=== PATIENT | male | born 1950 | race Caucasian/White ===

== ENCOUNTER → 2017-03-11 | Outpatient (CLI) | payer OTHER | END | disposition home or self-care (01) | LOC: LABPAT 13:21 | PROVIDERS: ATTEND Urology | DX: Z01.812 Encounter for preprocedural laboratory examination (principal); C67.8 Malignant neoplasm of overlapping sites of bladder; E11.9 Type 2 diabetes mellitus without complications | CPT/HCPCS: 93005 ==

== ENCOUNTER 2017-03-16 06:32 | Day surgery (SDC) | payer OTHER ==
[2017-03-14 13:23] VITALS: BMI 42.0
[~2017-03-16 06:32] MED LIST: DEXAMETHASONE SOD PHOSPHATE 10 MG/ML 1 ML VIAL IV ONE; HYDROmorphone 1 MG/ML 1 ML SYRINGE IVP PRN; LACTATED RINGERS 1,000 ML IV SCH; LIDOCAINE 1% 20 ML VIAL (10MG/ML) FOR IV START INTRADERMA PRN; MIDAZOLAM 2 MG/2 ML VIAL IV PRN; ONDANSETRON 4 MG/2 ML VIAL IVP ONE; Pre Op ABX Message 1 EACH MISC MISCELLANE ONE; SCOPOLAMINE 1.5MG/72HR PATCH TRANSDERM ONE
[2017-03-16 07:24] LABS: Glucose,Whole Blood 241 mg/dL (75-99)
[2017-03-16] MEDS ORDERED: fentaNYL (PF) 50 MCG/ML 2 ML AMP ONE (07:31)
[2017-03-16] MEDS ORDERED: PROPOFOL 10 MG/ML 20 ML VIAL IV ONE (07:31)
[2017-03-16] MEDS ORDERED: SUCCINYLCHOLINE CHLORIDE VIAL 200 MG/10 ML VIAL IV ONE (07:31)
[2017-03-16] MEDS ORDERED: NEOSTIGMINE 1 MG/ML 10 ML VIAL ONE (07:31)
[2017-03-16] MEDS ORDERED: ROCURONIUM BROMIDE 10 MG/ML 10 ML VIAL IV ONE (07:31)
[2017-03-16] MEDS ORDERED: LIDOCAINE 1% INJ 10MG/ML (20 ML MDV) ONE (07:31)
[2017-03-16] MEDS ORDERED: MIDAZOLAM 2 MG/2 ML VIAL ONE (07:31)
[2017-03-16] MEDS ORDERED: GLYCOPYRROLATE 0.2 MG/ML 2 ML VIAL ONE (07:31)
[2017-03-16] MEDS ORDERED: INSULIN LISPRO (humaLOG) 300 UNIT/3 ML VIAL SQ ONE (07:33)
[2017-03-16 08:59] VITALS: TEMP 97.1
--- NOTE | 2017-03-16 09:04 | P.OP ---
Date of Procedure: 03/16/17 Preoperative Diagnosis: Bladder cancer Postoperative Diagnosis: Bladder cancer Procedure(s) Performed: Transurethral resection of bladder tumor Implants: Anesthesia: MEKHIA Surgeon: Lauro Johnson Pathology: other (Fragments of bladder tumor) Condition: stable Disposition: PACU Indications for Procedure: Operative Findings: Description of Procedure: The patient was taken the operating suite where adequate general anesthesia via orotracheal intubation was instituted. The patient was placed in the dorsal lithotomy position with his legs suspended from padded Alan stirrups. Pneumatic compression stockings were applied to the lower legs. The genitalia was prepped with Betadine soap, painted with Betadine solution and draped in a sterile fashion. The 25-Irish Stortz resectoscope sheath with visual obturator and 30 lens was passed through the urethra under direct vision. The anterior urethra was free of inflammatory lesion, tumor and stricture. Prostatic urethra showed evidence of moderate lateral lobe enlargement. No urothelial abnormalities were noted. Both ureteral orifices were normal location and configuration and effluxed clear urine. On the left anterolateral wall was an area of necrotic tissue measuring 3 or 4 cm in diameter. The necrotic tissue was scraped away using the resectoscope loop down to the bladder wall. Unfortunately due to the patient's moribund obesity it was extremely difficult to get the end of the resectoscope up to the bladder wall even with myself and an assistant manager airside operations pushing on in the suprapubic area. The bladder wall under the necrotic tissue appeared to have a neoplastic appearance however no large papillary growths were present. I attempted to resect as much as possible but unfortunately it was impossible to resect down to the muscle due to the limitations of the length of the resectoscope and the patient's obesity. All accessible tissue was resected. The base of the resection was cauterized and at the completion the of procedure hemostasis appeared good. The resected tissue was submitted. The resectoscope was withdrawn. An 18- Irish Hooper catheter was inserted and left to gravity drainage The patient tolerated procedure well and left the operative room awake and in satisfactory condition patient's catheter will remain in place until his urine is clear further recommendations are dependent on the results of the tissue analysis.
[2017-03-16] MEDS ORDERED: KETOROLAC 30 MG/ML 1 ML VIAL IVP ONE (09:10)
[2017-03-16] MEDS ORDERED: MORPHINE SULFATE 4 MG/ML SYRINGE IVP ONE (09:15)
[2017-03-16 10:26] VITALS: BP 165/74; PULSE 69; RESP 18
[2017-03-16] MEDS ORDERED: HYDROmorphone 1 MG/ML 1 ML SYRINGE IVP ONE (10:40)
== END 2017-03-16 11:10 | disposition home or self-care (01) ==
LOC: OR 06:32
PROVIDERS: ATTEND Urology
DX: C67.2 Malignant neoplasm of lateral wall of bladder (principal); E66.01 Morbid (severe) obesity due to excess calories; I12.9 Hypertensive chronic kidney disease with stage 1 through stage 4 chronic kidney disease, or unspecified chronic kidney disease; E11.22 Type 2 diabetes mellitus with diabetic chronic kidney disease; N18.9 Chronic kidney disease, unspecified; E11.40 Type 2 diabetes mellitus with diabetic neuropathy, unspecified; G47.30 Sleep apnea, unspecified; I25.10 Atherosclerotic heart disease of native coronary artery without angina pectoris; E78.5 Hyperlipidemia, unspecified; I73.9 Peripheral vascular disease, unspecified; E78.00 Pure hypercholesterolemia, unspecified; K21.9 Gastro-esophageal reflux disease without esophagitis; Z85.528 Personal history of other malignant neoplasm of kidney; Z79.4 Long term (current) use of insulin; Z79.51 Long term (current) use of inhaled steroids; Z79.82 Long term (current) use of aspirin; Z79.899 Other long term (current) drug therapy; Z88.8 Allergy status to other drugs, medicaments and biological substances; Z88.2 Allergy status to sulfonamides; Z91.041 Radiographic dye allergy status; Z87.891 Personal history of nicotine dependence
CPT/HCPCS: 88342; 88307; 88341; 52235; J2250; J0330; J2270; J2710; J2405; J2001; J3010; J1885; J1170; J2704

== ENCOUNTER 2017-05-13 10:58 | Emergency (ER) | payer OTHER ==
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
--- NOTE | 2017-05-13 13:13 | US ---
EXAMINATION TYPE: US venous doppler duplex UE RT DATE OF EXAM: 05/13/2017 COMPARISON: NONE CLINICAL HISTORY: Pain. Trouble using PICC line with in home nurse SIDE PERFORMED: Right Right Arm: Appears negative for DVT Evaluation of portions of the internal jugular vein, subclavian vein axillary vein, basilic vein, bra chial veins, cephalic vein show color flow and normal compressibility. The basilic vein shows PICC li ne be present extending into the axillary vein. Radial veins show color flow as do the ulnar veins, a nd are compressible. IMPRESSION: Grayscale, color doppler, spectral doppler imaging performed of the deep veins of the upper extremiti es. There is normal flow, compressibility and vascular waveforms. No evident deep venous thrombosis in the veins evaluated in the right upper extremity.
[2017-05-13 13:42] VITALS: BP 133/59; PULSE 63; RESP 18; TEMP 98.7
== END 2017-05-13 13:48 | disposition home or self-care (01) ==
LOC: EC 10:58
DX: T80.89XA Other complications following infusion, transfusion and therapeutic injection, initial encounter (principal); E11.9 Type 2 diabetes mellitus without complications; E78.5 Hyperlipidemia, unspecified; I10 Essential (primary) hypertension; Z88.2 Allergy status to sulfonamides; Z91.041 Radiographic dye allergy status; Z79.4 Long term (current) use of insulin; Z79.82 Long term (current) use of aspirin; Z79.899 Other long term (current) drug therapy; Z87.891 Personal history of nicotine dependence
CPT/HCPCS: 99283

== ENCOUNTER 2017-06-22 14:38 | Inpatient (IN) | payer MEDICARE, OTHER ==
[2017-06-22] MEDS ORDERED: KETOROLAC 60 MG/2 ML VIAL IVP STA (14:47)
[2017-06-22] MEDS ORDERED: HYDROmorphone 1 MG/ML 1 ML SYRINGE IVP STA (14:47)
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
[2017-06-22 16:49] LABS: Basophils # (A) 0.1 k/uL (0-0.2); Basophils % (A) 1 %; CHCM 29.8; Eosinophils # (A) 0.2 k/uL (0-0.7); Eosinophils % (A) 3 %; Hypochromasia Marked; Luc # (Auto) 0.16; Luc % (Auto) 2; Lymphocytes # (A) 1.5 k/uL (1.0-4.8); Lymphocytes % (A) 21 %; MCH 26.3 pg (25.0-35.0); MCHC 31.1 g/dL (31.0-37.0); MCV 84.4 fL (80.0-100.0); Mean Platelet Volume 8.4; Monocytes # (A) 0.4 k/uL (0-1.0); Monocytes % (A) 6 %; Neutrophils # (A) 4.9 k/uL (1.3-7.7); Neutrophils % (A) 68 %; Poikilocytosis Slight; RDW 15.5 % (11.5-15.5); WBC 7.2 k/uL (3.8-10.6); WBC (Perox) 7.31
[2017-06-22 16:59] LABS: Calcium 8.2 mg/dL (8.4-10.2); Magnesium 1.8 mg/dL (1.6-2.3); Potassium 4.5 mmol/L (3.5-5.1); Total Bilirubin 0.1 mg/dL (0.2-1.3); Total Protein 5.8 g/dL (6.3-8.2)
[2017-06-22 17:00] LABS: HCT 18.5 % (39.0-53.0); HGB 5.8 gm/dL (13.0-17.5)
[2017-06-22 17:04] LABS: Partial Thromboplastin Time 22.9 sec (22.0-30.0); Prothrombin Time 9.8 sec (9.0-12.0)
[2017-06-22] MEDS ORDERED: SODIUM CHLORIDE 0.9% 1,000 ML IV ONE (17:06)
[2017-06-22] MEDS ORDERED: SYMBICORT 160-4.5 MCG INHALER INHALATION PRN (18:10)
[2017-06-22] MEDS ORDERED: ALPRAZolam 0.5 MG TAB PO PRN (18:10)
[2017-06-22 18:13] LABS: Glucose,Whole Blood 232 mg/dL (75-99)
[2017-06-22] MEDS ORDERED: FUROSEMIDE 10 MG/ML 4 ML VIAL IV STA (18:27)
[2017-06-22] MEDS: INSULIN LISPRO (humaLOG) 300 UNIT/3 ML VIAL SQ SCH ×2 (18:30→20:41)
--- NOTE | 2017-06-22 19:29 | XR ---
EXAMINATION TYPE: XR chest 1V portable DATE OF EXAM: 06/22/2017 CLINICAL HISTORY: Difficulty breathing progress study. CHF. TECHNIQUE: Single AP portable upright view of the chest is obtained. COMPARISON: Chest x-ray from August 20, 2010 FINDINGS: Cardiomegaly is now identified with new central vascular congestion. No large pleural effu ryann or pneumothorax is seen bilaterally. Scattered small calcified nodules are granulomas are felt r edemonstrated. Visualized osseous structures are intact. IMPRESSION: Suspect CHF exacerbation as there is cardiomegaly with mild to moderate central vascular congestion now identified.
[2017-06-22] MEDS: PANTOPRAZOLE 40 MG/10 ML VIAL IVP SCH (19:43)
--- NOTE | 2017-06-22 20:13 | HP ---
HISTORY AND PHYSICAL CHIEF COMPLAINT: Anemia. HISTORY OF PRESENT ILLNESS: This 66-year-old gentleman with a past medical history of diabetes, hypertension, history of bladder cancer, being followed by Dr. Alberto in the outpatient setting, recently had a TURP by Urology. Subsequently the patient was stated to have radiation and chemotherapy by Radiation Oncology; however, the patient was called back because his hemoglobin was 5.8. Patient was admitted for further evaluation and treatment. The patient has lia hematuria at this time. There is no history of any fever, rigor or chills. No history of headache, loss of consciousness, seizures. PAST MEDICAL HISTORY: 1. Diabetes. 2. Hypertension. 3. Hyperlipidemia. 4. History of bladder cancer. MEDICATIONS PRIOR TO ADMISSION: Medications prior to admission include: 1. Xanax 0.5 b.i.d. 2. Norvasc 10 mg daily. 3. Symbicort 160/4.5 b.i.d. 4. Capsaicin. 5. Vitamin D3. 6. Flonase. 7. HydroDIURIL 25 mg daily. 8. Lantus 60 mg b.i.d. 9. Humalog scale. 10.Nizoral b.i.d. 11.Zestril 20 mg b.i.d. 12.Claritin 10 mg daily. 13.Omeprazole 40 mg daily. 14.Lyrica 50 mg p.o. b.i.d. ALLERGIES: 1. IODINATED CONTRAST DYE. 2. SULFA. FAMILY HISTORY: No history of heart disease or strokes in the family. SOCIAL HISTORY: Previous history of smoking. No current smoking or alcohol intake. REVIEW OF SYSTEMS: ENT: Diminished hearing. Diminished vision. CARDIOVASCULAR: No angina, palpitations. RESPIRATORY SYSTEM: As mentioned earlier. GI: As mentioned earlier. : As mentioned earlier. NERVOUS SYSTEM: No numbness, weakness. ALLERGY/IMMUNOLOGY: No asthma or hayfever. MUSCULOSKELETAL: As mentioned earlier. HEMATOLOGY/ONCOLOGY: As mentioned earlier. ENDOCRINE: As mentioned earlier. Diabetes. CONSTITUTIONAL: As mentioned earlier. DERMATOLOGY: Negative. RHEUMATOLOGY: Negative. PSYCHIATRY: As mentioned earlier. PHYSICAL EXAMINATION: Patient is alert and oriented x3. Pulse 84, blood pressure 130/49, respiration 18, temperature 98 degrees, pulse ox 100% on 2 L. HEENT: Conjunctivae pale. Oral mucosa pale. NECK: No jugular venous distention. No carotid bruit. No lymph node enlargement. CARDIOVASCULAR SYSTEM: S1, S2 muffled. No S3. No S4. RESPIRATORY SYSTEM: Breath sounds diminished at the bases. A few scattered rhonchi. No crackles. ABDOMEN: Soft, obese, nontender. No mass palpable. LEGS: Bilateral leg edema. NERVOUS SYSTEM: Higher functions as mentioned earlier. No focal motor or sensory deficits. LYMPHATICS: No lymph node palpable in neck, axillae or groin. SKIN: No ulcer, rash, bleeding. LABS: WBC 7.2, hemoglobin 5.8. Creatinine is 1.50. ASSESSMENT: 1. Anemia, acute blood loss anemia for hematuria. 2. History of bladder cancer, recently diagnosed. 3. Increased creatinine with chronic kidney disease, stage III. 4. Diabetes mellitus, type 2. 5. Hypertension. 6. Hyperlipidemia. 7. History of degenerative joint disease. 8. Remote history of nicotine dependence. 9. Obesity with body mass index of 45.9. RECOMMENDATIONS AND DISCUSSION: In this 66-year-old gentleman who presented with multiple complex medical issues, we will monitor the patient closely, continue the current medications, continue symptomatic treatment. Otherwise, at this time I recommend 2 units of transfusion and a chest x-ray; rule out the possibility of fluid overload. I would also recommend Accu- Cheks before meals and at bedtime and scale, also. Home dose of insulin may be ordered. Radiation Oncology will be consulted. Repeat labs are recommended in the morning. Prognosis guarded because of multiple complex medical issues. Further recommendations to follow. Discussed with the patient, who understands and agrees. MMODL / IJN: [id number] /
[2017-06-22 20:34] LABS: Glucose,Whole Blood 166 mg/dL (75-99)
[2017-06-22] MEDS: LISINOPRIL 20 MG TAB PO SCH (20:35)
[2017-06-22] MEDS: HYDROCORTISONE 1% CREAM 30 GM TUBE TOPICAL SCH (20:35)
[2017-06-22] MEDS: KETOCONAZOLE 2% SHAMPOO 1 APPLIC/ML TOPICAL SCH (20:35)
[2017-06-22] MEDS: PREGABALIN 50 MG CAP PO SCH (20:36)
[2017-06-22] MEDS: CAPSAICIN 0.025% CREAM 60 GM TUBE TOPICAL SCH (20:36)
[2017-06-22] MEDS ORDERED: INSULIN GLARGINE 100 UNIT/ML 10 ML VIAL SQ SCH (21:00)
[2017-06-23 02:13] LABS: Basophils # (A) 0.1 k/uL (0-0.2); Basophils % (A) 1 %; CH 27.7; CHCM 31.9; Eosinophils # (A) 0.4 k/uL (0-0.7); Eosinophils % (A) 4 %; HCT 23.3 % (39.0-53.0); HDW 3.99; HGB 7.2 gm/dL (13.0-17.5); Hypochromasia Moderate; Luc # (Auto) 0.21; Luc % (Auto) 2; Lymphocytes % (A) 21 %; MCH 26.9 pg (25.0-35.0); MCHC 30.8 g/dL (31.0-37.0); MCV 87.1 fL (80.0-100.0); Mean Platelet Volume 7.5; Monocytes # (A) 0.8 k/uL (0-1.0); Monocytes % (A) 9 %; Neutrophils % (A) 63 %; Poikilocytosis Slight; RBC 2.68 m/uL (4.30-5.90); RDW 15.2 % (11.5-15.5); WBC 9.4 k/uL (3.8-10.6); WBC (Perox) 9.39
[2017-06-23 06:08] LABS: Calcium 8.4 mg/dL (8.4-10.2); Potassium 4.1 mmol/L (3.5-5.1)
[2017-06-23 06:49] LABS: Glucose,Whole Blood 90 mg/dL (75-99)
[2017-06-23] MEDS ORDERED: INSULIN LISPRO (humaLOG) 300 UNIT/3 ML VIAL SQ SCH (07:30)
[2017-06-23] MEDS ORDERED: PANTOPRAZOLE 40 MG TABLET PO SCH (07:30)
[2017-06-23 07:53] LABS: Glucose,Whole Blood 193 mg/dL (75-99)
[2017-06-23] MEDS: INSULIN LISPRO (humaLOG) 300 UNIT/3 ML VIAL SQ SCH ×4 (07:56→20:29)
[2017-06-23] MEDS: amLODIPine 10 MG TAB PO SCH (08:35)
[2017-06-23] MEDS: INSULIN GLARGINE 100 UNIT/ML 10 ML VIAL SQ SCH ×2 (08:36→20:37)
[2017-06-23] MEDS: CAPSAICIN 0.025% CREAM 60 GM TUBE TOPICAL SCH ×3 (08:36→20:30)
[2017-06-23] MEDS: FLUTICASONE 50MCG/SPRAY NASAL 16GM EA NOSTRIL SCH (08:36)
[2017-06-23] MEDS: HYDROCORTISONE 1% CREAM 30 GM TUBE TOPICAL SCH ×2 (08:36→20:28)
[2017-06-23] MEDS: LORATADINE 10 MG TAB PO SCH (08:36)
[2017-06-23] MEDS: LISINOPRIL 20 MG TAB PO SCH ×2 (08:36→20:30)
[2017-06-23] MEDS: HYDROCHLOROTHIAZIDE 25 MG TAB PO SCH (08:36)
[2017-06-23] MEDS: PANTOPRAZOLE 40 MG/10 ML VIAL IVP SCH (08:37)
[2017-06-23] MEDS: PREGABALIN 50 MG CAP PO SCH ×2 (08:37→20:37)
[2017-06-23 08:40] LABS: Basophils # (A) 0.1 k/uL (0-0.2); Basophils % (A) 1 %; CH 27.2; CHCM 30.8; Eosinophils # (A) 0.4 k/uL (0-0.7); Eosinophils % (A) 4 %; HCT 23.1 % (39.0-53.0); Hypochromasia Marked; Luc # (Auto) 0.14; Luc % (Auto) 2; Lymphocytes % (A) 24 %; MCHC 30.4 g/dL (31.0-37.0); MCV 88.8 fL (80.0-100.0); Mean Platelet Volume 7.3; Monocytes # (A) 0.6 k/uL (0-1.0); Monocytes % (A) 7 %; Neutrophils # (A) 5.1 k/uL (1.3-7.7); Neutrophils % (A) 62 %; Poikilocytosis Slight; WBC 8.2 k/uL (3.8-10.6); WBC (Perox) 8.03
[2017-06-23] MEDS ORDERED: ACETAMINOPHEN IV (For NPO) 1,000 MG in EMPTY BAG 1 BAG IVPB PRN (11:16)
[2017-06-23] MEDS: CHOLECALCIFEROL 1,000 UNIT TAB PO SCH (12:31)
[2017-06-23 12:33] LABS: Glucose,Whole Blood 212 mg/dL (75-99)
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
[2017-06-23] MEDS ORDERED: HYDROmorphone 0.5 MG/0.5 ML SYRINGE IVP PRN (17:10)
[2017-06-23 17:15] LABS: Glucose,Whole Blood 290 mg/dL (75-99)
[2017-06-23 17:24] LABS: Anisocytosis Slight; Basophils # (A) 0.1 k/uL (0-0.2); Basophils % (A) 1 %; CH 26.3; CHCM 30.9; Eosinophils # (A) 0.4 k/uL (0-0.7); Eosinophils % (A) 4 %; HCT 21.5 % (39.0-53.0); HDW 3.79; Hypochromasia Marked; Luc # (Auto) 0.14; Luc % (Auto) 2; Lymphocytes # (A) 1.4 k/uL (1.0-4.8); Lymphocytes % (A) 16 %; MCH 26.5 pg (25.0-35.0); MCHC 31.1 g/dL (31.0-37.0); MCV 85.4 fL (80.0-100.0); Mean Platelet Volume 8.1; Monocytes # (A) 0.6 k/uL (0-1.0); Monocytes % (A) 7 %; Neutrophils # (A) 5.9 k/uL (1.3-7.7); Neutrophils % (A) 70 %; Poikilocytosis Slight; RBC 2.52 m/uL (4.30-5.90); RDW 16.4 % (11.5-15.5); WBC 8.4 k/uL (3.8-10.6)
[2017-06-23 17:28] LABS: HGB 6.7 gm/dL (13.0-17.5)
[2017-06-23] MEDS: HYDROcodone/APAP 5-325MG 1 EACH TAB PO PRN (18:24)
--- NOTE | 2017-06-23 19:14 | PN ---
PROGRESS NOTE DATE OF SERVICE: 06/23/17. INTERVAL HISTORY: This 66-year-old gentleman admitted with anemia, also had bladder cancer. The patient is doing chemotherapy. Yesterday hemoglobin is 5.8, increased to 7.2 and currently is 7. Continuous bleeding is noted. The patient is also complaining of severe abdominal pain. No chest pain. No palpitations. The patient is being closely monitored in ICU. PAST MEDICAL HISTORY: Reviewed. REVIEW OF SYSTEMS: CARDIOVASCULAR: No angina. RESPIRATORY: As mentioned earlier. GI: As mentioned earlier. : No dysuria. NERVOUS: No numbness or weakness. CURRENT MEDICATIONS: 1. Tylenol p.r.n. 2. Xanax 0.5. 3. Norvasc 10 mg daily. 4. Symbicort 160/4.5 b.i.d. 5. Vitamin D. 6. HydroDIURIL. 7. Lantus 70 units subcu b.i.d. 8. Nizoral. 9. Zestril. 10.Protonix. 11.Claritin. 12.Lyrica. PHYSICAL EXAM: Patient is alert, oriented x3. Pulse 82, blood pressure 113/50, respiration 20, temperature is normal, pulse ox 97% on room air. HEENT: Conjunctivae pale. Oral mucosa also pale. NECK: No JVD is noted. No carotid bruits. CARDIOVASCULAR: S1, S2 muffled. RESPIRATORY: Breath sounds diminished in the bases. A few scattered rhonchi. No crackles. ABDOMEN: Soft, obese, nontender. LEGS: Minimal edema. NERVOUS SYSTEM: Moves all 4 limbs. No focal deficits. LABS: Potassium 4.1. WBC 8.2, hemoglobin 7. Accu-Cheks are 193, 212. ASSESSMENT: 1. Acute anemia, acute blood loss secondary to hematuria. 2. History of bladder cancer, recently diagnosed, on radiation therapy. 3. Increased creatinine with chronic kidney disease stage 3. 4. Diabetes type 2. 5. Hypertension. 6. Hyperlipidemia. 7. Severe abdominal pain. 8. History of degenerative joint disease. 9. Remote history of nicotine dependence. 10.Obesity with body mass index of 45.9. RECOMMENDATION AND DISCUSSION: Recommend to continue current management, continue symptomatic treatment. Otherwise at this time, I would recommend repeat hemoglobin. Patient already received 1 unit transfusion. Hemoglobin is 7.2 and 7. Recommend 2 units transfusion if the hemoglobin is falling. Otherwise, closely for Dr. Cabrera and Radiation Oncology is also following the patient closely. If the abdominal pain is not subsiding, I recommend a CT scan of the abdomen. Currently I would recommend symptomatic treatment with IV Dilaudid and [place]. Also see orders. Will monitor blood sugars closely. Blood sugars are fluctuating. Prognosis guarded. Further recommendations to follow. MMODL / IJN: [id number] /
[2017-06-23 20:25] LABS: Glucose,Whole Blood 363 mg/dL (75-99)
[2017-06-23] MEDS ORDERED: FUROSEMIDE 10 MG/ML 4 ML VIAL IV ONE (21:00)
[2017-06-24] MEDS: HYDROcodone/APAP 5-325MG 1 EACH TAB PO PRN (00:53)
[2017-06-24 05:38] LABS: Anisocytosis Slight; Basophils # (A) 0.1 k/uL (0-0.2); Basophils % (A) 1 %; CH 27.3; CHCM 31.6; Eosinophils # (A) 0.4 k/uL (0-0.7); Eosinophils % (A) 5 %; HCT 24.3 % (39.0-53.0); HDW 3.86; HGB 7.6 gm/dL (13.0-17.5); Hypochromasia Moderate; Luc # (Auto) 0.14; Luc % (Auto) 2; Lymphocytes # (A) 1.7 k/uL (1.0-4.8); Lymphocytes % (A) 20 %; MCH 27.3 pg (25.0-35.0); MCHC 31.4 g/dL (31.0-37.0); MCV 86.8 fL (80.0-100.0); Mean Platelet Volume 7.8; Monocytes # (A) 0.6 k/uL (0-1.0); Monocytes % (A) 7 %; Neutrophils # (A) 5.6 k/uL (1.3-7.7); Neutrophils % (A) 66 %; Poikilocytosis Slight; RDW 16.3 % (11.5-15.5); WBC 8.4 k/uL (3.8-10.6); WBC (Perox) 8.92
[2017-06-24 05:56] LABS: Calcium 8.6 mg/dL (8.4-10.2); Magnesium 1.9 mg/dL (1.6-2.3); Potassium 4.4 mmol/L (3.5-5.1); Total Bilirubin 0.4 mg/dL (0.2-1.3); Total Protein 5.9 g/dL (6.3-8.2)
[2017-06-24 07:18] LABS: Glucose,Whole Blood 203 mg/dL (75-99)
[2017-06-24] MEDS: INSULIN LISPRO (humaLOG) 300 UNIT/3 ML VIAL SQ SCH ×7 (07:31→20:56)
[2017-06-24] MEDS: PANTOPRAZOLE 40 MG/10 ML VIAL IVP SCH (07:31)
[2017-06-24] MEDS ORDERED: ONDANSETRON 4 MG/2 ML VIAL IVP PRN (08:31)
[2017-06-24] MEDS: amLODIPine 10 MG TAB PO SCH (09:05)
[2017-06-24] MEDS: CAPSAICIN 0.025% CREAM 60 GM TUBE TOPICAL SCH ×3 (09:05→20:56)
[2017-06-24] MEDS: LISINOPRIL 20 MG TAB PO SCH ×2 (09:06→21:02)
[2017-06-24] MEDS: INSULIN GLARGINE 100 UNIT/ML 10 ML VIAL SQ SCH ×2 (09:06→20:54)
[2017-06-24] MEDS: LORATADINE 10 MG TAB PO SCH (09:06)
[2017-06-24] MEDS: HYDROCORTISONE 1% CREAM 30 GM TUBE TOPICAL SCH ×2 (09:06→20:56)
[2017-06-24] MEDS: HYDROCHLOROTHIAZIDE 25 MG TAB PO SCH (09:06)
[2017-06-24] MEDS: FLUTICASONE 50MCG/SPRAY NASAL 16GM EA NOSTRIL SCH (09:06)
[2017-06-24] MEDS: PREGABALIN 50 MG CAP PO SCH ×2 (09:07→20:55)
--- NOTE | 2017-06-24 09:23 | P.PN ---
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 Johnson and subsequently by the urologist at [facility]. The past last intervention was done approximately 6 weeks ago. The patient was subsequently referred back to [place] to be evaluated by oncology for systemic chemotherapy and localized radiation therapy. Over the past 2-3 weeks, the patient was having bloody urine with some occasional passage of small blood clots. The physicians at [facility] are aware of this ongoing problem and the patient was asked to follow with oncology thinking that the bleeding source was the tumor itself and the patient would benefit from radiation therapy. In fact the patient was simulated for radiation and he was supposed to start radiation therapy within the next few days. He presented yesterday to the emergency department as the patient was found to have a hemoglobin of 5.8. After that he was brought into the ICU. He was given a total of 2 units of packed RBC and hemoglobin responded nicely. He has a obstructive sleep apnea. No chest pain. No exertional dyspnea. No cough or sputum production. No chest pain. No nausea or vomiting. He felt a constant urge to urinate and is uncomfortable as he urinates bloody urine. No urinary retention. No distention of the bladder. No abdominal pain. No nausea or vomiting. No fever or chills. No urinary tract infection. The patient has been on oral aspirin. No other form of anticoagulants. Correlation profile has been within normal limits. On 06/24/2017 the patient is being seen in follow-up. Note that the patient needed an additional 2 units of packed RBC transfusion and the current hemoglobin level is up to 7.6. He is still having bloody urine. He was taken to radiation oncology and received the first session of radiation treatment is medically yesterday. Still awaiting oncology evaluation regarding further advice for systemic treatment. Patient is hemodynamically stable. No respiratory distress. No cough or sputum production. Renal function stable at 1.6 creatinine. He is pulse oxing 100% on room air. Objective - Vital Signs Vital signs: Vital Signs Temp 97.5 F L 06/24/17 08:00 Pulse 78 06/24/17 09:00 Resp 19 06/24/17 09:00 BP 143/56 06/24/17 09:00 Pulse Ox 100 06/24/17 09:00 Intake & Output 06/23/17 06/24/17 06/24/17 18:59 06:59 18:59 Intake Total 240 1120 600 Output Total 1954 1800 250 Balance -1715 -063 350 Weight 142.6 kg Intake: IV 240 0 Sodium Chloride 0.9% 1, 240 0 000 ml @ 20 mls/hr IV . Q24H ONE Rx#:[id number] Oral 600 Blood Product 0 1120 Rc As-1 Unit 310 [id number] Rc As-1 Unit 0 310 [id number] Output: Urine 1954 1800 250 Other: Voiding Method Urinal Urinal Urinal # Voids 1 # Bowel Movements 1 1 1 - Exam Obese, comfortable likely distress.Head exam was generally normal. There was no scleral icterus or corneal arcus. Mucous membranes were moist. Neck is short and supple and the patient has significant crowding of the posterior oropharynx. There is no goiter or neck masses.Lungs were clear to auscultation and percussion, and with normal diaphragmatic excursion. No wheezes or rales were noted. Cardiac exam revealed the PMI to be normally situated and sized. The rhythm was regular and no extrasystoles were noted during several minutes of auscultation. The first and second heart sounds were normal and physiologic splitting of the second heart sound was noted. There were no murmurs, rubs, clicks, or gallops.Abdominal exam revealed normal bowel sounds. The abdomen was soft, non-tender, and without masses, organomegaly, or appreciable enlargement of the abdominal aorta. Extremities reveal diminished pulses in lower extremities bilaterally with trace edema and the patient has a stage I wound over the lateral aspect of the left lower extremity without evidence of any ulceration or infection at this point and the wound surface is very clean and erythematous and healthy looking. Neurologically the patient is awake and alert and there is no focal neurological deficit at this point. - Labs CBC & Chem 7: 06/24/17 04:45 06/24/17 04:45 Labs: Abnormal Lab Results - Last 24 Hours (Table) 06/22/17 06/23/17 06/23/17 Range/Units 16:27 04:35 12:30 RBC (4.30-5.90) m/uL Hgb (13.0-17.5) gm/dL Hct (39.0-53.0) % RDW (11.5-15.5) % BUN (9-20) mg/dL Creatinine (0.66-1.25) mg/dL Glucose (74-99) mg/dL POC Glucose (mg/dL) 212 H (75-99) mg/dL Hemoglobin A1c 7.0 H (4.0-6.0) % AST (17-59) U/L Total Protein (6.3-8.2) g/dL Albumin (3.5-5.0) g/dL Crossmatch See Detail 06/23/17 06/23/17 06/23/17 Range/Units 17:10 17:11 20:23 RBC 2.52 L (4.30-5.90) m/uL Hgb 6.7 L* (13.0-17.5) gm/dL Hct 21.5 L (39.0-53.0) % RDW 16.4 H (11.5-15.5) % BUN (9-20) mg/dL Creatinine (0.66-1.25) mg/dL Glucose (74-99) mg/dL POC Glucose (mg/dL) 290 H 363 H (75-99) mg/dL Hemoglobin A1c (4.0-6.0) % AST (17-59) U/L Total Protein (6.3-8.2) g/dL Albumin (3.5-5.0) g/dL Crossmatch 06/24/17 06/24/17 06/24/17 Range/Units 04:45 04:45 07:17 RBC 2.80 L (4.30-5.90) m/uL Hgb 7.6 L (13.0-17.5) gm/dL Hct 24.3 L (39.0-53.0) % RDW 16.3 H (11.5-15.5) % BUN 24 H (9-20) mg/dL Creatinine 1.60 H (0.66-1.25) mg/dL Glucose 203 H (74-99) mg/dL POC Glucose (mg/dL) 203 H (75-99) mg/dL Hemoglobin A1c (4.0-6.0) % AST 14 L (17-59) U/L Total Protein 5.9 L (6.3-8.2) g/dL Albumin 3.3 L (3.5-5.0) g/dL Crossmatch Microbiology - Last 24 Hours (Table) 06/23/17 10:15 Urine Culture - Preliminary Urine,Clean Catch Assessment and Plan Plan: 1 profound anemia secondary to ongoing hematuria, source being bladder tumor/ transitional cell carcinoma of the bladder for which the patient is awaiting radiation therapy. The patient received a total of 4 units of packed RBC and the subsequent hemoglobin is up to 7.6. The patient started on radiation therapy to his bladder. 2 transitional cell carcinoma of the bladder, locally advanced, status post sinus urethral resection 3 kidney cancer status post right nephrectomy 4 chronic renal failure with a creatinine of 1.6 5 severe peripheral vascular disease with a previous rest of bypass surgery involving the left lower extremity and the patient has a healing wound in the left leg, stage I 6 obesity 7 obstructive sleep apnea maintained on CPAP therapy on outpatient basis 8 diabetes mellitus 9 hypertension 10 hyperlipidemia 11 osteoarthritis Plan Continue monitoring the hemoglobin. The patient is having still ongoing hematuria which we've monitored very closely. Hemoglobin was monitored very closely. The patient will be transfused if hemoglobin is less than 7. Proceed with radiation therapy. Awaiting an oncology evaluation regarding systemic treatment. The patient will be transferred to oncology unit today.
[2017-06-24 13:25] LABS: Glucose,Whole Blood 154 mg/dL (75-99)
[2017-06-24] MEDS: CHOLECALCIFEROL 1,000 UNIT TAB PO SCH (13:27)
[2017-06-24] MEDS: SODIUM FERRIC GLUCONAT-SUCROSE 125 MG in SODIUM CHLORIDE 0.9% 100 ML IVPB SCH (17:20)
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
[2017-06-24 18:04] LABS: Glucose,Whole Blood 167 mg/dL (75-99)
[2017-06-24 20:20] LABS: Glucose,Whole Blood 196 mg/dL (75-99)
[2017-06-25 05:01] LABS: Glucose,Whole Blood 107 mg/dL (75-99)
[2017-06-25 05:40] LABS: Anisocytosis Slight; CH 27.6; CHCM 31.4; HCT 23.7 % (39.0-53.0); HDW 3.74; HGB 7.5 gm/dL (13.0-17.5); Hypochromasia Moderate; MCH 27.8 pg (25.0-35.0); MCHC 31.4 g/dL (31.0-37.0); MCV 88.5 fL (80.0-100.0); Mean Platelet Volume 8.2; Poikilocytosis Slight; RBC 2.68 m/uL (4.30-5.90); RDW 17.4 % (11.5-15.5); WBC 8.6 k/uL (3.8-10.6)
[2017-06-25 07:09] LABS: Glucose,Whole Blood 118 mg/dL (75-99)
[2017-06-25] MEDS: INSULIN LISPRO (humaLOG) 300 UNIT/3 ML VIAL SQ SCH ×7 (07:43→20:50)
[2017-06-25] MEDS: amLODIPine 10 MG TAB PO SCH (09:21)
[2017-06-25] MEDS: LISINOPRIL 20 MG TAB PO SCH ×2 (09:21→20:52)
[2017-06-25] MEDS: HYDROCORTISONE 1% CREAM 30 GM TUBE TOPICAL SCH ×2 (09:22→20:44)
[2017-06-25] MEDS: HYDROCHLOROTHIAZIDE 25 MG TAB PO SCH (09:22)
[2017-06-25] MEDS: LORATADINE 10 MG TAB PO SCH (09:22)
[2017-06-25] MEDS: FLUTICASONE 50MCG/SPRAY NASAL 16GM EA NOSTRIL SCH ×2 (09:22→09:30)
[2017-06-25] MEDS: CAPSAICIN 0.025% CREAM 60 GM TUBE TOPICAL SCH ×3 (09:23→20:45)
[2017-06-25] MEDS: PREGABALIN 50 MG CAP PO SCH ×2 (09:42→20:52)
[2017-06-25] MEDS: PANTOPRAZOLE 40 MG/10 ML VIAL IVP SCH (09:43)
[2017-06-25] MEDS: INSULIN GLARGINE 100 UNIT/ML 10 ML VIAL SQ SCH ×2 (11:01→20:52)
[2017-06-25] MEDS: CHOLECALCIFEROL 1,000 UNIT TAB PO SCH (11:03)
[2017-06-25 12:12] LABS: Glucose,Whole Blood 134 mg/dL (75-99)
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
--- NOTE | 2017-06-25 13:57 | P.PN ---
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 Johnson and subsequently by the urologist at [facility]. The past last intervention was done approximately 6 weeks ago. The patient was subsequently referred back to [place] to be evaluated by oncology for systemic chemotherapy and localized radiation therapy. Over the past 2-3 weeks, the patient was having bloody urine with some occasional passage of small blood clots. The physicians at [facility] are aware of this ongoing problem and the patient was asked to follow with oncology thinking that the bleeding source was the tumor itself and the patient would benefit from radiation therapy. In fact the patient was simulated for radiation and he was supposed to start radiation therapy within the next few days. He presented yesterday to the emergency department as the patient was found to have a hemoglobin of 5.8. After that he was brought into the ICU. He was given a total of 2 units of packed RBC and hemoglobin responded nicely. He has a obstructive sleep apnea. No chest pain. No exertional dyspnea. No cough or sputum production. No chest pain. No nausea or vomiting. He felt a constant urge to urinate and is uncomfortable as he urinates bloody urine. No urinary retention. No distention of the bladder. No abdominal pain. No nausea or vomiting. No fever or chills. No urinary tract infection. The patient has been on oral aspirin. No other form of anticoagulants. Correlation profile has been within normal limits. On 06/24/2017 the patient is being seen in follow-up. Note that the patient needed an additional 2 units of packed RBC transfusion and the current hemoglobin level is up to 7.6. He is still having bloody urine. He was taken to radiation oncology and received the first session of radiation treatment is medically yesterday. Still awaiting oncology evaluation regarding further advice for systemic treatment. Patient is hemodynamically stable. No respiratory distress. No cough or sputum production. Renal function stable at 1.6 creatinine. He is pulse oxing 100% on room air. The patient is seen again today 06/25/2017 follow up on the oncology unit. He is awake and alert in no acute distress. He has undergone 2 radiation treatments to the bladder. He is still having continuous E urine. He was passing some clots yesterday but none yet this morning. He has been drinking increased amounts of fluid and urinating quite well. He denies any shortness of breath, cough or congestion. No chest pain. No hemoptysis. He is maintaining good O2 saturations in the high 90s to 100% on room air. He has received a total of 4 units of packed red blood cells since admission. His current hemoglobin is 7.5. Hemodynamically stable. Objective - Vital Signs Vital signs: Vital Signs Temp 97.7 F 06/25/17 08:15 Pulse 77 06/25/17 11:30 Resp 16 06/25/17 11:30 BP 141/65 06/25/17 08:15 Pulse Ox 98 06/24/17 15:00 Intake & Output 06/24/17 06/25/17 06/25/17 18:59 06:59 18:59 Intake Total 1680 Output Total 850 Balance 830 Weight 142.6 kg Intake: IV 0 Sodium Chloride 0.9% 1, 0 000 ml @ 20 mls/hr IV . Q24H [facility] Rx#:[id number] Oral 1680 Output: Urine 850 Other: Voiding Method Urinal Urinal Bedside Commode # Voids 8 3 # Bowel Movements 1 - Exam Obese, comfortable likely distress.Head exam was generally normal. There was no scleral icterus or corneal arcus. Mucous membranes were moist. Neck is short and supple and the patient has significant crowding of the posterior oropharynx. There is no goiter or neck masses.Lungs were clear to auscultation and percussion, and with normal diaphragmatic excursion. No wheezes or rales were noted. Cardiac exam revealed the PMI to be normally situated and sized. The rhythm was regular and no extrasystoles were noted during several minutes of auscultation. The first and second heart sounds were normal and physiologic splitting of the second heart sound was noted. There were no murmurs, rubs, clicks, or gallops.Abdominal exam revealed normal bowel sounds. The abdomen was soft, non-tender, and without masses, organomegaly, or appreciable enlargement of the abdominal aorta. Extremities reveal diminished pulses in lower extremities bilaterally with trace edema and the patient has a stage I wound over the lateral aspect of the left lower extremity without evidence of any ulceration or infection at this point and the wound surface is very clean and erythematous and healthy looking. Neurologically the patient is awake and alert and there is no focal neurological deficit at this point. - Labs CBC & Chem 7: 06/25/17 05:17 06/24/17 04:45 Labs: Abnormal Lab Results - Last 24 Hours (Table) 06/24/17 06/24/17 06/25/17 Range/Units 18:01 20:19 04:40 RBC (4.30-5.90) m/uL Hgb (13.0-17.5) gm/dL Hct (39.0-53.0) % RDW (11.5-15.5) % POC Glucose (mg/dL) 167 H 196 H 107 H (75-99) mg/dL 06/25/17 06/25/17 06/25/17 Range/Units 05:17 07:04 12:07 RBC 2.68 L (4.30-5.90) m/uL Hgb 7.5 L (13.0-17.5) gm/dL Hct 23.7 L (39.0-53.0) % RDW 17.4 H (11.5-15.5) % POC Glucose (mg/dL) 118 H 134 H (75-99) mg/dL Microbiology - Last 24 Hours (Table) 06/23/17 10:15 Urine Culture - Final Urine,Clean Catch Assessment and Plan Assessment: 1 profound anemia secondary to ongoing hematuria, source being bladder tumor/ transitional cell carcinoma of the bladder for which the patient is awaiting radiation therapy. The patient received a total of 4 units of packed RBC and the subsequent hemoglobin is up to 7.5. The patient started on radiation therapy to his bladder. 2 transitional cell carcinoma of the bladder, locally advanced, status post sinus urethral resection 3 kidney cancer status post right nephrectomy 4 chronic renal failure with a creatinine of 1.6 5 severe peripheral vascular disease with a previous rest of bypass surgery involving the left lower extremity and the patient has a healing wound in the left leg, stage I 6 obesity 7 obstructive sleep apnea maintained on CPAP therapy on outpatient basis 8 diabetes mellitus 9 hypertension 10 hyperlipidemia 11 osteoarthritis Plan The patient was seen and evaluated by Dr. Cabrera. The patient is stable from the pulmonary and critical care standpoint. He'll continue on his Symbicort. We'll follow the patient on as-needed basis. I, the cosigning physician, have performed a history and physical examination on the patient. Lung sounds are clear. Maintaining good O2 saturations in the 90s on room air. I have discussed the assessment and plan of care with my nurse practitioner, Jodie Camejo. I attest the above documented note as dictated by her.
[2017-06-25 17:31] LABS: Glucose,Whole Blood 114 mg/dL (75-99)
[2017-06-25 20:34] LABS: Glucose,Whole Blood 213 mg/dL (75-99)
[2017-06-25] MEDS: SODIUM FERRIC GLUCONAT-SUCROSE 125 MG in SODIUM CHLORIDE 0.9% 100 ML IVPB SCH (20:44)
--- NOTE | 2017-06-26 00:19 | P.PN ---
Subjective Progress Note Date: 06/24/17 Principal diagnosis: Hematuria Patient is a 66-year-old male with a known history of recently diagnosed urothelial cancer currently undergoing chemotherapy and is scheduled for radiation therapy admitted to hospital due to hematuria. Patient's hemoglobin was 5.8 on admission. Patient underwent 2 units of blood transfusion and hemoglobin currently at 7.6. Patient was initially in the ICU and was positive medical floor now. Patient had blood clots in the morning today otherwise patient does have clear urine. No fever no chills. No commerce of chest pain or short of breath. No nausea vomiting or abdominal pain. Patient is symptomatically improving. Oncology and pulmonary is following. Radiation oncology was consulted. All other review of systems negative except the above Current medications reviewed Objective - Vital Signs Vital signs: Vital Signs Temp 98 F 06/24/17 15:00 Pulse 83 06/24/17 16:00 Resp 17 06/24/17 16:00 BP 110/53 06/24/17 15:00 Pulse Ox 98 06/24/17 15:00 Intake & Output 06/24/17 06/24/17 06/25/17 06:59 18:59 06:59 Intake Total 1120 1680 Output Total 1800 850 Balance -680 830 Weight 142.6 kg Intake: IV 0 Sodium Chloride 0.9% 1, 0 000 ml @ 20 mls/hr IV . Q24H [facility] Rx#:[id number] Oral 1680 Blood Product 1120 Rc As-1 Unit 310 [id number] Rc As-1 Unit 310 [id number] Output: Urine 1800 850 Other: Voiding Method Urinal Urinal # Voids 1 8 # Bowel Movements 1 1 - Exam PHYSICAL EXAMINATION: Patient is lying in the bed comfortably, no acute distress, awake alert and oriented.. HEENT: Normocephalic. Neck is supple. Pupils reactive. Nostrils clear. Oral cavity is moist. Ears reveal no drainage. Neck reveals no JVD, carotid bruits, or thyromegaly. CHEST EXAMINATION: Trachea is central. Symmetrical expansion. Lung vital clear to auscultation and percussion. CARDIAC: Normal S1, S2 with no gallops. No murmurs ABDOMEN: Soft. Bowel sounds normal. No organomegaly. No abdominal bruits. Extremities: reveal no edema. No clubbing or cyanosis Neurologically awake, alert, oriented x3 with well-coordinated movements. No focal deficits noted Skin: No rash or skin lesions. Psychiatric: Operative. Nonsuicidal Musculoskeletal: No joint swelling or deformity. Normal range of motion. - Labs CBC & Chem 7: 06/25/17 05:17 06/24/17 04:45 Labs: Abnormal Lab Results - Last 24 Hours (Table) 06/22/17 06/23/17 06/24/17 Range/Units 16:27 04:35 04:45 RBC 2.80 L (4.30-5.90) m/uL Hgb 7.6 L (13.0-17.5) gm/dL Hct 24.3 L (39.0-53.0) % RDW 16.3 H (11.5-15.5) % BUN (9-20) mg/dL Creatinine (0.66-1.25) mg/dL Glucose (74-99) mg/dL POC Glucose (mg/dL) (75-99) mg/dL Hemoglobin A1c 7.0 H (4.0-6.0) % AST (17-59) U/L Total Protein (6.3-8.2) g/dL Albumin (3.5-5.0) g/dL Crossmatch See Detail 06/24/17 06/24/17 06/24/17 Range/Units 04:45 07:17 13:21 RBC (4.30-5.90) m/uL Hgb (13.0-17.5) gm/dL Hct (39.0-53.0) % RDW (11.5-15.5) % BUN 24 H (9-20) mg/dL Creatinine 1.60 H (0.66-1.25) mg/dL Glucose 203 H (74-99) mg/dL POC Glucose (mg/dL) 203 H 154 H (75-99) mg/dL Hemoglobin A1c (4.0-6.0) % AST 14 L (17-59) U/L Total Protein 5.9 L (6.3-8.2) g/dL Albumin 3.3 L (3.5-5.0) g/dL Crossmatch 06/24/17 06/24/17 Range/Units 18:01 20:19 RBC (4.30-5.90) m/uL Hgb (13.0-17.5) gm/dL Hct (39.0-53.0) % RDW (11.5-15.5) % BUN (9-20) mg/dL Creatinine (0.66-1.25) mg/dL Glucose (74-99) mg/dL POC Glucose (mg/dL) 167 H 196 H (75-99) mg/dL Hemoglobin A1c (4.0-6.0) % AST (17-59) U/L Total Protein (6.3-8.2) g/dL Albumin (3.5-5.0) g/dL Crossmatch Microbiology - Last 24 Hours (Table) 06/23/17 10:15 Urine Culture - Final Urine,Clean Catch Assessment and Plan Assessment: #1 acute blood loss anemia secondary to hematuria #2 history of bladder cancer recently diagnosed recurrent and chemotherapy and scheduled for radiation therapy. #3 acute on chronic kidney disease stage III #4 hypertension #4 hyperlipidemia #6 history of nicotine addiction #7 degenerative joint disease #8 abnormal pain improved Plan: Patient underwent 2 units of PRBC transfusion yesterday with improved hemoglobin to 7.6 now. We'll continue the current management. follow H&H. Radiation oncology has been consulted. Symptomatic management and further recommendations based on the clinical course. Prognosis is poor. Time with Patient: Greater than 30
--- NOTE | 2017-06-26 00:20 | P.PN ---
Subjective Progress Note Date: 06/25/17 Principal diagnosis: Hematuria Patient is a 66-year-old male with a known history of recently diagnosed urothelial cancer currently undergoing chemotherapy and is scheduled for radiation therapy admitted to hospital due to hematuria. Patient's hemoglobin was 5.8 on admission. Patient underwent 2 units of blood transfusion and hemoglobin currently at 7.6. Patient was initially in the ICU and was positive medical floor now. Patient had blood clots in the morning today otherwise patient does have clear urine. No fever no chills. No commerce of chest pain or short of breath. No nausea vomiting or abdominal pain. Patient is symptomatically improving. Oncology and pulmonary is following. Radiation oncology was consulted. 06/25/2017 Patient began having dark-colored urine today. Hemoglobin is 7.5. Denied any abdominal pain. No nausea vomiting. No fever no chills. No complaints of chest pain or short of breath. All other review of systems negative except the above Current medications reviewed Objective - Vital Signs Vital signs: Vital Signs Temp 98.2 F 06/25/17 20:55 Pulse 69 06/25/17 20:55 Resp 16 06/25/17 20:55 BP 146/69 06/25/17 20:55 Pulse Ox 98 06/25/17 20:55 Intake & Output 06/25/17 06/25/17 06/26/17 06:59 18:59 05:59 Intake Total 100 Output Total 125 Balance -125 100 Weight 142.6 kg Intake: Intake, IV Titration 100 Amount Sodium Ferric Gluconat- 100 Sucrose 125 mg In Sodium Chloride 0.9% 100 ml @ 100 mls/hr IVPB Q24H [facility] Rx#:[id number] Output: Urine 125 Other: Voiding Method Urinal Bedside Commode # Voids 3 - Exam PHYSICAL EXAMINATION: Patient is lying in the bed comfortably, no acute distress, awake alert and oriented.. HEENT: Normocephalic. Neck is supple. Pupils reactive. Nostrils clear. Oral cavity is moist. Ears reveal no drainage. Neck reveals no JVD, carotid bruits, or thyromegaly. CHEST EXAMINATION: Trachea is central. Symmetrical expansion. Lung vital clear to auscultation and percussion. CARDIAC: Normal S1, S2 with no gallops. No murmurs ABDOMEN: Soft. Bowel sounds normal. No organomegaly. No abdominal bruits. Extremities: reveal no edema. No clubbing or cyanosis Neurologically awake, alert, oriented x3 with well-coordinated movements. No focal deficits noted Skin: No rash or skin lesions. Psychiatric: Operative. Nonsuicidal Musculoskeletal: No joint swelling or deformity. Normal range of motion. - Labs CBC & Chem 7: 06/25/17 05:17 06/24/17 04:45 Labs: Abnormal Lab Results - Last 24 Hours (Table) 06/25/17 06/25/17 06/25/17 Range/Units 04:40 05:17 07:04 RBC 2.68 L (4.30-5.90) m/uL Hgb 7.5 L (13.0-17.5) gm/dL Hct 23.7 L (39.0-53.0) % RDW 17.4 H (11.5-15.5) % POC Glucose (mg/dL) 107 H 118 H (75-99) mg/dL 06/25/17 06/25/17 06/25/17 Range/Units 12:07 17:29 20:31 RBC (4.30-5.90) m/uL Hgb (13.0-17.5) gm/dL Hct (39.0-53.0) % RDW (11.5-15.5) % POC Glucose (mg/dL) 134 H 114 H 213 H (75-99) mg/dL Assessment and Plan Assessment: #1 acute blood loss anemia secondary to hematuria #2 history of bladder cancer recently diagnosed recurrent and chemotherapy and scheduled for radiation therapy. #3 acute on chronic kidney disease stage III #4 hypertension #4 hyperlipidemia #6 history of nicotine addiction #7 degenerative joint disease #8 abnormal pain improved #9 moderate obesity with BMI 45.1 Plan: Patient underwent 2 units of PRBC transfusion on 06/23/2017 with improved hemoglobin to 7.6 --7.5 now. We'll continue the current management. follow H& H. Radiation oncology has been consulted. Symptomatic management and further recommendations based on the clinical course. Prognosis is poor.
[2017-06-26 07:15] LABS: Glucose,Whole Blood 74 mg/dL (75-99)
[2017-06-26] MEDS: INSULIN LISPRO (humaLOG) 300 UNIT/3 ML VIAL SQ SCH ×7 (07:27→21:36)
[2017-06-26] MEDS: amLODIPine 10 MG TAB PO SCH (08:41)
[2017-06-26] MEDS: LISINOPRIL 20 MG TAB PO SCH ×2 (08:42→20:03)
[2017-06-26] MEDS: HYDROCORTISONE 1% CREAM 30 GM TUBE TOPICAL SCH ×2 (08:42→20:03)
[2017-06-26] MEDS: FLUTICASONE 50MCG/SPRAY NASAL 16GM EA NOSTRIL SCH (08:42)
[2017-06-26] MEDS: HYDROCHLOROTHIAZIDE 25 MG TAB PO SCH (08:42)
[2017-06-26] MEDS: LORATADINE 10 MG TAB PO SCH (08:42)
[2017-06-26] MEDS: PREGABALIN 50 MG CAP PO SCH ×2 (08:43→20:03)
[2017-06-26] MEDS: CAPSAICIN 0.025% CREAM 60 GM TUBE TOPICAL SCH ×3 (08:43→20:03)
[2017-06-26] MEDS: PANTOPRAZOLE 40 MG/10 ML VIAL IVP SCH ×2 (09:04→10:43)
[2017-06-26] MEDS: INSULIN GLARGINE 100 UNIT/ML 10 ML VIAL SQ SCH ×2 (10:06→21:38)
[2017-06-26 11:12] LABS: Anisocytosis Slight; Basophils # (A) 0.1 k/uL (0-0.2); Basophils % (A) 1 %; CH 28.1; Eosinophils # (A) 0.2 k/uL (0-0.7); Eosinophils % (A) 2 %; HCT 26.9 % (39.0-53.0); HDW 3.89; HGB 8.1 gm/dL (13.0-17.5); Hypochromasia Marked; Luc # (Auto) 0.12; Luc % (Auto) 1; Lymphocytes # (A) 1.2 k/uL (1.0-4.8); Lymphocytes % (A) 12 %; MCH 27.5 pg (25.0-35.0); MCHC 30.2 g/dL (31.0-37.0); MCV 91.1 fL (80.0-100.0); Monocytes # (A) 0.6 k/uL (0-1.0); Monocytes % (A) 6 %; Neutrophils # (A) 8.4 k/uL (1.3-7.7); Neutrophils % (A) 79 %; Poikilocytosis Slight; RBC 2.95 m/uL (4.30-5.90); RDW 16.6 % (11.5-15.5); WBC 10.6 k/uL (3.8-10.6); WBC (Perox) 10.61
--- NOTE | 2017-06-26 12:06 | P.PN ---
Progress Note - Text Progress Note Date: 06/26/17 Mr. Nickerson states that he is feeling better today. He feels that the hematuria is somewhat improved. He has passed no clots, and denies pain or difficulty voiding. The urine continues to be kennedy colored in appearance. The hemoglobin level today is 8.1, up from 7.5 yesterday. Radiation therapy will be resumed tomorrow, and he will soon begin chemotherapy. I am hopeful that this will result in resolution of his hematuria. In the meantime, if he develops urinary retention, a Hooper catheter will be placed and clots irrigated. If this is unsuccessful, he could require cystoscopy with evacuation of clot. However, neither of these procedures is felt to be warranted at this time.
[2017-06-26 12:14] LABS: Glucose,Whole Blood 121 mg/dL (75-99)
[2017-06-26] MEDS: CHOLECALCIFEROL 1,000 UNIT TAB PO SCH (12:25)
[2017-06-26 16:31] LABS: Glucose,Whole Blood 144 mg/dL (75-99)
[2017-06-26 21:21] LABS: Glucose,Whole Blood 183 mg/dL (75-99)
--- NOTE | 2017-06-27 00:02 | P.PN ---
Subjective Progress Note Date: 06/26/17 Principal diagnosis: Hematuria Patient is a 66-year-old male with a known history of recently diagnosed urothelial cancer currently undergoing chemotherapy and is scheduled for radiation therapy admitted to hospital due to hematuria. Patient's hemoglobin was 5.8 on admission. Patient underwent 2 units of blood transfusion and hemoglobin currently at 7.6. Patient was initially in the ICU and was positive medical floor now. Patient had blood clots in the morning today otherwise patient does have clear urine. No fever no chills. No commerce of chest pain or short of breath. No nausea vomiting or abdominal pain. Patient is symptomatically improving. Oncology and pulmonary is following. Radiation oncology was consulted and was started on radiation therapy. 06/25/2017 Patient began having dark-colored urine today. Hemoglobin is 7.5. Denied any abdominal pain. No nausea vomiting. No fever no chills. No complaints of chest pain or short of breath. 06/26/2017 Patient is still having dark-colored urine but improved. Hemoglobin Is actually improved to 8.1 today. Patient will be continued on radiation therapy tomorrow. Patient denied any further clots. No fever no chills. No complaints of chest pain or short of breath. All other review of systems negative except the above Current medications reviewed Objective - Vital Signs Vital signs: Vital Signs Temp 99.1 F 06/26/17 15:00 Pulse 82 06/26/17 15:00 Resp 16 06/26/17 15:00 BP 132/55 06/26/17 15:00 Pulse Ox 96 06/26/17 15:00 Intake & Output 06/26/17 06/26/17 06/27/17 06:59 18:59 06:59 Intake Total 240 240 Balance 240 240 Intake: Intake, IV Titration Amount Sodium Ferric Gluconat- Sucrose 125 mg In Sodium Chloride 0.9% 100 ml @ 100 mls/hr IVPB Q24H [facility] Rx#:[id number] Oral 240 240 Other: Voiding Method Bedside Commode # Voids 2 - Exam PHYSICAL EXAMINATION: Patient is lying in the bed comfortably, no acute distress, awake alert and oriented.. HEENT: Normocephalic. Neck is supple. Pupils reactive. Nostrils clear. Oral cavity is moist. Ears reveal no drainage. Neck reveals no JVD, carotid bruits, or thyromegaly. CHEST EXAMINATION: Trachea is central. Symmetrical expansion. Lung vital clear to auscultation and percussion. CARDIAC: Normal S1, S2 with no gallops. No murmurs ABDOMEN: Soft. Bowel sounds normal. No organomegaly. No abdominal bruits. Extremities: reveal no edema. No clubbing or cyanosis Neurologically awake, alert, oriented x3 with well-coordinated movements. No focal deficits noted Skin: No rash or skin lesions. Psychiatric: Operative. Nonsuicidal Musculoskeletal: No joint swelling or deformity. Normal range of motion. - Labs CBC & Chem 7: 06/26/17 10:49 06/24/17 04:45 Labs: Abnormal Lab Results - Last 24 Hours (Table) 06/26/17 06/26/17 06/26/17 Range/Units 07:13 10:49 12:11 RBC 2.95 L (4.30-5.90) m/uL Hgb 8.1 L (13.0-17.5) gm/dL Hct 26.9 L (39.0-53.0) % MCHC 30.2 L (31.0-37.0) g/dL RDW 16.6 H (11.5-15.5) % Neutrophils # 8.4 H (1.3-7.7) k/uL POC Glucose (mg/dL) 74 L 121 H (75-99) mg/dL 06/26/17 06/26/17 Range/Units 16:29 21:10 RBC (4.30-5.90) m/uL Hgb (13.0-17.5) gm/dL Hct (39.0-53.0) % MCHC (31.0-37.0) g/dL RDW (11.5-15.5) % Neutrophils # (1.3-7.7) k/uL POC Glucose (mg/dL) 144 H 183 H (75-99) mg/dL Assessment and Plan Assessment: #1 acute blood loss anemia secondary to hematuria #2 history of bladder cancer recently diagnosed currently undergoing radiation therapy. Followed by chemo #3 acute on chronic kidney disease stage III #4 hypertension #4 hyperlipidemia #6 history of nicotine addiction #7 degenerative joint disease #8 abnormal pain improved #9 moderate obesity with BMI 45.1 Plan: Patient underwent 2 units of PRBC transfusion on 06/23/2017 with improved hemoglobin to 7.6 --7.5--8.1 now. We'll continue the current management. follow H&H. Radiation oncology has been consulted and will be continued on radiation therapy. Followed by chemo. Symptomatic management and further recommendations based on the clinical course. Prognosis is poor.
[2017-06-27 07:16] LABS: Glucose,Whole Blood 250 mg/dL (75-99)
[2017-06-27] MEDS: INSULIN LISPRO (humaLOG) 300 UNIT/3 ML VIAL SQ SCH ×7 (07:55→20:29)
[2017-06-27] MEDS: INSULIN GLARGINE 100 UNIT/ML 10 ML VIAL SQ SCH ×2 (07:55→20:30)
[2017-06-27] MEDS: FLUTICASONE 50MCG/SPRAY NASAL 16GM EA NOSTRIL SCH (07:56)
[2017-06-27] MEDS: HYDROCORTISONE 1% CREAM 30 GM TUBE TOPICAL SCH ×2 (07:57→20:30)
[2017-06-27] MEDS: CAPSAICIN 0.025% CREAM 60 GM TUBE TOPICAL SCH ×3 (07:57→20:30)
[2017-06-27] MEDS: PANTOPRAZOLE 40 MG/10 ML VIAL IVP SCH (07:58)
[2017-06-27] MEDS: LISINOPRIL 20 MG TAB PO SCH ×2 (07:58→20:29)
[2017-06-27] MEDS: HYDROCHLOROTHIAZIDE 25 MG TAB PO SCH (07:58)
[2017-06-27] MEDS: LORATADINE 10 MG TAB PO SCH (07:59)
[2017-06-27] MEDS: amLODIPine 10 MG TAB PO SCH (07:59)
[2017-06-27] MEDS: PREGABALIN 50 MG CAP PO SCH ×2 (08:44→20:29)
[2017-06-27 11:42] LABS: Glucose,Whole Blood 210 mg/dL (75-99)
[2017-06-27] MEDS: HYDROcodone/APAP 5-325MG 1 EACH TAB PO PRN (11:52)
[2017-06-27] MEDS: CHOLECALCIFEROL 1,000 UNIT TAB PO SCH (11:54)
--- NOTE | 2017-06-27 15:56 | P.PN ---
Progress Note - Text Progress Note Date: 06/27/17 The patient continues to pass blood in his urine but it is now dark colored which may reflect old blood which has settled to the dependent portion of his bladder. He complains of urinary frequency but has been drinking large amounts of water. His hemoglobin has increased over the last 24 hours which would be consistent with no active bleeding. He will be continued on radiation therapy and is hopeful he will be able to begin chemotherapy soon as well. At least at this time I have no plans for repeat cystoscopy and cautery of the area of his original bladder tumor.
[2017-06-27 17:10] LABS: Glucose,Whole Blood 207 mg/dL (75-99)
[2017-06-27 20:13] LABS: Glucose,Whole Blood 189 mg/dL (75-99)
--- NOTE | 2017-06-27 23:42 | P.PN ---
Subjective Progress Note Date: 06/27/17 Principal diagnosis: Hematuria Patient is a 66-year-old male with a known history of recently diagnosed urothelial cancer currently undergoing chemotherapy and is scheduled for radiation therapy admitted to hospital due to hematuria. Patient's hemoglobin was 5.8 on admission. Patient underwent 2 units of blood transfusion and hemoglobin currently at 7.6. Patient was initially in the ICU and was positive medical floor now. Patient had blood clots in the morning today otherwise patient does have clear urine. No fever no chills. No commerce of chest pain or short of breath. No nausea vomiting or abdominal pain. Patient is symptomatically improving. Oncology and pulmonary is following. Radiation oncology was consulted and was started on radiation therapy. 06/25/2017 Patient began having dark-colored urine today. Hemoglobin is 7.5. Denied any abdominal pain. No nausea vomiting. No fever no chills. No complaints of chest pain or short of breath. 06/26/2017 Patient is still having dark-colored urine but improved. Hemoglobin Is actually improved to 8.1 today. Patient will be continued on radiation therapy tomorrow. Patient denied any further clots. No fever no chills. No complaints of chest pain or short of breath. 06/27/2017 Patient is still complaining of dark-colored urine. Patient has been urinating well. Will follow hemoglobin. Otherwise patient is scheduled for radiation therapy today he had no fever no chills. No acute overnight issues. All other review of systems negative except the above Current medications reviewed Objective - Vital Signs Vital signs: Vital Signs Temp 98.2 F 06/27/17 14:51 Pulse 74 06/27/17 14:51 Resp 16 06/27/17 14:51 BP 162/70 06/27/17 14:51 Pulse Ox 97 06/27/17 14:51 Intake & Output 06/27/17 06/27/17 06/28/17 06:59 18:59 06:59 Intake Total 1080 Balance 1080 Weight 142.6 kg Intake: Oral 1080 Other: Voiding Method Toilet Toilet Urinal Urinal # Voids 2 4 # Bowel Movements 1 - Exam PHYSICAL EXAMINATION: Patient is lying in the bed comfortably, no acute distress, awake alert and oriented.. HEENT: Normocephalic. Neck is supple. Pupils reactive. Nostrils clear. Oral cavity is moist. Ears reveal no drainage. Neck reveals no JVD, carotid bruits, or thyromegaly. CHEST EXAMINATION: Trachea is central. Symmetrical expansion. Lung vital clear to auscultation and percussion. CARDIAC: Normal S1, S2 with no gallops. No murmurs ABDOMEN: Soft. Bowel sounds normal. No organomegaly. No abdominal bruits. Extremities: reveal no edema. No clubbing or cyanosis Neurologically awake, alert, oriented x3 with well-coordinated movements. No focal deficits noted Skin: No rash or skin lesions. Psychiatric: Operative. Nonsuicidal Musculoskeletal: No joint swelling or deformity. Normal range of motion. - Labs CBC & Chem 7: 06/26/17 10:49 06/24/17 04:45 Labs: Abnormal Lab Results - Last 24 Hours (Table) 06/27/17 06/27/17 06/27/17 Range/Units 07:05 11:40 17:07 POC Glucose (mg/dL) 250 H 210 H 207 H (75-99) mg/dL 06/27/17 Range/Units 20:11 POC Glucose (mg/dL) 189 H (75-99) mg/dL Assessment and Plan Assessment: #1 acute blood loss anemia secondary to hematuria. #2 history of bladder cancer recently diagnosed currently undergoing radiation therapy. Followed by chemo #3 acute on chronic kidney disease stage III #4 hypertension #4 hyperlipidemia #6 history of nicotine addiction #7 degenerative joint disease #8 abnormal pain improved #9 moderate obesity with BMI 45.1 Plan: Patient underwent 2 units of PRBC transfusion on 06/23/2017 with improved hemoglobin to 7.6 --7.5--8.1 now. We'll continue the current management. follow H&H. Radiation oncology has been consulted and will be continued on radiation therapy. Followed by chemo. Symptomatic management and further recommendations based on the clinical course. Prognosis is poor.
[2017-06-28 07:52] LABS: Anisocytosis Slight; Basophils # (A) 0.1 k/uL (0-0.2); Basophils % (A) 1 %; CHCM 31.1; Eosinophils # (A) 0.2 k/uL (0-0.7); Eosinophils % (A) 3 %; HCT 24.8 % (39.0-53.0); HGB 7.8 gm/dL (13.0-17.5); Hypochromasia Marked; Luc # (Auto) 0.14; Luc % (Auto) 2; Lymphocytes % (A) 14 %; MCH 27.6 pg (25.0-35.0); MCHC 31.6 g/dL (31.0-37.0); MCV 87.3 fL (80.0-100.0); Mean Platelet Volume 7.6; Monocytes # (A) 0.4 k/uL (0-1.0); Monocytes % (A) 6 %; Neutrophils % (A) 74 %; Poikilocytosis Slight; RBC 2.84 m/uL (4.30-5.90); RDW 17.6 % (11.5-15.5); WBC 6.7 k/uL (3.8-10.6); WBC (Perox) 6.63
[2017-06-28 07:54] LABS: Glucose,Whole Blood 179 mg/dL (75-99)
[2017-06-28] MEDS: INSULIN GLARGINE 100 UNIT/ML 10 ML VIAL SQ SCH ×2 (08:09→20:48)
[2017-06-28] MEDS: PREGABALIN 50 MG CAP PO SCH ×2 (08:09→20:49)
[2017-06-28] MEDS: FLUTICASONE 50MCG/SPRAY NASAL 16GM EA NOSTRIL SCH (08:10)
[2017-06-28] MEDS: INSULIN LISPRO (humaLOG) 300 UNIT/3 ML VIAL SQ SCH ×7 (08:10→20:45)
[2017-06-28] MEDS: CAPSAICIN 0.025% CREAM 60 GM TUBE TOPICAL SCH ×3 (08:11→20:50)
[2017-06-28] MEDS: HYDROCORTISONE 1% CREAM 30 GM TUBE TOPICAL SCH ×2 (08:11→20:50)
[2017-06-28] MEDS: amLODIPine 10 MG TAB PO SCH (08:11)
[2017-06-28] MEDS: HYDROCHLOROTHIAZIDE 25 MG TAB PO SCH (08:11)
[2017-06-28] MEDS: LISINOPRIL 20 MG TAB PO SCH ×2 (08:11→20:49)
[2017-06-28] MEDS: LORATADINE 10 MG TAB PO SCH (08:11)
[2017-06-28] MEDS: PANTOPRAZOLE 40 MG/10 ML VIAL IVP SCH (08:12)
[2017-06-28 08:22] LABS: Calcium 9.1 mg/dL (8.4-10.2); Potassium 4.3 mmol/L (3.5-5.1)
[2017-06-28 11:12] LABS: Glucose,Whole Blood 171 mg/dL (75-99)
[2017-06-28] MEDS: CHOLECALCIFEROL 1,000 UNIT TAB PO SCH (12:53)
[2017-06-28] MEDS: HYDROcodone/APAP 5-325MG 1 EACH TAB PO PRN ×2 (12:54→18:31)
[2017-06-28 17:33] LABS: Glucose,Whole Blood 233 mg/dL (75-99)
[2017-06-28 20:16] LABS: Glucose,Whole Blood 272 mg/dL (75-99)
[2017-06-29 07:15] LABS: Glucose,Whole Blood 122 mg/dL (75-99)
[2017-06-29] MEDS: INSULIN LISPRO (humaLOG) 300 UNIT/3 ML VIAL SQ SCH ×6 (07:58→18:13)
[2017-06-29] MEDS: HYDROCORTISONE 1% CREAM 30 GM TUBE TOPICAL SCH ×2 (07:59→12:21)
[2017-06-29] MEDS: CAPSAICIN 0.025% CREAM 60 GM TUBE TOPICAL SCH ×3 (07:59→22:19)
[2017-06-29] MEDS: PREGABALIN 50 MG CAP PO SCH ×2 (08:12→20:30)
[2017-06-29] MEDS: LORATADINE 10 MG TAB PO SCH (08:12)
[2017-06-29] MEDS: LISINOPRIL 20 MG TAB PO SCH ×2 (08:12→20:30)
[2017-06-29] MEDS: HYDROCHLOROTHIAZIDE 25 MG TAB PO SCH (08:12)
[2017-06-29] MEDS: amLODIPine 10 MG TAB PO SCH (08:12)
[2017-06-29] MEDS: FLUTICASONE 50MCG/SPRAY NASAL 16GM EA NOSTRIL SCH (08:12)
[2017-06-29] MEDS: PANTOPRAZOLE 40 MG/10 ML VIAL IVP SCH (08:13)
[2017-06-29] MEDS: INSULIN GLARGINE 100 UNIT/ML 10 ML VIAL SQ SCH (08:13)
[2017-06-29 09:03] LABS: Anisocytosis Slight; CHCM 30.9; HCT 28.1 % (39.0-53.0); HDW 3.89; HGB 8.3 gm/dL (13.0-17.5); Hypochromasia Marked; MCH 26.8 pg (25.0-35.0); MCHC 29.4 g/dL (31.0-37.0); MCV 91.1 fL (80.0-100.0); Mean Platelet Volume 6.8; Poikilocytosis Slight; RBC 3.09 m/uL (4.30-5.90); RDW 16.2 % (11.5-15.5)
[2017-06-29 11:03] LABS: Glucose,Whole Blood 215 mg/dL (75-99)
[2017-06-29 11:27] VITALS: BMI 45.1
[2017-06-29] MEDS: CHOLECALCIFEROL 1,000 UNIT TAB PO SCH (12:34)
[2017-06-29 16:59] LABS: Glucose,Whole Blood 214 mg/dL (75-99)
[2017-06-29] MEDS: HYDROcodone/APAP 5-325MG 1 EACH TAB PO PRN (17:45)
[2017-06-29] MEDS: INSULIN ASPART 100 UNIT/ML 1 ML 10 ML VIAL SQ SCH ×3 (18:52→21:43)
[2017-06-29 20:03] LABS: Glucose,Whole Blood 220 mg/dL (75-99)
[2017-06-29] MEDS: KETOCONAZOLE 2% SHAMPOO 1 APPLIC/ML TOPICAL SCH (21:36)
[2017-06-29] MEDS: INSULIN DETEMIR 100 UNIT/ML 10 ML VIAL SQ SCH (21:38)
--- NOTE | 2017-06-30 00:25 | P.PN ---
Subjective Progress Note Date: 06/28/17 Principal diagnosis: Hematuria Patient is a 66-year-old male with a known history of recently diagnosed urothelial cancer currently undergoing chemotherapy and is scheduled for radiation therapy admitted to hospital due to hematuria. Patient's hemoglobin was 5.8 on admission. Patient underwent 2 units of blood transfusion and hemoglobin currently at 7.6. Patient was initially in the ICU and was positive medical floor now. Patient had blood clots in the morning today otherwise patient does have clear urine. No fever no chills. No commerce of chest pain or short of breath. No nausea vomiting or abdominal pain. Patient is symptomatically improving. Oncology and pulmonary is following. Radiation oncology was consulted and was started on radiation therapy. 06/25/2017 Patient began having dark-colored urine today. Hemoglobin is 7.5. Denied any abdominal pain. No nausea vomiting. No fever no chills. No complaints of chest pain or short of breath. 06/26/2017 Patient is still having dark-colored urine but improved. Hemoglobin Is actually improved to 8.1 today. Patient will be continued on radiation therapy tomorrow. Patient denied any further clots. No fever no chills. No complaints of chest pain or short of breath. 06/27/2017 Patient is still complaining of dark-colored urine. Patient has been urinating well. Will follow hemoglobin. Otherwise patient is scheduled for radiation therapy today he had no fever no chills. No acute overnight issues. 06/28/2017 Patient is still having dark-colored urine. Hemoglobin is fairly stable. Patient is getting radiation today. Otherwise no complaints of chest pain or short of breath. No acute overnight issues. All other review of systems negative except the above Current medications reviewed Objective - Vital Signs Vital signs: Vital Signs Temp 98.8 F 06/28/17 21:37 Pulse 74 06/28/17 21:37 Resp 16 06/28/17 21:37 BP 128/63 06/28/17 21:37 Pulse Ox 98 06/28/17 21:37 Intake & Output 06/28/17 06/28/17 06/29/17 06:59 18:59 06:59 Intake Total 1310 Balance 1310 Intake: Oral 1310 Other: Voiding Method Toilet Toilet Urinal # Voids 2 20 - Exam PHYSICAL EXAMINATION: Patient is lying in the bed comfortably, no acute distress, awake alert and oriented.. HEENT: Normocephalic. Neck is supple. Pupils reactive. Nostrils clear. Oral cavity is moist. Ears reveal no drainage. Neck reveals no JVD, carotid bruits, or thyromegaly. CHEST EXAMINATION: Trachea is central. Symmetrical expansion. Lung vital clear to auscultation and percussion. CARDIAC: Normal S1, S2 with no gallops. No murmurs ABDOMEN: Soft. Bowel sounds normal. No organomegaly. No abdominal bruits. Extremities: reveal no edema. No clubbing or cyanosis Neurologically awake, alert, oriented x3 with well-coordinated movements. No focal deficits noted Skin: No rash or skin lesions. Psychiatric: Operative. Nonsuicidal Musculoskeletal: No joint swelling or deformity. Normal range of motion. - Labs CBC & Chem 7: 06/29/17 08:22 06/28/17 07:36 Labs: Abnormal Lab Results - Last 24 Hours (Table) 06/28/17 06/28/17 06/28/17 Range/Units 07:36 07:36 07:50 RBC 2.84 L (4.30-5.90) m/uL Hgb 7.8 L (13.0-17.5) gm/dL Hct 24.8 L (39.0-53.0) % RDW 17.6 H (11.5-15.5) % BUN 28 H (9-20) mg/dL Creatinine 1.51 H (0.66-1.25) mg/dL Glucose 173 H (74-99) mg/dL POC Glucose (mg/dL) 179 H (75-99) mg/dL 06/28/17 06/28/17 06/28/17 Range/Units 11:10 17:32 20:13 RBC (4.30-5.90) m/uL Hgb (13.0-17.5) gm/dL Hct (39.0-53.0) % RDW (11.5-15.5) % BUN (9-20) mg/dL Creatinine (0.66-1.25) mg/dL Glucose (74-99) mg/dL POC Glucose (mg/dL) 171 H 233 H 272 H (75-99) mg/dL Assessment and Plan Assessment: #1 acute blood loss anemia secondary to hematuria. #2 history of bladder cancer recently diagnosed currently undergoing radiation therapy. Followed by chemo #3 acute on chronic kidney disease stage III #4 hypertension #4 hyperlipidemia #6 history of nicotine addiction #7 degenerative joint disease #8 abnormal pain improved #9 moderate obesity with BMI 45.1 Plan: Patient underwent 2 units of PRBC transfusion on 06/23/2017 with improved hemoglobin to 7.6 --7.5--8.1 now. We'll continue the current management. follow H&H. Radiation oncology has been consulted and will be continued on radiation therapy. Followed by chemo. Symptomatic management and further recommendations based on the clinical course. Prognosis is poor.
[2017-06-30 07:13] LABS: Glucose,Whole Blood 118 mg/dL (75-99)
[2017-06-30 07:26] LABS: Anisocytosis Slight; CH 26.8; CHCM 30.8; HDW 3.65; Hypochromasia Marked; MCH 28.2 pg (25.0-35.0); MCHC 32.2 g/dL (31.0-37.0); MCV 87.6 fL (80.0-100.0); Mean Platelet Volume 7.5; Poikilocytosis Slight; RBC 2.85 m/uL (4.30-5.90); WBC 6.5 k/uL (3.8-10.6)
[2017-06-30 08:05] VITALS: BP 142/71; PULSE 69; RESP 20; TEMP 98
[2017-06-30] MEDS: INSULIN ASPART 100 UNIT/ML 1 ML 10 ML VIAL SQ SCH ×4 (08:10→13:45)
[2017-06-30] MEDS: FLUTICASONE 50MCG/SPRAY NASAL 16GM EA NOSTRIL SCH (08:16)
[2017-06-30] MEDS: HYDROCORTISONE 1% CREAM 30 GM TUBE TOPICAL SCH (08:17)
[2017-06-30] MEDS: CAPSAICIN 0.025% CREAM 60 GM TUBE TOPICAL SCH (08:17)
[2017-06-30] MEDS: PANTOPRAZOLE 40 MG/10 ML VIAL IVP SCH ×2 (08:18→08:26)
[2017-06-30] MEDS: HYDROCHLOROTHIAZIDE 25 MG TAB PO SCH (08:18)
[2017-06-30] MEDS: amLODIPine 10 MG TAB PO SCH (08:18)
[2017-06-30] MEDS: LISINOPRIL 20 MG TAB PO SCH (08:18)
[2017-06-30] MEDS: LORATADINE 10 MG TAB PO SCH (08:18)
[2017-06-30] MEDS: PREGABALIN 50 MG CAP PO SCH (08:22)
[2017-06-30] MEDS: INSULIN DETEMIR 100 UNIT/ML 10 ML VIAL SQ SCH (09:18)
[2017-06-30] MEDS ORDERED: PANTOPRAZOLE 40 MG TABLET PO SCH (09:30)
[2017-06-30 11:28] LABS: Glucose,Whole Blood 267 mg/dL (75-99)
[2017-06-30] MEDS: CHOLECALCIFEROL 1,000 UNIT TAB PO SCH (13:44)
--- NOTE | 2017-06-30 14:18 | P.PN ---
Subjective Progress Note Date: 06/29/17 Progress note being dictated for Dr. Santoyo Interval:Patient is a 66-year-old male with a known history of recently diagnosed urothelial cancer currently undergoing chemotherapy and is scheduled for radiation therapy admitted to hospital due to hematuria. Patient's hemoglobin was 5.8 on admission. Patient underwent 2 units of blood transfusion and hemoglobin currently at 7.6. Patient was initially in the ICU and was positive medical floor now. Patient had blood clots in the morning today otherwise patient does have clear urine. No fever no chills. No commerce of chest pain or short of breath. No nausea vomiting or abdominal pain. Patient is symptomatically improving. Oncology and pulmonary is following. Radiation oncology was consulted and was started on radiation therapy. 06/25/2017 Patient began having dark-colored urine today. Hemoglobin is 7.5. Denied any abdominal pain. No nausea vomiting. No fever no chills. No complaints of chest pain or short of breath. 06/26/2017 Patient is still having dark-colored urine but improved. Hemoglobin Is actually improved to 8.1 today. Patient will be continued on radiation therapy tomorrow. Patient denied any further clots. No fever no chills. No complaints of chest pain or short of breath. 06/27/2017 Patient is still complaining of dark-colored urine. Patient has been urinating well. Will follow hemoglobin. Otherwise patient is scheduled for radiation therapy today he had no fever no chills. No acute overnight issues. 06/28/2017 Patient is still having dark-colored urine. Hemoglobin is fairly stable. Patient is getting radiation today. Otherwise no complaints of chest pain or short of breath. No acute overnight issues. All other review of systems negative except the above 06/29/2017 continues to have hematuria, dark colored urine without clots. Hemoglobin and platelets improving; hemoglobin 8.3, plts 451. Complaining of burning with urination, UA repeated. Afebrile, normal WBC. Denies chest pain, palpitations or increasing shortness of breath. Scheduled for radiation treatment today. Objective - Vital Signs Vital signs: Vital Signs Temp 98.8 F 06/29/17 15:00 Pulse 76 06/29/17 15:00 Resp 16 06/29/17 15:00 BP 134/56 06/29/17 15:00 Pulse Ox 97 06/29/17 15:00 Intake & Output 06/28/17 06/29/17 06/29/17 18:59 06:59 18:59 Intake Total 120 Output Total 425 Balance 120 -425 Weight 142.6 kg Intake: Oral 120 Output: Urine 425 Other: Voiding Method Toilet Toilet Toilet # Voids 20 2 10 - Exam Patient is lying in the bed comfortably, no acute distress, awake alert and oriented.. HEENT: Normocephalic. Neck is supple. Pupils reactive. Nostrils clear. Oral cavity is moist. Ears reveal no drainage. Neck reveals no JVD, carotid bruits, or thyromegaly. CHEST EXAMINATION: Trachea is central. Symmetrical expansion. Lung vital clear to auscultation and percussion. CARDIAC: Normal S1, S2 with no gallops. No murmurs ABDOMEN: Soft. Bowel sounds normal. No organomegaly. No abdominal bruits. Extremities: reveal no edema. No clubbing or cyanosis Neurologically awake, alert, oriented x3 with well-coordinated movements. No focal deficits noted Skin: No rash or skin lesions. Psychiatric: Operative. Nonsuicidal Musculoskeletal: No joint swelling or deformity. Normal range of motion. - Labs CBC & Chem 7: 06/30/17 06:50 06/28/17 07:36 Labs: Abnormal Lab Results - Last 24 Hours (Table) 06/28/17 06/29/17 06/29/17 Range/Units 20:13 07:11 08:22 RBC 3.09 L (4.30-5.90) m/uL Hgb 8.3 L (13.0-17.5) gm/dL Hct 28.1 L (39.0-53.0) % MCHC 29.4 L (31.0-37.0) g/dL RDW 16.2 H (11.5-15.5) % Plt Count 451 H (150-450) k/uL POC Glucose (mg/dL) 272 H 122 H (75-99) mg/dL 06/29/17 06/29/17 Range/Units 10:57 16:57 RBC (4.30-5.90) m/uL Hgb (13.0-17.5) gm/dL Hct (39.0-53.0) % MCHC (31.0-37.0) g/dL RDW (11.5-15.5) % Plt Count (150-450) k/uL POC Glucose (mg/dL) 215 H 214 H (75-99) mg/dL Assessment and Plan Assessment: #1 acute blood loss anemia secondary to hematuria. #2 history of bladder cancer recently diagnosed currently undergoing radiation therapy. Followed by chemo #3 acute on chronic kidney disease stage III #4 hypertension #4 hyperlipidemia #6 history of nicotine addiction #7 degenerative joint disease #8 abnormal pain improved #9 moderate obesity with BMI 45.1 Plan: Continue on current medication regime ,monitoring and symptomatic treatment. No plans for repeat cystoscopy or cautery per urology. Discharge planning in progress for tomorrow pending oncology's clearance. Close monitoring of coags with repeat labs ordered for a.m. Planning care discussed with patient including discharge planning for tomorrow. Patient verbalized understanding of and agreement with plan. The impression and plan of care has been dictated as directed. : I performed a history and examination of this patient, discussed the same with the dictator. I agree with the dictator's note ,documented as a scribe. Any additional findings or plans will be noted.
--- NOTE | 2017-06-30 14:33 | P.DS ---
Providers Date of admission: 06/22/17 17:06 Expected date of discharge: 06/30/17 Attending physician: Kylei Santoyo Consults: 06/22/17 17:06 Consult Physician Urgent Consulting Provider: Bradford Cabrera Consult Reason/Comments: Critical care management Do you want consulting provider notified?: Yes 06/23/17 10:28 Consult Physician Urgent Consulting Provider: Ambrosio Martines Consult Reason/Comments: Bladder Cancer Do you want consulting provider notified?: Yes 06/24/17 14:28 Consult Physician Urgent Consulting Provider: Lauro Johnson Consult Reason/Comments: Hematuria, clots, bladder ca - just started RT. Do you want consulting provider notified?: Yes Primary care physician: Merlin Alberto Hospital Course: Final Diagnoses: #1 acute blood loss anemia secondary to hematuria. #2 history of bladder cancer recently diagnosed currently undergoing radiation therapy. Followed by chemo. #3 acute on chronic kidney disease stage III #4 hypertension #4 hyperlipidemia #6 history of nicotine addiction #7 degenerative joint disease #8 abnormal pain improved #9 moderate obesity with BMI 45.1 Hospital course:Patient is a 66-year-old male with a known history of recently diagnosed urothelial cancer currently undergoing chemotherapy admitted to hospital due to hematuria. Patient's hemoglobin was 5.8 on admission. Received transfusions of packed RBCs. Patient was initially in the ICU, transferred to regular MedSurg unit. Evaluated by oncology, radiation oncology , urology and coke drawer. Receiving radiation treatments daily. Hematuria, dark colored without clots. Hemoglobin and platelets improving. No cancer repeat cystoscopy or cautery per urology at this time. Significant clinical improvement. Patient has been cleared by all consults for discharge. Patient is being discharged home in a stable condition with guarded prognosis. The impression and plan of care has been dictated as directed. : I performed a history and examination of this patient, discussed the same with the dictator. I agree with the dictator's note ,documented as a scribe. Any additional findings or plans will be noted. Patient Condition at Discharge: Stable Plan - Discharge Summary Discharge Rx Participant: Yes New Discharge Prescriptions: Continue Loratadine [Claritin] 10 mg PO DAILY Ketoconazole 2% Shampoo [Nizoral] 1 applic TOPICAL Q7D Fluticasone Nasal Lamar [Flonase Nasal Lamar] 2 spr EA NOSTRIL DAILY Benazepril HCl 20 mg PO BID ALPRAZolam [Xanax] 0.5 mg PO BID PRN PRN Reason: Anxiety Pregabalin [Lyrica] 50 mg PO BID Omeprazole [PriLOSEC] 40 mg PO DAILY Capsaicin Cream [Trixaicin Cream] 1 applic TOPICAL TID Hydrocortisone 1% Lotion 1 cream TOPICAL BID Hydrochlorothiazide 25 mg PO DAILY Budesonide-Formot 160-4.5 Mcg [Symbicort 160-4.5 Mcg Inhaler] 2 puff INHALATION RT-BID PRN PRN Reason: Shortness Of Breath amLODIPine BESYLATE [Norvasc] 10 mg PO DAILY Cholecalciferol (Vitamin D3) [Children's Vitamin D3] 2,000 unit PO DAILY Changed Insulin Aspart [NovoLOG Flexpen] 10 unit SQ AC-TID #0 Insulin Glargine [Lantus] 70 unit SQ BID #0 Discontinued Aspirin 325 mg PO DAILY Discharge Medication List ALPRAZolam [Xanax] 0.5 mg PO BID PRN 03/14/17 [History] Benazepril HCl 20 mg PO BID 03/14/17 [History] Budesonide-Formot 160-4.5 Mcg [Symbicort 160-4.5 Mcg Inhaler] 2 puff INHALATION RT-BID PRN 03/14/17 [History] Capsaicin Cream [Trixaicin Cream] 1 applic TOPICAL TID 03/14/17 [History] Cholecalciferol (Vitamin D3) [Children's Vitamin D3] 2,000 unit PO DAILY [History] Fluticasone Nasal Lamar [Flonase Nasal Lamar] 2 spr EA NOSTRIL DAILY 03/14/17 [ History] Hydrochlorothiazide 25 mg PO DAILY 03/14/17 [History] Hydrocortisone 1% Lotion 1 cream TOPICAL BID 03/14/17 [History] Ketoconazole 2% Shampoo [Nizoral] 1 applic TOPICAL Q7D 03/14/17 [History] Loratadine [Claritin] 10 mg PO DAILY 03/14/17 [History] Omeprazole [PriLOSEC] 40 mg PO DAILY 03/14/17 [History] Pregabalin [Lyrica] 50 mg PO BID 03/14/17 [History] amLODIPine BESYLATE [Norvasc] 10 mg PO DAILY 03/14/17 [History] Insulin Aspart [NovoLOG Flexpen] 10 unit SQ AC-TID #0 06/30/17 [Rx] Insulin Glargine [Lantus] 70 unit SQ BID #0 06/30/17 [Rx] Follow up Appointment(s)/Referral(s): Ambrosio Martines MD [STAFF PHYSICIAN] - 07/05/17 3:30 pm Vikas Lau MD [STAFF PHYSICIAN] - As Needed Merlin Alberto DO [Primary Care Provider] - 07/12/17 9:00 am Ambulatory/Diagnostic Orders: Complete Blood Count w/diff [LAB.AMB] Time Frame: 3 Days, Location: Determined By Patient Patient Instructions/Handouts: Hematuria (GEN), Anemia (DC) Activity/Diet/Wound Care/Special Instructions: Set up op Radiation as prev. ordered. Final urine culture results to PCP .[facility] [place] will be mailing the patient some briefs - i spoke with denis the pt case preparer and liner at the [facility].
== END 2017-06-30 15:53 | disposition home or self-care (01) | DRG 687 ==
LOC: EC 14:38 → 6ICU 17:06 → 5ONC 06-24 11:10
PROVIDERS: ADMIT Hospitalist; ATTEND Hospitalist
PROC: 30233N1 Transfusion of Nonautologous Red Blood Cells into Peripheral Vein, Percutaneous Approach (ICD-10-PCS; principal; 2017-06-22)
PROC: DTY27ZZ Contact Radiation of Bladder (ICD-10-PCS; 2017-06-23)
DX: C67.9 Malignant neoplasm of bladder, unspecified (principal); I13.0 Hypertensive heart and chronic kidney disease with heart failure and stage 1 through stage 4 chronic kidney disease, or unspecified chronic kidney disease; E11.22 Type 2 diabetes mellitus with diabetic chronic kidney disease; E11.51 Type 2 diabetes mellitus with diabetic peripheral angiopathy without gangrene; N18.3 Chronic kidney disease, stage 3 (moderate); E78.5 Hyperlipidemia, unspecified; R31.0 Gross hematuria; M19.90 Unspecified osteoarthritis, unspecified site; E66.9 Obesity, unspecified; R10.9 Unspecified abdominal pain; D63.0 Anemia in neoplastic disease; K21.9 Gastro-esophageal reflux disease without esophagitis; G47.33 Obstructive sleep apnea (adult) (pediatric); Z79.51 Long term (current) use of inhaled steroids; Z79.82 Long term (current) use of aspirin; Z87.891 Personal history of nicotine dependence; Z88.2 Allergy status to sulfonamides; Z91.048 Other nonmedicinal substance allergy status; Z79.899 Other long term (current) drug therapy; Z79.4 Long term (current) use of insulin; Z90.5 Acquired absence of kidney; Z85.528 Personal history of other malignant neoplasm of kidney
CPT/HCPCS: 36415; 71010; 80048; 80053; 83036; 83735; 85025; 85027; 85610; 85730; 86850; 86900; 86901; 86920; 87086; 93005; 94760; 99285

== ENCOUNTER → 2017-06-22 | Outpatient (CLI) | payer OTHER ==
[2017-06-22 13:24] LABS: Basophils # (A) 0.1 k/uL (0-0.2); Basophils % (A) 1 %; CH 24.9; CHCM 29.9; Eosinophils # (A) 0.2 k/uL (0-0.7); Eosinophils % (A) 3 %; HDW 3.54; Hypochromasia Marked; Luc # (Auto) 0.14; Luc % (Auto) 2; Lymphocytes # (A) 1.4 k/uL (1.0-4.8); Lymphocytes % (A) 19 %; MCH 26.2 pg (25.0-35.0); MCHC 31.3 g/dL (31.0-37.0); Mean Platelet Volume 7.8; Monocytes # (A) 0.4 k/uL (0-1.0); Monocytes % (A) 6 %; Neutrophils # (A) 5.2 k/uL (1.3-7.7); Neutrophils % (A) 70 %; Poikilocytosis Slight; RBC 2.31 m/uL (4.30-5.90); RDW 15.4 % (11.5-15.5); WBC 7.4 k/uL (3.8-10.6); WBC (Perox) 7.46
[2017-06-22 13:47] LABS: HCT 19.4 % (39.0-53.0)
[2017-06-22 13:48] LABS: MCV 83.7 fL (80.0-100.0)
[2017-06-22 13:56] LABS: HGB 6.1 gm/dL (13.0-17.5)
== END ==
LOC: LABWHC1 12:02
PROVIDERS: ATTEND Radiology Radiation Oncology
DX: C67.2 Malignant neoplasm of lateral wall of bladder (principal); R31.0 Gross hematuria
CPT/HCPCS: 36415; 85025; 85027

== ENCOUNTER 2017-07-03 23:42 | Inpatient (IN) | payer MEDICARE, OTHER ==
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
[2017-07-04 00:25] LABS: Anisocytosis Slight; Basophils % (A) 0 %; CH 26.3; CHCM 30.8; Eosinophils # (A) 0.2 k/uL (0-0.7); Eosinophils % (A) 3 %; HCT 23.3 % (39.0-53.0); HDW 3.55; HGB 7.3 gm/dL (13.0-17.5); Hypochromasia Marked; Luc % (Auto) 2; Lymphocytes # (A) 0.7 k/uL (1.0-4.8); Lymphocytes % (A) 11 %; MCH 26.6 pg (25.0-35.0); MCHC 31.1 g/dL (31.0-37.0); MCV 85.6 fL (80.0-100.0); Mean Platelet Volume 8.6; Monocytes # (A) 0.5 k/uL (0-1.0); Monocytes % (A) 7 %; Neutrophils # (A) 5.1 k/uL (1.3-7.7); Neutrophils % (A) 77 %; Poikilocytosis Slight; RBC 2.73 m/uL (4.30-5.90); RDW 16.8 % (11.5-15.5); WBC 6.6 k/uL (3.8-10.6); WBC (Perox) 6.73
[2017-07-04 00:33] LABS: Calcium 8.2 mg/dL (8.4-10.2); Potassium 4.5 mmol/L (3.5-5.1); Total Bilirubin 0.1 mg/dL (0.2-1.3); Total Protein 6.1 g/dL (6.3-8.2)
[2017-07-04 00:38] LABS: Partial Thromboplastin Time 23.8 sec (22.0-30.0); Prothrombin Time 9.9 sec (9.0-12.0)
[2017-07-04 00:49] LABS: Amorphous Sediment,Urine Moderate /hpf; Bacteria,Urine Moderate /hpf; Particle Count 65016; RBC,Urine >182 /hpf (0-5); WBC,Urine 49 /hpf (0-5)
[2017-07-04 00:57] LABS: Creatine Kinase MB 1.6 ng/mL (0.0-2.4); Troponin I 0.014 ng/mL (0.000-0.034)
[2017-07-04 00:58] LABS: Appearance,Urine Bloody (Clear)
[2017-07-04 00:59] LABS: UA Billing (MACRO vs. MICRO) MICRO
[2017-07-04] MEDS ORDERED: SODIUM CHLORIDE 0.9% 500 ML IV ONE (01:04)
[2017-07-04] MEDS ORDERED: SODIUM CHLORIDE 0.9% 1,000 ML IV SCH (01:15)
[2017-07-04] MEDS ORDERED: NALOXONE 0.4 MG/ML 1 ML VIAL IV PRN (02:49)
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
[2017-07-04 03:58] LABS: Glucose,Whole Blood 85 mg/dL (75-99)
[2017-07-04 05:32] VITALS: BMI 43.0
[2017-07-04] MEDS ORDERED: LIDOCAINE 1% INJ 10MG/ML (20 ML MDV) ONE (05:58)
[2017-07-04] MEDS ORDERED: SUCCINYLCHOLINE CHLORIDE VIAL 200 MG/10 ML VIAL IV ONE (05:58)
[2017-07-04] MEDS ORDERED: LACTATED RINGERS 1,000 ML IV ONE (05:58)
[2017-07-04] MEDS ORDERED: PROPOFOL 10 MG/ML 20 ML VIAL IV ONE (05:58)
[2017-07-04] MEDS ORDERED: fentaNYL (PF) 50 MCG/ML 2 ML AMP ONE (05:58)
[2017-07-04] MEDS ORDERED: SODIUM CHLORIDE 0.9% 50 ML with ceFAZolin 2,000 MG IV ONE ×2 (06:14)
[2017-07-04] MEDS ORDERED: ALPRAZolam 0.5 MG TAB PO PRN (07:05)
[2017-07-04] MEDS ORDERED: MAG HYDROX/AL HYDROX/SIMETH 30 ML CUP PO PRN (07:06)
[2017-07-04] MEDS ORDERED: ACETAMINOPHEN TAB 325 MG TAB PO PRN (07:06)
[2017-07-04] MEDS ORDERED: BELLADONNA-OPIUM 16.2-60 MG 1 EACH SUPP RECTAL PRN (07:06)
--- NOTE | 2017-07-04 07:17 | P.OP ---
Date of Procedure: 07/04/17 Preoperative Diagnosis: Bladder cancer, clot urinary retention Postoperative Diagnosis: Same Anesthesia: MEKHIA Surgeon: Myles Dugan Estimated Blood Loss (ml): 50 Pathology: none sent Condition: stable Disposition: PACU Indications for Procedure: The patient is a 66-year-old gentleman with a muscle invasive bladder cancer being treated with radiation therapy. He has had resection by and the [facility]. He has been bleeding intermittently ever since his last resection. He was in the hospital last week with this problem. He is in clot retention that I'm unable to resolve in the emergency room. He comes for cystoscopy evacuation of clot and control bleeding. Hemoglobin was 7.8 which is apparently where he was recently in the hospital. Operative Findings: Large volume of old clot. Diffuse bleeding on the floor the bladder consistent with radiation therapy,bleeding at the edges of the bladder tumor resection Description of Procedure: Patient is brought to the operating suite. He is given a successful general endotracheal anesthesia. He's placed lithotomy position with a sterile prep and drape. Under direct vision the 25-[place]izen [place] sheath Foroblique lens and direct vision obturator was introduced into the urethra is normal. The prostatic urethra is not obstructing significantly. There is some bleeding at the bladder neck. Upon entering the bladder there is a large volume of clot. With the CircuLite evacuator I evacuate out probably 2 units of clot. There is old blood attached to the previous tumor resection site. This is removed. There is diffuse bleeding across the bladder neck and trigone consistent with radiation. There is bleeding at the edges of the previous tumor resection and remaining tumor that was cauterized. Then of the procedure there is no significant remaining clot. He still is diffusely bleeding but to a minimal degree. A 20-[place]izen [place]. Catheter to introduced the bladder with irrigation with clear to very minimally pink urine. The patient is awake and returned recovery room good condition. Acute blood loss is 50 mL. There was however about 2 units of old blood in his bladder. We will check a hemoglobin postoperatively.
[2017-07-04] MEDS ORDERED: SODIUM CHLORIDE 0.9% IRRIG 3,000 ML BAG IRRIGATION PRN (07:31)
[2017-07-04 07:38] LABS: Glucose,Whole Blood 78 mg/dL (75-99)
[2017-07-04 07:45] LABS: Anisocytosis Slight; CH 26.6; CHCM 30.3; HDW 3.38; HGB 7.1 gm/dL (13.0-17.5); Hypochromasia Marked; MCHC 30.8 g/dL (31.0-37.0); MCV 87.8 fL (80.0-100.0); Mean Platelet Volume 7.7; RBC 2.61 m/uL (4.30-5.90); WBC 7.6 k/uL (3.8-10.6)
[2017-07-04] MEDS: INSULIN ASPART 100 UNIT/ML 1 ML 10 ML VIAL SQ SCH ×4 (08:50→22:48)
[2017-07-04] MEDS: HYDROCHLOROTHIAZIDE 25 MG TAB PO SCH (10:03)
[2017-07-04] MEDS: CIPROFLOXACIN HCL 500 MG TAB PO SCH ×2 (10:03→22:44)
[2017-07-04] MEDS: LORATADINE 10 MG TAB PO SCH (10:03)
[2017-07-04] MEDS: amLODIPine 10 MG TAB PO SCH (10:03)
[2017-07-04] MEDS: LISINOPRIL 20 MG TAB PO SCH (10:03)
[2017-07-04] MEDS: DOCUSATE 100 MG CAP PO SCH ×2 (10:03→22:44)
[2017-07-04] MEDS: PANTOPRAZOLE 40 MG TABLET PO SCH (10:04)
[2017-07-04] MEDS: FLUTICASONE 50MCG/SPRAY NASAL 16GM EA NOSTRIL SCH (10:07)
[2017-07-04] MEDS: PREGABALIN 50 MG CAP PO SCH ×2 (10:07→22:47)
[2017-07-04] MEDS: SODIUM CHLORIDE 0.45% 1,000 ML IV SCH ×2 (10:15→22:43)
[2017-07-04] MEDS: SYMBICORT 160-4.5 MCG INHALER INHALATION SCH ×2 (11:30→19:57)
[2017-07-04 12:42] LABS: Glucose,Whole Blood 190 mg/dL (75-99)
[2017-07-04] MEDS: INSULIN DETEMIR 100 UNIT/ML 10 ML VIAL SQ SCH ×2 (12:42→22:47)
--- NOTE | 2017-07-04 13:41 | P.PN ---
Progress Note - Text Progress Note Date: 07/04/17 The patient seems to be doing well following cystoscopy with evacuation of blood clots earlier today. His urine is almost clear with minimal bladder irrigation. The bladder irrigation will be discontinued. He will continue with his radiation therapy. If his urine remains clear he may be discharged tomorrow.
[2017-07-04 18:05] LABS: Glucose,Whole Blood 373 mg/dL (75-99)
[2017-07-04 21:22] LABS: Glucose,Whole Blood 402 mg/dL (75-99)
[2017-07-05 03:47] LABS: Glucose,Whole Blood 398 mg/dL (75-99)
[2017-07-05 06:41] LABS: Glucose,Whole Blood 358 mg/dL (75-99)
[2017-07-05 06:41] LABS: Glucose,Whole Blood 349 mg/dL (75-99)
[2017-07-05 06:47] LABS: Anisocytosis Slight; Basophils % (A) 0 %; CH 25.8; CHCM 29.3; Eosinophils % (A) 0 %; HCT 23.5 % (39.0-53.0); HDW 3.46; HGB 7.1 gm/dL (13.0-17.5); Hypochromasia Marked; Luc % (Auto) 2; Lymphocytes # (A) 0.4 k/uL (1.0-4.8); Lymphocytes % (A) 6 %; MCH 26.8 pg (25.0-35.0); MCHC 30.4 g/dL (31.0-37.0); MCV 88.2 fL (80.0-100.0); Mean Platelet Volume 7.9; Monocytes # (A) 0.4 k/uL (0-1.0); Monocytes % (A) 7 %; Neutrophils # (A) 5.5 k/uL (1.3-7.7); Neutrophils % (A) 85 %; Poikilocytosis Slight; RBC 2.67 m/uL (4.30-5.90); RDW 16.5 % (11.5-15.5); WBC 6.5 k/uL (3.8-10.6); WBC (Perox) 7.26
[2017-07-05] MEDS: INSULIN ASPART 100 UNIT/ML 1 ML 10 ML VIAL SQ SCH ×7 (07:06→21:56)
[2017-07-05] MEDS: HYDROCHLOROTHIAZIDE 25 MG TAB PO SCH (08:30)
[2017-07-05] MEDS: amLODIPine 10 MG TAB PO SCH (08:30)
[2017-07-05] MEDS: LISINOPRIL 20 MG TAB PO SCH (08:30)
[2017-07-05] MEDS: DOCUSATE 100 MG CAP PO SCH ×2 (08:30→21:55)
[2017-07-05] MEDS: PANTOPRAZOLE 40 MG TABLET PO SCH (08:30)
[2017-07-05] MEDS: FLUTICASONE 50MCG/SPRAY NASAL 16GM EA NOSTRIL SCH (08:30)
[2017-07-05] MEDS: LORATADINE 10 MG TAB PO SCH (08:30)
[2017-07-05] MEDS: CIPROFLOXACIN HCL 500 MG TAB PO SCH ×2 (08:30→21:55)
[2017-07-05] MEDS: SYMBICORT 160-4.5 MCG INHALER INHALATION SCH ×2 (08:31→20:20)
[2017-07-05] MEDS: PREGABALIN 50 MG CAP PO SCH ×2 (08:33→21:55)
[2017-07-05] MEDS: INSULIN DETEMIR 100 UNIT/ML 10 ML VIAL SQ SCH ×2 (08:33→21:56)
[2017-07-05] MEDS: SODIUM CHLORIDE 0.45% 1,000 ML IV SCH (09:31)
[2017-07-05 11:58] LABS: Glucose,Whole Blood 371 mg/dL (75-99)
--- NOTE | 2017-07-05 12:11 | P.PN ---
Subjective Progress Note Date: 07/05/17 Principal diagnosis: Bladder cancer This past weekend, the patient became confused and was unable pass urine. He was admitted on July 03, and the morning of July 04 he underwent cystoscopy with evacuation of 2 units of old clots. The patient has since had a catheter with irrigation, and urine is been without clots. The patient has been much more comfortable, and this morning he is no longer confused. The patient's hemoglobin has been stable at 7.1-7.3, his creatinine was found to be markedly elevated on admission and 3.4 and I ordered a repeat testing of this. There is some concern the patient had a bladder infection as well, for which culture is pending. The patient was planning on seeing medical oncology as an outpatient today, and I therefore notified their office of his present admission. The patient is currently getting transfused, is hoping to resume radiotherapy after his break yesterday. Objective - Vital Signs Vital signs: Vital Signs Temp 97.9 F 07/05/17 11:04 Pulse 73 07/05/17 11:04 Resp 16 07/05/17 11:04 BP 133/52 07/05/17 11:04 Pulse Ox 95 07/05/17 11:04 Intake & Output 07/04/17 07/05/17 07/05/17 18:59 06:59 18:59 Intake Total 286 0 Output Total 3425 3650 Balance -3139 -3650 0 Weight 136 kg Intake: IV 50 Oral 236 Blood Product 0 Rc As-1 Unit 0 [id number] Output: Urine 3400 3650 3-way Urethral 2150 Estimated Blood Loss 25 Other: Voiding Method Indwelling Catheter Indwelling Catheter Indwelling Catheter # Bowel Movements 1 - Constitutional General appearance: Present: morbidly obese - EENT Eyes: Present: EOMI, PERRLA ENT: Present: hearing grossly normal - Neck Neck: Absent: lymphadenopathy - Respiratory Respiratory: bilateral: CTA - Cardiovascular Rhythm: regular - Gastrointestinal General gastrointestinal: Absent: tenderness - Integumentary Integumentary: Present: normal - Neurologic Neurologic: Present: CNII-XII intact. Absent: focal deficits - Psychiatric Psychiatric: Present: A&O x's 3, appropriate affect - Labs CBC & Chem 7: 07/05/17 06:30 07/04/17 00:15 Labs: Abnormal Lab Results - Last 24 Hours (Table) 07/04/17 07/04/17 07/04/17 Range/Units 00:15 12:41 18:03 RBC (4.30-5.90) m/uL Hgb (13.0-17.5) gm/dL Hct (39.0-53.0) % MCHC (31.0-37.0) g/dL RDW (11.5-15.5) % Lymphocytes # (1.0-4.8) k/uL POC Glucose (mg/dL) 190 H 373 H (75-99) mg/dL Crossmatch See Detail 07/04/17 07/05/17 07/05/17 Range/Units 21:06 03:44 06:27 RBC (4.30-5.90) m/uL Hgb (13.0-17.5) gm/dL Hct (39.0-53.0) % MCHC (31.0-37.0) g/dL RDW (11.5-15.5) % Lymphocytes # (1.0-4.8) k/uL POC Glucose (mg/dL) 402 H 398 H 358 H (75-99) mg/dL Crossmatch 07/05/17 07/05/17 07/05/17 Range/Units 06:30 06:39 11:55 RBC 2.67 L (4.30-5.90) m/uL Hgb 7.1 L (13.0-17.5) gm/dL Hct 23.5 L (39.0-53.0) % MCHC 30.4 L (31.0-37.0) g/dL RDW 16.5 H (11.5-15.5) % Lymphocytes # 0.4 L (1.0-4.8) k/uL POC Glucose (mg/dL) 349 H 371 H (75-99) mg/dL Crossmatch Microbiology - Last 24 Hours (Table) 07/04/17 00:34 Urine Culture - Preliminary Urine,Voided Assessment and Plan Plan: 1. Patient with a clinical stage II bladder cancer admitted for urinary obstruction. Patient is feeling better following removal of old clots. Hgb has been largely stable during this admission, and the patient is getting transfusion this afternoon. We will resume radiotherapy, the patient will likely need some replanning secondary to what is a likely large decrease in bladder size. We are hopeful the patient can initiate systemic therapy in the near future as future, which improves response rate and decreases risk of local failure. I did order repeat BMP to ensure kidney function is returning to normal. Time with Patient: Less than 30
[2017-07-05 12:25] LABS: Calcium 8.8 mg/dL (8.4-10.2); Potassium 5.5 mmol/L (3.5-5.1)
[2017-07-05 17:38] LABS: Glucose,Whole Blood 342 mg/dL (75-99)
--- NOTE | 2017-07-05 19:15 | P.PN ---
Progress Note - Text Progress Note Date: 07/05/17 The patient is afebrile and normotensive. He was confused yesterday but seems alert and oriented today. This may have been related to the use of [place] for control of pain from his distended bladder. He is much more comfortable since the clots were irrigated from his bladder. His urine was clear without bladder irrigation this morning and his catheter was removed. He has been voiding and a postvoid residual be checked. He is continuing radiation therapy as planned. White blood count was 6500. Hemoglobin was 7.1 and because of this and the fact that the patient had some episodes of dizziness when standing yesterday I have elected to give him 2 units of packed red blood cells. BUN/creatinine are improved at 54/2.1. Urine culture from yesterday appears to have been contaminated. The patient's diabetes is not under good control as his random glucose is appear to be over 300. Impression: 1. Gross hematuria secondary to bladder cancer-improved following evacuation of blood clots and cautery. 2. Anemia secondary to gross hematuria 3. Acute on chronic renal failure-secondary to urinary retention over the weekend-improved with evacuation of blood clots and bladder drainage 4. Diabetes under poor control Plan: The patient's catheter has been removed and he will be observed to ensure that he is voiding adequately. He will continue radiation therapy and hopefully may be able to start chemotherapy soon for treatment of his bladder cancer. BMP will be rechecked in the morning but I expect that it will improve further. Medical consultation will be obtained due to the patient's poorly controlled diabetes
[2017-07-05 20:24] LABS: Glucose,Whole Blood 334 mg/dL (75-99)
[2017-07-06] MEDS: SODIUM CHLORIDE 0.45% 1,000 ML IV SCH ×2 (03:37→12:49)
[2017-07-06 07:23] LABS: Calcium 9.5 mg/dL (8.4-10.2)
[2017-07-06 07:43] LABS: Glucose,Whole Blood 188 mg/dL (75-99)
[2017-07-06] MEDS: SYMBICORT 160-4.5 MCG INHALER INHALATION SCH (07:51)
[2017-07-06 08:23] LABS: Basophils # (A) 0.1 k/uL (0-0.2); Basophils % (A) 1 %; CH 27.2; CHCM 30.2; Eosinophils # (A) 0.3 k/uL (0-0.7); Eosinophils % (A) 5 %; HCT 30.4 % (39.0-53.0); HDW 3.93; Hypochromasia Marked; Luc # (Auto) 0.11; Luc % (Auto) 2; Lymphocytes # (A) 0.6 k/uL (1.0-4.8); Lymphocytes % (A) 10 %; MCH 27.3 pg (25.0-35.0); MCHC 30.2 g/dL (31.0-37.0); MCV 90.3 fL (80.0-100.0); Mean Platelet Volume 7.3; Monocytes # (A) 0.5 k/uL (0-1.0); Monocytes % (A) 8 %; Neutrophils # (A) 4.3 k/uL (1.3-7.7); Neutrophils % (A) 74 %; Poikilocytosis Slight; RBC 3.37 m/uL (4.30-5.90); RDW 15.4 % (11.5-15.5); WBC 5.8 k/uL (3.8-10.6); WBC (Perox) 6.01
[2017-07-06 08:26] LABS: HGB 9.2 gm/dL (13.0-17.5)
[2017-07-06] MEDS: PANTOPRAZOLE 40 MG TABLET PO SCH (08:34)
[2017-07-06] MEDS: LISINOPRIL 20 MG TAB PO SCH (08:34)
[2017-07-06] MEDS: amLODIPine 10 MG TAB PO SCH (08:34)
[2017-07-06] MEDS: CIPROFLOXACIN HCL 500 MG TAB PO SCH (08:34)
[2017-07-06] MEDS: LORATADINE 10 MG TAB PO SCH (08:34)
[2017-07-06] MEDS: PREGABALIN 50 MG CAP PO SCH (08:34)
[2017-07-06] MEDS: DOCUSATE 100 MG CAP PO SCH (08:35)
[2017-07-06] MEDS: HYDROCHLOROTHIAZIDE 25 MG TAB PO SCH (08:35)
[2017-07-06] MEDS: INSULIN ASPART 100 UNIT/ML 1 ML 10 ML VIAL SQ SCH ×4 (08:35→12:59)
[2017-07-06] MEDS: FLUTICASONE 50MCG/SPRAY NASAL 16GM EA NOSTRIL SCH (08:36)
[2017-07-06] MEDS: INSULIN DETEMIR 100 UNIT/ML 10 ML VIAL SQ SCH (08:37)
[2017-07-06 09:12] VITALS: RESP 18
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
[2017-07-06 11:27] LABS: Glucose,Whole Blood 285 mg/dL (75-99)
--- NOTE | 2017-07-06 12:33 | P.DS ---
Providers Date of admission: 07/04/17 02:49 Expected date of discharge: 07/06/17 Attending physician: Myles Dugan Consults: 07/05/17 19:37 Consult Physician Routine Consulting Provider: Williams Santoyo Consult Reason/Comments: Diabetes management Do you want consulting provider notified?: Yes, Notify in am Primary care physician: [facility] Course: The patient is a 66-year-old male who was diagnosed with high-grade muscle invasive bladder cancer earlier this fall. He was seen at the [facility] for second opinion and was not felt to be a candidate for radical cystectomy due to multiple comorbidities. Reresection of the tumor base at the [facility] was technically difficult due to the location of the tumor and the patient's moribund obesity. It has been elected to treat with the patient with a combination of chemotherapy and radiation therapy. The patient began radiation therapy earlier this month and was admitted approximately on 06/22/2017 due to gross hematuria. Hematuria improved with catheter drainage and the patient was discharged last week. Unfortunately he began passing clots and developed the inability to empty his bladder. He came to the emergency room early in the morning on 07/04. He was admitted by Dr. Dugan who performed cystoscopy under anesthesia early in the morning to evacuate a large amount of blood clots and to cauterize the area of bleeding. A catheter was inserted following the surgery and the catheter was removed on , as the urine was clear. The patient has been able to void with postvoid residuals measuring between 120 and 125 mL. He was noted to have anemia with a hemoglobin of 7.1 following the surgery. He had intermittent dizziness when standing and for that reason was given 2 units of packed red cells. His hemoglobin improved to 9.2 on 07/06. He was also noted to have acute on chronic renal failure with a creatinine over 3 noted on admission. Creatinine fell to 1.7 at the time of discharge following bladder drainage. It was felt that the majority of the acute renal failure was on the basis of obstructive uropathy due to urinary retention. While hospitalized the patient's diabetes was not under optimum control and medical consultation was obtained to help in management of this condition. The patient was continued on radiation therapy on 07/05 and it is anticipated that he will continue this as an outpatient. He has not yet seen Dr. Martines to discuss chemotherapy. It is anticipated that an appointment will be made for him within the next week as an outpatient. He will be seen by Dr. Johnson in approximately 2 weeks. Procedures: Cystoscopy with evacuation of blood clots and cautery of bleeding vessels 2016 Plan - Discharge Summary Discharge Rx Participant: No New Discharge Prescriptions: No Action Loratadine [Claritin] 10 mg PO DAILY Ketoconazole 2% Shampoo [Nizoral] 1 applic TOPICAL Q7D Fluticasone Nasal [place] [Flonase Nasal [place]] 2 spr EA NOSTRIL DAILY Benazepril HCl 20 mg PO BID ALPRAZolam [Xanax] 0.5 mg PO BID PRN PRN Reason: Anxiety Pregabalin [Lyrica] 50 mg PO BID Omeprazole [PriLOSEC] 40 mg PO DAILY Capsaicin Cream [Trixaicin Cream] 1 applic TOPICAL TID Hydrocortisone 1% Lotion 1 cream TOPICAL BID Hydrochlorothiazide 25 mg PO DAILY Budesonide-Formot 160-4.5 Mcg [Symbicort 160-4.5 Mcg Inhaler] 2 puff INHALATION RT-BID PRN PRN Reason: Shortness Of Breath amLODIPine BESYLATE [Norvasc] 10 mg PO DAILY Cholecalciferol (Vitamin D3) [Children's Vitamin D3] 2,000 unit PO DAILY Insulin Aspart [NovoLOG Flexpen] 10 unit SQ AC-TID #0 Insulin Glargine [Lantus] 70 unit SQ BID #0 Discharge Medication List ALPRAZolam [Xanax] 0.5 mg PO BID PRN 03/14/17 [History] Benazepril HCl 20 mg PO BID 03/14/17 [History] Budesonide-Formot 160-4.5 Mcg [Symbicort 160-4.5 Mcg Inhaler] 2 puff INHALATION RT-BID PRN 03/14/17 [History] Capsaicin Cream [Trixaicin Cream] 1 applic TOPICAL TID 03/14/17 [History] Cholecalciferol (Vitamin D3) [Children's Vitamin D3] 2,000 unit PO DAILY [History] Fluticasone Nasal [place] [Flonase Nasal [place]] 2 spr EA NOSTRIL DAILY 03/14/17 [ History] Hydrochlorothiazide 25 mg PO DAILY 03/14/17 [History] Hydrocortisone 1% Lotion 1 cream TOPICAL BID 03/14/17 [History] Ketoconazole 2% Shampoo [Nizoral] 1 applic TOPICAL Q7D 03/14/17 [History] Loratadine [Claritin] 10 mg PO DAILY 03/14/17 [History] Omeprazole [PriLOSEC] 40 mg PO DAILY 03/14/17 [History] Pregabalin [Lyrica] 50 mg PO BID 03/14/17 [History] amLODIPine BESYLATE [Norvasc] 10 mg PO DAILY 03/14/17 [History] Insulin Aspart [NovoLOG Flexpen] 10 unit SQ AC-TID #0 06/30/17 [Rx] Insulin Glargine [Lantus] 70 unit SQ BID #0 06/30/17 [Rx] Follow up Appointment(s)/Referral(s): Merlin Alberto DO [Primary Care Provider] - 1-2 days Lauro Johnson MD [STAFF PHYSICIAN] - 2 Weeks Activity/Diet/Wound Care/Special Instructions: [facility] - [phone]
[2017-07-06 14:09] VITALS: BP 160/74; PULSE 94; TEMP 98.6
== END 2017-07-06 15:05 | disposition home or self-care (01) | DRG 663 ==
LOC: EC 23:42 → 6SEL 07-04 02:49 → 5ONC 07-05 16:12
PROVIDERS: ADMIT Urology; ATTEND Urology
PROC: 0TCB8ZZ Extirpation of Matter from Bladder, Via Natural or Artificial Opening Endoscopic (ICD-10-PCS; 2017-07-04)
PROC: 0W3R8ZZ Control Bleeding in Genitourinary Tract, Via Natural or Artificial Opening Endoscopic (ICD-10-PCS; principal; 2017-07-04 06:00)
PROC: 30253N1 (ICD-10-PCS; 2017-07-05)
DX: N13.8 Other obstructive and reflux uropathy (principal); N17.9 Acute kidney failure, unspecified; D62 Acute posthemorrhagic anemia; E11.22 Type 2 diabetes mellitus with diabetic chronic kidney disease; E11.51 Type 2 diabetes mellitus with diabetic peripheral angiopathy without gangrene; E87.5 Hyperkalemia; C67.9 Malignant neoplasm of bladder, unspecified; E66.01 Morbid (severe) obesity due to excess calories; N18.2 Chronic kidney disease, stage 2 (mild); E78.5 Hyperlipidemia, unspecified; I12.9 Hypertensive chronic kidney disease with stage 1 through stage 4 chronic kidney disease, or unspecified chronic kidney disease; K21.9 Gastro-esophageal reflux disease without esophagitis; M19.90 Unspecified osteoarthritis, unspecified site; R31.0 Gross hematuria; Z79.4 Long term (current) use of insulin; Z79.51 Long term (current) use of inhaled steroids; Z79.899 Other long term (current) drug therapy; Z87.891 Personal history of nicotine dependence; Z90.5 Acquired absence of kidney; Z85.528 Personal history of other malignant neoplasm of kidney
CPT/HCPCS: 36415; 51702; 51798; 80048; 80053; 81001; 82550; 82553; 83735; 84484; 85025; 85027; 85610; 85730; 86850; 86900; 86901; 86920; 87086; 94640; 96360; 96361; 99285

== ENCOUNTER → 2017-07-18 | Day surgery (SDC) | payer OTHER, MEDICARE ==
[2017-07-18 09:48] VITALS: RESP 18
[2017-07-18 10:41] LABS: Glucose,Whole Blood 337 mg/dL (75-99)
[2017-07-18 11:15] VITALS: BP 160/71; PULSE 70; TEMP 98
--- NOTE | 2017-07-18 13:56 | IR ---
PICC LINE PLACEMENT: HISTORY: Infection requiring long-term antibiotic therapy PROCEDURE: Ultrasound and fluoroscopic guidance of PICC line placement. COMPLICATIONS: None ANESTHESIA: 1. 1% Lidocaine locally. FINDINGS/TECHNIQUE: The procedure was explained to the patient. The risks, complications, benefits and alternatives were discussed and any questions were answered. Informed consent was obtained. The patient was placed supine on the fluoroscopic table and prepped and draped in the usual sterile fas ion. Utilizing a 21 gauge needle and sonographic and fluoroscopic guidance, access in the vein was achieved and there is placement of a 0.018 guidewire. The vein is patent. A 4-F sheath was placed o jose the guidewire. The guidewire and dilator were removed and a 4-F. PICC line was placed through th e sheath with the tip at the level of the SVC. The sheath was removed, the catheter was flushed and sutured into position. The patient was stable throughout the procedure and remained stable upon disc harge from the Department of Radiology. The vein puncture was patent under ultrasound. A huggins scale image was obtained to document patency of the vein punctured. All elements of the maximal barrier technique were utilized. FLUOROSCOPY TIME: 0.2 minutes, one image submitted. IMPRESSION: Successful PICC line placement under ultrasound and fluoroscopic guidance.
== END ==
LOC: CATHCVL 09:30
PROVIDERS: ATTEND Radiology Diagnostic Radiology
DX: Z45.2 Encounter for adjustment and management of vascular access device (principal); C67.8 Malignant neoplasm of overlapping sites of bladder; I12.9 Hypertensive chronic kidney disease with stage 1 through stage 4 chronic kidney disease, or unspecified chronic kidney disease; E11.40 Type 2 diabetes mellitus with diabetic neuropathy, unspecified; N18.9 Chronic kidney disease, unspecified; Z90.5 Acquired absence of kidney; Z87.891 Personal history of nicotine dependence; E66.01 Morbid (severe) obesity due to excess calories; Z68.41 Body mass index [BMI] 40.0-44.9, adult; Z88.2 Allergy status to sulfonamides; Z79.4 Long term (current) use of insulin; Z79.51 Long term (current) use of inhaled steroids; Z79.899 Other long term (current) drug therapy; Z92.3 Personal history of irradiation; Z80.3 Family history of malignant neoplasm of breast; Z80.41 Family history of malignant neoplasm of ovary
CPT/HCPCS: 36569; 76937; 77001; C1751; C1769

== ENCOUNTER 2017-11-24 16:29 | Emergency (ER) | payer OTHER ==
[2017-11-24 16:38] VITALS: RESP 18
[2017-11-24] MEDS ORDERED: methylPREDNISolone SOD SUCCI 125 MG/2 ML VIAL IM ONE (16:59)
[2017-11-24] MEDS ORDERED: FAMOTIDINE 20 MG TAB PO STA (16:59)
[2017-11-24] MEDS ORDERED: diphenhydrAMINE 50 MG CAP PO STA (17:00)
[2017-11-24] MEDS ORDERED: AMOXIC-POT CLAV 875-125MG 1 EACH TAB PO STA (17:00)
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
[2017-11-24 18:06] VITALS: BP 161/83; PULSE 65; TEMP 98.3
== END 2017-11-24 18:00 | disposition home or self-care (01) ==
LOC: EC 16:29
DX: R22.0 Localized swelling, mass and lump, head (principal); R21 Rash and other nonspecific skin eruption; E11.9 Type 2 diabetes mellitus without complications; K21.9 Gastro-esophageal reflux disease without esophagitis; E78.5 Hyperlipidemia, unspecified; I10 Essential (primary) hypertension; G47.33 Obstructive sleep apnea (adult) (pediatric); Z99.89 Dependence on other enabling machines and devices; E66.9 Obesity, unspecified; Z68.41 Body mass index [BMI] 40.0-44.9, adult; Z85.528 Personal history of other malignant neoplasm of kidney; Z85.51 Personal history of malignant neoplasm of bladder; Z79.51 Long term (current) use of inhaled steroids; Z79.4 Long term (current) use of insulin; Z79.899 Other long term (current) drug therapy; Z88.2 Allergy status to sulfonamides; Z91.041 Radiographic dye allergy status
CPT/HCPCS: 99283; 96372; J2930

== ENCOUNTER → 2018-02-10 | Outpatient (CLI) | payer OTHER ==
--- NOTE | 2018-02-10 15:21 | CT ---
EXAMINATION TYPE: CT ChestAbdPelvis wo con DATE OF EXAM: 02/10/2018 COMPARISON: CT abdomen August 20, 2010 HISTORY: Bladder cancer. Completed radiation treatment in November. Completed chemotherapy in December. CT DLP: 1661 mGycm. Automated Exposure Control for Dose Reduction was Utilized. TECHNIQUE: CT scan of the thorax, abdomen and pelvis is performed with oral but without IV contrast. FINDINGS: Within the limitations of a noncontrast study, following observations are made LUNGS: There is calcified 8mm nodule or granuloma lateral right lower lobe axial image 40. There is s mall nodularity superior aspect left lower lobe along the medial border centered near axial image 39. Superior medial to this there are slightly more prominent nodular opacities, for reference largest m easures 9 x 5 mm axial image 31. Remainder of left lung is clear. No pleural effusion or pneumothorax is seen bilaterally. MEDIASTINUM: There are no greater than 1 cm noncalcified hilar or mediastinal lymph nodes. There are prominent but calcified subcarinal and right hilar lymph nodes. No cardiomegaly or pericardial effus ion is seen. Fairly moderate coronary artery calcification is seen which is noted marker for coronar y artery disease. OTHER: Right greater than left bilateral gynecomastia is present. LIVER/GB: Liver is diffusely low dense consistent with fatty infiltration. PANCREAS: No significant abnormality is seen. SPLEEN: No significant abnormality is seen. ADRENALS: Slight low dense thickening to left adrenal gland is stable favoring benign hyperplasia. KIDNEYS: Surgical clips from right-sided nephrectomy are redemonstrated. There is persistent 3.5 cm s imple appearing cyst left left kidney mid pole level axial image 83. Linear density along inferior le ft lateral bladder likely reflects surgical sutures are postsurgical change seen best coronal image 7 8. Bladder is poorly distended and thus suboptimally evaluated. Bladder wall is mildly thickened up t o 10 mm without suspicious focal thickening present. BOWEL: No significant abnormality is seen. GENITAL ORGANS: No gross abnormality seen. LYMPH NODES: No greater than 1cm abdominal or pelvic lymph nodes are appreciated. OSSEOUS STRUCTURES: There is moderate multilevel spurring in the mid to lower thoracic spine mild to moderate axial joint space loss in both hips is present. OTHER: There is moderate to severe calcified plaque of the abdominal aorta extending into pelvic bran ch vessels. IMPRESSION: Postsurgical changes to bladder suspected. Nonspecific nodularity superior aspect left lo wer lobe favors postinflammatory, neoplastic etiology unlikely but not excluded. Otherwise no suspici ous mass or adenopathy is seen to suggest malignant recurrence. Correlation with outside CT or PET/CT is advised.
== END | disposition home or self-care (01) ==
LOC: RADCTMAIN 10:40
PROVIDERS: ATTEND Internal Medicine Hematology & Oncology
DX: C67.9 Malignant neoplasm of bladder, unspecified (principal)
CPT/HCPCS: 71250; 74176

== ENCOUNTER → 2018-05-12 | Outpatient (CLI) | payer OTHER ==
--- NOTE | 2018-05-12 12:55 | CT ---
EXAMINATION TYPE: CT ChestAbdPelvis wo con DATE OF EXAM: 05/12/2018 COMPARISON: CT chest abdomen and pelvis February 10, 2018 HISTORY: Bladder CA, observe for Mets. Last chemotherapy December 2017. History of bladder cancer removal surgery. CT DLP: 2941.6 mGycm. Automated Exposure Control for Dose Reduction was Utilized. TECHNIQUE: CT scan of the thorax, abdomen and pelvis is performed with oral but without IV contrast. FINDINGS: LUNGS: The lungs are grossly clear, there is no concerning new noncalcified parenchymal mass or nodul e identified. There is stable calcified 10 mm nodule or granuloma right lower lobe axial image 39. T here is interval resolution of nodular opacity medial and superior aspect left lower lobe. There is n o pleural effusion or pneumothorax seen. The tracheobronchial tree is patent. MEDIASTINUM: There are no greater than 1 cm noncalcified hilar or mediastinal lymph nodes. There is redemonstration of prominent but calcified right hilar and subcarinal lymph nodes. No cardiomegaly or pericardial effusion is seen. There is moderate to severe three-vessel coronary artery calcificatio n which is noted marker for coronary artery disease. Calcification at level of mitral annulus is rede monstrated. OTHER: There is persistent right slightly greater than left mild bilateral gynecomastia. LIVER/GB: Liver is diffusely low dense consistent with fatty infiltration. Dependent calcified gallst ones and gallbladder are redemonstrated. PANCREAS: No significant abnormality is seen. SPLEEN: No significant abnormality is seen. ADRENALS: Slight low dense thickening to left adrenal gland favors benign hyperplasia is redemonstrat ed. KIDNEYS: Right kidney is surgically absent with numerous surgical clips. There is redemonstration of simple appearing 4.0 x 2.5 cm cyst laterally mid pole level left kidney axial image 80. Bladder is sa tisfactorily distended with perhaps mild concentric wall thickening redemonstrated. Curvilinear densi ty or calcification along the left inferior margin is stable. No new intraluminal mass clearly seen. BOWEL: The oral contrast reaches level of proximal transverse colon. There is no suspicious small or large bowel dilatation. GENITAL ORGANS: No gross abnormality seen. LYMPH NODES: No greater than 1cm abdominal or pelvic lymph nodes are appreciated. OSSEOUS STRUCTURES: Mild to moderate multilevel spurring in thoracic spine remains present. There is facet arthropathy lower lumbar levels seen. OTHER: There is moderate to severe calcified plaque of the abdominal aorta extending into pelvic bran ch vessels redemonstrated. There is mild haziness or fat stranding just inferior to aortic bifurcation near axial image 61 just superior to the sigmoid colon. There is additional mild haziness in the presacral fat. Both findings not significantly changed from prior study and are suspected product of prior treatment. IMPRESSION: Interval resolution of nodular infiltrate left lower lobe. No new masses or adenopathy i dentified to suggest neoplastic recurrence.
== END | disposition home or self-care (01) ==
LOC: RADCTMAIN 07:21
PROVIDERS: ATTEND Internal Medicine Hematology & Oncology
DX: C67.9 Malignant neoplasm of bladder, unspecified (principal); R91.8 Other nonspecific abnormal finding of lung field
CPT/HCPCS: 71250; 74176

== ENCOUNTER → 2018-08-04 | Outpatient (CLI) | payer OTHER ==
--- NOTE | 2018-08-04 10:32 | CT ---
EXAMINATION TYPE: CT ChestAbdPelvis wo con DATE OF EXAM: 08/04/2018 COMPARISON: Prior CT chest abdomen pelvis 05/12/2018 HISTORY: Bladder cancer, followup CT DLP: 2875.0 mGycm. Automated Exposure Control for Dose Reduction was Utilized. TECHNIQUE: CT scan of the thorax, abdomen and pelvis is performed without IV contrast. FINDINGS: Lack of contrast could compromise sensitivity. LUNGS: The lungs are remarkable for calcified nodule in the right lower lobe. Nodule stable. There is no pleural effusion or pneumothorax seen. The tracheobronchial tree is patent. MEDIASTINUM: There are no greater than 1 cm hilar or mediastinal lymph nodes. Calcified mediastinal a nd right hilar nodes are present. Coronary artery calcifications are dense. No pericardial effusion i s seen. OTHER: No additional significant abnormality is seen. LIVER/GB: Dependent high density within the gallbladder compatible with stones. No evident liver mass . The liver is enlarged. Liver shows low attenuation likely due to hepatic steatosis. PANCREAS: No significant abnormality is seen. SPLEEN: No significant abnormality is seen. ADRENALS: No significant abnormality is seen. KIDNEYS: Right kidney has been removed, surgical clips are present. Cortical cyst present in the midp ole the left kidney measures 4.3 cm. BOWEL: Colonic wall thickening within the pelvis may be due to post radiation therapy, correlate, dif ficult to exclude colitis. GENITAL ORGANS: No gross abnormality seen. LYMPH NODES: No greater than 1cm abdominal or pelvic lymph nodes are appreciated. OSSEOUS STRUCTURES: No significant abnormality is seen. Urinary bladder shows a thickened wall. There is calcification in the left sidewall which is linear a nd measures approximately 16 mm x 1 mm. Surgical clips present in the left groin status post node dis section. Increased attenuation in the pelvic fat may be due to post radiation change. IMPRESSION: Noncontrast exam. No evident abnormality to suggest metastatic disease. Similar findings to prior exam.
== END | disposition home or self-care (01) ==
LOC: RADCTMAIN 08:00
PROVIDERS: ATTEND Internal Medicine Hematology & Oncology
DX: C67.9 Malignant neoplasm of bladder, unspecified (principal); Z88.2 Allergy status to sulfonamides; Z88.1 Allergy status to other antibiotic agents
CPT/HCPCS: 71250; 74176

== ENCOUNTER → 2018-11-03 | Outpatient (CLI) | payer OTHER ==
--- NOTE | 2018-11-03 11:05 | CT ---
EXAMINATION TYPE: CT ChestAbdPelvis wo con DATE OF EXAM: 11/03/2018 COMPARISON: 08/04/2018, 05/12/2018 and 02/10/2018 reports. Images were not available for comparison as they would not load. HISTORY: Bladder CA CT DLP: 2348.4 mGycm. Automated Exposure Control for Dose Reduction was Utilized. TECHNIQUE: CT scan of the thorax, abdomen and pelvis is performed without IV contrast. FINDINGS: LUNGS: There is a benign granuloma in the right lower lobe. The lungs are grossly clear, there is no concerning parenchymal mass or nodule identified. There is no pleural effusion or pneumothorax seen . The tracheobronchial tree is patent. MEDIASTINUM: Moderate coronary calcifications are seen present. Benign calcified mediastinal granulom as are noted There are no greater than 1 cm hilar or mediastinal lymph nodes. No pericardial effusi on is seen. OTHER: There is slightly asymmetric retroareolar probable gynecomastia, right greater than left. LIVER/GB: Cholelithiasis is present. Unremarkable unenhanced morphology of the liver. PANCREAS: No significant abnormality is seen. SPLEEN: No significant abnormality is seen. ADRENALS: The left adrenal gland is again thickened, suggesting adrenal gland hyperplasia. Right adre nal gland is unremarkable. KIDNEYS: Right kidney is surgically absent. There is an approximately 3.7 cm left renal cyst. BOWEL: Mild thickening of the rectum is seen with surrounding inflammatory fat stranding as discussed on the prior CT of a 08/04/2018. This may relate to posttreatment change. No dilated large or small bowel. GENITAL ORGANS: No gross abnormality seen. LYMPH NODES: No greater than 1cm abdominal or pelvic lymph nodes are appreciated. OSSEOUS STRUCTURES: There is a nonspecific sclerotic lesion within the left iliac bone measuring 8 mm . This may represent a benign bone island. Mild multilevel degenerative change of the spine is noted. OTHER: Urinary bladder displays circumferential wall thickening and calcification along the bladder w all. There is surrounding mild fat stranding and fat stranding surrounding the rectum, possibly post radiation/post therapy change.. IMPRESSION: 1. Redemonstration of circumferential urinary bladder wall thickening and left lateral calcification as well as mild surrounding 5 stranding of the urinary bladder and rectum that may relate to posttrea tment change. 2. No new evidence of visceral metastasis within the chest, abdomen, or pelvis.
== END | disposition home or self-care (01) ==
LOC: RADCTMAIN 08:52
PROVIDERS: ATTEND Internal Medicine Hematology & Oncology
DX: N32.89 Other specified disorders of bladder (principal); C67.9 Malignant neoplasm of bladder, unspecified; Z88.2 Allergy status to sulfonamides; Z88.3 Allergy status to other anti-infective agents
CPT/HCPCS: 71250; 74176

== ENCOUNTER 2018-11-23 22:09 | Inpatient (IN) | payer OTHER, MEDICARE ==
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
[2018-11-23] MEDS ORDERED: NALOXONE 0.4 MG/ML 1 ML VIAL IV PRN (23:11)
[2018-11-24] MEDS ORDERED: ACETAMINOPHEN TAB 325 MG TAB PO STA (00:03)
[2018-11-24] MEDS: SODIUM CHLORIDE 0.9% 500 ML 500 ML IV SCH ×2 (00:34→01:15)
[2018-11-24] MEDS: ACETAMINOPHEN TAB 325 MG TAB PO PRN (00:41)
[2018-11-24 00:42] LABS: Anisocytosis Slight; HCT 28.2 % (39.0-53.0); HGB 9.7 gm/dL (13.0-17.5); MCH 27.6 pg (25.0-35.0); MCHC 34.3 g/dL (31.0-37.0); MCV 80.5 fL (80.0-100.0); Mean Platelet Volume 8.3; Platelet Count 285 k/uL (150-450); Poikilocytosis Slight; RDW 16.6 % (11.5-15.5)
[2018-11-24 00:46] LABS: Partial Thromboplastin Time 22.3 sec (22.0-30.0); Prothrombin Time 10.4 sec (9.0-12.0)
[2018-11-24 00:51] LABS: Albumin 3.5 g/dL (3.5-5.0); Calcium 8.8 mg/dL (8.4-10.2); Potassium 4.6 mmol/L (3.5-5.1); Total Protein 6.4 g/dL (6.3-8.2)
[2018-11-24 01:28] LABS: Bacteria,Urine Many /hpf; Mucus,Urine Rare /hpf
[2018-11-24 01:41] LABS: Glucose,Whole Blood 51 mg/dL (75-99)
[2018-11-24 01:46] LABS: Color,Urine Red
[2018-11-24 01:47] LABS: Appearance,Urine Cloudy (Clear); WBC,Urine >182 /hpf (0-5)
[2018-11-24 01:48] LABS: RBC,Urine >182 /hpf (0-5)
[2018-11-24 02:18] LABS: Glucose,Whole Blood 76 mg/dL (75-99)
[2018-11-24] MEDS: IBUPROFEN 400 MG TAB PO PRN ×3 (02:33→15:10)
[2018-11-24 02:37] LABS: Band Neutrophils % 24 %; Lymphocytes # (M) 0.48 k/uL (1.0-4.8); Metamyelocytes # (M) 0.12 k/uL (0); Metamyelocytes % 1 %; Myelocytes # (M) 0.24 k/uL (0); Myelocytes % 2 %; Neutrophils % (M) 71 %; Nucleated Red Blood Cells 0 /100 WBC (0-0); Total Cells Counted 200
[2018-11-24 02:38] LABS: Polychromasia Present
[2018-11-24 03:35] LABS: Glucose,Whole Blood 54 mg/dL (75-99)
[2018-11-24 03:54] LABS: Glucose,Whole Blood 62 mg/dL (75-99)
[2018-11-24 04:14] LABS: Glucose,Whole Blood 101 mg/dL (75-99)
[2018-11-24 05:56] LABS: Glucose,Whole Blood 167 mg/dL (75-99)
[2018-11-24] MEDS ORDERED: ALPRAZolam 0.5 MG TAB PO PRN (06:09)
[2018-11-24 07:37] LABS: Glucose,Whole Blood 202 mg/dL (75-99)
[2018-11-24] MEDS ORDERED: PANTOPRAZOLE 40 MG TABLET PO SCH (09:00)
[2018-11-24] MEDS: FENOFIBRATE 160 MG TAB PO SCH (09:11)
[2018-11-24] MEDS: hydrALAZINE HCL 50 MG TAB PO SCH ×2 (09:11→21:43)
[2018-11-24] MEDS: PREGABALIN 50 MG CAP PO SCH ×2 (09:11→16:22)
[2018-11-24] MEDS: amLODIPine 10 MG TAB PO SCH (09:11)
[2018-11-24] MEDS: LORATADINE 10 MG TAB PO SCH (09:12)
[2018-11-24] MEDS: INSULIN DETEMIR (LEVEMIR) 100 UNIT/ML SYR SQ SCH ×2 (09:28→21:42)
[2018-11-24] MEDS: INSULIN ASPART (NovoLOG) 100 UNIT/ML VIAL SQ SCH ×6 (09:28→21:46)
[2018-11-24 12:05] LABS: Glucose,Whole Blood 351 mg/dL (75-99)
[2018-11-24] MEDS: BARIUM SULFATE 450 ML ORAL.SUSP BOTTLE PO PRN ×2 (12:21→15:21)
[2018-11-24] MEDS: TAMSULOSIN 0.4 MG CAP.ER.24H PO SCH (12:23)
--- NOTE | 2018-11-24 14:24 | XR ---
EXAMINATION TYPE: XR chest 1V portable DATE OF EXAM: 11/24/2018 COMPARISON: 11/24/2018 HISTORY: Shortness of breath TECHNIQUE: Single frontal view of the chest is obtained. FINDINGS: Cardiomegaly is now identified with new central vascular congestion. No large pleural effu ryann or pneumothorax is seen bilaterally. Scattered small calcified nodules are granulomas are felt r edemonstrated. Visualized osseous structures are intact. IMPRESSION: 1. Persistent interstitial pattern suggestive of interstitial congestion or pneumonitis. No sizable p leural effusion. 2. There is a pulmonary nodule at the right lung base compatible with a granuloma.
[2018-11-24 15:29] LABS: Anisocytosis Slight; Basophils % (A) 0 %; Eosinophils % (A) 0 %; HCT 27.5 % (39.0-53.0); Hypochromasia Slight; Lymphocytes # (A) 0.4 k/uL (1.0-4.8); Lymphocytes % (A) 3 %; MCH 26.6 pg (25.0-35.0); MCHC 32.9 g/dL (31.0-37.0); Mean Platelet Volume 9.8; Monocytes # (A) 0.7 k/uL (0-1.0); Monocytes % (A) 5 %; Neutrophils # (A) 12.9 k/uL (1.3-7.7); Neutrophils % (A) 90 %; Platelet Count 282 k/uL (150-450); RBC 3.39 m/uL (4.30-5.90); RDW 17.4 % (11.5-15.5); WBC 14.3 k/uL (3.8-10.6)
[2018-11-24] MEDS ORDERED: FUROSEMIDE 10 MG/ML 4 ML VIAL IV STA (15:30)
[2018-11-24 15:36] LABS: ABG PCO2 37 mmHg (35-45); ABG PH 7.38 (7.35-7.45); ABG PO2 55 mmHg (83-108)
[2018-11-24 15:37] LABS: ABG HCO3 22 mmol/L (21-25)
[2018-11-24 15:40] LABS: Calcium 8.3 mg/dL (8.4-10.2); Potassium 5.2 mmol/L (3.5-5.1)
[2018-11-24] MEDS: HYDROcodone/APAP 5-325MG 1 EACH TAB PO PRN (15:59)
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
--- NOTE | 2018-11-24 17:05 | XR ---
EXAMINATION: XR chest 2V DATE AND TIME: 11/24/2018 4:43 PM CLINICAL INDICATION: PHH; SOB TECHNIQUE: AP and lateral. COMPARISON: 11/24/2018 2:08 PM FINDINGS: The radiographic technique is more penetrated on the current exam. The overall lung inflation pattern has a similar abnormality seen on the prior study. No new lung parenchymal process. Pleural spaces are negative. Cardiac silhouette is mildly enlarged, stable. IMPRESSION: Similar lung inflation pattern when compared with the radiograph today, at 2:08 PM
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
[2018-11-24 18:00] LABS: Glucose,Whole Blood 268 mg/dL (75-99)
[2018-11-24 19:03] LABS: Glucose,Whole Blood 264 mg/dL (75-99)
--- NOTE | 2018-11-24 19:07 | HP ---
HISTORY AND PHYSICAL CHIEF COMPLAINTS: Hematuria, diminished urine output and dysuria. HISTORY OF PRESENT ILLNESS: This 67-year-old gentleman with a past medical history of multiple medical problems, including diabetes mellitus, GERD, hypertension, hyperlipidemia, history of DJD, history of vascular disorder, had bladder cancer. The patient is followed by Dr. Alberto in [facility] as well as Urology. The patient had transitional cell carcinoma. The patient was apparently having difficulty with urination for the last several days. Patient had UA with micro done in Dr. Martines's office. Because of increasing difficulties and hematuria, the patient came to [facility] and was admitted for further evaluation and treatment. The patient was found to have hematuria. The patient also had a fever up to 102.9. UTI with sepsis was considered. White count was elevated at 14.3. After admission patient also had some shortness of breath. The patient also was found to have CHF. The patient also had acute respiratory failure with ABG showing pH of 7.38 and a PO2 of 55. Dr. Anand was consulted. The patient was transferred to ICU at this time. There is no history of any fever, rigor or chills. No history of headache, loss of consciousness, seizures. PAST MEDICAL HISTORY: 1. History of diabetes mellitus. 2. History of GERD. 3. Hypertension. 4. Hyperlipidemia. 5. History of DJD. 6. History of sleep apnea. 7. History of bladder cancer. HOME MEDICATIONS: 1. Lopressor 50 mg p.o. at bedtime. 2. Nizoral 1 application q.7 days. 3. Xanax 0.5 b.i.d. p.r.n. 4. Triamcinolone 1 application daily. 5. K-Dur 10 mEq p.o. daily. 6. Kerodex 1 application b.i.d. 7. Lyrica 150 mg p.o. t.i.d. 8. Prilosec 40 mg p.o. daily. 9. Hydrocortisone lotion 1% b.i.d. 10.Lantus 60 units subcutaneously b.i.d. 11.NovoLog 50 units subcutaneously t.i.d. 12.Lopid 600 mg p.o. b.i.d. 13.Xeloda 2.5 mg p.o. b.i.d. 14.Symbicort 160/4.5 two puffs b.i.d. 15.Lopressor 25 mg p.o. each morning. 16.HydroDIURIL 50 mg p.o. daily. 17.Apresoline 50 mg p.o. b.i.d. 18.Norvasc 10 mg p.o. daily. 19.Claritin 10 mg p.o. daily. 20.Benazepril 20 mg p.o. b.i.d. ALLERGIES: 1. IODINATED CONTRAST DYE. 2. SULFA. FAMILY HISTORY: No history of heart disease or strokes in the family. SOCIAL HISTORY: Previous history of smoking. No current smoking or alcohol intake. REVIEW OF SYSTEMS: ENT: No diminished hearing. No diminished vision. CARDIOVASCULAR SYSTEM: As mentioned earlier. RESPIRATORY SYSTEM: As mentioned earlier. The patient has some difficulty in breathing. GI: As mentioned earlier. : As mentioned earlier. NERVOUS SYSTEM: No numbness, weakness. ALLERGY/IMMUNOLOGY: No asthma, hayfever. MUSCULOSKELETAL: As mentioned earlier. HEMATOLOGY/ONCOLOGY: No history of anemia. ENDOCRINE: History of diabetes, hypothyroidism. CONSTITUTIONAL: As mentioned earlier. DERMATOLOGY: Negative. RHEUMATOLOGY: Negative. PSYCHIATRY: As mentioned earlier. PHYSICAL EXAMINATION: Patient is alert and oriented x3. Pulse 87, blood pressure 118/60, respiration 20, temperature 101.9, pulse ox 90% on 5 L and 15 L high-flow. HEENT: Conjunctivae normal. Oral mucosa moist. NECK: No jugular venous distention. No carotid bruit. No lymph node enlargement. CARDIOVASCULAR SYSTEM: S1, S2 muffled. No S3. No S4. RESPIRATORY SYSTEM: Breath sounds diminished at the bases. A few scattered rhonchi and crackles. ABDOMEN: Soft, obese, non-tender. No mass palpable. LEGS: No edema. No swelling. EXAMINATION OF EXTERNAL GENITALIA: Hooper catheter present with hematuria. NERVOUS SYSTEM: Higher functions as mentioned earlier. Moves all 4 limbs. No focal motor or sensory deficit. LYMPHATICS: No lymph node palpable in neck, axillae or groin. SKIN: No ulcer, rash, bleeding. JOINTS: No active deforming arthropathy. LABS AT THIS TIME: WBC 14.3, hemoglobin 9. ABGs noted. Sodium 137, potassium 5.2. Creatinine is 3.10. Glucose 264. Calcium is 8.3. ASSESSMENT: 1. Acute urinary tract infection with sepsis, present on admission. 2. Congestive heart failure, acute exacerbation, with acute hypoxic respiratory failure. 3. Possible sleep apnea. 4. Obesity with body mass index of 42.2. 5. Increased white count secondary to sepsis. 6. Normocytic anemia of chronic disease. 7. Hyperkalemia. 8. Renal failure, possibly acute renal failure with acute tubular necrosis. 9. History of bladder cancer with hematuria with urinary obstruction. 10.Diabetes mellitus, type 2. 11.Gastroesophageal reflux disease. 12.Hypertension. 13.Hyperlipidemia. 14.Degenerative joint disease. 15.History of sleep apnea. 16.History of transitional cancer of the bladder. 17.History of sleep apnea, on CPAP. 18.Severe peripheral vascular disease with femoral-popliteal bypass surgery with wound complications and wound V.A.C. 19.FULL CODE. RECOMMENDATIONS AND DISCUSSION: In this 67-year-old gentleman who presented with multiple complex medical issues, we will monitor the patient closely, continue the current management, continue symptomatic treatment. Will initiate broad-spectrum antibiotics. I would also recommend cautious Lasix. I would also recommend pulmonary and nephrology consultations. The patient will be transferred to ICU. Infectious Disease is also being consulted for possible sepsis. Urology also being consulted for hematuria. Resume the home medications. DVT prophylaxis. Otherwise, I will stop the Motrin and nephrotoxic medications as well. Overall prognosis extremely guarded because of multiple complex medical conditions. Further recommendations to follow. A copy of this dictation is being forwarded to Dr. Alberto at [facility]. JOSE / ARI: [id number] /
--- NOTE | 2018-11-24 19:38 | CT ---
EXAMINATION TYPE: CT abdomen pelvis wo IV con, but w Oral con. DATE OF EXAM: 11/24/2018 COMPARISON: 11/03/2018 HISTORY: hematuria CT DLP: 2467.1 mGycm Automated exposure control for dose reduction was used. TECHNIQUE: Helical acquisition of images was performed from the lung bases through the pelvis. FINDINGS: Within the limitations of noncontrast CT the following observations are made: LUNG BASES: No acute findings. LIVER/GB: No significant abnormality is appreciated. Cholelithiasis is noted. PANCREAS: No significant abnormality is seen. SPLEEN: Mild splenomegaly redemonstrated. ADRENALS: No significant abnormality is seen. KIDNEYS: The perirenal space shows new mild/moderate edematous reticulation diffusely around the kidn ey and this is associated with indistinctness of the left renal parenchyma, mild left hydronephrosis and moderate left hydroureter down to the urinary bladder wall thickening described on the prior CT. Throughout the extent of the left hydroureter there is mild ureterectasis and moderate edematous reti culation throughout the periureteral adipose planes. Surgical absence of the right kidney noted; the right renal bed is unremarkable. FREE AIR: No free air is visualized RETROPERITONEAL ADENOPATHY: None visualized REPRODUCTIVE ORGANS: No significant abnormality is seen URINARY BLADDER: Posteriorly within the urinary bladder is high attenuation material cannot be delin eated from the dural thickening previously described; this may represent intravesical dependent hemor rhage within which is a Hooper catheter balloon. PELVIC ADENOPATHY: None visualized. OSSEOUS STRUCTURES: No acute findings. BOWEL: No significant abnormality is seen. IMPRESSION: NO OBSTRUCTIVE UROPATHY, MILD/MODERATE DEGREE.
[2018-11-24 20:14] LABS: Glucose,Whole Blood 251 mg/dL (75-99)
[2018-11-24] MEDS: SYMBICORT 160-4.5 MCG INHALER INHALATION SCH ×2 (20:46→22:04)
[2018-11-24] MEDS: IPRATROPIUM-ALBUTEROL 3 ML NEB INHALATION PRN (20:50)
[2018-11-24] MEDS ORDERED: CEFEPIME 2 GM in SODIUM CHLORIDE 0.9% 100 ML IVPB ONE (21:00)
[2018-11-24] MEDS ORDERED: FAMOTIDINE 20 MG/2 ML VIAL IV SCH (21:00)
[2018-11-24] MEDS: PREGABALIN 75 MG CAP PO SCH (21:42)
[2018-11-24] MEDS: METOPROLOL TARTRATE 50 MG TAB PO SCH (21:43)
[2018-11-24] MEDS: HYDROCORTISONE 1% CREAM 30 GM TUBE TOPICAL SCH (21:44)
[2018-11-24] MEDS: HYDROPHILIC CREAM 120 GM JAR TOPICAL SCH (21:46)
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
[2018-11-24 23:51] LABS: Iron Saturation 1.41 (15.00-50.00)
[2018-11-25] MEDS: ACETAMINOPHEN TAB 325 MG TAB PO PRN ×3 (01:21→14:51)
[2018-11-25 06:28] LABS: Anisocytosis Slight; Basophils % (A) 0 %; Eosinophils % (A) 0 %; HCT 24.8 % (39.0-53.0); HGB 7.9 gm/dL (13.0-17.5); Hypochromasia Slight; Lymphocytes # (A) 0.5 k/uL (1.0-4.8); Lymphocytes % (A) 3 %; MCH 25.7 pg (25.0-35.0); MCHC 31.7 g/dL (31.0-37.0); MCV 80.9 fL (80.0-100.0); Mean Platelet Volume 9.9; Microcytosis Slight; Monocytes # (A) 0.8 k/uL (0-1.0); Monocytes % (A) 6 %; Neutrophils # (A) 12.2 k/uL (1.3-7.7); Neutrophils % (A) 88 %; Platelet Count 260 k/uL (150-450); RBC 3.06 m/uL (4.30-5.90); RDW 17.7 % (11.5-15.5); WBC 13.8 k/uL (3.8-10.6)
--- NOTE | 2018-11-25 06:44 | XR ---
EXAMINATION TYPE: XR chest 1V DATE OF EXAM: 11/25/2018 HISTORY: CHF. REFERENCE: Previous study dated 11/24/2018. FINDINGS: The heart remains enlarged. There is vascular congestion and mild interstitial change. The overall appearance is similar to previous. There is a questionable pulmonary nodule at the right lung base. There are small, bilateral effusions. IMPRESSION: 1. FINDINGS SUGGESTIVE OF MILD HEART FAILURE. 2. RIGHT-SIDED PULMONARY NODULE.
[2018-11-25] MEDS: INSULIN ASPART (NovoLOG) 100 UNIT/ML VIAL SQ SCH ×7 (06:56→22:11)
[2018-11-25 07:07] LABS: Glucose,Whole Blood 100 mg/dL (75-99)
[2018-11-25 07:15] LABS: Calcium 8.2 mg/dL (8.4-10.2)
[2018-11-25] MEDS ORDERED: SODIUM CHLORIDE 0.9% IRRIGATIO 3,000 ML IRRIGATION ONE ×3 (07:45→22:52)
[2018-11-25] MEDS: IPRATROPIUM-ALBUTEROL 3 ML NEB INHALATION PRN (08:03)
[2018-11-25] MEDS: SYMBICORT 160-4.5 MCG INHALER INHALATION SCH ×2 (08:03→19:46)
[2018-11-25] MEDS: TRIAMCINOLONE 0.1% CREAM 80 GM TUBE TOPICAL SCH (09:17)
[2018-11-25] MEDS: HYDROCORTISONE 1% CREAM 30 GM TUBE TOPICAL SCH ×2 (09:17→22:39)
[2018-11-25] MEDS: PANTOPRAZOLE 40 MG/10 ML VIAL IVP SCH (09:18)
[2018-11-25] MEDS: amLODIPine 10 MG TAB PO SCH (09:18)
[2018-11-25] MEDS: FENOFIBRATE 160 MG TAB PO SCH (09:18)
[2018-11-25] MEDS: TAMSULOSIN 0.4 MG CAP.ER.24H PO SCH (09:18)
[2018-11-25] MEDS: LORATADINE 10 MG TAB PO SCH (09:18)
[2018-11-25] MEDS: PREGABALIN 75 MG CAP PO SCH ×3 (09:18→22:35)
[2018-11-25] MEDS: hydrALAZINE HCL 50 MG TAB PO SCH ×2 (09:18→22:34)
[2018-11-25] MEDS: HYDROPHILIC CREAM 120 GM JAR TOPICAL SCH ×2 (09:19→21:54)
--- NOTE | 2018-11-25 09:51 | P.PN ---
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 Johnson and a urologist from the [facility]. Patient did receive systemic chemotherapy and localized radiation therapy after surgical resection. Other medical history includes diabetes mellitus, GERD/reflux, hypertension, hyperlipidemia, osteoarthritis, sleep apnea on CPAP therapy, morbid obesity, severe peripheral vascular disease with a complicated fem-pop bypass surgery with history of wound dehiscence and subsequent infection of the lower extremity wound site, previous history of nicotine dependence, currently in remission. On 11/23/2018 patient presented to the emergency department with complaints of inability to void, hematuria, fever of 102.9F, rigors. Ultrasound of the [facility] er revealed a distended bladder, Hooper catheter was placed, with return of dark colored hematuria. Urine culture from 11/10/2018 reveals E. coli in the urine culture, with herrera susceptibility. Rocephin was started for antibiotic coverage, [place] workup was started, initial blood work showed white blood cell count of 12.0, hemoglobin of 9.7, sodium of 140, potassium is 4.6, chloride is 111, CO2 is 18, BUN is 42, creatinine is 2.64, asthma lactic acid was within normal limits at 1.8 LFTs were normal. Urinalysis showed red blood cells greater than 182, white blood cells greater than 182, moderate white blood cells in clumps, and many bacteria. Patient has been afebrile with a T-max of 102.9F. Hemodynamically patient has been stable, no tachycardia. Was initially admitted to the medical surgical floor, however through the day patient became increasingly more short of breath and hypoxemia, initially was just on room air, afternoon patient started desaturating, and had to be placed on supplemental oxygen at 4 L per nasal cannula and O2 sats were at 89%, lung sounds were quite congested, patient was given IV Lasix 1 per attending physician. The blood gas was obtained, and showed pO2 of 55, pCO2 of 37, pH of 7.38 this was done on FiO2 of 36%. The chest x-ray was obtained and showed interstitial edema and new central vascular congestion. There was a pulmonary nodule at the right lung base compatible with a granuloma. The patient is seen today 11/25/2018 in follow-up in the intensive care unit. He is currently awake and alert in no acute distress. Resting comfortably in bed. He is currently on 8 L high flow nasal cannula and maintaining good O2 saturations in the 90s on room air. Still with fever 100.6 axillary. He did utilize the CPAP last night. Cultures positive for gram-negative bacilli. Urine culture pending. White count 13.8. Hemoglobin 7.9. Creatinine 4.12. Bicarb 19. He is currently in a negative balance. The plan is for continuous bladder irrigation. Triple-lumen catheter has been placed. He is currently on cefepime and he also remains on bronchodilators and Symbicort. Chest x-ray reveals evidence of mild congestive heart failure. There is a right-sided pulmonary nodule. This is a benign granuloma seen on previous computed tomography scan of the chest. Objective - Vital Signs Vital signs: Vital Signs Temp 100.6 F H 11/25/18 04:00 Pulse 75 11/25/18 08:21 Resp 26 H 11/25/18 06:00 BP 101/51 11/25/18 06:00 Pulse Ox 96 11/25/18 06:00 Intake & Output 11/24/18 11/25/18 11/25/18 18:59 06:59 18:59 Intake Total 350 Output Total 1100 470 20 Balance -1100 -120 -20 Weight 149.5 kg Intake: IV 100 Cefepime 2 gm In Sodium 100 Chloride 0.9% 100 ml @ 200 mls/hr IVPB ONCE ONE Rx#:[id number] Oral 250 Output: Urine 1100 470 20 Other: Voiding Method Indwelling Catheter Indwelling Catheter - Exam GENERAL EXAM: Alert, pleasant, 67-year-old white male currently on 8 L per high flow nasal cannula mildly short of breath, but no acute distress HEAD: Normocephalic/atraumatic. EYES: Normal reaction of pupils, equal size. Conjunctiva pink, sclera white. NOSE: Clear with pink turbinates. THROAT: No erythema or exudates. NECK: No masses, no JVD, no thyroid enlargement, no adenopathy. CHEST: No chest wall deformity. Symmetrical expansion. LUNGS: Equal air entry rhonchi, wheeze or crackles. CVS: Regular rate and rhythm, normal S1 and S2, no gallops, no murmurs, no rubs ABDOMEN: Soft, nontender. No hepatosplenomegaly, normal bowel sounds, no guarding or rigidity. : Hooper catheter is in place, draining dark-colored urine, tea-colored hematuria EXTREMITIES: No clubbing, 1+ edema in lower extremities pretibial and pedal no cyanosis, 2+ pulses and upper and lower extremities. MUSCULOSKELETAL: Muscle strength and tone normal. SPINE: No scoliosis or deformity SKIN: No rashes CENTRAL NERVOUS SYSTEM: Alert and oriented -3. No focal deficits, tone is normal in all 4 extremities. PSYCHIATRIC: Alert and oriented -3. Appropriate affect. Intact judgment and insight. - Labs CBC & Chem 7: 11/25/18 05:51 11/25/18 05:51 Labs: Abnormal Lab Results - Last 24 Hours (Table) 11/24/18 11/24/18 11/24/18 Range/Units 11:52 12:13 14:38 WBC 14.3 H (3.8-10.6) k/uL RBC 3.39 L (4.30-5.90) m/uL Hgb 9.0 L (13.0-17.5) gm/dL Hct 27.5 L (39.0-53.0) % RDW 17.4 H (11.5-15.5) % Neutrophils # 12.9 H (1.3-7.7) k/uL Lymphocytes # 0.4 L (1.0-4.8) k/uL ABG pO2 (83-108) mmHg Potassium (3.5-5.1) mmol/L Chloride (98-107) mmol/L Carbon Dioxide (22-30) mmol/L BUN (9-20) mg/dL Creatinine (0.66-1.25) mg/dL Glucose (74-99) mg/dL POC Glucose (mg/dL) 351 H (75-99) mg/dL Calcium (8.4-10.2) mg/dL Iron 4 L (65-175) ug/dL Iron Saturation 1.41 L (15.00-50.00) 11/24/18 11/24/18 11/24/18 Range/Units 14:56 15:13 17:49 WBC (3.8-10.6) k/uL RBC (4.30-5.90) m/uL Hgb (13.0-17.5) gm/dL Hct (39.0-53.0) % RDW (11.5-15.5) % Neutrophils # (1.3-7.7) k/uL Lymphocytes # (1.0-4.8) k/uL ABG pO2 55 L* (83-108) mmHg Potassium 5.2 H (3.5-5.1) mmol/L Chloride (98-107) mmol/L Carbon Dioxide 21 L (22-30) mmol/L BUN 47 H (9-20) mg/dL Creatinine 3.10 H (0.66-1.25) mg/dL Glucose 264 H (74-99) mg/dL POC Glucose (mg/dL) 268 H (75-99) mg/dL Calcium 8.3 L (8.4-10.2) mg/dL Iron (65-175) ug/dL Iron Saturation (15.00-50.00) 11/24/18 11/24/18 11/25/18 Range/Units 18:52 20:03 05:51 WBC (3.8-10.6) k/uL RBC (4.30-5.90) m/uL Hgb (13.0-17.5) gm/dL Hct (39.0-53.0) % RDW (11.5-15.5) % Neutrophils # (1.3-7.7) k/uL Lymphocytes # (1.0-4.8) k/uL ABG pO2 (83-108) mmHg Potassium (3.5-5.1) mmol/L Chloride 109 H (98-107) mmol/L Carbon Dioxide 19 L (22-30) mmol/L BUN 57 H (9-20) mg/dL Creatinine 4.12 H (0.66-1.25) mg/dL Glucose (74-99) mg/dL POC Glucose (mg/dL) 264 H 251 H (75-99) mg/dL Calcium 8.2 L (8.4-10.2) mg/dL Iron (65-175) ug/dL Iron Saturation (15.00-50.00) 11/25/18 11/25/18 Range/Units 05:51 06:55 WBC 13.8 H (3.8-10.6) k/uL RBC 3.06 L (4.30-5.90) m/uL Hgb 7.9 L (13.0-17.5) gm/dL Hct 24.8 L (39.0-53.0) % RDW 17.7 H (11.5-15.5) % Neutrophils # 12.2 H (1.3-7.7) k/uL Lymphocytes # 0.5 L (1.0-4.8) k/uL ABG pO2 (83-108) mmHg Potassium (3.5-5.1) mmol/L Chloride (98-107) mmol/L Carbon Dioxide (22-30) mmol/L BUN (9-20) mg/dL Creatinine (0.66-1.25) mg/dL Glucose (74-99) mg/dL POC Glucose (mg/dL) 100 H (75-99) mg/dL Calcium (8.4-10.2) mg/dL Iron (65-175) ug/dL Iron Saturation (15.00-50.00) Microbiology - Last 24 Hours (Table) 11/23/18 00:00 Blood Culture Gram Stain - Preliminary Blood Blood Culture - Preliminary Gram Neg Bacilli 11/23/18 00:00 Blood Culture - Final Blood 11/24/18 00:20 Urine Culture - Preliminary Urine,Catheterized Assessment and Plan Assessment: Assessment: #1. Acute hypoxemic respiratory failure related to sepsis and fluid overload currently on 8 L high flow. #2. Acute urinary tract infection with sepsis and bacteremia, blood culture showed gram-negative bacilli final cultures pending currently on cefepime. #3. Urinary retention, hematuria related to acute UTI #4. Acute kidney injury due to ATN #5. Non-anion gap metabolic acidosis related to acute kidney injury #6. History of nephrectomy for renal cell carcinoma #7. History of high-grade muscle invasive bladder cancer, with surgical resection and systemic chemotherapy and local radiation #8. Diabetes mellitus type 2 #9. Hypertension, hyperlipidemia #10. Morbid obesity #11. Obstructive sleep apnea on CPAP therapy #12. History of fem-pop bypass complicated by wound dehiscence and subsequent infection requiring wound VAC treatment #13. Chronic back pain #14. Former smoker Plan: The patient was seen and evaluated by Dr. Anand. Chest x-ray and labs were rev iewed. There is a right lower lobe pulmonary nodule that was deemed to be a benign granuloma on previous computed tomography scan of the chest. He is currently on cefepime per ID recommendations. He is now getting continuous bladder irrigations. No acute respiratory distress. On 8 L high flow now. CPAP at night. We'll continue to monitor him here closely in the intensive care unit another 24 hours. We'll increase his activity as tolerated. Continue Symbicort and bronchodilators. We'll continue to follow. I, the cosigning physician, performed a history & physical examination of the patient. Lungs sounds are clear. Maintaining good O2 saturations in the 90s on 8 L high flow nasal cannula. I discussed the assessment and plan of care with my nurse practitioner, Jodie Camejo. I attest to the above note as dictated by her.
--- NOTE | 2018-11-25 10:13 | P.PN ---
Progress Note - Text Progress Note Date: 11/25/18 Mr. Nickerson's Hooper catheter plugged this morning. Therefore, the catheter was removed and noted to have a clot at the tip. Ultimately, a 20-[place] three- way Hooper catheter was placed, and the clot was manually irrigated to remove multiple clots. He currently has continuous bladder irrigation running, and the outflow is pink tinged. His hemoglobin level this morning has dropped to 7.9. Continuous bladder irrigation will be continued, and the catheter will continue to be manually irrigated as needed. If the hematuria persists, he may require cystoscopy under anesthesia with fulguration of bleeders.
[2018-11-25] MEDS: INSULIN DETEMIR (LEVEMIR) 100 UNIT/ML SYR SQ SCH ×2 (12:11→22:11)
[2018-11-25 12:20] LABS: Glucose,Whole Blood 124 mg/dL (75-99)
[2018-11-25 13:17] LABS: ABG Base Excess -3.4 mmol/L; ABG Oxygen Saturation 88.5 % (94-97); ABG TCO2 23 mmol/L (19-24)
[2018-11-25 17:11] LABS: Glucose,Whole Blood 184 mg/dL (75-99)
[2018-11-25 20:52] LABS: Glucose,Whole Blood 148 mg/dL (75-99)
[2018-11-25 22:11] LABS: Glucose,Whole Blood 165 mg/dL (75-99)
--- NOTE | 2018-11-25 22:14 | PN ---
PROGRESS NOTE DATE OF SERVICE: 11/25/2018 This 67-year-old gentleman who was admitted with acute urinary tract infection with sepsis also had CHF also. The patient had multiple hypoxia last night. The patient transferred to ICU. Monitored closely. The patient started on broad- spectrum IV antibiotics. Patient is feeling slightly better. Chest x-ray still shows some CHF. Urine culture and blood culture showed gram-negative bacilli and the creatinine also elevated up to 4.12 indicating acute on chronic renal failure. Multiple consultants including urology. Patient also had hematuria which has been evaluated by Urology also. The fluid and electrolytes balance is also being closely monitored. PAST MEDICAL HISTORY: Reviewed. REVIEW OF SYSTEMS: CARDIOVASCULAR: No angina or palpitations. Respiration as mentioned earlier. GASTROINTESTINAL: As mentioned earlier. as mentioned earlier. CENTRAL NERVOUS SYSTEM: No numbness or weakness. CURRENT MEDICATIONS: Reviewed and include: 1. Tylenol p.r.n. 2. [place] 5 mg daily. 3. DuoNeb q.i.d. 4. Xanax. 5. Norvasc. 6. Symbicort. 7. Cefepime. 8. Lofibra. 10.Hydrocortisone. 11.NovoLog. 12.Levemir. 13.Lopressor. 14.Narcan. 15.Protonix. 16.Lyrica. 17.Flomax. PHYSICAL EXAM: Patient is alert, oriented x3. Pulse is 80. Blood pressure 115/56, respiration 22, temperature 100 degrees, pulse ox 94 percent on 8 L. HEENT: Conjunctivae normal. NECK: Neck is obese. Cardiovascular systems: S1, S2. Respiration: Breath sounds diminished in the bases. Bilateral scattered rhonchi and expiratory wheezing. ABDOMEN: Soft, obese, nontender. LEGS: Bilateral leg edema. Nervous system: Diffusely weak. LABS: WBC 13, hemoglobin 7.9, sodium 120, potassium 5, CO2 is 19, creatinine is 4.12. Accu- Cheks noted. UA noted. ASSESSMENT: 1. Acute urinary tract infection with sepsis with gram-negative bacilli present on admission. 2. Congestive heart failure acute exacerbation acute hypoxic respiratory failure. 3. Possible sleep apnea. 4. Obesity with body mass index of 42.2. 5. Acute on chronic renal failure with possibly prerenal and acute tubular necrosis. 6. Increased WBC secondary to sepsis. 7. Normocytic anemia of chronic disease. 8. Hyperkalemia. 9. History of bladder cancer with hematuria with urinary obstruction. 10.Diabetes mellitus type 2. 11.Gastroesophageal reflux disease. 12.Hypertension. 13.Hyperlipidemia. 14.History of degenerative joint disease. 15.History of sleep apnea. 16.History of transitional cell cancer of the bladder. 17.Sleep apnea. CPAP. 18.Severe peripheral vascular disease with femoral-popliteal bypass surgery and wound complication wound VAC previously. 19.FULL CODE. RECOMMENDATIONS AND DISCUSSION: Recommend to continue current medications, continue symptomatic treatment, patient closely monitored in ICU at this time. The patient is on broad-spectrum IV antibiotics including cefepime. I will recommend to monitor the fluid and electrolytes balance closely. The patient received 1 dose of Lasix yesterday. We will continue to monitor. The creatinine is worsening. I would recommend to avoid nephrotoxic medications and obtain nephrology consultations. I will closely follow with multiple consultants and guarded prognosis. Further recommendations to follow. JOSE / ARI: [id number] / MTDD
[2018-11-25] MEDS: CEFEPIME 1 GM in SODIUM CHLORIDE 0.9% 50 ML IVPB SCH (22:32)
[2018-11-25] MEDS: METOPROLOL TARTRATE 50 MG TAB PO SCH (22:35)
[2018-11-26] MEDS: ACETAMINOPHEN TAB 325 MG TAB PO PRN (00:12)
[2018-11-26] MEDS: KETOCONAZOLE 2% SHAMPOO 1 APPLIC/ML TOPICAL SCH (01:26)
[2018-11-26] MEDS: SODIUM CHLORIDE 0.9% IRRIGATIO 3,000 ML IRRIGATION NR (04:51)
[2018-11-26 05:57] LABS: Anisocytosis Slight; Basophils # (A) 0.1 k/uL (0-0.2); Basophils % (A) 0 %; Eosinophils # (A) 0.2 k/uL (0-0.7); Eosinophils % (A) 2 %; HCT 24.7 % (39.0-53.0); HGB 8.2 gm/dL (13.0-17.5); Hypochromasia Slight; Lymphocytes # (A) 0.6 k/uL (1.0-4.8); Lymphocytes % (A) 5 %; MCH 27.4 pg (25.0-35.0); MCV 83.1 fL (80.0-100.0); Mean Platelet Volume 8.4; Monocytes # (A) 0.6 k/uL (0-1.0); Monocytes % (A) 5 %; Neutrophils # (A) 10.1 k/uL (1.3-7.7); Neutrophils % (A) 86 %; Platelet Count 266 k/uL (150-450); RBC 2.97 m/uL (4.30-5.90); RDW 16.6 % (11.5-15.5); WBC 11.7 k/uL (3.8-10.6)
[2018-11-26 06:13] LABS: Calcium 7.8 mg/dL (8.4-10.2); Potassium 5.1 mmol/L (3.5-5.1)
--- NOTE | 2018-11-26 06:13 | XR ---
EXAMINATION TYPE: XR chest 1V DATE OF EXAM: 11/26/2018 HISTORY: CHF. REFERENCE: Previous study dated 11/25/2018. FINDINGS: The heart remains enlarged. There is vascular congestion and mild pulmonary edema. There is a right-sided pulmonary nodule. The overall appearance may have improved slightly. IMPRESSION: MILD IMPROVEMENT IN THE PATIENT'S CONGESTIVE HEART FAILURE.
[2018-11-26 07:17] LABS: Glucose,Whole Blood 157 mg/dL (75-99)
[2018-11-26] MEDS: SYMBICORT 160-4.5 MCG INHALER INHALATION SCH ×2 (07:21→20:44)
[2018-11-26] MEDS: IPRATROPIUM-ALBUTEROL 3 ML NEB INHALATION PRN (07:21)
[2018-11-26] MEDS: INSULIN ASPART (NovoLOG) 100 UNIT/ML VIAL SQ SCH ×6 (07:28→21:15)
[2018-11-26] MEDS: PANTOPRAZOLE 40 MG/10 ML VIAL IVP SCH (08:43)
[2018-11-26] MEDS: LORATADINE 10 MG TAB PO SCH (08:45)
[2018-11-26] MEDS: hydrALAZINE HCL 50 MG TAB PO SCH ×2 (08:45→21:16)
[2018-11-26] MEDS: TAMSULOSIN 0.4 MG CAP.ER.24H PO SCH (08:45)
[2018-11-26] MEDS: amLODIPine 10 MG TAB PO SCH (08:45)
[2018-11-26] MEDS: FENOFIBRATE 160 MG TAB PO SCH (08:45)
[2018-11-26] MEDS: PREGABALIN 75 MG CAP PO SCH (08:46)
[2018-11-26] MEDS: TRIAMCINOLONE 0.1% CREAM 80 GM TUBE TOPICAL SCH (08:58)
[2018-11-26] MEDS: HYDROCORTISONE 1% CREAM 30 GM TUBE TOPICAL SCH ×2 (08:59→21:16)
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
--- NOTE | 2018-11-26 09:43 | P.PN ---
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 Johnson and a urologist from the [facility]. Patient did receive systemic chemotherapy and localized radiation therapy after surgical resection. Other medical history includes diabetes mellitus, GERD/reflux, hypertension, hyperlipidemia, osteoarthritis, sleep apnea on CPAP therapy, morbid obesity, severe peripheral vascular disease with a complicated fem-pop bypass surgery with history of wound dehiscence and subsequent infection of the lower extremity wound site, previous history of nicotine dependence, currently in remission. On 11/23/2018 patient presented to the emergency department with complaints of inability to void, hematuria, fever of 102.9F, rigors. Ultrasound of the bladder revealed a distended bladder, Hooper catheter was placed, with return of dark colored hematuria. Urine culture from 11/10/2018 reveals E. coli in the urine culture, with herrera susceptibility. Rocephin was started for antibiotic coverage, [place] workup was started, initial blood work showed white blood cell count of 12.0, hemoglobin of 9.7, sodium of 140, potassium is 4.6, chloride is 111, CO2 is 18, BUN is 42, creatinine is 2.64, asthma lactic acid was within normal limits at 1.8 LFTs were normal. Urinalysis showed red blood cells greater than 182, white blood cells greater than 182, moderate white blood cells in clumps, and many bacteria. Patient has been afebrile with a T-max of 102.9F. Hemodynamically patient has been stable, no tachycardia. Was initially admitted to the medical surgical floor, however through the day patient became increasingly more short of breath and hypoxemia, initially was just on room air, afternoon patient started desaturating, and had to be placed on supplemental oxygen at 4 L per nasal cannula and O2 sats were at 89%, lung sounds were quite congested, patient was given IV Lasix 1 per attending physician. The blood gas was obtained, and showed pO2 of 55, pCO2 of 37, pH of 7.38 this was done on FiO2 of 36%. The chest x-ray was obtained and showed interstitial edema and new central vascular congestion. There was a pulmonary nodule at the right lung base compatible with a granuloma. The patient is seen today 11/25/2018 in follow-up in the intensive care unit. He is currently awake and alert in no acute distress. Resting comfortably in be d. He is currently on 8 L high flow nasal cannula and maintaining good O2 saturations in the 90s on room air. Still with fever 100.6 axillary. He did utilize the CPAP last night. Cultures positive for gram-negative bacilli. Urine culture pending. White count 13.8. Hemoglobin 7.9. Creatinine 4.12. Bicarb 19. He is currently in a negative balance. The plan is for continuous bladder irrigation. Triple-lumen catheter has been placed. He is currently on cefepime and he also remains on bronchodilators and Symbicort. Chest x-ray reveals evidence of mild congestive heart failure. There is a right-sided pulmonary nodule. This is a benign granuloma seen on previous computed tomography scan of the chest. On 11/26/2017 patient seen in follow-up in the intensive care unit, he is awake and alert, he is oriented to person, the year, but not the month, he is having intermittent confusion. Denies any shortness of breath, denies any chest pain, denies any abdominal pain, white blood cell count today is 11.7, immobile globin is 8.2, sodium is 139, potassium is 5.1, chloride is 102, CO2 is 19, BUN is 72 and creatinine is 5.0. Blood and urine cultures were positive for E. coli with herrera susceptibility, follow-up blood cultures are negative thus far. Antibiotic coverage in the form of cefepime. Chronic oncology and urology are following. Patient's having a bladder irrigations. Nonoliguric. Patient is currently at 8 L per high flow nasal cannula, pulse ox of 94%, he does wear CPAP at 8 cm of water at bedtime. No IV fluids right now, no fever or chills. Today's chest x-ray showed mild improvement in the patient's congestive heart failure. Objective - Vital Signs Vital signs: Vital Signs Temp 98.8 F 11/26/18 08:00 Pulse 80 11/26/18 08:00 Resp 27 H 11/26/18 08:00 BP 129/51 11/26/18 08:00 Pulse Ox 94 L 11/26/18 08:00 Intake & Output 11/25/18 11/26/18 11/26/18 18:59 06:59 18:59 Intake Total 720 9100 0 Output Total 2770 70512 350 Balance -2049 -1799350 Weight 149.1 kg Intake: IV 9100 0 Bladder Irrigation 9000 0 Cefepime 2 gm In Sodium 100 Chloride 0.9% 100 ml @ 200 mls/hr IVPB ONCE ONE Rx#:[id number] Oral 720 Output: Urine 2770 71645 350 Other: Voiding Method Indwelling Catheter Indwelling Catheter # Voids 1 - Exam GENERAL EXAM: Alert, pleasant, 67-year-old white male currently on 8 L per high flow nasal cannula mildly short of breath, but no acute distress HEAD: Normocephalic/atraumatic. EYES: Normal reaction of pupils, equal size. Conjunctiva pink, sclera white. NOSE: Clear with pink turbinates. THROAT: No erythema or exudates. NECK: No masses, no JVD, no thyroid enlargement, no adenopathy. CHEST: No chest wall deformity. Symmetrical expansion. LUNGS: Equal air entry with diffuse rhonchi CVS: Regular rate and rhythm, normal S1 and S2, no gallops, no murmurs, no rubs ABDOMEN: Soft, nontender. No hepatosplenomegaly, normal bowel sounds, no guarding or rigidity. : Hooper catheter is in place, draining dark-colored urine, tea-colored hematuria EXTREMITIES: No clubbing, 1+ edema in lower extremities pretibial and pedal no c yanosis, 2+ pulses and upper and lower extremities. MUSCULOSKELETAL: Muscle strength and tone normal. SPINE: No scoliosis or deformity SKIN: No rashes CENTRAL NERVOUS SYSTEM: Alert and oriented -3. No focal deficits, tone is normal in all 4 extremities. PSYCHIATRIC: Alert and oriented -3. Appropriate affect. Intact judgment and insight. - Labs CBC & Chem 7: 11/26/18 04:46 11/26/18 04:46 Labs: Abnormal Lab Results - Last 24 Hours (Table) 11/24/18 11/25/18 11/25/18 Range/Units 14:56 11:53 17:02 WBC (3.8-10.6) k/uL RBC (4.30-5.90) m/uL Hgb (13.0-17.5) gm/dL Hct (39.0-53.0) % RDW (11.5-15.5) % Neutrophils # (1.3-7.7) k/uL Lymphocytes # (1.0-4.8) k/uL ABG O2 Saturation 88.5 L (94-97) % Chloride (98-107) mmol/L Carbon Dioxide (22-30) mmol/L BUN (9-20) mg/dL Creatinine (0.66-1.25) mg/dL Glucose (74-99) mg/dL POC Glucose (mg/dL) 124 H 184 H (75-99) mg/dL Calcium (8.4-10.2) mg/dL 11/25/18 11/25/18 11/26/18 Range/Units 20:41 21:59 04:46 WBC (3.8-10.6) k/uL RBC (4.30-5.90) m/uL Hgb (13.0-17.5) gm/dL Hct (39.0-53.0) % RDW (11.5-15.5) % Neutrophils # (1.3-7.7) k/uL Lymphocytes # (1.0-4.8) k/uL ABG O2 Saturation (94-97) % Chloride 109 H (98-107) mmol/L Carbon Dioxide 19 L (22-30) mmol/L BUN 72 H (9-20) mg/dL Creatinine 5.00 H (0.66-1.25) mg/dL Glucose 130 H (74-99) mg/dL POC Glucose (mg/dL) 148 H 165 H (75-99) mg/dL Calcium 7.8 L (8.4-10.2) mg/dL 11/26/18 11/26/18 Range/Units 04:46 07:06 WBC 11.7 H (3.8-10.6) k/uL RBC 2.97 L (4.30-5.90) m/uL Hgb 8.2 L (13.0-17.5) gm/dL Hct 24.7 L (39.0-53.0) % RDW 16.6 H (11.5-15.5) % Neutrophils # 10.1 H (1.3-7.7) k/uL Lymphocytes # 0.6 L (1.0-4.8) k/uL ABG O2 Saturation (94-97) % Chloride (98-107) mmol/L Carbon Dioxide (22-30) mmol/L BUN (9-20) mg/dL Creatinine (0.66-1.25) mg/dL Glucose (74-99) mg/dL POC Glucose (mg/dL) 157 H (75-99) mg/dL Calcium (8.4-10.2) mg/dL Microbiology - Last 24 Hours (Table) 11/24/18 00:20 Urine Culture - Final Urine,Catheterized Escherichia coli 11/23/18 00:00 Blood Culture Gram Stain - Final Blood Blood Culture - Final Escherichia coli 11/24/18 15:03 Blood Culture - Preliminary Blood No Growth after 24 hours 11/24/18 14:38 Blood Culture - Preliminary Blood No Growth after 24 hours Assessment and Plan Plan: Assessment: #1. Acute hypoxemic respiratory failure related to sepsis and fluid overload #2. Acute urinary tract infection with sepsis and bacteremia, blood culture showed E. coli herrera susceptibility, currently on cefepime #3. Urinary retention, hematuria related to acute UTI #4. Acute kidney injury due to ATN #5. Non-anion gap metabolic acidosis related to acute kidney injury #6. History of nephrectomy for renal cell carcinoma #7. History of high-grade muscle invasive bladder cancer, with surgical resection and systemic chemotherapy and local radiation #8. Diabetes mellitus type 2 #9. Hypertension, hyperlipidemia #10. Morbid obesity #11. Obstructive sleep apnea on CPAP therapy #12. History of fem-pop bypass complicated by wound dehiscence and subsequent infection requiring wound VAC treatment #13. Chronic back pain #14. Former smoker Plan: We'll continue current supportive medical treatment, continue cefepime, he weaning FiO2, patient's having intermittent episodes of confusion, likely related to septic encephalopathy. Hemodynamically stable, no fever or chills, ID service, oncology service, and urology are following. Continue GI and DVT prophylaxis. Chest x-ray today was reviewed with Dr. Gomez, shows improvement in the appearance of interstitial edema. He will remain in the intensive care unit today. I performed a history & physical examination of the patient and discussed their management with my nurse practitioner, Isa Piña. I reviewed the nurse practitioner's note and agree with the documented findings and plan of care. Lung sounds are positive for diffuse rhonchi. The findings and the impression was discussed with the patient. I attest to the documentation by the nurse practitioner. Time with Patient: Less than 30
[2018-11-26] MEDS: SODIUM CHLORIDE 0.9% 1,000 ML IV SCH (10:15)
[2018-11-26] MEDS: HYDROPHILIC CREAM 120 GM JAR TOPICAL SCH ×2 (10:58→21:20)
--- NOTE | 2018-11-26 11:18 | P.PN ---
Progress Note - Text Progress Note Date: 11/26/18 Mr. Nickerson is comfortable. He is afebrile. The Hooper catheter is draining clear yellow urine, with continuous bladder irrigation running slowly. The hemoglobin level is stable. Urine and blood cultures have shown pansensitive E. coli. He continues to receive cefepime. His serum creatinine level today was 5.0, up from 2.64 at the time of admission. The computed tomography scan did show evidence of left hydronephrosis, and he may require stent placement if the creatinine level continues to rise.
[2018-11-26 12:29] LABS: Glucose,Whole Blood 133 mg/dL (75-99)
[2018-11-26] MEDS: SODIUM BICARBONATE TAB 650 MG TAB PO SCH ×2 (12:56→21:16)
[2018-11-26] MEDS: INSULIN DETEMIR (LEVEMIR) 100 UNIT/ML SYR SQ SCH ×2 (12:56→21:14)
[2018-11-26] MEDS ORDERED: ALPRAZolam 0.25 MG TAB PO PRN (15:38)
--- NOTE | 2018-11-26 17:14 | US ---
EXAMINATION TYPE: US kidneys/renal and bladder DATE OF EXAM: 11/26/2018 COMPARISON: CT dated 11/24/2018 CLINICAL HISTORY: renal failure; ICU patient with sepsis and UTI; right kidney removed/ agent orange exposure per patient EXAM MEASUREMENTS: Right Kidney: surgically removed Left Kidney: 14.8 x 9.1 x 8.1 cm, enlarged Post Void Residual Volume: not assessed as indwelling urinary bladder catheter is present Left Kidney: mild hydronephrosis is noted, cystic focus seen in the upper pole on the CT scan is note d but not measured, not well delineated Bladder: hyperechoic oval mass centrally within bladder may be indwelling bladder catheter IMPRESSION: Status post right nephrectomy. Mild left-sided hydronephrosis as previously noted. Cystic focus as de scribed
[2018-11-26 17:29] LABS: Glucose,Whole Blood 157 mg/dL (75-99)
--- NOTE | 2018-11-26 17:32 | PN ---
PROGRESS NOTE . DATE OF SERVICE: 11/26/2018 This 67-year-old gentleman admitted with acute urinary tract infection with sepsis also had CHF acute exacerbation. Patient also having worsening renal failure. The culture showed E coli which were polysensitive at this time. Urine and blood culture and lab showed creatinine was up to 5. Multiple consultants including nephrology and urology is following the patient closely. The patient is on continuous bladder irrigation for hematuria and other associated surgical issues. PAST MEDICAL HISTORY: Reviewed. REVIEW OF SYSTEMS: Cardiovascular: No angina, or palpitations. Respirations: No cough. GI as mentioned earlier. no dysuria. Central nervous system: Patient is mildly confused. CURRENT MEDICATIONS: Reviewed and include: 1. Tylenol 650 q.6h p.r.n. 2. [place] 5 mg q.4 p.r.n. 3. DuoNeb q.i.d. 4. Xanax 0.5 b.i.d. 5. Norvasc 10 mg p.o. daily. 6. Symbicort 2 puffs b.i.d. 7. Cefepime 1 g IV daily. 8. Lofibra 160 mg daily. 9. Alprazolam 50 mg b.i.d. 10.NovoLog scale. 11.Levemir _units subcu b.i.d. 13.Claritin. 14.Lopressor. 15.Narcan. 16.Protonix. 17.Lyrica. 18.Sodium bicarb. 19.Flomax. 20.Kenalog. PHYSICAL EXAM: Patient is alert, oriented x3. Mildly confused. Pulse 67, blood pressure 109/47, respiration 23, temperature 98 degrees, pulse ox 98 percent on 8 L high-flow nasal cannula. HEENT: Conjunctivae normal. Oral mucosa moist. Neck is no jugular venous distention. No carotid bruit. No lymph node enlargement. Cardiovascular systems: S1, S2 muffled. Respirations: Breath sounds diminished in the bases. A few scattered rhonchi and crackles. ABDOMEN: Soft, obese, nontender. Legs: Minimal edema. Nervous system: Diffusely weak. LABS: WBC 11.7, hemoglobin is 8.8, creatinine is 5. Otherwise, chest x-ray which was done this morning which was reviewed personally by me showed evidence of some fluid overload. ASSESSMENT: 1. Acute urinary tract infection with sepsis with E coli present on admission. 2. Congestive heart failure acute exacerbation with acute hypoxic respiratory failure ejection fraction unknown. 3. Possible sleep apnea. 4. Change in mental status, metabolic encephalopathy, multifactorial. 5. Obesity with body mass index of 42.2. 6. Acute on chronic renal failure with possibly prerenal acute tubular necrosis. 7. Increased WBC secondary to sepsis. 8. Normocytic anemia of chronic disease. 9. Hyperkalemia. 10.History of bladder cancer with hematuria with urinary obstruction on Hooper catheter as well as continuous bladder irrigation. 11.Diabetes mellitus type 2. 12.Gastroesophageal reflux disease. 13.Hypertension. 14.Hyperlipidemia. 15.History of degenerative joint disease. 16.History of sleep apnea. 17.History of transitional cancer of the bladder. 18.Sleep apnea on CPAP. 19.Severe peripheral vascular disease with femoral-popliteal bypass surgery and wound complications with wound VAC previously. 20.FULL CODE. RECOMMENDATIONS AND DISCUSSION: Recommend to continue current medications, management, monitoring and symptomatic treatment. Continue with antibiotics. I would recommend to follow the patient closely and cautious IV fluids. Will monitor fluid and electrolytes balance closely. Creatinine has worsened definitely. I would recommend to continue to follow with Nephrology and Urology as well. Prognosis guarded. See orders for details. Further recommendations to follow. MMODL / IJN: [id number] / JANEL
[2018-11-26 21:08] LABS: Glucose,Whole Blood 160 mg/dL (75-99)
[2018-11-26] MEDS: CEFEPIME 1 GM in SODIUM CHLORIDE 0.9% 50 ML IVPB SCH (21:15)
[2018-11-26] MEDS: METOPROLOL TARTRATE 50 MG TAB PO SCH (21:16)
--- NOTE | 2018-11-26 22:34 | P.PN ---
Subjective Progress Note Date: 11/26/18 67-year-old male who has a very complex past medical history including his history of right renal cell carcinoma and was treated with a nephrectomy. Patient subsequently has had difficulties with peripheral vascular disease requiring surgical intervention. 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 His undergone surgical resection as well as radiation therapy. The patient now presents to Hospital with discomfort, inability to void urine high-grade fever or 102 with chills. Because of the sedation was admitted and has been placed in the intensive care unit due to hypoxia and some difficulties with his respiration. He has not required intubation. The patient has been seen by urology and Hooper catheterization and placed in bladder irrigation as occurred with some ongoing hematuria but without evidence of blockage via clot at this time. Infectious disease consultation requested regarding the fever, sepsis and gram-negative bacteremia. Since transfer to the intensive care unit the patient is bit more comfortable Less short of breath. 11/26/2018 patient has three-way Hooper in and with the irrigation has improvement of the hematuria. Urology is following with no plans for current surgical intervention. The patient is medically stable and he is eating lunch without difficulties. As noted there is evidence of urinary tract infection and bacteremia. He is not on vasopressor therapy. Objective - Vital Signs Vital signs: Vital Signs Temp 98.0 F 11/26/18 12:00 Pulse 80 11/26/18 20:00 Resp 13 11/26/18 20:00 BP 130/57 11/26/18 20:00 Pulse Ox 95 11/26/18 20:00 Intake & Output 11/26/18 11/26/18 11/27/18 06:59 18:59 06:59 Intake Total 9100 9000 Output Total 07857 6850 Balance -1800 2150 Weight 149.1 kg Intake: IV 9100 9000 Bladder Irrigation 9000 9000 Cefepime 2 gm In Sodium 100 Chloride 0.9% 100 ml @ 200 mls/hr IVPB ONCE ONE Rx#:[id number] Output: Urine [id number] Other: Voiding Method Indwelling Catheter Indwelling Catheter # Voids 1 - Exam 67-year-old male with obesity, improved shortness of breath HEENT: Anicteric conjunctiva are pink and moist nasal mucosa grossly intact without significant lesions, there is no thrush. Neck: The neck is supple without significant lymphadenopathy or thyromegaly. Lungs: Symmetrical air entry is noted, coarse crackles and wheezes in all lung vital without lia bronchial sounds Heart: Regular rate and rhythm with an audible S1-S2, no S3 no S4. There is no significant murmur click or rub, PMI was nondisplaced. Abdomen: Obese Positive bowel sounds soft and nontender without palpable masses or organomegaly. There was no guarding or rebound. Extremities: The upper extremities have excellent pulses they are symmetric, no significant petechiae or telangiectasia. No splinter hemorrhages were noted. Lower extremities have some chronic edema no open ulcerations are seen here well perfused Neuro: Awake alert oriented to person and place a bit slower today patient's relates he has not been sleeping very well. - Labs CBC & Chem 7: 11/26/18 04:46 11/26/18 04:46 Labs: Abnormal Lab Results - Last 24 Hours (Table) 11/26/18 11/26/18 11/26/18 Range/Units 04:46 04:46 07:06 WBC 11.7 H (3.8-10.6) k/uL RBC 2.97 L (4.30-5.90) m/uL Hgb 8.2 L (13.0-17.5) gm/dL Hct 24.7 L (39.0-53.0) % RDW 16.6 H (11.5-15.5) % Neutrophils # 10.1 H (1.3-7.7) k/uL Lymphocytes # 0.6 L (1.0-4.8) k/uL Chloride 109 H (98-107) mmol/L Carbon Dioxide 19 L (22-30) mmol/L BUN 72 H (9-20) mg/dL Creatinine 5.00 H (0.66-1.25) mg/dL Glucose 130 H (74-99) mg/dL POC Glucose (mg/dL) 157 H (75-99) mg/dL Calcium 7.8 L (8.4-10.2) mg/dL 11/26/18 11/26/18 11/26/18 Range/Units 12:26 17:18 20:57 WBC (3.8-10.6) k/uL RBC (4.30-5.90) m/uL Hgb (13.0-17.5) gm/dL Hct (39.0-53.0) % RDW (11.5-15.5) % Neutrophils # (1.3-7.7) k/uL Lymphocytes # (1.0-4.8) k/uL Chloride (98-107) mmol/L Carbon Dioxide (22-30) mmol/L BUN (9-20) mg/dL Creatinine (0.66-1.25) mg/dL Glucose (74-99) mg/dL POC Glucose (mg/dL) 133 H 157 H 160 H (75-99) mg/dL Calcium (8.4-10.2) mg/dL Microbiology - Last 24 Hours (Table) 11/24/18 15:03 Blood Culture - Preliminary Blood No Growth after 48 hours 11/24/18 14:38 Blood Culture - Preliminary Blood No Growth after 48 hours 11/24/18 00:20 Urine Culture - Final Urine,Catheterized Escherichia coli 11/23/18 00:00 Blood Culture Gram Stain - Final Blood Blood Culture - Final Escherichia coli Laboratory Results WBC 11.7 k/uL (3.8-10.6) H 11/26/18 04:46 RBC 2.97 m/uL (4.30-5.90) L 11/26/18 04:46 Hgb 8.2 gm/dL (13.0-17.5) L 11/26/18 04:46 Hct 24.7 % (39.0-53.0) L 11/26/18 04:46 MCV 83.1 fL (80.0-100.0) 11/26/18 04:46 MCH 27.4 pg (25.0-35.0) 11/26/18 04:46 MCHC 33.0 g/dL (31.0-37.0) 11/26/18 04:46 RDW 16.6 % (11.5-15.5) H 11/26/18 04:46 Plt Count 266 k/uL (150-450) 11/26/18 04:46 Neutrophils % 86 % 11/26/18 04:46 Neutrophils % (Manual) 71 % 11/23/18 00:00 Band Neutrophils % 24 % 11/23/18 00:00 Lymphocytes % 5 % 11/26/18 04:46 Lymphocytes % (Manual) 4 % 11/23/18 00:00 Monocytes % 5 % 11/26/18 04:46 Eosinophils % 2 % 11/26/18 04:46 Basophils % 0 % 11/26/18 04:46 Metamyelocytes % 1 % 11/23/18 00:00 Myelocytes % 2 % 11/23/18 00:00 Neutrophils # 10.1 k/uL (1.3-7.7) H 11/26/18 04:46 Neutrophils # (Manual) 11.40 k/uL (1.3-7.7) H 11/23/18 00:00 Lymphocytes # 0.6 k/uL (1.0-4.8) L 11/26/18 04:46 Lymphocytes # (Manual) 0.48 k/uL (1.0-4.8) L 11/23/18 00:00 Monocytes # 0.6 k/uL (0-1.0) 11/26/18 04:46 Eosinophils # 0.2 k/uL (0-0.7) 11/26/18 04:46 Basophils # 0.1 k/uL (0-0.2) 11/26/18 04:46 Metamyelocytes # (Man) 0.12 k/uL (0) H 11/23/18 00:00 Myelocytes # (Manual) 0.24 k/uL (0) H 11/23/18 00:00 Nucleated RBCs 0 /100 WBC (0-0) 11/23/18 00:00 Manual Slide Review Performed 11/23/18 00:00 Polychromasia Present 11/23/18 00:00 Hypochromasia Slight 11/26/18 04:46 Poikilocytosis Slight 11/23/18 00:00 Anisocytosis Slight 11/26/18 04:46 Microcytosis Slight 11/25/18 05:51 PT 10.4 sec (9.0-12.0) 11/23/18 00:00 INR 1.0 (<1.2) 11/23/18 00:00 APTT 22.3 sec (22.0-30.0) 11/23/18 00:00 Sample Site R RAD 11/24/18 14:56 ABG pH 7.38 (7.35-7.45) 11/24/18 14:56 ABG pCO2 37 mmHg (35-45) 11/24/18 14:56 ABG pO2 55 mmHg (83-108) L* 11/24/18 14:56 ABG HCO3 22 mmol/L (21-25) 11/24/18 14:56 ABG Total CO2 23 mmol/L (19-24) 11/24/18 14:56 ABG O2 Saturation 88.5 % (94-97) L 11/24/18 14:56 ABG Base Excess -3.4 mmol/L 11/24/18 14:56 Alan Test Yes 11/24/18 14:56 FiO2 36 % 11/24/18 14:56 Sodium 139 mmol/L (137-145) 11/26/18 04:46 Potassium 5.1 mmol/L (3.5-5.1) 11/26/18 04:46 Chloride 109 mmol/L (98-107) H 11/26/18 04:46 Carbon Dioxide 19 mmol/L (22-30) L 11/26/18 04:46 Anion Gap 11 mmol/L 11/26/18 04:46 BUN 72 mg/dL (9-20) H 11/26/18 04:46 Creatinine 5.00 mg/dL (0.66-1.25) H 11/26/18 04:46 Est GFR (CKD-EPI)AfAm 13 (>60 ml/min/1.73 sqM) 11/26/18 04:46 Est GFR (CKD-EPI)NonAf 11 (>60 ml/min/1.73 sqM) 11/26/18 04:46 Glucose 130 mg/dL (74-99) H 11/26/18 04:46 POC Glucose (mg/dL) 160 mg/dL (75-99) H 11/26/18 20:57 POC Glu Director Of Programming ID Deborah Valentino 11/26/18 20:57 Plasma Lactic Acid Noah 0.9 mmol/L (0.7-2.0) 11/25/18 05:51 Calcium 7.8 mg/dL (8.4-10.2) L 11/26/18 04:46 Iron 4 ug/dL (65-175) L 11/24/18 12:13 TIBC 284 ug/dL (228-460) 11/24/18 12:13 Iron Saturation 1.41 (15.00-50.00) L 11/24/18 12:13 Ferritin 144.0 ng/mL (22.0-322.0) 11/24/18 12:13 Total Bilirubin 1.0 mg/dL (0.2-1.3) 11/23/18 00:00 AST 25 U/L (17-59) 11/23/18 00:00 ALT 25 U/L (21-72) 11/23/18 00:00 Alkaline Phosphatase 80 U/L (38-126) 11/23/18 00:00 NT-Pro-B Natriuret Pep 4830 pg/mL 11/24/18 14:38 Total Protein 6.4 g/dL (6.3-8.2) 11/23/18 00:00 Albumin 3.5 g/dL (3.5-5.0) 11/23/18 00:00 Urine Color Red 11/24/18 00:20 Urine Appearance Cloudy (Clear) 11/24/18 00:20 Urine RBC >182 /hpf (0-5) H 11/24/18 00:20 Urine WBC >182 /hpf (0-5) H 11/24/18 00:20 Urine WBC Clumps Moderate /hpf (None) H 11/24/18 00:20 Urine Bacteria Many /hpf (None) H 11/24/18 00:20 Urine Mucus Rare /hpf (None) H 11/24/18 00:20 Microbiology 11/24/18 15:03 Blood Blood Culture - Preliminary No Growth after 48 hours 11/24/18 14:38 Blood Blood Culture - Preliminary No Growth after 48 hours 11/24/18 00:20 Urine,Catheterized Urine Culture - Final Escherichia coli 11/23/18 00:00 Blood Blood Culture Gram Stain - Final 11/23/18 00:00 Blood Blood Culture - Final Escherichia coli 11/23/18 00:00 Blood Blood Culture - Final Assessment and Plan (1) Gross hematuria Current Visit: Yes Status: Acute Code(s): R31.0 - GROSS HEMATURIA SNOMED Code(s): 475958656 (2) UTI (urinary tract infection) Current Visit: Yes Status: Acute Code(s): N39.0 - URINARY TRACT INFECTION, SITE NOT SPECIFIED SNOMED Code(s): 38253071 (3) Gram-negative bacteremia Narrative/Plan: 67-year-old male who has a history of obesity and his complex history of right renal carcinoma and then more recently the transitional cell cancer of the bladder. He's had some recent interventions and now presents with evidence of urinary obstruction. Hooper catheter is placed in the bladder irrigated and is now having ongoing hematuria but active urinary output with resolution of his significant discomfort. The patient appears to have gram-negative sepsis from urinary system and cefepime has been added and his dose adjusted for his acute renal failure. He's been seen by urology with no plans for surgical intervention at this point in time unless bleeding continues and he obstructs The plan of care will evolve as the patient improves and there is evidence of what best options of treatment for the sepsis will be as he leaves hospital. Smoking cessation is advised. Leukocytosis is due to the gram-negative sepsis and urinary tract infection. The creatinine markedly increased due to the obstructive event and hopefully as this is resolved and there is improvement the sepsis that this will improve. 11/26/2018 patient has had some improvement in his status in that he does not have further gross hematuria with [address] Renal failure has worsened related to his current sepsis and obstructive uropathy. He is being followed by urology however with a 3-way catheter in place seems to have some improvement. However if the hydronephrosis does not improve a ureteral stent will be placed. For antibiotic therapy given the highly susceptible pathogen we will use Rocephin for now and transition likely to oral antimicrobial therapy at discharge. Current Visit: Yes Status: Acute Code(s): R78.81 - BACTEREMIA SNOMED Code(s): 705728155514
--- NOTE | 2018-11-27 00:01 | P.PN ---
Progress Note - Text Progress Note Date: 11/26/18 I was called this evening by the ICU nursing staff. The Hooper catheter was occluded with clots, and they manually irrigated the catheter, removing multiple clots. The catheter was exchanged for a 22-Yakut Hooper catheter to allow better irrigation, and I came in to assist the nursing staff. I was unable to remove all clots from the bladder, and irrigation drained around the catheter, consistent with bladder overdistention. In view of this, Mr. Nickerson will be taken to the operating room for cystoscopy, evacuation of clot, and fulguration of bleeder. Given the worsening renal failure and the presence of hydronephrosis within his solitary kidney, consideration will be given to pl acement of a left ureteral stent. The rationale for this was discussed with the patient, as were the potential risks. These include anesthesia, persistent bleeding, infection, and bladder perforation.
[2018-11-27] MEDS ORDERED: SODIUM CHLORIDE 0.9% 1,000 ML IV ONE (00:42)
--- NOTE | 2018-11-27 01:58 | P.OP ---
Date of Procedure: 11/27/18 Preoperative Diagnosis: Gross hematuria, urinary retention, left hydronephrosis Postoperative Diagnosis: Same Procedure(s) Performed: Cystoscopy, evacuation of clot, fulguration of bleeders, left ureteral stent insertion Anesthesia: spinal Surgeon: Vikas Lau Estimated Blood Loss (ml): 20 IV fluids (ml): 100 Pathology: none sent Condition: stable Disposition: ICU Indications for Procedure: The patient is a 67-year-old white male with a history of bladder cancer, treated with chemoradiation. He was recently treated for an E. coli UTI. He is now admitted with dysuria, hematuria, and difficulty voiding. Urine and blood cultures have both shown E. coli. He has had an indwelling Hooper catheter in place, which has required periodic manual irrigation. However, this evening the catheter became plugged and could not be irrigated to the point of patency. The patient has a solitary left kidney, and imaging studies show evidence of mild left hydronephrosis. The serum creatinine level has been increasing during this hospitalization. Operative Findings: Several hundred mL of clot removed from the bladder. Patchy areas of oozing are noted. No definite tumor seen. Description of Procedure: The patient was taken to the operating room and given a spinal anesthetic. He was then placed in the dorsolithotomy position, with his legs supported in Alan stirrups. The external genitalia was prepped and draped sterilely. The 30 lens was used to introduce the 25-[place]yr[place]z Stortz cystoscopic sheath through the urethra and into the bladder under direct vision. The anterior urethra appeared normal. The prostatic urethra was unremarkable. A high median bar was noted. No tumor was seen within the prostatic urethra, and there was no prostatic bleeding. Upon entering the bladder, multiple clots were seen. The [employer] evacuator was used to remove several hundred mL of clot from the bladder. The bladder was then inspected. Patchy areas of oozing were noted, predominantly on the posterior and posterolateral bladder wright, as well as the left lateral bladder wall. These were fulgurated using the [employer] electrode. No definite tumor was seen, though there was significant inflammation particularly on the left posterolateral bladder wall. The ureteral orifices appeared normal, though the left ureteral orifice was somewhat difficult to identify due to surrounding edema. An angle-tip 0.035 inch Glidewire was passed through the cystoscope. The left ureteral orifice was cannulated, and the Glidewire was advanced up to the left renal pelvis. The Glidewire passed easily, without meeting any resistance. A 28 cm, 6-Kyrgyz double-J ureteral stent was placed over the wire. Proper stent positioning was verified fluoroscopically and endoscopically. The cystoscope was removed, and a 22-Kyrgyz, three-way Hooper catheter was placed. Continuous bladder irrigation was started using 0.9 normal saline. The return was clear with the irrigant hardly running. The abdomen was noted to be non- distended upon completion of the procedure. The patient was transferred back to the ICU.
[2018-11-27] MEDS: SODIUM CHLORIDE 0.9% IRRIGATIO 3,000 ML IRRIGATION NR ×4 (03:08→11:35)
[2018-11-27 06:13] LABS: Anisocytosis Slight; Basophils % (A) 0 %; Eosinophils # (A) 0.2 k/uL (0-0.7); Eosinophils % (A) 2 %; HCT 23.1 % (39.0-53.0); HGB 7.2 gm/dL (13.0-17.5); Hypochromasia Slight; Lymphocytes # (A) 0.5 k/uL (1.0-4.8); Lymphocytes % (A) 6 %; MCH 25.5 pg (25.0-35.0); MCV 82.2 fL (80.0-100.0); Mean Platelet Volume 7.9; Monocytes # (A) 0.5 k/uL (0-1.0); Monocytes % (A) 6 %; Neutrophils # (A) 6.8 k/uL (1.3-7.7); Neutrophils % (A) 83 %; Platelet Count 278 k/uL (150-450); RBC 2.82 m/uL (4.30-5.90); RDW 16.9 % (11.5-15.5); WBC 8.2 k/uL (3.8-10.6)
[2018-11-27] MEDS ORDERED: INSULIN DETEMIR (LEVEMIR) 100 UNIT/ML SYR SQ SCH (06:13)
[2018-11-27 06:28] LABS: Calcium 7.7 mg/dL (8.4-10.2); Potassium 4.7 mmol/L (3.5-5.1)
[2018-11-27] MEDS: SODIUM CHLORIDE 0.9% 1,000 ML IV SCH ×2 (06:40→10:23)
[2018-11-27] MEDS: SYMBICORT 160-4.5 MCG INHALER INHALATION SCH ×2 (07:53→20:19)
[2018-11-27 08:11] LABS: Glucose,Whole Blood 61 mg/dL (75-99)
[2018-11-27 08:11] LABS: Glucose,Whole Blood 76 mg/dL (75-99)
--- NOTE | 2018-11-27 08:42 | FL ---
Fluoroscopy History: left stent placement left stent placement Dr. Lau 54 secs fl time 1 image
[2018-11-27] MEDS: INSULIN ASPART (NovoLOG) 100 UNIT/ML VIAL SQ SCH ×6 (08:47→20:34)
[2018-11-27] MEDS: amLODIPine 10 MG TAB PO SCH (10:22)
[2018-11-27] MEDS: SODIUM BICARBONATE TAB 650 MG TAB PO SCH ×2 (10:22→20:19)
[2018-11-27] MEDS: hydrALAZINE HCL 50 MG TAB PO SCH ×2 (10:22→20:18)
[2018-11-27] MEDS: FENOFIBRATE 160 MG TAB PO SCH (10:22)
[2018-11-27] MEDS: TAMSULOSIN 0.4 MG CAP.ER.24H PO SCH (10:22)
[2018-11-27] MEDS: TRIAMCINOLONE 0.1% CREAM 80 GM TUBE TOPICAL SCH (10:24)
[2018-11-27] MEDS: PANTOPRAZOLE 40 MG/10 ML VIAL IVP SCH (10:24)
[2018-11-27] MEDS: HYDROCORTISONE 1% CREAM 30 GM TUBE TOPICAL SCH ×2 (10:25→20:40)
[2018-11-27] MEDS: HYDROPHILIC CREAM 120 GM JAR TOPICAL SCH ×2 (10:33→20:40)
--- NOTE | 2018-11-27 10:52 | P.PN ---
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 Johnson and a urologist from the [facility]. Patient did receive systemic chemotherapy and localized radiation therapy after surgical resection. Other medical history includes diabetes mellitus, GERD/reflux, hypertension, hyperlipidemia, osteoarthritis, sleep apnea on CPAP therapy, morbid obesity, severe peripheral vascular disease with a complicated fem-pop bypass surgery with history of wound dehiscence and subsequent infection of the lower extremity wound site, previous history of nicotine dependence, currently in remission. On 11/23/2018 patient presented to the emergency department with complaints of inability to void, hematuria, fever of 102.9F, rigors. Ultrasound of the bladder revealed a distended bladder, Hooper catheter was placed, with return of dark colored hematuria. Urine culture from 11/10/2018 reveals E. coli in the urine culture, with herrera susceptibility. Rocephin was started for antibiotic coverage, [place] workup was started, initial blood work showed white blood cell count of 12.0, hemoglobin of 9.7, sodium of 140, potassium is 4.6, chloride is 111, CO2 is 18, BUN is 42, creatinine is 2.64, asthma lactic acid was within normal limits at 1.8 LFTs were normal. Urinalysis showed red blood cells greater than 182, white blood cells greater than 182, moderate white blood cells in clumps, and many bacteria. Patient has been afebrile with a T-max of 102.9F. Hemodynamically patient has been stable, no tachycardia. Was initially admitted to the medical surgical floor, however through the day patient became increasingly more short of breath and hypoxemia, initially was just on room air, afternoon patient started desaturating, and had to be placed on supplemental oxygen at 4 L per nasal cannula and O2 sats were at 89%, lung sounds were quite congested, patient was given IV Lasix 1 per attending physician. The blood gas was obtained, and showed pO2 of 55, pCO2 of 37, pH of 7.38 this was done on FiO2 of 36%. The chest x-ray was obtained and showed interstitial edema and new central vascular congestion. There was a pulmonary nodule at the right lung base compatible with a granuloma. The patient is seen today 11/25/2018 in follow-up in the intensive care unit. He is currently awake and alert in no acute distress. Resting comfortably in be d. He is currently on 8 L high flow nasal cannula and maintaining good O2 saturations in the 90s on room air. Still with fever 100.6 axillary. He did utilize the CPAP last night. Cultures positive for gram-negative bacilli. Urine culture pending. White count 13.8. Hemoglobin 7.9. Creatinine 4.12. Bicarb 19. He is currently in a negative balance. The plan is for continuous bladder irrigation. Triple-lumen catheter has been placed. He is currently on cefepime and he also remains on bronchodilators and Symbicort. Chest x-ray reveals evidence of mild congestive heart failure. There is a right-sided pulmonary nodule. This is a benign granuloma seen on previous computed tomography scan of the chest. On 11/26/2017 patient seen in follow-up in the intensive care unit, he is awake and alert, he is oriented to person, the year, but not the month, he is having intermittent confusion. Denies any shortness of breath, denies any chest pain, denies any abdominal pain, white blood cell count today is 11.7, immobile globin is 8.2, sodium is 139, potassium is 5.1, chloride is 102, CO2 is 19, BUN is 72 and creatinine is 5.0. Blood and urine cultures were positive for E. coli with herrera susceptibility, follow-up blood cultures are negative thus far. Antibiotic coverage in the form of cefepime. Chronic oncology and urology are following. Patient's having a bladder irrigations. Nonoliguric. Patient is currently at 8 L per high flow nasal cannula, pulse ox of 94%, he does wear CPAP at 8 cm of water at bedtime. No IV fluids right now, no fever or chills. Today's chest x-ray showed mild improvement in the patient's congestive heart failure. On 11/27/2018 patient seen in follow-up in the intensive care unit, patient was taken to the OR by urology service yesterday for a hematuria, patient was getting continuous bladder irrigations, however last night the catheter became plugged it could not be irrigated to the point of patency. Patient underwent cystoscopy or spinal anesthesia, no tumor was seen within the prostatic urethra, multiple clots were seen in the bladder, they were evacuated from the bladder, patchy areas of oozing were noted, and these were fulgurated. Double-J ureteral stent was placed related to significant inflammation in the left ureteral or ifice. He is seen in the intensive care this morning, he is awake and alert, remains somewhat confused, but, cooperative, no agitation. Hemodynamically patient has remained stable, has not required any vasopressor support since admission, he is on 6 L of oxygen his pulse ox is 96%, he is afebrile this morning, did have a fever of 102.1F last night. He has a 3-way Hooper catheter which is being continuously irrigated, today's blood work has been reviewed, showed white blood cell count of 8.2, hemoglobin of 7.2, sodium is 142, potassium is 4.7, chloride is 114, CO2 is 20, BUN is 80 creatinine is 3.98. Lung sounds are clear, diminished at the bases, no difficulty breathing. 0.9 normal saline at a rate of 70 ML per hour, patient has been wearing the CPAP at 8 cm of water at bedtime. Antibiotic coverage in the form of cefepime. Microbiology results have been reviewed, patient did have E. coli in the blood cultures and urine, with herrera susceptibility, follow up blood cultures have been negative. Objective - Vital Signs Vital signs: Vital Signs Temp 99.5 F 11/27/18 08:00 Pulse 75 11/27/18 10:00 Resp 25 H 11/27/18 10:00 BP 132/77 11/27/18 10:00 Pulse Ox 96 11/27/18 10:00 Intake & Output 11/26/18 11/27/18 11/27/18 18:59 06:59 18:59 Intake Total 9000 9100 3000 Output Total 6850 9245 2200 Balance 2150 -145 800 Weight 148.8 kg Intake: IV 9000 9100 3000 Bladder Irrigation 9000 9000 3000 Output: Urine 6850 9225 2200 Estimated Blood Loss 20 Other: Voiding Method Indwelling Catheter Indwelling Catheter Indwelling Catheter # Voids 1 - Exam GENERAL EXAM: Alert, pleasant, 67-year-old white male currently on 6 L per high flow nasal cannula mildly short of breath, but no acute distress HEAD: Normocephalic/atraumatic. EYES: Normal reaction of pupils, equal size. Conjunctiva pink, sclera white. NOSE: Clear with pink turbinates. THROAT: No erythema or exudates. NECK: No masses, no JVD, no thyroid enlargement, no adenopathy. CHEST: No chest wall deformity. Symmetrical expansion. LUNGS: Equal air entry with diffuse rhonchi CVS: Regular rate and rhythm, normal S1 and S2, no gallops, no murmurs, no rubs ABDOMEN: Soft, nontender. No hepatosplenomegaly, normal bowel sounds, no guarding or rigidity. : Hooper catheter is in place with continuous irrigation, draining tinged colored urine EXTREMITIES: No clubbing, 1+ edema in lower extremities pretibial and pedal no cyanosis, 2+ pulses and upper and lower extremities. MUSCULOSKELETAL: Muscle strength and tone normal. SPINE: No scoliosis or deformity SKIN: No rashes CENTRAL NERVOUS SYSTEM: Alert and oriented -3. No focal deficits, tone is n ormal in all 4 extremities. PSYCHIATRIC: Alert and oriented -3. Appropriate affect. Intact judgment and insight. - Labs CBC & Chem 7: 11/27/18 05:19 11/27/18 05:19 Labs: Abnormal Lab Results - Last 24 Hours (Table) 11/26/18 11/26/18 11/26/18 Range/Units 12:26 17:18 20:57 RBC (4.30-5.90) m/uL Hgb (13.0-17.5) gm/dL Hct (39.0-53.0) % RDW (11.5-15.5) % Lymphocytes # (1.0-4.8) k/uL Chloride (98-107) mmol/L Carbon Dioxide (22-30) mmol/L BUN (9-20) mg/dL Creatinine (0.66-1.25) mg/dL Glucose (74-99) mg/dL POC Glucose (mg/dL) 133 H 157 H 160 H (75-99) mg/dL Calcium (8.4-10.2) mg/dL 11/27/18 11/27/18 11/27/18 Range/Units 05: 05:19 07:42 RBC 2.82 L (4.30-5.90) m/uL Hgb 7.2 L (13.0-17.5) gm/dL Hct 23.1 L (39.0-53.0) % RDW 16.9 H (11.5-15.5) % Lymphocytes # 0.5 L (1.0-4.8) k/uL Chloride 114 H (98-107) mmol/L Carbon Dioxide 20 L (22-30) mmol/L BUN 80 H (9-20) mg/dL Creatinine 3.98 H (0.66-1.25) mg/dL Glucose 58 L (74-99) mg/dL POC Glucose (mg/dL) 61 L (75-99) mg/dL Calcium 7.7 L (8.4-10.2) mg/dL Microbiology - Last 24 Hours (Table) 11/24/18 15:03 Blood Culture - Preliminary Blood No Growth after 48 hours 11/24/18 14:38 Blood Culture - Preliminary Blood No Growth after 48 hours 11/24/18 00:20 Urine Culture - Final Urine,Catheterized Escherichia coli Assessment and Plan Plan: Assessment: #1. Acute hypoxemic respiratory failure related to sepsis and fluid overload #2. Acute urinary tract infection with sepsis and bacteremia, blood culture showed E. coli herrera susceptibility, currently on cefepime #3. Urinary retention, hematuria related to acute UTI, and diffuse bleeding in the bladder. She is status post cystoscopy, with evacuation of blood clots, fulguration of the diffuse bleeding in the bladder, and placement of a double-J left ureteral stent for left ureteral edema #4. Acute kidney injury due to ATN #5. Non-anion gap metabolic acidosis related to acute kidney injury #6. History of nephrectomy for renal cell carcinoma #7. History of high-grade muscle invasive bladder cancer, with surgical resection and systemic chemotherapy and local radiation #8. Diabetes mellitus type 2 #9. Hypertension, hyperlipidemia #10. Morbid obesity #11. Obstructive sleep apnea on CPAP therapy #12. History of fem-pop bypass complicated by wound dehiscence and subsequent infection requiring wound VAC treatment #13. Chronic back pain #14. Former smoker Plan: Continue current medical treatment, continue current antibiotics, monitor fever pattern, hemodynamically patient remains stable, wean FiO2, encourage deep breathing and coughing, CPAP support at night, patient is receiving continuous bladder irrigation, urology service is following, patient underwent cystoscopy with evacuation of blood clots, fulguration of diffuse bleeding and placement of left ureteral stent for left ureteral edema. No specific complaints, no acute events overnight. Today's labs have been reviewed. We'll continue to follow. Patient will remain in the intensive care unit today. I performed a history & physical examination of the patient and discussed their management with my nurse practitioner, Isa Piña. I reviewed the nurse practitioner's note and agree with the documented findings and plan of care. Lung sounds are positive for diminished breath sounds to bases. The findings and the impression was discussed with the patient. I attest to the documentation by the nurse practitioner. Time with Patient: Greater than 30
[2018-11-27 11:44] LABS: Glucose,Whole Blood 125 mg/dL (75-99)
--- NOTE | 2018-11-27 12:49 | PN ---
PROGRESS NOTE Patient is seen for followup for acute kidney injury and obstructive uropathy. Patient was taken to the OR and had a left ureteral stent with fulguration of bleeders with cystoscopy and irrigation of the bladder. He has had good urine output. Patient's creatinine is also decreased to 3.98 today from 5.0. Patient is comfortable, awake. He is not in any acute distress. Blood pressure this morning was 116/54, heart rate 76 per minute. He is afebrile. Examination of the heart S1, S2. Examination of lungs bilateral breath sounds are heard. Abdomen is soft, nontender. Examination of lower extremities shows no significant edema. LABS: Show sodium 142, potassium 4.7, chloride 114, BUN 80, serum creatinine 3.98, hemoglobin was 7.2 g/dL. ASSESSMENT: 1. Acute kidney injury secondary to obstructive uropathy and urinary tract infection, status post left ureteral stent placement with improvement in renal function. 2. History of right nephrectomy. 3. History of invasive bladder cancer. 4. Metabolic acidosis secondary to renal failure, maintained on oral sodium bicarb. 5. Hematuria secondary to invasive bladder cancer, status post evaporation of clot, cystoscopy and fulguration of bleeders, maintained on bladder irrigation, being followed by Urology. 6. Escherichia coli urinary tract infection maintained on antibiotics. PLAN: Continue with IV fluids. Continue antibiotics. Repeat labs in a.m. MMODL / IJN: [id number] /
--- NOTE | 2018-11-27 16:06 | P.PN ---
Progress Note - Text Progress Note Date: 11/27/18 The patient is afebrile and normotensive. He underwent cystoscopy with evacuation of blood clots with fulguration of several areas of bleeding and placement of a left JJ catheter erly this morning. His urine is pink with continuous bladder irrigation but no large clots have been irrigated during the day. Hemoglobin is 7.2. BUN/creatinine have improved and are 80/3.98. Bicarbonate is improved at 20. Impression: Gross hematuria secondary to a combination of acute urinary tract infection and irradiation cystitis. Acute on chronic renal failure probably in part related to urinary retention from blood clots. The patient did not have left hydronephrosis on a CT scan last month and the double-J catheter was placed with the intent that it would only need to stay for a short period of time to insure no residual component of obstruction. Will continue current management
[2018-11-27] MEDS: HYDROcodone/APAP 5-325MG 1 EACH TAB PO PRN ×2 (16:53→20:19)
[2018-11-27 17:14] LABS: Glucose,Whole Blood 170 mg/dL (75-99)
--- NOTE | 2018-11-27 18:04 | PN ---
PROGRESS NOTE DATE OF SERVICE: 11/27/2018 This 67-year-old gentleman who was admitted with acute urinary tract infection with sepsis with E coli also had CHF. The patient also had significant hematuria. The patient underwent cystoscopy and evacuation of clot and fulguration of the bleeders. Left ureteral was stented by Dr. Lau yesterday. The patient being closely monitored. Cultures are growing E coli from the blood and urine. The abdominal bladder ultrasound revealed right nephrectomy and mild left-sided hydronephrosis. PAST MEDICAL HISTORY: Reviewed. REVIEW OF SYSTEMS: CARDIOVASCULAR: No angina or palpitations. Respiration: As mentioned earlier. GI mentioned earlier. : As mentioned earlier. CENTRAL NERVOUS SYSTEM: No numbness, weakness. CURRENT MEDICATIONS: Reviewed and include: 1. Tylenol 650 q.6h p.r.n. 2. [place] 5 mg q.4. 3. Xanax. 4. Norvasc 10 mg daily. 5. Symbicort b.i.d. 6. Lofibra. 7. Alprazolam. 8. NovoLog. 9. Levemir. 11.Narcan. 12.Protonix. 13.Flomax. PHYSICAL EXAM: Patient is alert, oriented x3. Pulse is 73, blood pressure 124/52, respiration 24, temperature normal, pulse ox 98% on 4 L. HEENT is conjunctivae normal. Oral mucosa moist. Neck is no jugular venous distention. No carotid bruit. No lymph node enlargement. RESPIRATORY: Breath sounds diminished in the bases. A few scattered rhonchi and crackles. ABDOMEN: Soft, obese, nontender. Legs are no edema. No swelling. Nervous system: Diffusely weak. LAB STUDIES: WBC 8.8, hemoglobin 7.7, sodium 140, potassium 4.7, creatinine 3.98. The previous creatinine was 5, which is improved. ASSESSMENT: 1. Acute urinary tract infection with sepsis with E coli present on admission. 2. Congestive heart failure acute exacerbation with acute hypoxic respiratory failure. Ejection fraction unknown. 3. Hematuria status post cystoscopy, evacuation of clot, fulguration of the bleeders and left ureteral stent insertion. 4. Acute on chronic renal failure multifactorial possibly acute tubular necrosis as well as postobstructive stricture with left hydronephrosis status post left ureteral stent insertion. 5. Anemia, normocytic anemia of chronic disease. 6. Possible sleep apnea. 7. Change in mental status, metabolic encephalopathy, multifactorial acute. 8. Obesity, body mass of 42.2. 9. Increased WBC secondary to sepsis. 10.Normocytic anemia of chronic disease. 11.Hyperkalemia present on admission. 12.History of bladder cancer, hematuria, ureteral obstruction. Hooper catheter, was on continuous bladder irrigation. 13.Diabetes mellitus type 2. 14.History of gastroesophageal reflux disease. 15.Hypertension. 16.Hyperlipidemia. 17.History of degenerative joint disease. 18.History of sleep apnea. 19.History of transitional cancer of the bladder. 20.Sleep apnea on CPAP. 21.Severe peripheral vascular disease and popliteal bypass surgery and wound complications from wound VAC previously. 22.FULL CODE. RECOMMENDATIONS AND DISCUSSION: In this 67-year-old gentleman who presented with multiple complex medical issues, we will monitor the patient closely, continue the current medications, management and symptomatic treatment. Otherwise, at this time, I would recommend continue the Hooper catheter. The creatinine is slightly improving. Continue with cautious IV fluids. Otherwise, I would also recommend repeat labs. Continue with bronchodilators and diuresis. Diuretics are on hold at this time. I would recommend a chest x-ray in the morning. The chest x-ray and assess fluid and electrolytes balance closely. Otherwise continue rest of medications. Guarded prognosis. Further recommendations to follow. See orders for further details. MMODL / IJN: [id number] / MTDD
--- NOTE | 2018-11-27 18:09 | XR ---
EXAMINATION TYPE: XR chest 1V portable DATE OF EXAM: 11/27/2018 COMPARISON: Yesterday HISTORY: Heart failure. Short of breath TECHNIQUE: Single frontal view of the chest is obtained. FINDINGS: There is pulmonary edema. There is blunting of costophrenic angles. There are chest leads. Heart appears enlarged. IMPRESSION: Congestive heart failure with pleural effusions that appears worse than yesterday.
[2018-11-27] MEDS: CEFEPIME 1 GM in SODIUM CHLORIDE 0.9% 50 ML IVPB SCH (20:18)
[2018-11-27] MEDS: METOPROLOL TARTRATE 50 MG TAB PO SCH (20:18)
[2018-11-27] MEDS: INSULIN DETEMIR (LEVEMIR) 100 UNIT/ML SYR SQ SCH (20:34)
[2018-11-27 20:40] LABS: Glucose,Whole Blood 251 mg/dL (75-99)
[2018-11-27] MEDS ORDERED: HALOPERIDOL LACTATE 5 MG/ML 1 ML VIAL IVP PRN (23:09)
[2018-11-28] MEDS: HALOPERIDOL LACTATE 5 MG/ML 1 ML VIAL IVP PRN ×3 (00:24→21:23)
[2018-11-28] MEDS ORDERED: SODIUM CHLORIDE 0.9% IRRIGATIO 3,000 ML IRRIGATION ONE (04:18)
[2018-11-28 06:29] LABS: Anisocytosis Slight; Basophils % (A) 1 %; Eosinophils # (A) 0.2 k/uL (0-0.7); Eosinophils % (A) 4 %; HCT 22.3 % (39.0-53.0); Lymphocytes # (A) 0.5 k/uL (1.0-4.8); Lymphocytes % (A) 7 %; MCH 25.6 pg (25.0-35.0); MCHC 31.3 g/dL (31.0-37.0); MCV 81.6 fL (80.0-100.0); Mean Platelet Volume 7.9; Monocytes # (A) 0.5 k/uL (0-1.0); Monocytes % (A) 8 %; Neutrophils # (A) 4.9 k/uL (1.3-7.7); Neutrophils % (A) 78 %; Platelet Count 281 k/uL (150-450); RBC 2.73 m/uL (4.30-5.90); RDW 16.7 % (11.5-15.5); WBC 6.3 k/uL (3.8-10.6)
[2018-11-28 06:36] LABS: Calcium 7.8 mg/dL (8.4-10.2); Magnesium 1.9 mg/dL (1.6-2.3); Phosphorus 4.1 mg/dL (2.5-4.5); Potassium 5.2 mmol/L (3.5-5.1)
[2018-11-28] MEDS: SYMBICORT 160-4.5 MCG INHALER INHALATION SCH ×2 (07:46→20:37)
[2018-11-28 07:48] LABS: Glucose,Whole Blood 118 mg/dL (75-99)
--- NOTE | 2018-11-28 09:04 | XR ---
EXAMINATION TYPE: XR chest 1V portable DATE OF EXAM: 11/28/2018 COMPARISON: 11/27/2018 HISTORY: Shortness of breath TECHNIQUE: Single frontal view of the chest is obtained. FINDINGS: A diffuse interstitial pattern persists with tiny bilateral effusions and basilar consolid ation. Heart is enlarged. Due to positioning lung apices are limited in assessment. Calcified granulo ma right lower lobe. IMPRESSION: Stable x-ray demonstrating mixed interstitial and alveolar process correlate for CHF jose luis alberto pneumonia.
[2018-11-28] MEDS: INSULIN ASPART (NovoLOG) 100 UNIT/ML VIAL SQ SCH ×4 (09:14→21:00)
[2018-11-28] MEDS: TAMSULOSIN 0.4 MG CAP.ER.24H PO SCH (09:15)
[2018-11-28] MEDS: hydrALAZINE HCL 50 MG TAB PO SCH ×2 (09:16→20:03)
[2018-11-28] MEDS: SODIUM BICARBONATE TAB 650 MG TAB PO SCH ×2 (09:16→20:03)
[2018-11-28] MEDS: HYDROcodone/APAP 5-325MG 1 EACH TAB PO PRN ×4 (09:16→20:57)
[2018-11-28] MEDS: PANTOPRAZOLE 40 MG/10 ML VIAL IVP SCH (09:16)
[2018-11-28] MEDS: amLODIPine 10 MG TAB PO SCH (09:16)
[2018-11-28] MEDS: FENOFIBRATE 160 MG TAB PO SCH (09:16)
[2018-11-28] MEDS: INSULIN DETEMIR (LEVEMIR) 100 UNIT/ML SYR SQ SCH ×2 (09:38→21:00)
[2018-11-28 12:06] LABS: Glucose,Whole Blood 171 mg/dL (75-99)
[2018-11-28] MEDS: SODIUM CHLORIDE 0.9% 1,000 ML IV SCH ×2 (12:18→20:03)
--- NOTE | 2018-11-28 12:59 | P.PN ---
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 Johnson and a urologist from the [facility] [place]. Patient did receive systemic chemotherapy and localized radiation therapy after surgical resection. Other medical history includes diabetes mellitus, GERD/reflux, hypertension, hyperlipidemia, osteoarthritis, sleep apnea on CPAP therapy, morbid obesity, severe peripheral vascular disease with a complicated fem-pop bypass surgery with history of wound dehiscence and subsequent infection of the lower extremity wound site, previous history of nicotine dependence, currently in remission. On 11/23/2018 patient presented to the emergency department with complaints of inability to void, hematuria, fever of 102.9F, rigors. Ultrasound of the bladder revealed a distended bladder, Hooper catheter was placed, with return of dark colored hematuria. Urine culture from 11/10/2018 reveals E. coli in the urine culture, with herrera susceptibility. Rocephin was started for antibiotic coverage, [place] workup was started, initial blood work showed white blood cell count of 12.0, hemoglobin of 9.7, sodium of 140, potassium is 4.6, chloride is 111, CO2 is 18, BUN is 42, creatinine is 2.64, asthma lactic acid was within normal limits at 1.8 LFTs were normal. Urinalysis showed red blood cells greater than 182, white blood cells greater than 182, moderate white blood cells in clumps, and many bacteria. Patient has been afebrile with a T-max of 102.9F. Hemodynamically patient has been stable, no tachycardia. Was initially admitted to the medical surgical floor, however through the day patient became increasingly more short of breath and hypoxemia, initially was just on room air, afternoon patient started desaturating, and had to be placed on supplemental oxygen at 4 L per nasal cannula and O2 sats were at 89%, lung sounds were quite congested, patient was given IV Lasix 1 per attending physician. The blood gas was obtained, and showed pO2 of 55, pCO2 of 37, pH of 7.38 this was done on FiO2 of 36%. The chest x-ray was obtained and showed interstitial edema and new central vascular congestion. There was a pulmonary nodule at the right lung base compatible with a granuloma. The patient is seen today 11/25/2018 in follow-up in the intensive care unit. He is currently awake and alert in no acute distress. Resting comfortably in be d. He is currently on 8 L high flow nasal cannula and maintaining good O2 saturations in the 90s on room air. Still with fever 100.6 axillary. He did utilize the CPAP last night. Cultures positive for gram-negative bacilli. Urine culture pending. White count 13.8. Hemoglobin 7.9. Creatinine 4.12. Bicarb 19. He is currently in a negative balance. The plan is for continuous bladder irrigation. Triple-lumen catheter has been placed. He is currently on cefepime and he also remains on bronchodilators and Symbicort. Chest x-ray reveals evidence of mild congestive heart failure. There is a right-sided pulmonary nodule. This is a benign granuloma seen on previous computed tomography scan of the chest. On 11/26/2017 patient seen in follow-up in the intensive care unit, he is awake and alert, he is oriented to person, the year, but not the month, he is having intermittent confusion. Denies any shortness of breath, denies any chest pain, denies any abdominal pain, white blood cell count today is 11.7, immobile globin is 8.2, sodium is 139, potassium is 5.1, chloride is 102, CO2 is 19, BUN is 72 and creatinine is 5.0. Blood and urine cultures were positive for E. coli with herrera susceptibility, follow-up blood cultures are negative thus far. Antibiotic coverage in the form of cefepime. Chronic oncology and urology are following. Patient's having a bladder irrigations. Nonoliguric. Patient is currently at 8 L per high flow nasal cannula, pulse ox of 94%, he does wear CPAP at 8 cm of water at bedtime. No IV fluids right now, no fever or chills. Today's chest x-ray showed mild improvement in the patient's congestive heart failure. On 11/27/2018 patient seen in follow-up in the intensive care unit, patient was taken to the OR by urology service yesterday for a hematuria, patient was getting continuous bladder irrigations, however last night the catheter became plugged it could not be irrigated to the point of patency. Patient underwent cystoscopy or spinal anesthesia, no tumor was seen within the prostatic urethra, multiple clots were seen in the bladder, they were evacuated from the bladder, patchy areas of oozing were noted, and these were fulgurated. Double-J ureteral stent was placed related to significant inflammation in the left ureteral or ifice. He is seen in the intensive care this morning, he is awake and alert, remains somewhat confused, but, cooperative, no agitation. Hemodynamically patient has remained stable, has not required any vasopressor support since admission, he is on 6 L of oxygen his pulse ox is 96%, he is afebrile this morning, did have a fever of 102.1F last night. He has a 3-way Hooper catheter which is being continuously irrigated, today's blood work has been reviewed, showed white blood cell count of 8.2, hemoglobin of 7.2, sodium is 142, potassium is 4.7, chloride is 114, CO2 is 20, BUN is 80 creatinine is 3.98. Lung sounds are clear, diminished at the bases, no difficulty breathing. 0.9 normal saline at a rate of 70 ML per hour, patient has been wearing the CPAP at 8 cm of water at bedtime. Antibiotic coverage in the form of cefepime. Microbiology results have been reviewed, patient did have E. coli in the blood cultures and urine, with herrera susceptibility, follow up blood cultures have been negative. On 11/28/2018 patient seen in follow-up. Patient is sitting up in the recliner, no acute distress, remains pleasantly confused, apparently last night she was also aggressive, did receive a couple doses of Haldol, with improvement in his agitation. He is on supplemental oxygen 4 L per nasal cannula his pulse ox is 92%, afebrile, patient is postop day 2 status post cystoscopy with evacuation of multiple clots from his bladder, and placement of the double-J catheter on the left for ureteral edema and hydronephrosis. Hemodynamically patient is stable, he is not required any vasopressor support. Urine and blood cultures were positive for E. coli with herrera susceptibility. Objective - Vital Signs Vital signs: Vital Signs Temp 98.1 F 11/28/18 12:00 Pulse 72 11/28/18 12:00 Resp 27 H 11/28/18 12:00 BP 119/65 11/28/18 12:00 Pulse Ox 100 11/28/18 12:00 Intake & Output 11/27/18 11/28/18 11/28/18 18:59 06:59 18:59 Intake Total 14690 5100 600 Output Total 82903 2600 5035 Balance -4450 2500 -4432 Weight 150.5 [place]: [place] [address] 5100 600 Bladder Irrigation 9000 4000 Sodium Chloride 0.9% 1, 1100 1100 600 000 ml @ 100 mls/hr IV . [facility] Rx#:[id number] Output: Urine 49307 2600 5035 Other: Voiding Method Indwelling Catheter Indwelling Catheter Indwelling Catheter # Voids 1 - Exam GENERAL EXAM: Alert, pleasant, 67-year-old white male currently on 4 L per high flow nasal cannula mildly short of breath, but no acute distress HEAD: Normocephalic/atraumatic. EYES: Normal reaction of pupils, equal size. Conjunctiva pink, sclera white. NOSE: Clear with pink turbinates. THROAT: No erythema or exudates. NECK: No masses, no JVD, no thyroid enlargement, no adenopathy. CHEST: No chest wall deformity. Symmetrical expansion. LUNGS: Equal air entry with a few rhonchi and crackles CVS: Regular rate and rhythm, normal S1 and S2, no gallops, no murmurs, no rubs ABDOMEN: Soft, nontender. No hepatosplenomegaly, normal bowel sounds, no guarding or rigidity. : Hooper catheter is in place with continuous irrigation, draining tinged colored urine EXTREMITIES: No clubbing, 1+ edema in lower extremities pretibial and pedal no cyanosis, 2+ pulses and upper and lower extremities. MUSCULOSKELETAL: Muscle strength and tone normal. SPINE: No scoliosis or deformity SKIN: No rashes CENTRAL NERVOUS SYSTEM: Alert and oriented -3. No focal deficits, tone is normal in all 4 extremities. PSYCHIATRIC: Alert and oriented -3. Appropriate affect. Intact judgment and insight. - Labs CBC & Chem 7: 11/28/18 05:37 11/28/18 05:37 Labs: Abnormal Lab Results - Last 24 Hours (Table) 11/27/18 11/27/18 11/28/18 Range/Units 17:03 20:29 05:37 RBC (4.30-5.90) m/uL Hgb (13.0-17.5) gm/dL Hct (39.0-53.0) % RDW (11.5-15.5) % Lymphocytes # (1.0-4.8) k/uL Potassium 5.2 H (3.5-5.1) mmol/L Chloride 116 H (98-107) mmol/L Carbon Dioxide 21 L (22-30) mmol/L BUN 71 H (9-20) mg/dL Creatinine 3.01 H (0.66-1.25) mg/dL Glucose 126 H (74-99) mg/dL POC Glucose (mg/dL) 170 H 251 H (75-99) mg/dL Calcium 7.8 L (8.4-10.2) mg/dL 11/28/18 11/28/18 11/28/18 Range/Units 05:37 07:37 11:54 RBC 2.73 L (4.30-5.90) m/uL Hgb 7.0 L (13.0-17.5) gm/dL Hct 22.3 L (39.0-53.0) % RDW 16.7 H (11.5-15.5) % Lymphocytes # 0.5 L (1.0-4.8) k/uL Potassium (3.5-5.1) mmol/L Chloride (98-107) mmol/L Carbon Dioxide (22-30) mmol/L BUN (9-20) mg/dL Creatinine (0.66-1.25) mg/dL Glucose (74-99) mg/dL POC Glucose (mg/dL) 118 H 171 H (75-99) mg/dL Calcium (8.4-10.2) mg/dL Microbiology - Last 24 Hours (Table) 11/24/18 15:03 Blood Culture - Preliminary Blood No Growth after 72 hours 11/24/18 14:38 Blood Culture - Preliminary Blood No Growth after 72 hours 11/23/18 00:00 Blood Culture Gram Stain - Final Blood Blood Culture - Final Escherichia coli Assessment and Plan Plan: Assessment: #1. Acute hypoxemic respiratory failure related to sepsis and fluid overload #2. Acute urinary tract infection with sepsis and bacteremia, blood culture showed E. coli herrera susceptibility, currently on cefepime #3. Urinary retention, hematuria related to acute UTI, and diffuse bleeding in the bladder. She is status post cystoscopy, with evacuation of blood clots, fulguration of the diffuse bleeding in the bladder, and placement of a double-J left ureteral stent for left ureteral edema #4. Acute kidney injury due to ATN #5. Non-anion gap metabolic acidosis related to acute kidney injury #6. History of nephrectomy for renal cell carcinoma #7. History of high-grade muscle invasive bladder cancer, with surgical resection and systemic chemotherapy and local radiation #8. Diabetes mellitus type 2 #9. Hypertension, hyperlipidemia #10. Morbid obesity #11. Obstructive sleep apnea on CPAP therapy #12. History of fem-pop bypass complicated by wound dehiscence and subsequent infection requiring wound VAC treatment #13. Chronic back pain #14. Former smoker Plan: Continue current medical treatment, patient will remain in the ICU, he experienced agitation last night, received a couple doses of hold all, improved, remains confused, but hemodynamically stable, no worsening shortness of breath. Today's chest x-ray has been reviewed by Dr. Cabrera, and shows stable x-ray with interstitial and alveolar process. Hematuria is improving, no fever or chills. I performed a history & physical examination of the patient and discussed their management with my nurse practitioner, Isa Piña. I reviewed the nurse practitioner's note and agree with the documented findings and plan of care. Lung sounds are positive for diminished breath sounds to bases. The findings and the impression was discussed with the patient. I attest to the do cumentation by the nurse practitioner. Time with Patient: Less than 30
--- NOTE | 2018-11-28 17:10 | PN ---
PROGRESS NOTE DATE OF SERVICE: 11/28/2018 This 67-year-old gentleman who was admitted with UTI with sepsis also had CHF. The patient also had hematuria. Urology has performed evacuation of the clot, cystoscopy as well as left ureteral stent insertion. The creatinine is improving significantly; however, the patient is confused. Creatinine is 3.01 today. Creatinine was up to 5 two days ago. Past medical history reviewed. REVIEW OF SYSTEMS: CARDIOVASCULAR SYSTEM: No angina, palpitations. RESPIRATORY SYSTEM: As mentioned earlier. GI: As mentioned earlier. : No dysuria or retention. NERVOUS SYSTEM: No numbness, weakness. CURRENT MEDICATIONS: Reviewed. They include: 1. Tylenol p.r.n. 2. [place] 5 mg q.6 p.r.n. 3. Xanax 0.25 b.i.d. p.r.n. 4. Norvasc. 5. Symbicort. 6. Lofibra. 7. Haldol p.r.n. for agitation. 8. NovoLog. 9. Nizoral. 10.Narcan. 11.Protonix. 12.Flomax. PHYSICAL EXAMINATION: Patient is alert, oriented x2. Pulse 72, blood pressure 107/53, respiration 9, temperature 98.1, pulse ox 94% on 40% FiO2. HEENT: Conjunctivae normal. NECK: No jugular venous distention. CARDIOVASCULAR SYSTEM: S1, S2 muffled. RESPIRATORY SYSTEM: Breath sounds diminished at the bases. A few scattered rhonchi and crackles. ABDOMEN: Soft, obese, non-tender. LEGS: Bilateral leg edema. NERVOUS SYSTEM: No focal deficit. LABS: WBC 6.3, hemoglobin 7, platelets 281. Sodium 144, potassium 5.2, creatinine 3.01. Chest x-ray is stable with CHF. ASSESSMENT: 1. Acute urinary tract infection with sepsis with Escherichia coli, present on admission. 2. Congestive heart failure, acute exacerbation, with acute hypoxic respiratory failure with ejection fraction unknown. 3. Hematuria, status post cystoscopy, evacuation of clot, fulguration of the bleeders and left ureteral stent insertion. 4. Acute on chronic renal failure, multifactorial, with possible acute tubular necrosis as well as postobstructive renal failure with left hydronephrosis, status post left ureteral stent insertion. 5. Anemia; normocytic anemia of chronic disease. 6. Change in mental status, acute delirium. 7. Possible sleep apnea. 8. Change in mental status, metabolic encephalopathy, multifactorial, acute. 9. Obesity with body mass index of 42.2. 10.Increased white count secondary to sepsis. 11.Normocytic anemia; anemia of chronic disease. 12.Hyperkalemia, present on admission. 13.History of bladder cancer, hematuria, ureteral obstruction, on Hooper catheter; was on continuous bladder irrigation. 14.Diabetes mellitus, type 2. 15.History of gastroesophageal reflux disease. 16.Hypertension. 17.Hyperlipidemia. 18.History of degenerative joint disease. 19.History of sleep apnea. 20.History of transitional cancer of the bladder. 21.Sleep apnea. On CPAP. 22.Severe peripheral vascular disease and popliteal bypass surgery and wound complications from wound V.A.C. previously. 23.FULL CODE. RECOMMENDATIONS AND DISCUSSION: I recommend to continue current medications, continue with the monitoring, symptomatic treatment. Otherwise, at this time I would recommend continuing with the fluid/electrolyte balance. I would also recommend a 2D echo with Doppler to evaluate the LV function. Otherwise, continue follow with multiple consultants. The cultures are showing E coli from the blood and urine. Currently the patient is on cefepime. Continue to monitor. Further recommendations to follow. See orders for further details. MMODL / IJN: [id number] /
[2018-11-28 17:24] LABS: Glucose,Whole Blood 224 mg/dL (75-99)
[2018-11-28] MEDS: CEFEPIME 1 GM in SODIUM CHLORIDE 0.9% 50 ML IVPB SCH (20:01)
[2018-11-28] MEDS: METOPROLOL TARTRATE 50 MG TAB PO SCH (20:03)
--- NOTE | 2018-11-28 20:38 | P.PN ---
Progress Note - Text Progress Note Date: 11/28/18 The patient is afebrile and normotensive. He was confused this morning, apparently related to receiving Haldol for sedation during the night. His urine this morning is pink with minimal continuous bladder irrigation. No clots have been present with periodic bladder irrigation. Hemoglobin is stable at 7.0. BUN/Creatinine are improved at 71/3.01. The bladder irrigation will be discontinued later today as long as the urine remains clear. It may be possible to remove the Hooper catheter either tomorrow or the next day, provided the urine remains clear.
[2018-11-28 20:48] LABS: Glucose,Whole Blood 234 mg/dL (75-99)
--- NOTE | 2018-11-28 21:40 | PN ---
PROGRESS NOTE Patient is seen for followup for acute kidney injury which was mainly obstructive uropathy. Renal function has improved. Patient had cystoscopy and left ureteral stent placement. This morning he was confused. PHYSICAL EXAMINATION: This morning, blood pressure was 106/51, heart rate of 70 per minute. He is afebrile. Examination of the heart S1, S2. Examination of the lungs bilateral breath sounds are heard. Abdomen is soft, nontender, obese. Examination of lower extremities shows trace edema bilaterally. RANCH MANAGER exam is grossly intact. LAB: Show sodium 144, potassium 5.2, BUN 71, serum creatinine 3.01. ASSESSMENT: 1. Acute kidney injury, obstructive uropathy, status post left ureteral stent placement. The patient has a solitary kidney. 2. Mild hyperkalemia. Continue to monitor for now. Patient is not on any ANGEL inhibitors and has not received any NSAIDs. He has an indwelling Hooper catheter with good urine output. 3. E coli urinary tract infection, maintained on antibiotics. 4. History of invasive bladder cancers, status post cystoscopy, fulguration of bleeders. 5. Anemia, rule out iron deficiency. PLAN: Continue IV fluids. Repeat labs in a.m. Avoid nephrotoxic agents. Check iron studies for workup for anemia. MMODL / IJN: [id number] /
[2018-11-28 23:17] LABS: Glucose,Whole Blood 222 mg/dL (75-99)
[2018-11-29] MEDS: HYDROcodone/APAP 5-325MG 1 EACH TAB PO PRN ×4 (00:38→14:44)
[2018-11-29 06:24] LABS: Anisocytosis Slight; HCT 23.9 % (39.0-53.0); HGB 7.8 gm/dL (13.0-17.5); Hypochromasia Moderate; MCH 27.5 pg (25.0-35.0); MCHC 32.7 g/dL (31.0-37.0); Mean Platelet Volume 7.9; Platelet Count 308 k/uL (150-450); RBC 2.85 m/uL (4.30-5.90); RDW 16.3 % (11.5-15.5)
[2018-11-29 06:38] LABS: Albumin 2.8 g/dL (3.5-5.0); Calcium 8.2 mg/dL (8.4-10.2); Magnesium 1.9 mg/dL (1.6-2.3); Phosphorus 3.9 mg/dL (2.5-4.5); Potassium 5.3 mmol/L (3.5-5.1); Total Bilirubin 0.5 mg/dL (0.2-1.3); Total Protein 5.6 g/dL (6.3-8.2)
[2018-11-29 06:47] LABS: Band Neutrophils % 2 %; Eosinophils # (M) 0.08 k/uL (0-0.7); Metamyelocytes # (M) 0.16 k/uL (0); Metamyelocytes % 2 %; Monocytes # (M) 0.32 k/uL (0-1.0); Myelocytes # (M) 0.32 k/uL (0); Myelocytes % 4 %; Neutrophils % (M) 83 %; Nucleated Red Blood Cells 0 /100 WBC (0-0); Total Cells Counted 200
[2018-11-29 06:48] LABS: Polychromasia Present
[2018-11-29 07:21] LABS: Glucose,Whole Blood 190 mg/dL (75-99)
[2018-11-29] MEDS: TAMSULOSIN 0.4 MG CAP.ER.24H PO SCH (07:59)
[2018-11-29] MEDS: INSULIN ASPART (NovoLOG) 100 UNIT/ML VIAL SQ SCH ×4 (07:59→20:49)
[2018-11-29] MEDS: amLODIPine 10 MG TAB PO SCH (07:59)
[2018-11-29] MEDS: SODIUM BICARBONATE TAB 650 MG TAB PO SCH ×2 (07:59→19:22)
[2018-11-29] MEDS: hydrALAZINE HCL 50 MG TAB PO SCH ×2 (07:59→19:21)
[2018-11-29] MEDS: INSULIN DETEMIR (LEVEMIR) 100 UNIT/ML SYR SQ SCH ×2 (07:59→20:49)
[2018-11-29] MEDS: PANTOPRAZOLE 40 MG/10 ML VIAL IVP SCH (07:59)
[2018-11-29] MEDS: SODIUM FERRIC GLUCONAT-SUCROSE 125 MG in SODIUM CHLORIDE 0.9% 100 ML IVPB SCH (08:00)
[2018-11-29] MEDS: SODIUM CHLORIDE 0.9% 1,000 ML IV SCH (08:02)
[2018-11-29] MEDS: FENOFIBRATE 160 MG TAB PO SCH (08:14)
[2018-11-29] MEDS: SYMBICORT 160-4.5 MCG INHALER INHALATION SCH ×2 (08:23→19:46)
--- NOTE | 2018-11-29 09:36 | ECHOF ---
Referral Reason:chf MEASUREMENTS -------- HEIGHT: 182.9 cm WEIGHT: 149.7 kg BP: 149/68 RVIDd: 3.2 cm (< 3.3) IVSd: 1.4 cm (0.6 - 1.1) LVIDd: 6.0 cm (3.9 - 5.3) LVPWd: 1.7 cm (0.6 - 1.1) IVSs: 1.9 cm LVIDs: 4.0 cm LVPWs: 2.6 cm LA Diam: 4.6 cm (2.7 - 3.8) Ao Diam: 3.3 cm (2.0 - 3.7) AV Cusp: 1.9 cm (1.5 - 2.6) LA Diam: 4.0 cm (2.7 - 3.8) MV EXCURSION: 19.371 mm (> 18.000) MV EF SLOPE: 129 mm/s (70 - 150) EPSS: 1.4 cm MV E Chris: 0.70 m/s MV DecT: 298 ms MV A Chris: 0.95 m/s MV E/A Ratio: 0.74 FINDINGS -------- Sinus rhythm. Morbid Obesity This was a techncally difficult study with suboptimal views, , Definity utilized for enhancement of images. The left ventricular size is normal. There is mild concentric left ventricular hypertrophy. Overa ll left ventricular systolic function is normal with, an EF between 55 - 60 %. The right ventricle is normal in size. The left atrium is moderately dilated. The right atrial size is normal. 1.5MG OF DEFINITY UTLIZED: 2 OR MORE WALL SEGMENTS NOT VISUALIZED. The aortic valve was not well visualized. Mild mitral regurgitation is present. Unable to estimate RVSP due to inadequate TR jet spectral doppler profile. The pulmonic valve was not well visualized. There is no pericardial effusion. CONCLUSIONS -------- 1. Morbid Obesity 2. This was a techncally difficult study with suboptimal views, , Definity utilized for enhancement o f images. 3. The left ventricular size is normal. 4. There is mild concentric left ventricular hypertrophy. 5. Overall left ventricular systolic function is normal with, an EF between 55 - 60 %. 6. The right ventricle is normal in size. 7. The left atrium is moderately dilated. 8. The right atrial size is normal. 9. 1.5MG OF DEFINITY UTLIZED: 2 OR MORE WALL SEGMENTS NOT VISUALIZED. 10. The aortic valve was not well visualized. 11. Mild mitral regurgitation is present. 12. Unable to estimate RVSP due to inadequate TR jet spectral doppler profile. 13. The pulmonic valve was not well visualized. 14. There is no pericardial effusion. EM PHYSICIAN: Sally Soto RDCS
[2018-11-29 10:34] LABS: ABG Base Excess -1.2 mmol/L; ABG HCO3 23 mmol/L (21-25); ABG Oxygen Saturation 90.6 % (94-97); ABG PCO2 37 mmHg (35-45); ABG PH 7.41 (7.35-7.45); ABG PO2 60 mmHg (83-108); ABG TCO2 25 mmol/L (19-24)
[2018-11-29 11:58] LABS: Glucose,Whole Blood 189 mg/dL (75-99)
[2018-11-29] MEDS: SODIUM CHLORIDE 0.45% 1,000 ML IV SCH ×2 (12:45→20:49)
--- NOTE | 2018-11-29 13:48 | P.PN ---
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 Johnson and a urologist from the [facility]. Patient did receive systemic chemotherapy and localized radiation therapy after surgical resection. Other medical history includes diabetes mellitus, GERD/reflux, hypertension, hyperlipidemia, osteoarthritis, sleep apnea on CPAP therapy, morbid obesity, severe peripheral vascular disease with a complicated fem-pop bypass surgery with history of wound dehiscence and subsequent infection of the lower extremity wound site, previous history of nicotine dependence, currently in remission. On 11/23/2018 patient presented to the emergency department with complaints of inability to void, hematuria, fever of 102.9F, rigors. Ultrasound of the bladder revealed a distended bladder, Hooper catheter was placed, with return of dark colored hematuria. Urine culture from 11/10/2018 reveals E. coli in the urine culture, with herrera susceptibility. Rocephin was started for antibiotic coverage, [place] workup was started, initial blood work showed white blood cell count of 12.0, hemoglobin of 9.7, sodium of 140, potassium is 4.6, chloride is 111, CO2 is 18, BUN is 42, creatinine is 2.64, asthma lactic acid was within normal limits at 1.8 LFTs were normal. Urinalysis showed red blood cells greater than 182, white blood cells greater than 182, moderate white blood cells in clumps, and many bacteria. Patient has been afebrile with a T-max of 102.9F. Hemodynamically patient has been stable, no tachycardia. Was initially admitted to the medical surgical floor, however through the day patient became increasingly more short of breath and hypoxemia, initially was just on room air, afternoon patient started desaturating, and had to be placed on supplemental oxygen at 4 L per nasal cannula and O2 sats were at 89%, lung sounds were quite congested, patient was given IV Lasix 1 per attending physician. The blood gas was obtained, and showed pO2 of 55, pCO2 of 37, pH of 7.38 this was done on FiO2 of 36%. The chest x-ray was obtained and showed interstitial edema and new central vascular congestion. There was a pulmonary nodule at the right lung base compatible with a granuloma. The patient is seen today 11/25/2018 in follow-up in the intensive care unit. He is currently awake and alert in no acute distress. Resting comfortably in be d. He is currently on 8 L high flow nasal cannula and maintaining good O2 saturations in the 90s on room air. Still with fever 100.6 axillary. He did utilize the CPAP last night. Cultures positive for gram-negative bacilli. Urine culture pending. White count 13.8. Hemoglobin 7.9. Creatinine 4.12. Bicarb 19. He is currently in a negative balance. The plan is for continuous bladder irrigation. Triple-lumen catheter has been placed. He is currently on cefepime and he also remains on bronchodilators and Symbicort. Chest x-ray reveals evidence of mild congestive heart failure. There is a right-sided pulmonary nodule. This is a benign granuloma seen on previous computed tomography scan of the chest. On 11/26/2017 patient seen in follow-up in the intensive care unit, he is awake and alert, he is oriented to person, the year, but not the month, he is having intermittent confusion. Denies any shortness of breath, denies any chest pain, denies any abdominal pain, white blood cell count today is 11.7, immobile globin is 8.2, sodium is 139, potassium is 5.1, chloride is 102, CO2 is 19, BUN is 72 and creatinine is 5.0. Blood and urine cultures were positive for E. coli with herrera susceptibility, follow-up blood cultures are negative thus far. Antibiotic coverage in the form of cefepime. Chronic oncology and urology are following. Patient's having a bladder irrigations. Nonoliguric. Patient is currently at 8 L per high flow nasal cannula, pulse ox of 94%, he does wear CPAP at 8 cm of water at bedtime. No IV fluids right now, no fever or chills. Today's chest x-ray showed mild improvement in the patient's congestive heart failure. On 11/27/2018 patient seen in follow-up in the intensive care unit, patient was taken to the OR by urology service yesterday for a hematuria, patient was getting continuous bladder irrigations, however last night the catheter became plugged it could not be irrigated to the point of patency. Patient underwent cystoscopy or spinal anesthesia, no tumor was seen within the prostatic urethra, multiple clots were seen in the bladder, they were evacuated from the bladder, patchy areas of oozing were noted, and these were fulgurated. Double-J ureteral stent was placed related to significant inflammation in the left ureteral or ifice. He is seen in the intensive care this morning, he is awake and alert, remains somewhat confused, but, cooperative, no agitation. Hemodynamically patient has remained stable, has not required any vasopressor support since admission, he is on 6 L of oxygen his pulse ox is 96%, he is afebrile this morning, did have a fever of 102.1F last night. He has a 3-way Hooper catheter which is being continuously irrigated, today's blood work has been reviewed, showed white blood cell count of 8.2, hemoglobin of 7.2, sodium is 142, potassium is 4.7, chloride is 114, CO2 is 20, BUN is 80 creatinine is 3.98. Lung sounds are clear, diminished at the bases, no difficulty breathing. 0.9 normal saline at a rate of 70 ML per hour, patient has been wearing the CPAP at 8 cm of water at bedtime. Antibiotic coverage in the form of cefepime. Microbiology results have been reviewed, patient did have E. coli in the blood cultures and urine, with herrera susceptibility, follow up blood cultures have been negative. On 11/28/2018 patient seen in follow-up. Patient is sitting up in the recliner, no acute distress, remains pleasantly confused, apparently last night she was also aggressive, did receive a couple doses of Haldol, with improvement in his agitation. He is on supplemental oxygen 4 L per nasal cannula his pulse ox is 92%, afebrile, patient is postop day 2 status post cystoscopy with evacuation of multiple clots from his bladder, and placement of the double-J catheter on the left for ureteral edema and hydronephrosis. Hemodynamically patient is stable, he is not required any vasopressor support. Urine and blood cultures were positive for E. coli with herrera susceptibility. On all 11/29/2016 patient seen in follow-up in the intensive care unit, he is resting in bed, slightly dyspneic after being moved over to larger bed. But no acute distress, he remains quite confused, delirious, he is picking at invisible things, he is only oriented to person. he did recognize his , did not know his daughter. No agitation currently, apparently patient is not sleeping well at night, and tends to be more agitated at night, PRN Haldol has been prescribed. His hematuria has resolved, there is a only betancourt-colored urine output in the Hooper catheter, his continuous irrigation of the bladder has been stopped. Today's labs have been reviewed, his hemoglobin is relatively stable, hemoglobin is 7.8, the WBCs is 7.0, serum sodium is up to 149, potassium is 5.3, chloride is 121, CO2 is 22, BUN is 58, creatinine is 2.22. There has been improvement in the patient's renal profile. Patient's weight is up by 5 kg since admission although the intake and output net does not reflect that, r elated to recording of the irrigant amount from the continuous bladder infusions in the urine output. Today's blood gas was done, and showed a pO2 of 60, pCO2 of 37, and pH of 7.41. This was done and FiO2 of 36%. Lung sounds are diminished, with some bibasilar crackles. She did have E. coli in his blood and urine, and both were susceptible to all of antibiotics. Echocardiogram has been reviewed and showed EF 55-60%, mild mitral regurgitation. Patient's family is at the bedside, and they were updated on patient's condition. Objective - Vital Signs Vital signs: Vital Signs Temp 98.7 F 11/29/18 12:00 Pulse 80 11/29/18 12:00 Resp 20 11/29/18 12:00 BP 147/58 11/29/18 12:00 Pulse Ox 93 L 11/29/18 12:00 Intake & Output 11/28/18 11/29/18 11/29/18 18:59 06:59 18:59 Intake Total 1200 1300 600 Output Total 1287 9165 850 Balance -5003 -775 -250 Weight 149.7 kg Intake: IV 1200 1300 600 Cefepime 1 gm In Sodium 300 Chloride 0.9% 50 ml @ 100 mls/hr IVPB Q24H [facility] Rx# :[id number] Sodium Chloride 0.45% 1, 200 000 ml @ 100 mls/hr IV . Q10H [facility] Rx#:[id number] Sodium Chloride 0.9% 1, 1200 1000 400 000 ml @ 100 mls/hr IV . Q10H [facility] Rx#:[id number] Output: Urine 2581 3387 224 Other: Voiding Method Indwelling Catheter Indwelling Catheter Indwelling Catheter - Exam GENERAL EXAM: Alert, confused, and delirious 67-year-old white male currently on 4 L per high flow nasal cannula mildly short of breath, but no acute distress HEAD: Normocephalic/atraumatic. EYES: Normal reaction of pupils, equal size. Conjunctiva pink, sclera white. NOSE: Clear with pink turbinates. THROAT: No erythema or exudates. NECK: No masses, no JVD, no thyroid enlargement, no adenopathy. CHEST: No chest wall deformity. Symmetrical expansion. LUNGS: Equal air entry with a few rhonchi and crackles CVS: Regular rate and rhythm, normal S1 and S2, no gallops, no murmurs, no rubs ABDOMEN: Soft, nontender. No hepatosplenomegaly, normal bowel sounds, no guarding or rigidity. : Hooper catheter is in place with continuous irrigation, draining tinged colored urine EXTREMITIES: No clubbing, 1+ edema in lower extremities pretibial and pedal no cyanosis, 2+ pulses and upper and lower extremities. MUSCULOSKELETAL: Muscle strength and tone normal. SPINE: No scoliosis or deformity SKIN: No rashes CENTRAL NERVOUS SYSTEM: Alert and oriented -1. No focal deficits, tone is normal in all 4 extremities. PSYCHIATRIC: Alert and oriented -3. he is confused, with occasional hallucina tions - Labs CBC & Chem 7: 11/29/18 05:44 11/29/18 05:44 Labs: Abnormal Lab Results - Last 24 Hours (Table) 11/28/18 11/28/18 11/28/18 Range/Units 17:12 20:37 23:05 RBC (4.30-5.90) m/uL Hgb (13.0-17.5) gm/dL Hct (39.0-53.0) % RDW (11.5-15.5) % Lymphocytes # (Manual) (1.0-4.8) k/uL Metamyelocytes # (Man) (0) k/uL Myelocytes # (Manual) (0) k/uL ABG pO2 (83-108) mmHg ABG Total CO2 (19-24) mmol/L ABG O2 Saturation (94-97) % Sodium (137-145) mmol/L Potassium (3.5-5.1) mmol/L Chloride (98-107) mmol/L BUN (9-20) mg/dL Creatinine (0.66-1.25) mg/dL Glucose (74-99) mg/dL POC Glucose (mg/dL) 224 H 234 H 222 H (75-99) mg/dL Calcium (8.4-10.2) mg/dL Total Protein (6.3-8.2) g/dL Albumin (3.5-5.0) g/dL 11/29/18 11/29/18 11/29/18 Range/Units 05:44 05:44 07:09 RBC 2.85 L (4.30-5.90) m/uL Hgb 7.8 L (13.0-17.5) gm/dL Hct 23.9 L (39.0-53.0) % RDW 16.3 H (11.5-15.5) % Lymphocytes # (Manual) 0.40 L (1.0-4.8) k/uL Metamyelocytes # (Man) 0.16 H (0) k/uL Myelocytes # (Manual) 0.32 H (0) k/uL ABG pO2 (83-108) mmHg ABG Total CO2 (19-24) mmol/L ABG O2 Saturation (94-97) % Sodium 149 H (137-145) mmol/L Potassium 5.3 H (3.5-5.1) mmol/L Chloride 121 H (98-107) mmol/L BUN 58 H (9-20) mg/dL Creatinine 2.22 H (0.66-1.25) mg/dL Glucose 174 H (74-99) mg/dL POC Glucose (mg/dL) 190 H (75-99) mg/dL Calcium 8.2 L (8.4-10.2) mg/dL Total Protein 5.6 L (6.3-8.2) g/dL Albumin 2.8 L (3.5-5.0) g/dL 11/29/18 11/29/18 Range/Units 10:32 11:46 RBC (4.30-5.90) m/uL Hgb (13.0-17.5) gm/dL Hct (39.0-53.0) % RDW (11.5-15.5) % Lymphocytes # (Manual) (1.0-4.8) k/uL Metamyelocytes # (Man) (0) k/uL Myelocytes # (Manual) (0) k/uL ABG pO2 60 L (83-108) mmHg ABG Total CO2 25 H (19-24) mmol/L ABG O2 Saturation 90.6 L (94-97) % Sodium (137-145) mmol/L Potassium (3.5-5.1) mmol/L Chloride (98-107) mmol/L BUN (9-20) mg/dL Creatinine (0.66-1.25) mg/dL Glucose (74-99) mg/dL POC Glucose (mg/dL) 189 H (75-99) mg/dL Calcium (8.4-10.2) mg/dL Total Protein (6.3-8.2) g/dL Albumin (3.5-5.0) g/dL Microbiology - Last 24 Hours (Table) 11/24/18 15:03 Blood Culture - Preliminary Blood No Growth after 96 hours 11/24/18 14:38 Blood Culture - Preliminary Blood No Growth after 96 hours Assessment and Plan Plan: Assessment: #1. Acute delirium related to sepsis, acute renal failure, and electrolyte abnormality #2. Acute hypoxemic respiratory failure related to sepsis and fluid overload #3. Acute urinary tract infection with sepsis and bacteremia, blood culture showed E. coli herrera susceptibility, currently on cefepime #4. Urinary retention, hematuria related to acute UTI, and diffuse bleeding in the bladder. She is status post cystoscopy, with evacuation of blood clots, fulguration of the diffuse bleeding in the bladder, and placement of a double-J left ureteral stent for left ureteral edema #5. Acute kidney injury due to ATN, improving #6. Hypernatremia, related to normal saline administration, and decreased oral intake #7. Non-anion gap metabolic acidosis related to acute kidney injury, improving #8. History of nephrectomy for renal cell carcinoma #9. History of high-grade muscle invasive bladder cancer, with surgical r esection and systemic chemotherapy and local radiation #10. Diabetes mellitus type 2 #11. Hypertension, hyperlipidemia #12. Morbid obesity #13. Obstructive sleep apnea on CPAP therapy #14. History of fem-pop bypass complicated by wound dehiscence and subsequent infection requiring wound VAC treatment #15. Chronic back pain #16. Former smoker Plan: Continue current antibiotics, vital signs are stable, blood gas was obtained and reviewed with Dr. Cabrera, patient may wear his CPAP at bedtime and as needed, no evidence of hypercapnic respiratory failure, is currently on 6 L of oxygen, IV short of breath, but no acute distress, hemodynamically remained stable, his hematuria has resolved, hemoglobin is stable. He remains quite delirious, PRN Haldol continues. Safety precautions, fall precautions in place, family is at the bedside, encouraged to reorient the patient. Labs have been reviewed, renal profile is improving, he fluids has been switched to half-normal saline for hyponatremia. Patient precautions, optimize nutrition and hydration. He will remain the intensive care unit. We'll continue to follow. I performed a history & physical examination of the patient and discussed their management with my nurse practitioner, Isa Piña. I reviewed the nurse pr actitioner's note and agree with the documented findings and plan of care. Lung sounds are positive for diminished breath sounds to bases. The findings and the impression was discussed with the patient. I attest to the documentation by the nurse practitioner. Time with Patient: Less than 30
--- NOTE | 2018-11-29 15:34 | P.PN ---
Progress Note - Text Progress Note Date: 11/29/18 The patient is afebrile and normotensive. He seems slightly lesser disoriented than he was yesterday but still does not appear to be back to his normal state. Hemoglobin is 7.8. BUN/creatinine continue to improve and are 58/2.22. The patient continues to have some difficulty breathing related to his underlying COPD. Urine draining from his catheter is rust colored but no clots have been present. Impression: History of gross hematuria secondary to combination of urinary tract infection and irradiation cystitis. The patient's catheter will remain in place at least until tomorrow morning. If the patient is more oriented I will probably remove the catheter in the morning if the urine remain is clear.
[2018-11-29] MEDS: HALOPERIDOL LACTATE 5 MG/ML 1 ML VIAL IVP PRN ×2 (15:46→23:50)
[2018-11-29 16:59] LABS: Glucose,Whole Blood 147 mg/dL (75-99)
--- NOTE | 2018-11-29 17:44 | PN ---
PROGRESS NOTE DATE OF SERVICE: 11/29/2018 This 67-year-old gentleman who was admitted with UTI with sepsis also had E coli grown from the culture. The patient also has CHF, acute exacerbation. Patient also had confusion, possibly indicating some delirium. The patient had a 2D echo with Doppler done today which showed his ejection fraction about 55% to 60% and mild mitral regurgitation. Past medical history reviewed. Past negative. Review of systems could not be taken; the patient is confused. CURRENT MEDICATIONS: Reviewed. They include: 1. Tylenol 650 q.6 p.r.n. 2. [place] 5 mg q.4 p.r.n. 3. DuoNeb q.i.d. and p.r.n. 4. Xanax 0.25 b.i.d. 5. Norvasc 10 mg p.o. daily. 6. Symbicort 160/4.5 two puffs b.i.d. 7. Cefepime 1 gram daily. 8. Haldol 1 mg q.1 p.r.n. 9. Apresoline 50 mg p.o. b.i.d. 10.NovoLog. 11.Levemir 30 units subcutaneously b.i.d. 12.Nizoral 1 application daily. 13.Lopressor 50 mg at bedtime. 14.Narcan 0.2 q.2 p.r.n. 15.Protonix 40 mg IV daily. 16.Seroquel 50 mg at bedtime. 17.Sodium bicarb 650 mg p.o. b.i.d. 18.Flomax 0.4 daily. PHYSICAL EXAMINATION: Patient is conscious but confused. Pulse 80, blood pressure 147/58, respiration 20, temperature 98.7, pulse ox 93% on 8 L. HEENT: Conjunctivae normal. NECK: No jugular venous distention. No carotid bruit. No lymph node enlargement. CARDIOVASCULAR SYSTEM: S1, S2 muffled. RESPIRATORY SYSTEM: Breath sounds diminished at the bases. Bilateral scattered rhonchi and crackles. Expiratory wheezing. ABDOMEN: Soft, obese, non-tender. LEGS: No edema. No swelling. NERVOUS SYSTEM: No focal deficit. LABS: WBC 8, hemoglobin 7.8. ABG, pH of 7.4. Sodium 139, potassium 5.3. Creatinine is 2.22. Baseline creatinine was 4.12. ASSESSMENT: 1. Acute urinary tract infection with sepsis, Escherichia coli, present on admission. 2. Congestive heart failure, acute exacerbation, with acute on chronic diastolic dysfunction, ejection fraction 50% to 60%. 3. Acute hypoxic respiratory failure, on oxygen. 4. Change in mental status; possible acute delirium. 5. Hematuria, status post cystoscopy and evacuation of clot, fulguration of the bleeders as well as ureteral stent placement. 6. Acute on chronic renal failure, multifactorial; possible acute tubular necrosis as well as postobstructive renal failure with left hydronephrosis, status post left ureteral stent insertion. 7. Anemia, normocytic; anemia of chronic disease. 8. Possible sleep apnea. 9. Change in mental status with metabolic encephalopathy, multifactorial, acute. 10.Obesity with body mass index of 42.2. 11.Increased white count secondary to sepsis. 12.Normocytic anemia; anemia of chronic disease. 13.Hyperkalemia, present on admission. 14.History of bladder cancer, hematuria, ureteral obstruction, Hooper catheter. Was on continuous bladder irrigation. 15.Diabetes mellitus, type 2. 16.History of gastroesophageal reflux disease. 17.Hypertension. 18.Hyperlipidemia. 19.History of degenerative joint disease. 20.History of sleep apnea. 21.History of transitional cancer of the bladder. 22.Sleep apnea; on CPAP. 23.Severe peripheral vascular disease as well as popliteal bypass surgery and wound V.A.C. and complications previously. 24.FULL CODE. RECOMMENDATIONS AND DISCUSSION: I recommend to continue current medications, continue with the symptomatic treatment. Supplement vitamins as well as . Otherwise, continue to monitor. Prognosis guarded because of multiple complex medical issues. Monitor creatinine closely. Avoid nephrotoxic medications. Continue with antibiotics. Guarded prognosis because of multiple complex medical issues. Further recommendations to follow. MMODL / IJN: [id number] / MTDD
[2018-11-29] MEDS: CEFEPIME 1 GM in SODIUM CHLORIDE 0.9% 50 ML IVPB SCH (19:17)
[2018-11-29] MEDS: THIAMINE 100 MG TAB PO SCH (19:17)
[2018-11-29] MEDS: MULTIVITAMINS, THERA 1 EACH TAB PO SCH (19:17)
[2018-11-29] MEDS: FOLIC ACID 1 MG TAB PO SCH (19:17)
[2018-11-29] MEDS: METOPROLOL TARTRATE 50 MG TAB PO SCH (19:36)
[2018-11-29 20:36] LABS: Glucose,Whole Blood 155 mg/dL (75-99)
[2018-11-29] MEDS ORDERED: QUEtiapine 50 MG TAB PO SCH (21:00)
--- NOTE | 2018-11-29 22:00 | PN ---
PROGRESS NOTE Patient is seen for followup for acute kidney injury on top of chronic kidney disease. He remains confused. The patient has not been recognizing his family. He was more hypernatremic this morning and his renal function has improved. Serum creatinine is down to 2.2 from 3.0. Yesterday it had peaked at about 5.0 mg/dL. The patient has had good urine output. He is undergoing bladder irrigation. PHYSICAL EXAMINATION: Blood pressure this morning was 139/56, heart rate 79 per minute. Patient is afebrile. Examination of the heart S1, S2. Examination of the lungs, decreased breath sounds at bases. Abdomen is soft, nontender. Examination lower extremities shows no significant edema. LABS: Show hemoglobin 7.8, sodium of 149, potassium 5.3, chloride 121, BUN 58, serum creatinine 2.2, albumin 2.8. ASSESSMENT: 1. Acute kidney injury, obstructive uropathy, status post cystoscopy, bladder irrigation, currently with improving urine output. The patient has also had a left ureteral stent placed. 2. E coli urinary tract infection maintained on antibiotics. 3. History of invasive bladder cancer, status post cystoscopy, fulguration of bleeders. 4. Anemia with severe iron deficiency, maintained on IV iron. 5. Hypertension, currently stable. 6. Mental status changes, metabolic encephalopathy. 7. Hypernatremia associated with free water deficit. IV fluids have been changed to hypotonic fluid. 8. History of right nephrectomy for cancer. 9. Metabolic acidosis. Maintained on sodium bicarb, currently improved. PLAN: Change IV fluids to half-normal saline. Consider CT of the head as mentation seems to be worse today. The patient is maintained on Haldol. He is also on Seroquel. MMODL / IJN: [id number] /
[2018-11-30] MEDS: SODIUM CHLORIDE 0.45% 1,000 ML IV SCH (05:00)
[2018-11-30] MEDS: amLODIPine 10 MG TAB PO SCH (05:54)
[2018-11-30 06:18] LABS: Calcium 8.8 mg/dL (8.4-10.2); Potassium 5.4 mmol/L (3.5-5.1)
[2018-11-30 06:25] LABS: Anisocytosis Slight; HCT 25.3 % (39.0-53.0); HGB 7.9 gm/dL (13.0-17.5); Hypochromasia Moderate; MCH 26.4 pg (25.0-35.0); MCV 85.2 fL (80.0-100.0); Mean Platelet Volume 8.6; Platelet Count 376 k/uL (150-450); RBC 2.97 m/uL (4.30-5.90); RDW 16.2 % (11.5-15.5); WBC 9.5 k/uL (3.8-10.6)
[2018-11-30 06:45] LABS: Band Neutrophils % 5 %; Lymphocytes # (M) 0.57 k/uL (1.0-4.8); Metamyelocytes # (M) 0.19 k/uL (0); Metamyelocytes % 2 %; Monocytes # (M) 0.19 k/uL (0-1.0); Neutrophils % (M) 83 %; Nucleated Red Blood Cells 0 /100 WBC (0-0); Polychromasia Present; Total Cells Counted 100
[2018-11-30 07:17] LABS: Glucose,Whole Blood 136 mg/dL (75-99)
[2018-11-30] MEDS: FENOFIBRATE 160 MG TAB PO SCH (08:09)
[2018-11-30] MEDS: HYDROcodone/APAP 5-325MG 1 EACH TAB PO PRN (08:09)
[2018-11-30] MEDS: TAMSULOSIN 0.4 MG CAP.ER.24H PO SCH (08:09)
[2018-11-30] MEDS: SODIUM BICARBONATE TAB 650 MG TAB PO SCH ×2 (08:09→20:27)
[2018-11-30] MEDS: hydrALAZINE HCL 50 MG TAB PO SCH ×2 (08:10→20:27)
[2018-11-30] MEDS: INSULIN DETEMIR (LEVEMIR) 100 UNIT/ML SYR SQ SCH ×2 (08:10→21:00)
[2018-11-30] MEDS: PANTOPRAZOLE 40 MG/10 ML VIAL IVP SCH (08:10)
[2018-11-30] MEDS: INSULIN ASPART (NovoLOG) 100 UNIT/ML VIAL SQ SCH ×4 (08:17→21:00)
[2018-11-30] MEDS ORDERED: DEXTROSE 5% IN WATER 1,000 ML IV ONE (09:00)
[2018-11-30] MEDS: SYMBICORT 160-4.5 MCG INHALER INHALATION SCH ×2 (09:26→20:00)
--- NOTE | 2018-11-30 09:52 | P.PN ---
Subjective Progress Note Date: 11/30/18 On 11/30/2018 mild I'm seeing this patient for a follow-up along with my nurse practitioner. The patient is arousable and awake. He was having issues with delirium. Therapy was added last night and he slept very well and his morning he seems to be more with the program is able to answer questions more appropriately although his mental status change is not completely recovered. His neurologic exam is nonfocal. He is moving all 4 extremities. No headaches. No neck stiffness. No agitation and is resting comfortably in bed. He has been afebrile. He remains on broad-spectrum antibiotics regarding his underlying urine checked infection with E. coli and the patient is currently on IV cefepime. His renal function continues to slowly improve. He is sodium level was noted to be elevated and he needs to be switched to D5 water. No fever. No chills. No signs of any significant fluid overload. He is tolerating his diet. No nausea. No vomiting. No abdominal pain. Echocardiogram showed an ejection fraction of 55-60% with mild mitral regurgitation. Noted the patient's urine output seems to be slightly more bloody compared to yesterday. No clots were visualized and the bladder irrig ation has been discontinued. He is known to have renal cell carcinoma with a previous nephrectomy that was done more than 10 years ago. 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 tabares and another urologist at [facility]. He is known to have diabetes mellitus, hypertension, hyperlipidemia, osteoarthritis and obstructive sleep apnea and he is limited on CPAP therapy. The patient is also known to have peripheral vascular disease with previous fem-pop bypass surgery. The patient is a previous cigarette smoker. Objective - Vital Signs Vital signs: Vital Signs Temp 98.7 F 11/30/18 08:00 Pulse 70 11/30/18 09:00 Resp 26 H 11/30/18 09:00 BP 171/82 11/30/18 09:00 Pulse Ox 97 11/30/18 09:00 Intake & Output 11/29/18 11/30/18 11/30/18 18:59 06:59 18:59 Intake Total 1300 1200 100 Output Total 1950 5914 240 Balance -650 -655 -140 Weight 147 kg Intake: IV 1300 1200 100 Sodium Chloride 0.45% 1, 900 1200 100 000 ml @ 100 mls/hr IV . Q10H SHIELA Rx#:[id number] Sodium Chloride 0.9% 1, 400 000 ml @ 100 mls/hr IV . Q10H SHIELA Rx#:[id number] Output: Urine 1950 1855 240 Other: Voiding Method Indwelling Catheter Indwelling Catheter Indwelling Catheter - Exam GENERAL EXAM: Alert, confused, and delirious 67-year-old white male currently on 4 L per high flow nasal cannula mildly short of breath, but no acute distress HEAD: Normocephalic/atraumatic. EYES: Normal reaction of pupils, equal size. Conjunctiva pink, sclera white. NOSE: Clear with pink turbinates. THROAT: No erythema or exudates. NECK: No masses, no JVD, no thyroid enlargement, no adenopathy. CHEST: No chest wall deformity. Symmetrical expansion. LUNGS: Equal air entry with a few rhonchi and crackles CVS: Regular rate and rhythm, normal S1 and S2, no gallops, no murmurs, no rubs ABDOMEN: Soft, nontender. No hepatosplenomegaly, normal bowel sounds, no guarding or rigidity. : Hooper catheter is in place with continuous irrigation, draining tinged colored urine EXTREMITIES: No clubbing, 1+ edema in lower extremities pretibial and pedal no cyanosis, 2+ pulses and upper and lower extremities. MUSCULOSKELETAL: Muscle strength and tone normal. SPINE: No scoliosis or deformity SKIN: No rashes CENTRAL NERVOUS SYSTEM: Alert and oriented -1. No focal deficits, tone is normal in all 4 extremities. PSYCHIATRIC: Alert and oriented -3. he is confused, with occasional hallucinat ions - Labs CBC & Chem 7: 11/30/18 05:21 11/30/18 05:21 Labs: Abnormal Lab Results - Last 24 Hours (Table) 11/29/18 11/29/18 11/29/18 Range/Units 10:32 11:46 16:47 RBC (4.30-5.90) m/uL Hgb (13.0-17.5) gm/dL Hct (39.0-53.0) % RDW (11.5-15.5) % Neutrophils # (Manual) (1.3-7.7) k/uL Lymphocytes # (Manual) (1.0-4.8) k/uL Metamyelocytes # (Man) (0) k/uL ABG pO2 60 L (83-108) mmHg ABG Total CO2 25 H (19-24) mmol/L ABG O2 Saturation 90.6 L (94-97) % Sodium (137-145) mmol/L Potassium (3.5-5.1) mmol/L Chloride (98-107) mmol/L BUN (9-20) mg/dL Creatinine (0.66-1.25) mg/dL Glucose (74-99) mg/dL POC Glucose (mg/dL) 189 H 147 H (75-99) mg/dL 11/29/18 11/30/18 11/30/18 Range/Units 20:25 05:21 05:21 RBC 2.97 L (4.30-5.90) m/uL Hgb 7.9 L (13.0-17.5) gm/dL Hct 25.3 L (39.0-53.0) % RDW 16.2 H (11.5-15.5) % Neutrophils # (Manual) 8.30 H (1.3-7.7) k/uL Lymphocytes # (Manual) 0.57 L (1.0-4.8) k/uL Metamyelocytes # (Man) 0.19 H (0) k/uL ABG pO2 (83-108) mmHg ABG Total CO2 (19-24) mmol/L ABG O2 Saturation (94-97) % Sodium 153 H (137-145) mmol/L Potassium 5.4 H (3.5-5.1) mmol/L Chloride 124 H (98-107) mmol/L BUN 49 H (9-20) mg/dL Creatinine 1.93 H (0.66-1.25) mg/dL Glucose 114 H (74-99) mg/dL POC Glucose (mg/dL) 155 H (75-99) mg/dL 11/30/18 Range/Units 06:47 RBC (4.30-5.90) m/uL Hgb (13.0-17.5) gm/dL Hct (39.0-53.0) % RDW (11.5-15.5) % Neutrophils # (Manual) (1.3-7.7) k/uL Lymphocytes # (Manual) (1.0-4.8) k/uL Metamyelocytes # (Man) (0) k/uL ABG pO2 (83-108) mmHg ABG Total CO2 (19-24) mmol/L ABG O2 Saturation (94-97) % Sodium (137-145) mmol/L Potassium (3.5-5.1) mmol/L Chloride (98-107) mmol/L BUN (9-20) mg/dL Creatinine (0.66-1.25) mg/dL Glucose (74-99) mg/dL POC Glucose (mg/dL) 136 H (75-99) mg/dL Microbiology - Last 24 Hours (Table) 11/24/18 15:03 Blood Culture - Preliminary Blood No Growth after 120 hours 11/24/18 14:38 Blood Culture - Preliminary Blood No Growth after 120 hours Assessment and Plan Plan: #1. Acute delirium related to sepsis, acute renal failure, and electrolyte abnormality, currently on Seroquel with some improvement in her mentation compared to yesterday. Neurologic exam remains nonfocal and the patient is moving all 4 extremities. He is on Seroquel 50 mg and he was able to have a good night sleep overnight. #2. Acute hypoxemic respiratory failure related to sepsis and fluid overload, currently on oxygen at high flow at 10 L and this will be gradually weaned off. #3. Acute urinary tract infection with sepsis and bacteremia, blood culture showed E. coli hererra susceptibility, currently on cefepime #4. Urinary retention, hematuria related to acute UTI, and diffuse bleeding in the bladder. She is status post cystoscopy, with evacuation of blood clots, fulguration of the diffuse bleeding in the bladder, and placement of a double-J left ureteral stent for left ureteral edema #5. Acute kidney injury due to ATN, improving #6. Hypernatremia, related to normal saline administration, and decreased oral intake, hyperchloremic hypernatremia #7. Non-anion gap metabolic acidosis related to acute kidney injury, improving #8. History of nephrectomy for renal cell carcinoma #9. History of high-grade muscle invasive bladder cancer, with surgical resection and systemic chemotherapy and local radiation #10. Diabetes mellitus type 2 #11. Hypertension, hyperlipidemia #12. Morbid obesity #13. Obstructive sleep apnea on CPAP therapy #14. History of fem-pop bypass complicated by wound dehiscence and subsequent infection requiring wound VAC treatment #15. Chronic back pain #16. Former smoker #17 anemia with a stable hemoglobin of 7.9. This is a blood loss anemia related to blood loss through the urinary system. Current hemoglobin is at 7.9. No active bleeding for now. Plan Switch this patient to D5 water at the rate of 100 mL an hour. Monitor sodium level. Monitor renal function. Continued IV cefepime. Wean down the FiO2 as tolerated to maintain a saturation above 90%. Use CPAP overnight. The cardiogram was noted and the patient is a preserved LV function.
[2018-11-30] MEDS: SODIUM FERRIC GLUCONAT-SUCROSE 125 MG in SODIUM CHLORIDE 0.9% 100 ML IVPB SCH (12:52)
[2018-11-30] MEDS: FOLIC ACID 1 MG TAB PO SCH (12:59)
[2018-11-30] MEDS: THIAMINE 100 MG TAB PO SCH (12:59)
[2018-11-30] MEDS: MULTIVITAMINS, THERA 1 EACH TAB PO SCH (12:59)
[2018-11-30 13:06] LABS: Glucose,Whole Blood 198 mg/dL (75-99)
[2018-11-30] MEDS: HALOPERIDOL LACTATE 5 MG/ML 1 ML VIAL IVP PRN ×3 (13:20→20:50)
--- NOTE | 2018-11-30 13:25 | PN ---
PROGRESS NOTE The patient is seen for followup for acute kidney injury. Patient's renal function has been improving. Serum creatinine is down from about 5.0 to 1.93 now. Patient is maintained on IV fluids. He did have obstructive uropathy as well and has had cystoscopy with irrigation of the bladder and fulguration of bleeders. He also has left ureteral stent placement. His urine remains bloody on and off. He has an indwelling Hooper catheter. The patient has been confused over the last few days. He was hypernatremic. Fluids were changed to half-normal saline yesterday. This morning, sodium is up to 153, and the fluid has been appropriately switched to D5W. PHYSICAL EXAMINATION: On examination this morning, blood pressure was 171/82, heart rate 70 per minute. Patient is afebrile. EXAMINATION OF THE HEART: S1 and S2. EXAMINATION OF THE LUNGS: Bilateral breath sounds are heard. Decreased breath sounds at bases. Abdomen is soft, nontender. Examination of the lower extremities shows no significant edema. SPICE MIXER exam shows patient is confused. LABS: Labs show sodium 153, potassium 5.4, chloride 124, BUN 49, serum creatinine 1.93. Calcium 8.8. Hemoglobin 7.9 g/dL. ASSESSMENT: 1. Acute kidney injury, multifactorial, associated with sepsis, urinary tract infection and hypovolemia. Maintained on IV fluids. Renal function continues to improve. The patient also had obstructive uropathy. He has had a left ureteral stent placed and cystoscopy with evacuation of clots and fulguration of bleeders. The patient has a solitary kidney. 2. Urinary tract infection with Escherichia coli, maintained on antibiotics. 3. Encephalopathy, possibly related to underlying electrolyte imbalance. IV fluids have been changed to D5W. 4. Hypernatremia, expect improvement with change in the fluids again. I agree with changing to D5W. 5. History of bladder cancer, status post radiation therapy and surgical dissection to some degree. He also had chemotherapy. 6. History of renal cell cancer, status post right nephrectomy. PLAN: Continue D5W. Repeat labs in a.m. Avoid nephrotoxic agents. MMODL / IJN: [id number] /
[2018-11-30] MEDS ORDERED: cloNIDine HCL 0.2 MG TAB PO STA (14:27)
[2018-11-30 17:13] LABS: Glucose,Whole Blood 212 mg/dL (75-99)
--- NOTE | 2018-11-30 18:34 | PN ---
PROGRESS NOTE DATE OF SERVICE: 11/30/2018 This 67-year-old gentleman, admitted with UTI and sepsis, also had multiple medical issues. The patient is confused. E coli was grown from the culture. The patient also had acute hypoxic respiratory failure. The patient is slightly more alert. The patient also had hematuria and multiple medical problems associated with bladder cancer as well. The most recent cultures are negative at this time. Past medical history reviewed. Review of systems could not be taken; the patient continues to be confused. CURRENT MEDICATIONS: 1. Tylenol 650 q.6 p.r.n. 2. [place] 5 mg q.4 p.r.n. 3. DuoNeb q.i.d. and p.r.n. 4. Xanax 0.25 b.i.d. 5. Norvasc 10 mg daily. 6. Symbicort 160/4.5 two puffs b.i.d. 7. Rocephin 1 gram daily. 8. Lofibra. 9. Folic acid. 10.Haldol. 11.Apresoline. 12.NovoLog. 13.Levemir 30 units subcutaneously b.i.d. 14.Nizoral 1 application q.7 days. 15.Lopressor 50 mg p.o. at bedtime. 16.Multivitamins. 17.Narcan. 18.Protonix. 19.Seroquel 50 mg at bedtime. 20.Sodium bicarb 650 p.o. b.i.d. 21.Flomax 0.4 daily. 22.Vitamin B1 100 mg daily. PHYSICAL EXAMINATION: Patient is alert, oriented x1. Pulse 70, blood pressure 142/67, respiration 26, temperature 99.2, pulse ox 100% on 8 L high-flow nasal cannula. HEENT: Conjunctivae normal. Oral mucosa moist. NECK: Obese. No jugular venous distention. No carotid bruit. No lymph node enlargement. CARDIOVASCULAR SYSTEM: S1, S2 muffled. No S3. No S4. RESPIRATORY SYSTEM: Breath sounds diminished at the bases. A few scattered rhonchi and crackles. ABDOMEN: Soft, obese, non-tender. LEGS: Bilateral leg edema. NERVOUS SYSTEM: Diffusely weak. LABS: WBC 9.5, hemoglobin 7.9, sodium 153, potassium 5.4, creatinine 1.93. The chest x-ray is not available today. ASSESSMENT: 1. Acute urinary tract infection with sepsis, Escherichia coli, present on admission. 2. Congestive heart failure, acute exacerbation, with acute on chronic diastolic dysfunction, ejection fraction 50% to 60%, with acute hypoxic respiratory failure, on oxygen. 3. Change in mental status; possible acute delirium. 4. Hypernatremia. 5. Hematuria, status post cystoscopy, evacuation of clot and fulguration of the bleeders as well as ureteral stent placement. 6. Acute on chronic renal failure, multifactorial; possibly acute tubular necrosis as well as post-obstructive renal failure with left hydronephrosis, status post left ureteral stent insertion. 7. Anemia, normocytic; anemia of chronic disease. 8. Possible sleep apnea. 9. Change in mental status with metabolic encephalopathy, multifactorial, acute. 10.Obesity with body mass index of 42.2. 11.Increased white count, possibly secondary to sepsis. 12.Normocytic anemia; anemia of chronic disease. 13.Hyperkalemia, present on admission. 14.History of bladder cancer, hematuria, ureteral obstruction, on Hooper catheter. Was on continuous bladder irrigation. 15.Diabetes mellitus, type 2. 16.History of gastroesophageal reflux disease. 17.Hypertension. 18.Hyperlipidemia. 19.History of degenerative joint disease. 20.History of sleep apnea. 21.History of transitional cancer of the bladder. 22.Sleep apnea. On CPAP. 23.Severe peripheral vascular disease, status post popliteal bypass surgery with wound V.A.C. and complications previously. 24.FULL CODE. RECOMMENDATIONS AND DISCUSSION: I recommend to continue current medications, continue with the monitoring, symptomatic treatment, continue the broad-spectrum IV antibiotics. Cultures negative, as mentioned earlier. The patient's confusion is persisting, possibly indicating acute delirium which is multifactorial otherwise. Will closely monitor. Patient still has Hooper catheter. Continue the rest of the medications. IV fluids for the hypernatremia. Will continue to monitor. Guarded prognosis. Further recommendations to follow. MMODL / IJN: [id number] /
[2018-11-30] MEDS: QUEtiapine 100 MG TAB PO SCH (20:27)
[2018-11-30] MEDS: METOPROLOL TARTRATE 50 MG TAB PO SCH (20:28)
[2018-11-30 20:41] LABS: Glucose,Whole Blood 237 mg/dL (75-99)
--- NOTE | 2018-11-30 22:48 | P.PN ---
Subjective Progress Note Date: 11/30/18 67-year-old male who has a very complex past medical history including his history of right renal cell carcinoma and was treated with a nephrectomy. Patient subsequently has had difficulties with peripheral vascular disease requiring surgical intervention. 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 His undergone surgical resection as well as radiation therapy. The patient now presents to Hospital with discomfort, inability to void urine high-grade fever or 102 with chills. Because of the sedation was admitted and has been placed in the intensive care unit due to hypoxia and some difficulties with his respiration. He has not required intubation. The patient has been seen by urology and Hooper catheterization and placed in bladder irrigation as occurred with some ongoing hematuria but without evidence of blockage via clot at this time. Infectious disease consultation requested regarding the fever, sepsis and gram-negative bacteremia. Since transfer to the intensive care unit the patient is bit more comfortable Less short of breath. 11/26/2018 patient has three-way Hooper in and with the irrigation has improvement of the hematuria. Urology is following with no plans for current surgical intervention. The patient is medically stable and he is eating lunch without difficulties. As noted there is evidence of urinary tract infection and bacteremia. He is not on vasopressor therapy. 11/29/2018 patient has had further improvement. The irrigation has been effective in urine is a bit domo in color but not frankly bloody and without cl ots. Overall is improved. No fevers are noted. Eating well. Objective - Vital Signs Vital signs: Vital Signs Temp 99.2 F 11/30/18 20:00 Pulse 62 11/30/18 22:00 Resp 21 11/30/18 22:00 BP 145/58 11/30/18 22:00 Pulse Ox 94 L 11/30/18 22:00 Intake & Output 11/30/18 11/30/18 12/01/18 06:59 18:59 06:59 Intake Total 1200 1200 500 Output Total 2820 1692 924 Balance -655 -425 -425 Weight 147 kg 147 kg Intake: IV 1200 1100 500 Dextrose 5% in Water 1, 1000 500 000 ml @ 100 mls/hr IV . Q10H ONE Rx#:[id number] Sodium Chloride 0.45% 1, 1200 100 000 ml @ 100 mls/hr IV . Q10H [facility] Rx#:[id number] Oral 100 Output: Urine 9277 0728 925 Other: Voiding Method Indwelling Catheter Indwelling Catheter Indwelling Catheter - Exam 67-year-old male with obesity, improved shortness of breath HEENT: Anicteric conjunctiva are pink and moist nasal mucosa grossly intact without significant lesions, there is no thrush. Neck: The neck is supple without significant lymphadenopathy or thyromegaly. Lungs: Symmetrical air entry is noted, coarse crackles and wheezes in all lung vital without lia bronchial sounds Heart: Regular rate and rhythm with an audible S1-S2, no S3 no S4. There is no significant murmur click or rub, PMI was nondisplaced. Abdomen: Obese Positive bowel sounds soft and nontender without palpable masses or organomegaly. There was no guarding or rebound. Extremities: The upper extremities have excellent pulses they are symmetric, no significant petechiae or telangiectasia. No splinter hemorrhages were noted. Lower extremities have some chronic edema no open ulcerations are seen here well perfused Neuro: Awake alert oriented to person and place remains tired - Labs CBC & Chem 7: 11/30/18 05:21 11/30/18 05:21 Labs: Abnormal Lab Results - Last 24 Hours (Table) 11/30/18 11/30/18 11/30/18 Range/Units 05:21 05:21 06:47 RBC 2.97 L (4.30-5.90) m/uL Hgb 7.9 L (13.0-17.5) gm/dL Hct 25.3 L (39.0-53.0) % RDW 16.2 H (11.5-15.5) % Neutrophils # (Manual) 8.30 H (1.3-7.7) k/uL Lymphocytes # (Manual) 0.57 L (1.0-4.8) k/uL Metamyelocytes # (Man) 0.19 H (0) k/uL Sodium 153 H (137-145) mmol/L Potassium 5.4 H (3.5-5.1) mmol/L Chloride 124 H (98-107) mmol/L BUN 49 H (9-20) mg/dL Creatinine 1.93 H (0.66-1.25) mg/dL Glucose 114 H (74-99) mg/dL POC Glucose (mg/dL) 136 H (75-99) mg/dL 04/11/19 04/11/19 04/11/19 Range/Units 12:54 17:01 20:30 RBC (4.30-5.90) m/uL Hgb (13.0-17.5) gm/dL Hct (39.0-53.0) % RDW (11.5-15.5) % Neutrophils # (Manual) (1.3-7.7) k/uL Lymphocytes # (Manual) (1.0-4.8) k/uL Metamyelocytes # (Man) (0) k/uL Sodium (137-145) mmol/L Potassium (3.5-5.1) mmol/L Chloride (98-107) mmol/L BUN (9-20) mg/dL Creatinine (0.66-1.25) mg/dL Glucose (74-99) mg/dL POC Glucose (mg/dL) 198 H 212 H 237 H (75-99) mg/dL Microbiology - Last 24 Hours (Table) 11/24/18 15:03 Blood Culture - Final Blood No Growth after 144 hours 11/24/18 14:38 Blood Culture - Final Blood No Growth after 144 hours Laboratory Results WBC 9.5 k/uL (3.8-10.6) 11/30/18 05:21 RBC 2.97 m/uL (4.30-5.90) L 11/30/18 05:21 Hgb 7.9 gm/dL (13.0-17.5) L 11/30/18 05:21 Hct 25.3 % (39.0-53.0) L 11/30/18 05:21 MCV 85.2 fL (80.0-100.0) 11/30/18 05:21 MCH 26.4 pg (25.0-35.0) 11/30/18 05:21 MCHC 31.0 g/dL (31.0-37.0) 11/30/18 05:21 RDW 16.2 % (11.5-15.5) H 11/30/18 05:21 Plt Count 376 k/uL (150-450) 11/30/18 05:21 Neutrophils % 78 % 11/28/18 05:37 Neutrophils % (Manual) 83 % 11/30/18 05:21 Band Neutrophils % 5 % 11/30/18 05:21 Lymphocytes % 7 % 11/28/18 05:37 Lymphocytes % (Manual) 6 % 11/30/18 05:21 Monocytes % 8 % 11/28/18 05:37 Monocytes % (Manual) 2 % 11/30/18 05:21 Eosinophils % 4 % 11/28/18 05:37 Eosinophils % (Manual) 1 % 11/30/18 05:21 Basophils % 1 % 11/28/18 05:37 Basophils % (Manual) 1 % 11/30/18 05:21 Metamyelocytes % 2 % 11/30/18 05:21 Myelocytes % 4 % 11/29/18 05:44 Neutrophils # 4.9 k/uL (1.3-7.7) 11/28/18 05:37 Neutrophils # (Manual) 8.30 k/uL (1.3-7.7) H 11/30/18 05:21 Lymphocytes # 0.5 k/uL (1.0-4.8) L 11/28/18 05:37 Lymphocytes # (Manual) 0.57 k/uL (1.0-4.8) L 11/30/18 05:21 Monocytes # 0.5 k/uL (0-1.0) 11/28/18 05:37 Monocytes # (Manual) 0.19 k/uL (0-1.0) 11/30/18 05:21 Eosinophils # 0.2 k/uL (0-0.7) 11/28/18 05:37 Eosinophils # (Manual) 0.10 k/uL (0-0.7) 11/30/18 05:21 Basophils # 0.0 k/uL (0-0.2) 11/28/18 05:37 Basophils # (Manual) 0.10 k/uL (0-0.2) 11/30/18 05:21 Metamyelocytes # (Man) 0.19 k/uL (0) H 11/30/18 05:21 Myelocytes # (Manual) 0.32 k/uL (0) H 11/29/18 05:44 Nucleated RBCs 0 /100 WBC (0-0) 11/30/18 05:21 Manual Slide Review Performed 11/30/18 05:21 Polychromasia Present 11/30/18 05:21 Hypochromasia Moderate 11/30/18 05:21 Poikilocytosis Slight 11/23/18 00:00 Anisocytosis Slight 11/30/18 05:21 Microcytosis Slight 11/25/18 05:51 PT 10.4 sec (9.0-12.0) 11/23/18 00:00 INR 1.0 (<1.2) 11/23/18 00:00 APTT 22.3 sec (22.0-30.0) 11/23/18 00:00 Sample Site RRAD 11/29/18 10:32 ABG pH 7.41 (7.35-7.45) 11/29/18 10:32 ABG pCO2 37 mmHg (35-45) 11/29/18 10:32 ABG pO2 60 mmHg (83-108) L 11/29/18 10:32 ABG HCO3 23 mmol/L (21-25) 11/29/18 10:32 ABG Total CO2 25 mmol/L (19-24) H 11/29/18 10:32 ABG O2 Saturation 90.6 % (94-97) L 11/29/18 10:32 ABG Base Excess -1.2 mmol/L 11/29/18 10:32 Alan Test Yes 11/29/18 10:32 FiO2 36 % 11/29/18 10:32 Sodium 153 mmol/L (137-145) H 11/30/18 05:21 Potassium 5.4 mmol/L (3.5-5.1) H 11/30/18 05:21 Chloride 124 mmol/L (98-107) H 11/30/18 05:21 Carbon Dioxide 22 mmol/L (22-30) 11/30/18 05:21 Anion Gap 7 mmol/L 11/30/18 05:21 BUN 49 mg/dL (9-20) H 11/30/18 05:21 Creatinine 1.93 mg/dL (0.66-1.25) H 11/30/18 05:21 Est GFR (CKD-EPI)AfAm 40 (>60 ml/min/1.73 sqM) 11/30/18 05:21 Est GFR (CKD-EPI)NonAf 35 (>60 ml/min/1.73 sqM) 11/30/18 05:21 Glucose 114 mg/dL (74-99) H 11/30/18 05:21 POC Glucose (mg/dL) 237 mg/dL (75-99) H 11/30/18 20:30 POC Glu Occupational Health Physiotherapist Beverley Glaser 11/30/18 20:30 Plasma Lactic Acid Noah 0.9 mmol/L (0.7-2.0) 11/25/18 05:51 Calcium 8.8 mg/dL (8.4-10.2) 11/30/18 05:21 Phosphorus 3.9 mg/dL (2.5-4.5) 11/29/18 05:44 Magnesium 1.9 mg/dL (1.6-2.3) 11/29/18 05:44 Iron 4 ug/dL (65-175) L 11/24/18 12:13 TIBC 284 ug/dL (228-460) 11/24/18 12:13 Iron Saturation 1.41 (15.00-50.00) L 11/24/18 12:13 Ferritin 144.0 ng/mL (22.0-322.0) 11/24/18 12:13 Total Bilirubin 0.5 mg/dL (0.2-1.3) 11/29/18 05:44 AST 35 U/L (17-59) 11/29/18 05:44 ALT 48 U/L (21-72) 11/29/18 05:44 Alkaline Phosphatase 70 U/L (38-126) 11/29/18 05:44 NT-Pro-B Natriuret Pep 4830 pg/mL 11/24/18 14:38 Total Protein 5.6 g/dL (6.3-8.2) L 11/29/18 05:44 Albumin 2.8 g/dL (3.5-5.0) L 11/29/18 05:44 Urine Color Red 11/24/18 00:20 Urine Appearance Cloudy (Clear) 11/24/18 00:20 Urine RBC >182 /hpf (0-5) H 11/24/18 00:20 Urine WBC >182 /hpf (0-5) H 11/24/18 00:20 Urine WBC Clumps Moderate /hpf (None) H 11/24/18 00:20 Urine Bacteria Many /hpf (None) H 11/24/18 00:20 Urine Mucus Rare /hpf (None) H 04/05/19 00:20 Microbiology 11/24/18 15:03 Blood Blood Culture - Final No Growth after 144 hours 11/24/18 14:38 Blood Blood Culture - Final No Growth after 144 hours 11/23/18 00:00 Blood Blood Culture Gram Stain - Final 11/23/18 00:00 Blood Blood Culture - Final Escherichia coli 11/24/18 00:20 Urine,Catheterized Urine Culture - Final Escherichia coli 11/23/18 00:00 Blood Blood Culture - Final Assessment and Plan (1) Gross hematuria Current Visit: Yes Status: Acute Code(s): R31.0 - GROSS HEMATURIA SNOMED Code(s): 572868342 (2) UTI (urinary tract infection) Current Visit: Yes Status: Acute Code(s): N39.0 - URINARY TRACT INFECTION, SITE NOT SPECIFIED SNOMED Code(s): 32471303 (3) Gram-negative bacteremia Narrative/Plan: 67-year-old male who has a history of obesity and his complex history of right renal carcinoma and then more recently the transitional cell cancer of the bladder. He's had some recent interventions and now presents with evidence of urinary obstruction. Hooper catheter is placed in the bladder irrigated and is now having ongoing hematuria but active urinary output with resolution of his significant discomfort. The patient appears to have gram-negative sepsis from urinary system and cefepime has been added and his dose adjusted for his acute renal failure. He's been seen by urology with no plans for surgical intervention at this point in time unless bleeding continues and he obstructs The plan of care will evolve as the patient improves and there is evidence of what best options of treatment for the sepsis will be as he leaves hospital. Smoking cessation is advised. Leukocytosis is due to the gram-negative sepsis and urinary tract infection. The creatinine markedly increased due to the obstructive event and hopefully as this is resolved and there is improvement the sepsis that this will improve. 11/26/2018 patient has had some improvement in his status in that he does not have further gross hematuria with [address]. Renal failure has worsened related to his current sepsis and obstructive uropathy. He is being followed by urology however with a 3-way catheter in place seems to have some improvement. However if the hydronephrosis does not improve a ureteral stent will be placed. For antibiotic therapy given the highly susceptible pathogen we will use Rocephin for now and transition likely to oral antimicrobial therapy at discharge. 11/29/2018 there is been some further improvement. He is now had urological intervention with fulguration of bleeders and placement of the ureteral stent into the left ureter. Creatinine has now decreased from 5.0-1.93. As noted there is an E. coli that is isolated from the urine and the blood and antibiotic therapy was transitioned to Rocephin. As he improves we'll likely transition to oral antibiotic with Levaquin at 500 mg once a day to complete 14 total days of therapy for the E. coli sepsis. Current Visit: Yes Status: Acute Code(s): R78.81 - BACTEREMIA SNOMED Code(s): 057018563514
[2018-12-01] MEDS: HYDROcodone/APAP 5-325MG 1 EACH TAB PO PRN ×3 (00:37→22:11)
[2018-12-01 05:55] LABS: Calcium 8.8 mg/dL (8.4-10.2); Potassium 4.9 mmol/L (3.5-5.1)
[2018-12-01 05:59] LABS: Anisocytosis Slight; Basophils # (A) 0.1 k/uL (0-0.2); Basophils % (A) 1 %; Eosinophils # (A) 0.2 k/uL (0-0.7); Eosinophils % (A) 3 %; HCT 24.7 % (39.0-53.0); HGB 7.8 gm/dL (13.0-17.5); Hypochromasia Marked; Lymphocytes # (A) 0.5 k/uL (1.0-4.8); Lymphocytes % (A) 7 %; MCH 27.2 pg (25.0-35.0); MCHC 31.4 g/dL (31.0-37.0); MCV 86.6 fL (80.0-100.0); Mean Platelet Volume 8.5; Monocytes # (A) 0.5 k/uL (0-1.0); Monocytes % (A) 6 %; Neutrophils # (A) 6.6 k/uL (1.3-7.7); Neutrophils % (A) 82 %; Platelet Count 378 k/uL (150-450); RBC 2.85 m/uL (4.30-5.90); RDW 16.2 % (11.5-15.5)
[2018-12-01] MEDS: PANTOPRAZOLE 40 MG TABLET PO SCH (06:56)
[2018-12-01] MEDS: INSULIN ASPART (NovoLOG) 100 UNIT/ML VIAL SQ SCH ×4 (06:56→20:39)
[2018-12-01 07:02] LABS: Glucose,Whole Blood 176 mg/dL (75-99)
[2018-12-01] MEDS: TAMSULOSIN 0.4 MG CAP.ER.24H PO SCH (08:10)
[2018-12-01] MEDS: hydrALAZINE HCL 50 MG TAB PO SCH ×2 (08:11→20:34)
[2018-12-01] MEDS: INSULIN DETEMIR (LEVEMIR) 100 UNIT/ML SYR SQ SCH ×2 (08:12→20:34)
[2018-12-01] MEDS: amLODIPine 10 MG TAB PO SCH (08:12)
[2018-12-01] MEDS: FENOFIBRATE 160 MG TAB PO SCH (08:17)
[2018-12-01] MEDS: QUEtiapine 100 MG TAB PO SCH ×2 (08:18→20:35)
[2018-12-01] MEDS: SODIUM BICARBONATE TAB 650 MG TAB PO SCH (08:18)
[2018-12-01] MEDS: SODIUM FERRIC GLUCONAT-SUCROSE 125 MG in SODIUM CHLORIDE 0.9% 100 ML IVPB SCH (08:37)
[2018-12-01] MEDS: SYMBICORT 160-4.5 MCG INHALER INHALATION SCH ×2 (09:14→20:00)
[2018-12-01 12:17] LABS: Glucose,Whole Blood 168 mg/dL (75-99)
[2018-12-01] MEDS: THIAMINE 100 MG TAB PO SCH (14:11)
[2018-12-01] MEDS: FOLIC ACID 1 MG TAB PO SCH (14:11)
[2018-12-01] MEDS: MULTIVITAMINS, THERA 1 EACH TAB PO SCH (14:11)
--- NOTE | 2018-12-01 14:49 | P.PN ---
Subjective Progress Note Date: 12/01/18 On 12/01/2018 and seeing this patient for a follow-up. The patient continues to have some delirium. He was placed on Seroquel 100 mg by mouth twice a day. No focal neurological deficit. He would answer questions at times appropriately, yet other times he gets a bit more agitated and restless and confused. No headache. No neck stiffness. Sodium level is improving is down 251. White cell count is not elevated. Renal function continues to improve in the creatinine is down to 1.76. The patient remains on appropriate antibiotic coverage regarding E. coli urine urine infection and the patient is receiving Rocephin 1 g every 24 hours. Noted the patient was also septic from the UTI and the patient had positive E. coli blood culture. No respiratory distress. He has obstructive sleep apnea clinically grounds and the patient is not utilizing BiPAP it's offered to him. Hooper catheter has been removed. Urology is on the case. Nephrology is on the case. He is afebrile. He remains hemodynamically stable for now. Objective - Vital Signs Vital signs: Vital Signs Temp 98.6 F 12/01/18 12:00 Pulse 71 12/01/18 14:00 Resp 13 12/01/18 14:00 BP 172/68 12/01/18 14:00 Pulse Ox 96 12/01/18 14:00 Intake & Output 11/30/18 12/01/18 12/01/18 18:59 06:59 18:59 Intake Total 1200 1300 700 Output Total 1625 2030 300 Balance -425 -730 400 Weight 147 kg Intake: IV 1100 1300 700 Dextrose 5% in Water 1, 1000 1300 700 000 ml @ 100 mls/hr IV . Q10H [facility] Rx#:[id number] Sodium Chloride 0.45% 1, 100 000 ml @ 100 mls/hr IV . Q10H [facility] Rx#:[id number] Oral 100 Output: Urine 1625 2030 300 Other: Voiding Method Indwelling Catheter Indwelling Catheter Urinal # Voids 1 - Exam GENERAL EXAM: Alert, confused, and delirious 67-year-old white male currently on 4 L per high flow nasal cannula mildly short of breath, but no acute distress HEAD: Normocephalic/atraumatic. EYES: Normal reaction of pupils, equal size. Conjunctiva pink, sclera white. NOSE: Clear with pink turbinates. THROAT: No erythema or exudates. NECK: No masses, no JVD, no thyroid enlargement, no adenopathy. CHEST: No chest wall deformity. Symmetrical expansion. LUNGS: Equal air entry with a few rhonchi and crackles CVS: Regular rate and rhythm, normal S1 and S2, no gallops, no murmurs, no rubs ABDOMEN: Soft, nontender. No hepatosplenomegaly, normal bowel sounds, no guarding or rigidity. : Hooper catheter is in place with continuous irrigation, draining tinged colored urine EXTREMITIES: No clubbing, 1+ edema in lower extremities pretibial and pedal no cyanosis, 2+ pulses and upper and lower extremities. MUSCULOSKELETAL: Muscle strength and tone normal. SPINE: No scoliosis or deformity SKIN: No rashes CENTRAL NERVOUS SYSTEM: Alert and oriented -1. No focal deficits, tone is normal in all 4 extremities. PSYCHIATRIC: Alert and oriented -3. he is confused, with occasional hallucinations - Labs CBC & Chem 7: 12/01/18 04:40 12/01/18 04:40 Labs: Abnormal Lab Results - Last 24 Hours (Table) 11/30/18 11/30/18 12/01/18 Range/Units 17:01 20:30 04:40 RBC 2.85 L (4.30-5.90) m/uL Hgb 7.8 L (13.0-17.5) gm/dL Hct 24.7 L (39.0-53.0) % RDW 16.2 H (11.5-15.5) % Lymphocytes # 0.5 L (1.0-4.8) k/uL Sodium (137-145) mmol/L Chloride (98-107) mmol/L BUN (9-20) mg/dL Creatinine (0.66-1.25) mg/dL Glucose (74-99) mg/dL POC Glucose (mg/dL) 212 H 237 H (75-99) mg/dL 12/01/18 12/01/18 12/01/18 Range/Units 04:40 06:51 12:05 RBC (4.30-5.90) m/uL Hgb (13.0-17.5) gm/dL Hct (39.0-53.0) % RDW (11.5-15.5) % Lymphocytes # (1.0-4.8) k/uL Sodium 151 H (137-145) mmol/L Chloride 120 H (98-107) mmol/L BUN 45 H (9-20) mg/dL Creatinine 1.76 H (0.66-1.25) mg/dL Glucose 151 H (74-99) mg/dL POC Glucose (mg/dL) 176 H 168 H (75-99) mg/dL Microbiology - Last 24 Hours (Table) 11/24/18 15:03 Blood Culture - Final Blood No Growth after 144 hours 11/24/18 14:38 Blood Culture - Final Blood No Growth after 144 hours Assessment and Plan Plan: #1. Acute delirium related to sepsis, acute renal failure, and electrolyte abnormality, currently on Seroquel with some improvement in her mentation compared to yesterday. Neurologic exam remains nonfocal and the patient is moving all 4 extremities. He is on Seroquel and the dose has been adjusted 100 mg by mouth twice a day. I would say is gradually improving as the patient's sepsis and electrodes imbalance is improving. #2. Acute hypoxemic respiratory failure related to sepsis and fluid overload, currently on oxygen at 4 L of oxygen nasal cannula #3. Acute urinary tract infection with sepsis and bacteremia, blood culture showed E. coli herrera susceptibility, currently on cefepime #4. Urinary retention, hematuria related to acute UTI, and diffuse bleeding in the bladder. She is status post cystoscopy, with evacuation of blood clots, fulguration of the diffuse bleeding in the bladder, and placement of a double-J left ureteral stent for left ureteral edema. The Hooper cath has been removed and the patient is producing adequate amount of urine output #5. Acute kidney injury due to ATN, improving #6. Hypernatremia, related to normal saline administration, and decreased oral intake, hyperchloremic hypernatremia, improving #7. Non-anion gap metabolic acidosis related to acute kidney injury, improving #8. History of nephrectomy for renal cell carcinoma #9. History of high-grade muscle invasive bladder cancer, with surgical resection and systemic chemotherapy and local radiation #10. Diabetes mellitus type 2 #11. Hypertension, hyperlipidemia #12. Morbid obesity #13. Obstructive sleep apnea on CPAP therapy #14. History of fem-pop bypass complicated by wound dehiscence and subsequent infection requiring wound VAC treatment #15. Chronic back pain #16. Former smoker #17 anemia with a stable hemoglobin of 7.8. This is a blood loss anemia related to blood loss through the urinary system. Plan Monitor mentation. Continue Seroquel. Hooper catheter has been removed. Continue IV Rocephin. Renal function continues to improve. Physical therapy. We'll ask him to sit up on a chair. Advance diet. We'll continue to follow. Hemoglobin is stable. Kidney function is improving. Non-anion gap metabolic acidosis has resolved.
--- NOTE | 2018-12-01 16:14 | PN ---
PROGRESS NOTE DATE OF SERVICE: 12/01/2018 This 67-year-old gentleman who was admitted with multiple medical problems had UTI and sepsis and also CHF. Patient remains confused. Patient apparently tried to drink his own urine today. Patient also has significant hematuria. Urology has performed cystoscopy. Patient is being closely monitored at this time. The urine and blood cultures showed E coli, indicating sepsis. Past medical history reviewed. REVIEW OF SYSTEMS: CARDIOVASCULAR SYSTEM: No angina, palpitations. RESPIRATORY SYSTEM: As mentioned earlier. GI: As mentioned earlier. : As mentioned earlier. NERVOUS SYSTEM: No numbness, weakness. CURRENT MEDICATIONS: Reviewed. They include: 1. Tylenol 650 q.4 p.r.n. 2. [place] 5 mg q.4 p.r.n. 3. DuoNeb q.i.d. and p.r.n. 4. Norvasc 10 mg daily. 5. Symbicort 160/4.5 two puffs b.i.d. 6. Rocephin 1 gram daily. 7. Lofibra 160 mg daily. 8. Iron sulfate. 9. Folic acid. 10.Haldol. 11.Apresoline. 12.NovoLog. 13.Levemir. 14.Nizoral. 15.Lopressor. 16.Multivitamins. 17.Narcan. 18.Protonix. 19.Seroquel. 20.Flomax. 21.Vitamin B1. PHYSICAL EXAMINATION: Patient is alert and oriented x3. Pulse is 71, blood pressure 172/68, respiration 13, temperature 98.6, pulse ox 96% on 4 L. HEENT: Conjunctivae normal. NECK: No jugular venous distention. CARDIOVASCULAR SYSTEM: S1, S2 muffled. RESPIRATORY SYSTEM: Breath sounds diminished at the bases. A few scattered rhonchi and crackles. ABDOMEN: Soft, non-tender. No mass palpable. LEGS: No edema. No swelling. NERVOUS SYSTEM: No focal deficit. LABS: WBC 8, hemoglobin 7.8, sodium 151, potassium 4.9, creatinine 1.76. ASSESSMENT: 1. Acute urinary tract infection with sepsis, Escherichia coli, present on admission. 2. Congestive heart failure, acute exacerbation, with acute on chronic diastolic dysfunction, ejection fraction 50% to 60%, with acute hypoxic respiratory failure, on oxygen. 3. Change in mental status; possible acute delirium. 4. Hypernatremia. 5. Hematuria, status post cystoscopy, evacuation of clot and fulguration of the bleeders as well as ureteral stent placement. 6. Acute on chronic renal failure, multifactorial, possibly acute tubular necrosis as well as postobstructive renal failure with left hydronephrosis, status post left ureteral stent insertion. 7. Anemia, normocytic; anemia of chronic disease. 8. Possible sleep apnea. 9. Change in mental status with metabolic encephalopathy, multifactorial, acute. 10.Obesity with body mass index of 42.2. 11.Increased white count, possibly secondary to sepsis. 12.Normocytic anemia; anemia of chronic disease. 13.Hyperkalemia, present on admission. 14.History of bladder cancer, hematuria, ureteral obstruction, on Hooper catheter. Was on continuous bladder irrigation. 15.Diabetes mellitus, type 2. 16.History of gastroesophageal reflux disease. 17.Hypertension. 18.Hyperlipidemia. 19.History of degenerative joint disease. 20.History of sleep apnea. 21.History of transitional cell cancer of the bladder. 22.Sleep apnea. On CPAP. 23.Severe peripheral vascular disease, status post popliteal bypass surgery and wound V.A.C. and complications previously. 24.FULL CODE. RECOMMENDATIONS AND DISCUSSION: I recommend to continue current medications, continue with the monitoring, symptomatic treatment. Continue with the bronchodilators. Continue with antibiotics. Continue with symptomatic treatment. Creatinine is 1.76 at this time, which is much improved from the creatinine on presentation of 3.98. Will continue to monitor. Cultures as mentioned earlier. Repeat cultures are negative. Further recommendations to follow. See orders for further details. Continue with Seroquel for the confusion and the rest of the medications. Closely follow with multiple consultants. Discussed at length with the patient and his at the bedside. Further recommendations to follow. MMODL / IJN: [id number] / MTDD
[2018-12-01 17:53] LABS: Glucose,Whole Blood 175 mg/dL (75-99)
--- NOTE | 2018-12-01 19:05 | PN ---
PROGRESS NOTE Patient is seen for followup for acute kidney injury and hypernatremia. Patient has been confused. He has been hypernatremic, for which IV fluids have been changed and the patient is maintained on D5W. Serum sodium is improved today. However, he remains confused. He has had good urine output. Hooper catheter was discontinued. Patient has been voiding. On examination this morning, blood pressure was 122/85, heart rate 76 per minute. Patient is afebrile. EXAMINATION OF THE HEART: S1 and S2. EXAMINATION OF LUNGS: Bilateral breath sounds are heard. ABDOMEN: Soft, non-tender. Examination of lower extremities shows no evidence of edema. RISK MANAGEMENT DIRECTOR exam shows patient is confused. He is moving all 4 extremities. Mentation may be slightly better today. Labs show sodium 151, potassium 4.9, BUN 45, serum creatinine 1.76, hemoglobin 7.8 g/dL. ASSESSMENT: 1. Acute kidney injury, obstructive uropathy, status post left ureteral stent in a solitary kidney and cystoscopy with fulguration of bleeders and bladder irrigation, currently improving. 2. Urinary tract infection with Escherichia coli, maintained on antibiotics. 3. Hematuria with a history of underlying invasive bladder cancer, status post bladder irrigation, currently status post discontinuation of Hooper catheter. 4. Non-gap metabolic acidosis, status post IV sodium bicarb, currently maintained on oral sodium bicarb. 5. Confusion, mostly metabolic encephalopathy, multifactorial, including electrolyte imbalance with hypernatremia. 6. Hypernatremia associated with free water deficit, maintained on D5W and improving. PLAN: Continue D5W. Avoid nephrotoxic agents. Discontinue the IV iron tomorrow. Continue antibiotics. Increase hydralazine if blood pressure remains elevated. I will also decrease the sodium bicarb to help with the hypernatremia. MMODL / IJN: [id number] /
[2018-12-01] MEDS: METOPROLOL TARTRATE 50 MG TAB PO SCH (20:35)
[2018-12-01 20:48] LABS: Glucose,Whole Blood 198 mg/dL (75-99)
[2018-12-01] MEDS: HALOPERIDOL LACTATE 5 MG/ML 1 ML VIAL IVP PRN (22:08)
[2018-12-02] MEDS: DEXTROSE 5% IN WATER 1,000 ML IV SCH ×2 (04:38→19:00)
[2018-12-02 05:05] LABS: Calcium 8.8 mg/dL (8.4-10.2)
[2018-12-02 05:16] LABS: Anisocytosis Slight; Basophils # (A) 0.1 k/uL (0-0.2); Basophils % (A) 1 %; Eosinophils # (A) 0.3 k/uL (0-0.7); Eosinophils % (A) 4 %; HCT 26.1 % (39.0-53.0); Hypochromasia Marked; Lymphocytes # (A) 0.6 k/uL (1.0-4.8); Lymphocytes % (A) 8 %; MCH 27.4 pg (25.0-35.0); MCHC 30.6 g/dL (31.0-37.0); MCV 89.7 fL (80.0-100.0); Mean Platelet Volume 7.8; Monocytes # (A) 0.3 k/uL (0-1.0); Monocytes % (A) 4 %; Neutrophils % (A) 81 %; Platelet Count 359 k/uL (150-450); RBC 2.91 m/uL (4.30-5.90); RDW 16.4 % (11.5-15.5); WBC 7.4 k/uL (3.8-10.6)
[2018-12-02] MEDS: INSULIN ASPART (NovoLOG) 100 UNIT/ML VIAL SQ SCH ×4 (06:56→20:32)
[2018-12-02] MEDS: PANTOPRAZOLE 40 MG TABLET PO SCH (06:58)
[2018-12-02 07:07] LABS: Glucose,Whole Blood 128 mg/dL (75-99)
[2018-12-02] MEDS: amLODIPine 10 MG TAB PO SCH (08:32)
[2018-12-02] MEDS: TAMSULOSIN 0.4 MG CAP.ER.24H PO SCH (08:32)
[2018-12-02] MEDS: SODIUM BICARBONATE TAB 650 MG TAB PO SCH (08:33)
[2018-12-02] MEDS: FENOFIBRATE 160 MG TAB PO SCH (08:33)
[2018-12-02] MEDS: QUEtiapine 100 MG TAB PO SCH ×2 (08:33→20:31)
[2018-12-02] MEDS: hydrALAZINE HCL 50 MG TAB PO SCH ×2 (08:33→20:31)
[2018-12-02] MEDS: INSULIN DETEMIR (LEVEMIR) 100 UNIT/ML SYR SQ SCH ×2 (08:50→20:32)
[2018-12-02] MEDS: SODIUM FERRIC GLUCONAT-SUCROSE 125 MG in SODIUM CHLORIDE 0.9% 100 ML IVPB SCH (08:50)
[2018-12-02] MEDS: SYMBICORT 160-4.5 MCG INHALER INHALATION SCH ×2 (09:22→20:07)
--- NOTE | 2018-12-02 10:52 | P.PN ---
Progress Note - Text Progress Note Date: 12/02/18 The patient's Hooper catheter was removed yesterday. Postvoid residual has been checked with the bladder scan unit and was less than 1 ounce. He is voiding rust colored urine but no clots are present. BUN/creatinine continued to improve and were 37/1.64 this morning. As long as the patient is voiding without difficulty I plan no further evaluation during this hospitalization. I would like to see the patient back in follow-up in 2 or 3 weeks and at that time I will probably remove the left double-J catheter.
[2018-12-02] MEDS: MULTIVITAMINS, THERA 1 EACH TAB PO SCH (11:39)
[2018-12-02] MEDS: FOLIC ACID 1 MG TAB PO SCH (11:39)
[2018-12-02] MEDS: THIAMINE 100 MG TAB PO SCH (11:39)
[2018-12-02 11:47] LABS: Glucose,Whole Blood 188 mg/dL (75-99)
--- NOTE | 2018-12-02 15:29 | P.PN ---
Subjective Progress Note Date: 12/02/18 On 12/02/2018 the patient is much more awake. His delirium is gradually recovering. He is following commands and answering questions. No agitation. No fever. No chills. He is currently on room air oxygen. Creatinine is down to 1.6. He still having some bloody urine output with some tiny fragments of clots. No evidence of any urinary obstruction. Sodium level is down to 147. Hooper catheter has been removed. The patient remains on broad-spectrum antibiotics. He is utilizing on and off BiPAP overnight. I asked the to bring in his own CPAP unit from home. Hemoglobin stable at 8.0. White cell count is not elevated. Blood sugars at 188. No focal neurological deficits. Speech is within normal limits. Objective - Vital Signs Vital signs: Vital Signs Temp 98.5 F 12/02/18 12:00 Pulse 65 12/02/18 15:00 Resp 18 12/02/18 15:00 BP 152/64 12/02/18 15:00 Pulse Ox 93 L 12/02/18 15:00 Intake & Output 12/01/18 12/02/18 12/02/18 18:59 06:59 18:59 Intake Total 1100 1300 1450 Output Total 778 150 500 Balance 322 1150 950 Weight 142.5 kg Intake: IV 1100 1200 100 Dextrose 5% in Water 1, 1000 000 ml @ 100 mls/hr IV . Q10H [facility] Rx#:[id number] dextrose 100 1200 100 Intake, IV Titration 650 Amount Dextrose 5% in Water 1, 500 000 ml @ 100 mls/hr IV . Q10H [facility] Rx#:[id number] Sodium Ferric Gluconat- 100 Sucrose 125 mg In Sodium Chloride 0.9% 100 ml @ 100 mls/hr IVPB DAILY [facility] Rx#:[id number] cefTRIAXone 1 gm In 50 Sodium Chloride 0.9% 50 ml @ 100 mls/hr IVPB Q24HR [facility] Rx#:[id number] Oral 100 700 Output: Urine 500 150 500 Post Void Residual 278 Other: Voiding Method Urinal Incontinent Incontinent # Voids 1 1 1 # Bowel Movements 1 - Exam GENERAL EXAM: Alert, and the patient's confusion is improving and the patient is currently on room air. HEAD: Normocephalic/atraumatic. EYES: Normal reaction of pupils, equal size. Conjunctiva pink, sclera white. NOSE: Clear with pink turbinates. THROAT: No erythema or exudates. NECK: No masses, no JVD, no thyroid enlargement, no adenopathy. CHEST: No chest wall deformity. Symmetrical expansion. LUNGS: Equal air entry with a few rhonchi and crackles CVS: Regular rate and rhythm, normal S1 and S2, no gallops, no murmurs, no rubs ABDOMEN: Soft, nontender. No hepatosplenomegaly, normal bowel sounds, no guarding or rigidity. : Hooper catheter is in place with continuous irrigation, draining tinged colored urine EXTREMITIES: No clubbing, 1+ edema in lower extremities pretibial and pedal no cyanosis, 2+ pulses and upper and lower extremities. MUSCULOSKELETAL: Muscle strength and tone normal. SPINE: No scoliosis or deformity SKIN: No rashes CENTRAL NERVOUS SYSTEM: exam is nonfocal. Delirium is improving. - Labs CBC & Chem 7: 12/02/18 04:39 12/02/18 04:39 Labs: Abnormal Lab Results - Last 24 Hours (Table) 12/01/18 12/01/18 12/02/18 Range/Units 17:42 20:37 04:39 RBC 2.91 L (4.30-5.90) m/uL Hgb 8.0 L (13.0-17.5) gm/dL Hct 26.1 L (39.0-53.0) % MCHC 30.6 L (31.0-37.0) g/dL RDW 16.4 H (11.5-15.5) % Lymphocytes # 0.6 L (1.0-4.8) k/uL Sodium (137-145) mmol/L Chloride (98-107) mmol/L BUN (9-20) mg/dL Creatinine (0.66-1.25) mg/dL POC Glucose (mg/dL) 175 H 198 H (75-99) mg/dL 12/02/18 12/02/18 12/02/18 Range/Units 04:39 06:55 11:35 RBC (4.30-5.90) m/uL Hgb (13.0-17.5) gm/dL Hct (39.0-53.0) % MCHC (31.0-37.0) g/dL RDW (11.5-15.5) % Lymphocytes # (1.0-4.8) k/uL Sodium 147 H (137-145) mmol/L Chloride 118 H (98-107) mmol/L BUN 37 H (9-20) mg/dL Creatinine 1.64 H (0.66-1.25) mg/dL POC Glucose (mg/dL) 128 H 188 H (75-99) mg/dL Assessment and Plan Plan: #1. Acute delirium related to sepsis, acute renal failure, and electrolyte abnormality, currently on Seroquel with some improvement in her mentation compared to yesterday. Neurologic exam remains nonfocal and the patient is moving all 4 extremities. The delirium is improving and the patient is more appropriate compared to yesterday. #2. Acute hypoxemic respiratory failure related to sepsis and fluid overload, improved and currently the patient is on room air. #3. Acute urinary tract infection with sepsis and bacteremia, blood culture showed E. coli herrera susceptibility, currently on cefepime #4. Urinary retention, hematuria related to acute UTI, and diffuse bleeding in the bladder. She is status post cystoscopy, with evacuation of blood clots, fulguration of the diffuse bleeding in the bladder, and placement of a double-J left ureteral stent for left ureteral edema. The Hooper cath has been removed and the patient is producing adequate amount of urine output #5. Acute kidney injury due to ATN, improving and creatinine is down to 1.6 #6. Hypernatremia, related to normal saline administration, and decreased oral intake, hyperchloremic hypernatremia, improving #7. Non-anion gap metabolic acidosis related to acute kidney injury, recovered #8. History of nephrectomy for renal cell carcinoma #9. History of high-grade muscle invasive bladder cancer, with surgical resection and systemic chemotherapy and local radiation #10. Diabetes mellitus type 2 #11. Hypertension, hyperlipidemia #12. Morbid obesity #13. Obstructive sleep apnea on CPAP therapy #14. History of fem-pop bypass complicated by wound dehiscence and subsequent infection requiring wound VAC treatment #15. Chronic back pain #16. Former smoker #17 anemia with a stable hemoglobin of 8.0. This is a blood loss anemia related to blood loss through the urinary system. Plan Advance diet. Ambulate. Physical therapy. IV antibiotics. Monitor renal function. Monitor sodium level. CPAP overnight. Continue Seroquel. We'll continue to follow.
--- NOTE | 2018-12-02 16:02 | PN ---
PROGRESS NOTE DATE OF SERVICE: 12/02/2018 This 67-year-old gentleman who was admitted with multiple medical problems had a UTI and sepsis. The patient also has CHF. The patient also had hematuria with clots and the patient had cystoscopy and ureteral stent also. Overall patient has made significant improvement. The patient also has some confusion, indicative of delirium. Past medical history reviewed. REVIEW OF SYSTEMS: CARDIOVASCULAR SYSTEM: No angina, palpitations. RESPIRATORY SYSTEM: As mentioned earlier. GI: As mentioned earlier. : As mentioned earlier. NERVOUS SYSTEM: Diffusely weak. CURRENT MEDICATIONS: Reviewed. They include: 1. Tylenol 650 q.6 p.r.n. 2. DuoNeb q.i.d. and p.r.n. 3. Norvasc. 4. Symbicort. 5. Rocephin. 6. Lofibra. 7. Iron sulfate. 8. Folic acid. 9. Haldol p.r.n. 10.Levemir 30 units subcutaneously b.i.d. 11.Nizoral. 12.Multivitamins. 13.Narcan. 14.Protonix. 15.Seroquel. 16.Flomax. 17.Vitamin B1. Doses are reviewed. PHYSICAL EXAMINATION: Patient is alert, oriented x2. Pulse 69, blood pressure 160/64, respirations 16, temperature 98.2, pulse ox 92% on room air. HEENT: Conjunctivae normal. NECK: No jugular venous distention. CARDIOVASCULAR SYSTEM: S1, S2 muffled. RESPIRATORY SYSTEM: Breath sounds diminished at the bases. Bilateral scattered rhonchi and crackles. ABDOMEN: Soft, obese, non-tender. LEGS: No edema. No swelling. NERVOUS SYSTEM: Diffusely weak. LABS: WBC 7.4, hemoglobin 8. Sodium 147, potassium 4. Glucose noted. ASSESSMENT: 1. Acute urinary tract infection with sepsis, Escherichia coli, present on admission. 2. Congestive heart failure, acute exacerbation, with acute on chronic diastolic dysfunction, ejection fraction 50% to 60%, with acute hypoxic respiratory failure, on oxygen. 3. Change in mental status, possible acute delirium. 4. Hypernatremia. 5. Hematuria, status post cystoscopy, evacuation of clot and fulguration of the bleeders as well as ureteral stent placement. 6. Acute on chronic renal failure, multifactorial; possible acute tubular necrosis as well as postobstructive renal failure with left hydronephrosis, status post left ureteral stent insertion. 7. Anemia, normocytic; anemia of chronic disease. 8. Possible sleep apnea. 9. Change in mental status with metabolic encephalopathy, multifactorial, acute. 10.Obesity with body mass index of 42.2. 11.Increased white count, possibly secondary to sepsis. 12.Normocytic anemia; anemia of chronic disease. 13.Hyperkalemia, present on admission. 14.History of bladder cancer, hematuria, ureteral obstruction, Hooper catheter. Was on continuous bladder irrigation. 15.Diabetes mellitus, type 2. 16.History of gastroesophageal reflux disease. 17.Hypertension. 18.Hyperlipidemia. 19.History of degenerative joint disease. 20.History of sleep apnea. 21.History of transitional cell cancer of the bladder. 22.Sleep apnea. On CPAP. 23.History of peripheral vascular disease, status post focal bypass surgery with wound V.A.C. and complications previously. 24.FULL CODE. RECOMMENDATIONS AND DISCUSSION: I recommend to continue current medications. Continue with the monitoring and symptomatic treatment. Otherwise at this time I recommend monitoring the renal function closely. Continue the antibiotics. The most recent cultures are negative. Confusion is also getting better. PT/OT evaluation, possible ECF rehab. Closely follow with multiple consultants. Further recommendations to follow. MMODL / IJN: [id number] /
[2018-12-02] MEDS: KETOCONAZOLE 2% SHAMPOO 1 APPLIC/ML TOPICAL SCH (17:05)
[2018-12-02 17:12] LABS: Glucose,Whole Blood 246 mg/dL (75-99)
--- NOTE | 2018-12-02 20:17 | PN ---
PROGRESS NOTE Patient is seen for followup for acute kidney injury and hypernatremia. The patient's electrolytes have improved. His mentation has improved as well. PHYSICAL EXAMINATION: This afternoon blood pressure was 147/57, heart rate 69 per minute. Patient is afebrile. He is sitting up in a bedside chair. The patient has had oral intake as well. He is tolerating it fairly well. Examination of the heart: S1, S2. Examination of the lungs: Bilateral breath sounds are heard. Abdomen is soft, obese. Examination of the lower extremities shows no significant edema. LAB: Show sodium 147, potassium 4.0, BUN 37, serum creatinine 1.64. ASSESSMENT: 1. Acute kidney injury with solitary kidney secondary to obstructive uropathy, status post left ureteral stent placement and cystoscopy with fulguration of bleeders and evacuation of clots, currently with improving renal function. 2. Hypernatremia, improving. Continue with D5W. Continue to encourage increased free water intake. 3. Anemia with evidence of iron deficiency, maintained on IV iron, status post 3 doses. I will discontinue the iron. 4. Metabolic acidosis. Maintained on oral sodium bicarb which was decreased yesterday. 5. Urinary tract infection with Escherichia coli, status post antibiotics. 6. Chronic kidney disease with a solitary kidney with underlying diabetic kidney disease. Previous creatinine 1.1-1.2 in September of 2017. PLAN: DC IV iron and Aranesp. MMODL / IJN: [id number] /
[2018-12-02 20:30] LABS: Glucose,Whole Blood 227 mg/dL (75-99)
[2018-12-02] MEDS: METOPROLOL TARTRATE 50 MG TAB PO SCH (20:31)
[2018-12-03] MEDS: DEXTROSE 5% IN WATER 1,000 ML IV SCH ×3 (04:58→16:36)
[2018-12-03 05:39] LABS: Anisocytosis Slight; Basophils # (A) 0.1 k/uL (0-0.2); Basophils % (A) 1 %; Eosinophils # (A) 0.2 k/uL (0-0.7); Eosinophils % (A) 3 %; HCT 24.8 % (39.0-53.0); HGB 8.1 gm/dL (13.0-17.5); Hypochromasia Slight; Lymphocytes # (A) 0.6 k/uL (1.0-4.8); Lymphocytes % (A) 8 %; MCH 27.4 pg (25.0-35.0); MCHC 32.7 g/dL (31.0-37.0); Mean Platelet Volume 7.6; Monocytes # (A) 0.3 k/uL (0-1.0); Monocytes % (A) 4 %; Neutrophils # (A) 6.1 k/uL (1.3-7.7); Neutrophils % (A) 83 %; Platelet Count 359 k/uL (150-450); Poikilocytosis Slight; RBC 2.95 m/uL (4.30-5.90); RDW 16.8 % (11.5-15.5); WBC 7.4 k/uL (3.8-10.6)
[2018-12-03 05:52] LABS: MCV 83.8 fL (80.0-100.0)
[2018-12-03 05:58] LABS: Calcium 8.7 mg/dL (8.4-10.2); Magnesium 1.8 mg/dL (1.6-2.3); Phosphorus 3.8 mg/dL (2.5-4.5)
[2018-12-03] MEDS ORDERED: Magnesium Replacement Protocol 1 EACH MISC MISCELLANE PRN (06:18)
[2018-12-03] MEDS: MAGNESIUM SULFATE-D5W PMX 1 GM in DEXTROSE/WATER 1 100ML.BAG IVPB SCH ×2 (06:23→08:06)
[2018-12-03] MEDS: INSULIN ASPART (NovoLOG) 100 UNIT/ML VIAL SQ SCH ×8 (07:05→22:34)
[2018-12-03] MEDS: PANTOPRAZOLE 40 MG TABLET PO SCH (07:05)
[2018-12-03 07:11] LABS: Glucose,Whole Blood 157 mg/dL (75-99)
[2018-12-03] MEDS: SYMBICORT 160-4.5 MCG INHALER INHALATION SCH ×2 (07:23→20:59)
[2018-12-03] MEDS: hydrALAZINE HCL 50 MG TAB PO SCH ×2 (08:06→20:31)
[2018-12-03] MEDS: TAMSULOSIN 0.4 MG CAP.ER.24H PO SCH (08:06)
[2018-12-03] MEDS: amLODIPine 10 MG TAB PO SCH (08:06)
[2018-12-03] MEDS: FENOFIBRATE 160 MG TAB PO SCH (08:06)
[2018-12-03] MEDS: SODIUM BICARBONATE TAB 650 MG TAB PO SCH (08:07)
[2018-12-03] MEDS: QUEtiapine 100 MG TAB PO SCH ×2 (08:07→20:54)
[2018-12-03] MEDS: INSULIN DETEMIR (LEVEMIR) 100 UNIT/ML SYR SQ SCH ×2 (08:19→20:54)
[2018-12-03 08:30] LABS: Glucose,Whole Blood 209 mg/dL (75-99)
[2018-12-03] MEDS: SODIUM FERRIC GLUCONAT-SUCROSE 125 MG in SODIUM CHLORIDE 0.9% 100 ML IVPB SCH (09:56)
[2018-12-03] MEDS: FOLIC ACID 1 MG TAB PO SCH (11:10)
[2018-12-03] MEDS: THIAMINE 100 MG TAB PO SCH (11:11)
[2018-12-03] MEDS: MULTIVITAMINS, THERA 1 EACH TAB PO SCH (11:11)
--- NOTE | 2018-12-03 11:45 | PN ---
PROGRESS NOTE HISTORY: Patient is seen for followup for acute kidney injury and hypernatremia. Renal function has improved and electrolytes are better. The patient is maintained on D5W at 100 mL an hour. Mentation has improved as well. This morning, patient is sitting up in a bedside chair. He denies any significant complaints. He was, however, slightly confused this morning, but overall mentation is much improved. PHYSICAL EXAM: Blood pressure this morning 162/120, heart rate 65 per minute. He is afebrile. Examination of the heart S1, S2. Examination lungs bilateral breath sounds are heard. Abdomen is soft, nontender. Examination lower extremities shows edema trace bilaterally. LABS: Hemoglobin 8.1, sodium 143, potassium 4.1, BUN 33, serum creatinine 1.65 mg/dL. ASSESSMENT: 1. Acute kidney injury, obstructive uropathy and acute tubular necrosis associated with underlying urinary tract infection, hypotension and sepsis on initial admission, status post left ureteral stent placement and cystoscopy. Patient is maintained on IV fluids. Renal function has improved significantly. Creatinine is down to 1.65, where it is now staying. Previous creatinine in 2018 was about 1.4 in December. 2. Chronic kidney disease with solitary kidney secondary to nephrosclerosis. Previous creatinine about 1.4 mg/dL in December of 2017. 3. Bladder cancer with hematuria on and off, status post cystoscopy and fulguration of bleeders. 4. Hypertension. Blood pressure is staying slightly on the higher side. The patient is maintained on hydralazine, Lopressor and Norvasc. PLAN: I will discontinue the sodium bicarb as it adds a significant sodium load and metabolic acidosis has improved. If the blood pressure still remains elevated, we can increase the hydralazine. MMODL / IJN: [id number] /
[2018-12-03 12:05] LABS: Glucose,Whole Blood 166 mg/dL (75-99)
--- NOTE | 2018-12-03 12:38 | P.PN ---
Subjective Progress Note Date: 12/03/18 On 12/03/2018, the patient is much improved. He is able to speak full sentences and he is much more alert and making sense and this conversation. At times he makes statements that are nonrelevant and he may have still a component of the lesion still. No complaints of shortness of breath or chest pain. He has obstructive sleep apnea and the did not bring his CPAP machine from home. He is refusing to use our own CPAP his renal function is stable with a creatinine of 1.6. Hemoglobin is at 8.1. Electrolytes are all within normal limits. He is having some minimal amount of bloody urine output yet there is no evidence of any urinary retention or abdominal distention. No nausea. No vomit ing. No abdominal pain. He is weak and he is cooperating with the nurses in terms of movement and sitting up on a chair. No headaches. No cough sputum production. No other issues otherwise for now. Objective - Vital Signs Vital signs: Vital Signs Temp 98.6 F 12/03/18 08:00 Pulse 61 12/03/18 11:00 Resp 24 12/03/18 11:00 BP 155/62 12/03/18 11:00 Pulse Ox 93 L 12/03/18 11:00 Intake & Output 12/02/18 12/03/18 12/03/18 18:59 06:59 18:59 Intake Total 2000 1650 980 Output Total 500 900 100 Balance 1500 750 880 Weight 144.3 kg Intake: IV 100 280 Magnesium Sulfate-D5w Pmx 100 1 gm In Dextrose/Water 1 100ml.bag @ 100 mls/hr IVPB Q1H [facility] Rx#: [id number] Sodium Ferric Gluconat- 100 Sucrose 125 mg In Sodium Chloride 0.9% 100 ml @ 100 mls/hr IVPB DAILY [facility] Rx#:[id number] cefTRIAXone 1 gm In 50 Sodium Chloride 0.9% 50 ml @ 100 mls/hr IVPB Q24HR [facility] Rx#:[id number] dextrose 100 30 Intake, IV Titration 950 1200 100 Amount Dextrose 5% in Water 1, 800 1200 100 000 ml @ 60 mls/hr IV . [id number] [facility] Rx#:[id number] Sodium Ferric Gluconat- 100 Sucrose 125 mg In Sodium Chloride 0.9% 100 ml @ 100 mls/hr IVPB DAILY [facility] Rx#:[id number] cefTRIAXone 1 gm In 50 Sodium Chloride 0.9% 50 ml @ 100 mls/hr IVPB Q24HR [facility] Rx#:[id number] Oral 950 450 600 Output: Urine 500 900 100 Other: Voiding Method Incontinent Bedside Commode Bedside Commode Urinal Urinal Incontinent Incontinent # Voids 1 2 1 # Bowel Movements 1 - Exam GENERAL EXAM: Alert, and the patient's confusion is improving and the patient is currently on room air. HEAD: Normocephalic/atraumatic. EYES: Normal reaction of pupils, equal size. Conjunctiva pink, sclera white. NOSE: Clear with pink turbinates. THROAT: No erythema or exudates. NECK: No masses, no JVD, no thyroid enlargement, no adenopathy. CHEST: No chest wall deformity. Symmetrical expansion. LUNGS: Equal air entry with a few rhonchi and crackles CVS: Regular rate and rhythm, normal S1 and S2, no gallops, no murmurs, no rubs ABDOMEN: Soft, nontender. No hepatosplenomegaly, normal bowel sounds, no guarding or rigidity. : Hooper catheter is in place with continuous irrigation, draining tinged colored urine EXTREMITIES: No clubbing, 1+ edema in lower extremities pretibial and pedal no cyanosis, 2+ pulses and upper and lower extremities. MUSCULOSKELETAL: Muscle strength and tone normal. SPINE: No scoliosis or deformity SKIN: No rashes CENTRAL NERVOUS SYSTEM: exam is nonfocal. Delirium is improving. - Labs CBC & Chem 7: 12/03/18 05:21 12/03/18 05:21 Labs: Abnormal Lab Results - Last 24 Hours (Table) 12/02/18 12/02/18 12/03/18 Range/Units 17:00 20:19 05:21 RBC 2.95 L (4.30-5.90) m/uL Hgb 8.1 L (13.0-17.5) gm/dL Hct 24.8 L (39.0-53.0) % RDW 16.8 H (11.5-15.5) % Lymphocytes # 0.6 L (1.0-4.8) k/uL Chloride (98-107) mmol/L BUN (9-20) mg/dL Creatinine (0.66-1.25) mg/dL Glucose (74-99) mg/dL POC Glucose (mg/dL) 246 H 227 H (75-99) mg/dL 12/03/18 12/03/18 12/03/18 Range/Units 05:21 07:00 08:18 RBC (4.30-5.90) m/uL Hgb (13.0-17.5) gm/dL Hct (39.0-53.0) % RDW (11.5-15.5) % Lymphocytes # (1.0-4.8) k/uL Chloride 112 H (98-107) mmol/L BUN 33 H (9-20) mg/dL Creatinine 1.65 H (0.66-1.25) mg/dL Glucose 149 H (74-99) mg/dL POC Glucose (mg/dL) 157 H 209 H (75-99) mg/dL 12/03/18 Range/Units 11:53 RBC (4.30-5.90) m/uL Hgb (13.0-17.5) gm/dL Hct (39.0-53.0) % RDW (11.5-15.5) % Lymphocytes # (1.0-4.8) k/uL Chloride (98-107) mmol/L BUN (9-20) mg/dL Creatinine (0.66-1.25) mg/dL Glucose (74-99) mg/dL POC Glucose (mg/dL) 166 H (75-99) mg/dL Assessment and Plan Plan: #1. Acute delirium related to sepsis, acute renal failure, and electrolyte abnormality, currently on Seroquel with some improvement in her mentation compared to yesterday. Neurologic exam remains nonfocal and the patient is moving all 4 extremities. The delirium is improving #2. Acute hypoxemic respiratory failure related to sepsis and fluid overload, improved and currently the patient is on room air. #3. Acute urinary tract infection with sepsis and bacteremia, blood culture showed E. coli herrera susceptibility, currently on cefepime #4. Urinary retention, hematuria related to acute UTI, and diffuse bleeding in the bladder. She is status post cystoscopy, with evacuation of blood clots, fulguration of the diffuse bleeding in the bladder, and placement of a double-J left ureteral stent for left ureteral edema. The Hooper cath has been removed and the patient is producing adequate amount of urine output #5. Acute kidney injury due to ATN, improving and creatinine is down to 1.6 #6. Hypernatremia, related to normal saline administration, and decreased oral intake, hyperchloremic hypernatremia, improving #7. Non-anion gap metabolic acidosis related to acute kidney injury, recovered #8. History of nephrectomy for renal cell carcinoma #9. History of high-grade muscle invasive bladder cancer, with surgical resection and systemic chemotherapy and local radiation #10. Diabetes mellitus type 2 #11. Hypertension, hyperlipidemia #12. Morbid obesity #13. Obstructive sleep apnea on CPAP therapy #14. History of fem-pop bypass complicated by wound dehiscence and subsequent infection requiring wound VAC treatment #15. Chronic back pain #16. Former smoker #17 anemia with a stable hemoglobin of 8.1. This is a blood loss anemia related to blood loss through the urinary system. Plan Advance diet. Ambulate. Physical therapy. IV antibiotics. Monitor renal function. Monitor sodium level. CPAP overnight. Continue Seroquel. We'll continue to follow. The patient can be transferred out of the intensive care unit to be moved to a medical surgical floor. Monitor the urine output and watch for any bleeding or any urinary retention.
--- NOTE | 2018-12-03 15:28 | PN ---
PROGRESS NOTE DATE OF SERVICE: 12/03/2018. HISTORY: This 67-year-old gentleman who was admitted with acute urinary tract infection with sepsis with E coli also had CHF acute exacerbation and multiple other medical problems. The patient's sensorium has improved significantly. Patient continues to be confused. Medical consultants are following the patient including Nephrology and Dr. Cabrera. The is also reporting some blood clots at this time from the urethra. No chest pain. No palpitations. No fever. PAST MEDICAL HISTORY: Reviewed. REVIEW OF SYSTEMS: CARDIOVASCULAR: No angina. RESPIRATORY: As mentioned earlier. : No dysuria. NERVOUS SYSTEM: No numbness or weakness. CURRENT MEDICATIONS: Reviewed, include: 1. Tylenol 650 every 6 hours p.r.n. 2. Hana 5 mg every 4 p.r.n. 3. DuoNeb q.i.d. and p.r.n. 4. Norvasc 10 mg. 6. Rocephin 1 g daily. 7. Low-fibra 160 mg p.o. daily. 8. Folic acid 1 mg. 9. Haldol 1 mg p.r.n. 10.NovoLog scale. 11.Levemir 30 units subcu b.i.d. 12.Nizoral topically b.i.d. 13.Lopressor 50 mg at bedtime. 14.Magnesium oxide. 15.Multivitamins. 16.Narcan. 17.Protonix. 18.Flomax. 19.Vitamin B1 100 mg p.o. daily. PHYSICAL EXAM: Patient is alert, oriented x3. Pulse 65, blood pressure 150/60, respiratory rate 24, temperature 98.2, pulse ox 94% on room air. HEENT: Conjunctivae normal. NECK: No JVD. CARDIOVASCULAR: S1 and S2 muffled. RESPIRATORY: Breath sounds diminished at the bases. Bilateral scattered rhonchi and crackles. Expiratory wheezing also present. ABDOMEN: Soft, obese, nontender. No masses. Bilateral leg edema. NERVOUS SYSTEM: Diffusely weak. LABS: WBC 11.7, hemoglobin is 8.1, sodium 140, potassium 4, creatinine is 1.65. ASSESSMENT: 1. Acute urinary tract infection with sepsis with E coli present on admission. 2. CHF acute exacerbation with acute on chronic diastolic dysfunction. Ejection fraction 50% to 60%, acute hypoxic respiratory failure on oxygen. 3. Change in mental status, status post possibly acute delirium. 4. Hypernatremia. 5. Hematuria, possibly status post cystoscopy with evacuation of the clot and fulguration of the bleeders as well as ureteral stent placement. 6. Acute on chronic renal failure, multifactorial, with possible acute tubular necrosis as well as possible renal failure with left hydronephrosis, status post left ureteral stent insertion. 7. Anemia, normocytic anemia of chronic disease. 8. Possible sleep apnea. 9. Change in mental status, metabolic encephalopathy, multifactorial, acute. 10.Obesity with body mass index of 42.2. 11.Increased WBC with possibly secondary to sepsis. 12.Normocytic anemia, anemia of chronic disease. 13.Hyperkalemia, present on admission. 14.History of bladder cancer, hematuria, ureteral obstruction, Hooper catheter, was on continuous bladder irrigation. 15.Diabetes mellitus type 2. 16.History of gastroesophageal reflux disease. 17.Hypertension. 18.History of degenerative joint disease. 19.History of sleep apnea. 20.History of transitional cell carcinoma of the bladder. 21.Sleep apnea on CPAP. 22.History of peripheral vascular disease status post bypass surgery and wound VAC and complications previously. 23.FULL CODE. RECOMMENDATIONS: Recommend to continue current medical management, monitoring and symptomatic treatment. Sensorium is definitely improved, but we will monitor the patient closely. Monitor fluids and electrolytes balance closely. PT/OT evaluation, possible ECF rehab. Patient was not open to the ECF initially but after several discussions the patient is open to the possibility of ECF. The is concerned about continued hematuria. Will continue to monitor the hemoglobin. Today hemoglobin is 8.1, yesterday was 8. We will continue to monitor closely and follow with Urology. Patient might require some outpatient followup as well. Further recommendations to follow. MMODL / IJN: [id number] / [id number]
[2018-12-03 17:18] LABS: Glucose,Whole Blood 239 mg/dL (75-99)
[2018-12-03] MEDS: METOPROLOL TARTRATE 50 MG TAB PO SCH (20:31)
[2018-12-03 20:39] LABS: Glucose,Whole Blood 218 mg/dL (75-99)
[2018-12-03] MEDS: TRIAMCINOLONE 0.1% CREAM 80 GM TUBE TOPICAL SCH (22:32)
[2018-12-03] MEDS: HYDROPHILIC CREAM 120 GM JAR TOPICAL SCH (22:33)
[2018-12-03] MEDS: HYDROCORTISONE 1% CREAM 30 GM TUBE TOPICAL SCH (22:33)
[2018-12-04] MEDS ORDERED: HALOPERIDOL LACTATE 5 MG/ML 1 ML VIAL IM PRN (00:32)
[2018-12-04] MEDS: SYMBICORT 160-4.5 MCG INHALER INHALATION SCH ×2 (07:04→19:15)
[2018-12-04 07:23] LABS: Glucose,Whole Blood 181 mg/dL (75-99)
[2018-12-04 07:57] LABS: Anisocytosis Slight; Basophils # (A) 0.1 k/uL (0-0.2); Basophils % (A) 1 %; Eosinophils # (A) 0.2 k/uL (0-0.7); Eosinophils % (A) 3 %; HCT 26.5 % (39.0-53.0); HGB 8.3 gm/dL (13.0-17.5); Hypochromasia Slight; Lymphocytes # (A) 0.6 k/uL (1.0-4.8); Lymphocytes % (A) 8 %; MCH 26.2 pg (25.0-35.0); MCHC 31.2 g/dL (31.0-37.0); Mean Platelet Volume 7.5; Monocytes # (A) 0.3 k/uL (0-1.0); Monocytes % (A) 4 %; Neutrophils # (A) 6.7 k/uL (1.3-7.7); Neutrophils % (A) 84 %; Platelet Count 354 k/uL (150-450); RBC 3.15 m/uL (4.30-5.90); RDW 17.3 % (11.5-15.5)
[2018-12-04] MEDS: MULTIVITAMINS, THERA 1 EACH TAB PO SCH (07:57)
[2018-12-04] MEDS: FENOFIBRATE 160 MG TAB PO SCH (07:57)
[2018-12-04] MEDS: amLODIPine 10 MG TAB PO SCH (07:57)
[2018-12-04] MEDS: TAMSULOSIN 0.4 MG CAP.ER.24H PO SCH (07:57)
[2018-12-04] MEDS: QUEtiapine 100 MG TAB PO SCH (07:57)
[2018-12-04] MEDS: hydrALAZINE HCL 50 MG TAB PO SCH ×2 (07:57→22:39)
[2018-12-04] MEDS: INSULIN ASPART (NovoLOG) 100 UNIT/ML VIAL SQ SCH ×7 (07:58→22:39)
[2018-12-04] MEDS: DEXTROSE 5% IN WATER 1,000 ML IV SCH (07:59)
[2018-12-04] MEDS: INSULIN DETEMIR (LEVEMIR) 100 UNIT/ML SYR SQ SCH ×2 (07:59→22:40)
[2018-12-04] MEDS: PANTOPRAZOLE 40 MG TABLET PO SCH (08:02)
[2018-12-04] MEDS: FOLIC ACID 1 MG TAB PO SCH (08:02)
[2018-12-04] MEDS: THIAMINE 100 MG TAB PO SCH (08:02)
[2018-12-04 08:05] LABS: Calcium 8.7 mg/dL (8.4-10.2); Magnesium 2.1 mg/dL (1.6-2.3); Potassium 4.5 mmol/L (3.5-5.1)
[2018-12-04] MEDS: SODIUM FERRIC GLUCONAT-SUCROSE 125 MG in SODIUM CHLORIDE 0.9% 100 ML IVPB SCH (09:12)
[2018-12-04 10:27] LABS: Hemoglobin A1C 7.4 % (4.0-6.0)
[2018-12-04 11:13] VITALS: BMI 41.9
[2018-12-04 12:18] LABS: Glucose,Whole Blood 142 mg/dL (75-99)
--- NOTE | 2018-12-04 12:22 | P.PN ---
Subjective Progress Note Date: 12/04/18 Principal diagnosis: Acute sepsis, acute hypoxic respiratory failure, acute urinary tract infection and bacteremia. Patient was reevaluated on 12/04/2018, feels very comfortable, in no distress. Patient is still waiting to get his CPAP from home, not using his bedside CPAP at present. Patient denies any cough no wheezing no shortness of breath, no chest pain. Denies any nausea vomiting abdominal pain. Seems to be quite comfortable. CBC is relatively normal except for hemoglobin of 8.3 lites are normal BUN is 32 creatinine is 1.72 has been fluctuating between 1.64 and 5.0 since admission. Last chest x-ray from 5 days ago showed mixed interstitial alveolar process consistent with mild CHF. Last echocardiogram was relatively uneventful, ejection fraction of 55%. Objective - Vital Signs Vital signs: Vital Signs Temp 98.3 F 12/04/18 07:00 Pulse 64 12/04/18 07:00 Resp 17 12/04/18 07:00 BP 161/65 12/04/18 07:00 Pulse Ox 94 L 12/04/18 07:00 Intake & Output 12/03/18 12/04/18 12/04/18 18:59 06:59 18:59 Intake Total 2000 470 Output Total 100 180 Balance 1900 290 Weight 144.3 kg Intake: IV 820 120 Magnesium Sulfate-D5w Pmx 100 1 gm In Dextrose/Water 1 100ml.bag @ 100 mls/hr IVPB Q1H [facility] Rx#: [id number] Sodium Ferric Gluconat- 100 Sucrose 125 mg In Sodium Chloride 0.9% 100 ml @ 100 mls/hr IVPB DAILY [facility] Rx#:[id number] cefTRIAXone 1 gm In 50 Sodium Chloride 0.9% 50 ml @ 100 mls/hr IVPB Q24HR [facility] Rx#:[id number] dextrose 570 120 Intake, IV Titration 100 Amount Dextrose 5% in Water 1, 100 000 ml @ 60 mls/hr IV . [id number] [facility] Rx#:[id number] Oral 1080 350 Output: Urine 100 180 Other: Voiding Method Toilet Toilet Toilet Urinal # Voids 1 1 # Bowel Movements 1 - Exam GENERAL EXAM: Revealed a 67-year-old white male, obese, pleasant, in no distress. HEAD: Normocephalic/atraumatic. EYES: Normal reaction of pupils, equal size. Conjunctiva pink, sclera white. NOSE: Clear with pink turbinates. THROAT: No erythema or exudates. NECK: No masses, no JVD, no thyroid enlargement, no adenopathy. CHEST: No chest wall deformity. Symmetrical expansion. LUNGS: Equal air entry minimal crackles at the bases, no rhonchi and no wheezes. CVS: Regular rate and rhythm, normal S1 and S2, no gallops, no murmurs, no rubs ABDOMEN: Soft, nontender. No hepatosplenomegaly, normal bowel sounds, no guarding or rigidity. : Hooper catheter is in place with continuous irrigation, draining tinged colored urine EXTREMITIES: No clubbing, 1+ edema in lower extremities pretibial and pedal no cyanosis, 2+ pulses and upper and lower extremities. MUSCULOSKELETAL: Muscle strength and tone normal. SKIN: No rashes CENTRAL NERVOUS SYSTEM: Alert and oriented -1. No focal deficits, tone is normal in all 4 extremities. - Labs CBC & Chem 7: 12/04/18 07:25 12/04/18 07:25 Labs: Abnormal Lab Results - Last 24 Hours (Table) 12/03/18 12/03/18 12/03/18 Range/Units 05:21 17:07 20:27 RBC (4.30-5.90) m/uL Hgb (13.0-17.5) gm/dL Hct (39.0-53.0) % RDW (11.5-15.5) % Lymphocytes # (1.0-4.8) k/uL Chloride (98-107) mmol/L BUN (9-20) mg/dL Creatinine (0.66-1.25) mg/dL Glucose (74-99) mg/dL POC Glucose (mg/dL) 239 H 218 H (75-99) mg/dL Hemoglobin A1c 7.4 H (4.0-6.0) % 12/04/18 12/04/18 12/04/18 Range/Units 07:03 07:25 07:25 RBC 3.15 L (4.30-5.90) m/uL Hgb 8.3 L (13.0-17.5) gm/dL Hct 26.5 L (39.0-53.0) % RDW 17.3 H (11.5-15.5) % Lymphocytes # 0.6 L (1.0-4.8) k/uL Chloride 112 H (98-107) mmol/L BUN 32 H (9-20) mg/dL Creatinine 1.72 H (0.66-1.25) mg/dL Glucose 164 H (74-99) mg/dL POC Glucose (mg/dL) 181 H (75-99) mg/dL Hemoglobin A1c (4.0-6.0) % Assessment and Plan Assessment: #1. Acute delirium related to sepsis, acute renal failure, and electrolyte abnormality, significantly improved #2. Acute hypoxemic respiratory failure related to sepsis and fluid overload, resolved #3. Acute urinary tract infection with sepsis and bacteremia, blood culture showed E. coli herrera susceptibility, continue antibiotics. #4. Urinary retention, hematuria related to acute UTI, and diffuse bleeding in the bladder. She is status post cystoscopy, with evacuation of blood clots, fulguration of the diffuse bleeding in the bladder, and placement of a double-J left ureteral stent for left ureteral edema #5. Acute kidney injury due to ATN, improving #6. Hypernatremia, related to normal saline administration, resolved #7. Non-anion gap metabolic acidosis related to acute kidney injury, improving #8. History of nephrectomy for renal cell carcinoma #9. History of high-grade muscle invasive bladder cancer, with surgical resection and systemic chemotherapy and local radiation #10. Diabetes mellitus type 2 #11. Hypertension, hyperlipidemia #12. Morbid obesity #13. Obstructive sleep apnea on CPAP therapy #14. History of fem-pop bypass complicated by wound dehiscence and subsequent infection requiring wound VAC treatment #15. Chronic back pain #16. Former smoker Recommendation: Continue present treatment plan including antibiotics, CPAP, maryan hameed is to bring his own CPAP from home, titrate oxygen down as tolerated and keep saturation above 89%, ambulate the patient, consider placement and discharge planning, advanced diet, ambulate, physical therapy, IV antibiotics, CPAP at night, continue Seroquel, will follow Time with Patient: Less than 30
--- NOTE | 2018-12-04 13:04 | P.PN ---
Subjective This is a pleasant 67 years old male with past medical history of diabetes mellitus, GERD, hyperlipidemia, hypertension, sleep apnea, kidney cancer status post nephrectomy, transitional cell cancers of the bladder, history of severe PVD, status post bypass surgery. He presents with urinary tract infection and septicemia secondary to E. coli with positive culture in the urine and a blunt, and acute kidney injury associated with heart failure. Patient was been treated in the intensive care unit and he was transferred last night to the general medical floor. Patient was confused overnight and the sitter at bedside. However sitter can be DC'd today as his more calm and appropriate, place awake and alert and oriented x 3. His hemoglobin is stable at 8.3 and creatinine has been running 1.6, 1.7 to today, nephrology team are following the patient. Blood pressure 165/65. Patient denies chest pain or dyspnea. No cough. No abdominal pain. He states that he tolerates diet. Patient states he is able to P. His urine was pinkish today. Possible Plan to go to ECF upon discharge Objective - Vital Signs Vital signs: Vital Signs Temp 98.3 F 12/04/18 07:00 Pulse 64 12/04/18 07:00 Resp 17 12/04/18 07:00 BP 161/65 12/04/18 07:00 Pulse Ox 94 L 12/04/18 07:00 Intake & Output 12/03/18 12/04/18 12/04/18 18:59 06:59 18:59 Intake Total 2000 470 Output Total 100 180 Balance 1900 290 Weight 144.3 kg Intake: IV 820 120 Magnesium Sulfate-D5w Pmx 100 1 gm In Dextrose/Water 1 100ml.bag @ 100 mls/hr IVPB Q1H [facility] Rx#: [id number] Sodium Ferric Gluconat- 100 Sucrose 125 mg In Sodium Chloride 0.9% 100 ml @ 100 mls/hr IVPB DAILY [facility] Rx#:[id number] cefTRIAXone 1 gm In 50 Sodium Chloride 0.9% 50 ml @ 100 mls/hr IVPB Q24HR [facility] Rx#:[id number] dextrose 570 120 Intake, IV Titration 100 Amount Dextrose 5% in Water 1, 100 000 ml @ 60 mls/hr IV . [id number] [facility] Rx#:[id number] Oral 1080 350 Output: Urine 100 180 Other: Voiding Method Toilet Toilet Toilet Urinal # Voids 1 1 # Bowel Movements 1 - Exam GENERAL: The patient is alert and oriented x3, not in any acute distress. Well developed, well nourished. HEENT: Pupils are round and equally reacting to light. EOMI. No scleral icterus. No conjunctival pallor. Normocephalic, atraumatic. No pharyngeal erythema. No thyromegaly. CARDIOVASCULAR: S1 and S2 present. No murmurs, rubs, or gallops. PULMONARY: Chest is clear to auscultation, no wheezing or crackles. ABDOMEN: Soft, nontender, nondistended, normoactive bowel sounds. No palpable organomegaly. MUSCULOSKELETAL: No joint swelling or deformity. EXTREMITIES: No cyanosis, clubbing, or pedal edema. NEUROLOGICAL: Gross neurological examination did not reveal any focal deficits. SKIN: No rashes. - Labs CBC & Chem 7: 12/04/18 07:25 12/04/18 07:25 Labs: Abnormal Lab Results - Last 24 Hours (Table) 12/03/18 12/03/18 12/03/18 Range/Units 05:21 17:07 20:27 RBC (4.30-5.90) m/uL Hgb (13.0-17.5) gm/dL Hct (39.0-53.0) % RDW (11.5-15.5) % Lymphocytes # (1.0-4.8) k/uL Chloride (98-107) mmol/L BUN (9-20) mg/dL Creatinine (0.66-1.25) mg/dL Glucose (74-99) mg/dL POC Glucose (mg/dL) 239 H 218 H (75-99) mg/dL Hemoglobin A1c 7.4 H (4.0-6.0) % 12/04/18 12/04/18 12/04/18 Range/Units 07:03 07:25 07:25 RBC 3.15 L (4.30-5.90) m/uL Hgb 8.3 L (13.0-17.5) gm/dL Hct 26.5 L (39.0-53.0) % RDW 17.3 H (11.5-15.5) % Lymphocytes # 0.6 L (1.0-4.8) k/uL Chloride 112 H (98-107) mmol/L BUN 32 H (9-20) mg/dL Creatinine 1.72 H (0.66-1.25) mg/dL Glucose 164 H (74-99) mg/dL POC Glucose (mg/dL) 181 H (75-99) mg/dL Hemoglobin A1c (4.0-6.0) % 12/04/18 Range/Units 11:58 RBC (4.30-5.90) m/uL Hgb (13.0-17.5) gm/dL Hct (39.0-53.0) % RDW (11.5-15.5) % Lymphocytes # (1.0-4.8) k/uL Chloride (98-107) mmol/L BUN (9-20) mg/dL Creatinine (0.66-1.25) mg/dL Glucose (74-99) mg/dL POC Glucose (mg/dL) 142 H (75-99) mg/dL Hemoglobin A1c (4.0-6.0) % Assessment and Plan Assessment: E coli urinary tract infection, present on admission Septicemia secondary to E. coli infection Acute kidney injury Acute on chronic diastolic CHF, ejection fraction 50-60%. Acute hypoxic respiratory failure secondary to above, improving Acute delirium change in mental status, improving Hematuria, secondary to above. Status post cystoscopy with evacuation of the clot and fulguration of the bleeders as well as ureter stent placement Left hydronephrosis, status post left ureteral stent Kidney stone History of urinary bladder cancer Sleep apnea on CPAP/BiPAP Plan: This is a pleasant 67 years old male who presents with UTI and acute kidney injury and hematuria. Hemoglobin is stable. Continue with antibiotic. Continue with iron therapy to correct his anemia. Continue with insulin. Patient has been followed by several consultants including pulmonary/critical care, urologist, explosive man and infectious disease teams. Labs and medication were reviewed.. Continue same treatment. Continue with symptomatic treatment. Resume home medication. Monitor lytes and vitals. DVT and GI prophylaxis. Further recommendations of the clinical course of the patient DVT prophylaxis: no heparin or other anticoagulation for patient with hematuria and low hemoglobin. Risks more than benefits GI Prophylaxis: Ppi PT/OT: Pending, recommended subacute rehab versus home with home care. Prognosis is guarded
--- NOTE | 2018-12-04 15:02 | PN ---
PROGRESS NOTE Patient is seen for followup for acute kidney injury and hyponatremia. Patient has been transferred out of the ICU, is currently doing much better. Mentation has improved. He is eating. Patient has underlying bladder cancer. He also had renal cell cancer, status post right nephrectomy. On this admission, he was noted to have left hydronephrosis for which patient received a left ureteral stent as well as evacuation of clots from the bladder and fulguration of bleeders. His serum creatinine has improved to about 1.72 now from a peak of 5.0 mg/dL. Patient continues to have clots on and off. He is maintained on IV fluids in the form of D5W which was decreased yesterday to 60 mL an hour from 120 mL an hour. Oral intake has increased. PHYSICAL EXAMINATION: Blood pressure is 161/65, heart rate 64 per minute, patient is afebrile. Examination of the heart, S1, S2. Examination of the lungs, bilateral breath sounds are heard. Abdomen is soft, nontender, obese. Examination of the lower extremities shows no significant edema. WHEEL INSTALLER exam is grossly intact. Patient moving all 4 extremities. Mentation has improved. LABS: Show hemoglobin 8.3, sodium 143, potassium 4.5, BUN 32, serum creatinine 1.72. ASSESSMENT: 1. Acute kidney injury, obstructive uropathy on initial admission and ATN associated with urinary tract infection, currently improved. 2. Escherichia coli urinary tract infection, status post antibiotics. 3. Hypernatremia, now improved. Patient is maintained on D5W which I will continue for now. 4. History of right nephrectomy for renal cell cancer. 5. Bladder cancer, status post fulguration of bleeders, cystoscopy, evacuation of clots and irrigation of the bladder, being followed by Urology. PLAN: Continue with D5W. Continue to encourage increased oral intake, DC IV iron and repeat labs in a.m. Follow up with Urology at as outpatient. MMODL / IJN: [id number] /
--- NOTE | 2018-12-04 16:31 | P.PN ---
Subjective Progress Note Date: 12/04/18 Principal diagnosis: UTI, Anemia, Debility Hemoglobin is stable 8.3, continues on iron supp Objective - Vital Signs Vital signs: Vital Signs Temp 97.6 F 12/04/18 13:25 Pulse 66 12/04/18 13:25 Resp 20 12/04/18 13:25 BP 150/64 12/04/18 13:25 Pulse Ox 95 12/04/18 13:25 Intake & Output 12/03/18 12/04/18 12/04/18 18:59 06:59 18:59 Intake Total 2000 470 Output Total 100 180 Balance 1900 290 Weight 144.3 kg Intake: IV 820 120 Magnesium Sulfate-D5w Pmx 100 1 gm In Dextrose/Water 1 100ml.bag @ 100 mls/hr IVPB Q1H [facility] Rx#: [id number] Sodium Ferric Gluconat- 100 Sucrose 125 mg In Sodium Chloride 0.9% 100 ml @ 100 mls/hr IVPB DAILY [facility] Rx#:[id number] cefTRIAXone 1 gm In 50 Sodium Chloride 0.9% 50 ml @ 100 mls/hr IVPB Q24HR [facility] Rx#:[id number] dextrose 570 120 Intake, IV Titration 100 Amount Dextrose 5% in Water 1, 100 000 ml @ 60 mls/hr IV . [id number] [facility] Rx#:[id number] Oral 1080 350 Output: Urine 100 180 Other: Voiding Method Toilet Toilet Toilet Urinal # Voids 1 1 2 # Bowel Movements 1 - Exam Gen: Alert and oriented, NAD Neck Supple, No adenopathy cervical or supraclavicular Chest: Diminished, COarse, Increased respiratory effort noted Heart: Tachy Reg Abdomen: Mild tender, No distention Ext: gen Edema BLE 1+ Hooper with Hematuria. No sensory or motor deficits noted - Labs CBC & Chem 7: 12/04/18 07:25 12/04/18 07:25 Labs: Abnormal Lab Results - Last 24 Hours (Table) 12/03/18 12/03/18 12/03/18 Range/Units 05:21 17:07 20:27 RBC (4.30-5.90) m/uL Hgb (13.0-17.5) gm/dL Hct (39.0-53.0) % RDW (11.5-15.5) % Lymphocytes # (1.0-4.8) k/uL Chloride (98-107) mmol/L BUN (9-20) mg/dL Creatinine (0.66-1.25) mg/dL Glucose (74-99) mg/dL POC Glucose (mg/dL) 239 H 218 H (75-99) mg/dL Hemoglobin A1c 7.4 H (4.0-6.0) % 12/04/18 12/04/18 12/04/18 Range/Units 07:03 07:25 07:25 RBC 3.15 L (4.30-5.90) m/uL Hgb 8.3 L (13.0-17.5) gm/dL Hct 26.5 L (39.0-53.0) % RDW 17.3 H (11.5-15.5) % Lymphocytes # 0.6 L (1.0-4.8) k/uL Chloride 112 H (98-107) mmol/L BUN 32 H (9-20) mg/dL Creatinine 1.72 H (0.66-1.25) mg/dL Glucose 164 H (74-99) mg/dL POC Glucose (mg/dL) 181 H (75-99) mg/dL Hemoglobin A1c (4.0-6.0) % 12/04/18 Range/Units 11:58 RBC (4.30-5.90) m/uL Hgb (13.0-17.5) gm/dL Hct (39.0-53.0) % RDW (11.5-15.5) % Lymphocytes # (1.0-4.8) k/uL Chloride (98-107) mmol/L BUN (9-20) mg/dL Creatinine (0.66-1.25) mg/dL Glucose (74-99) mg/dL POC Glucose (mg/dL) 142 H (75-99) mg/dL Hemoglobin A1c (4.0-6.0) % Assessment and Plan Plan: Assessment and Recommendations: 1. Gram Negative Bacteremia: - Fevers improving - ID Following 2. Inability to void and hematuria: - Hooper catheter in place draining dark bloody urine - Prior cultures from urine on 11/10 - POsitive E coli, Awaiting cultures 3. Acute Hypoxic Respiratory Failure: Improved - Likely from Sepsis, Pneumonia, versus other - Chest Xray does reveal interstial edema and central vascular congestion - Pulm Following 4. Acute on Chronic Renal Failure: - Nephrology Following 5. Hx: Of Bladder Cancer: - Status Post treatment and last SUrveillance follow-up in October remained remission 6. Normocytic Anemia: Acute on Chronic: - Component of acute blood loss anemia - Iron Supps are continued - Hemoglobin 8.3, stable no transfusion required today - Chronic Kidney Disease stage 3, Nephrology - Monitor Serial CBC and Transfuse hemogoblon less than 7 7. Leukocytosis: - Secondary to active infection - Bacteremia ]
[2018-12-04 17:06] LABS: Glucose,Whole Blood 221 mg/dL (75-99)
[2018-12-04 21:15] LABS: Glucose,Whole Blood 214 mg/dL (75-99)
[2018-12-04] MEDS: METOPROLOL TARTRATE 50 MG TAB PO SCH (22:39)
--- NOTE | 2018-12-04 23:58 | P.PN ---
Subjective Progress Note Date: 12/04/18 67-year-old male who has a very complex past medical history including his history of right renal cell carcinoma and was treated with a nephrectomy. Patient subsequently has had difficulties with peripheral vascular disease requiring surgical intervention. 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 His undergone surgical resection as well as radiation therapy. The patient now presents to Hospital with discomfort, inability to void urine high-grade fever or 102 with chills. Because of the sedation was admitted and has been placed in the intensive care unit due to hypoxia and some difficulties with his respiration. He has not required intubation. The patient has been seen by urology and Hooper catheterization and placed in bladder irrigation as occurred with some ongoing hematuria but without evidence of blockage via clot at this time. Infectious disease consultation requested regarding the fever, sepsis and gram-negative bacteremia. Since transfer to the intensive care unit the patient is bit more comfortable Less short of breath. 11/26/2018 patient has three-way Hooper in and with the irrigation has improvement of the hematuria. Urology is following with no plans for current surgical intervention. The patient is medically stable and he is eating lunch without difficulties. As noted there is evidence of urinary tract infection and bacteremia. He is not on vasopressor therapy. 11/29/2018 patient has had further improvement. The irrigation has been effective in urine is a bit domo in color but not frankly bloody and without cl ots. Overall is improved. No fevers are noted. Eating well. 12/04/2018 patient has had further improvement and is only having some minimal intermittent hematuria. Generally feeling somewhat better. Will be heading off to extended care for therapy and his antibiotic therapy. Bladder scans can also be performed as needed. Objective - Vital Signs Vital signs: Vital Signs Temp 98.0 F 12/04/18 19:45 Pulse 68 12/04/18 19:45 Resp 18 12/04/18 19:45 BP 159/55 12/04/18 19:45 Pulse Ox 91 L 12/04/18 19:45 Intake & Output 12/04/18 12/04/18 12/05/18 06:59 18:59 06:59 Intake Total 470 600 500 Output Total 180 Balance 290 600 500 Weight 144.3 kg Intake: IV 120 dextrose 120 Oral 350 600 500 Output: Urine 180 Other: Voiding Method Toilet Toilet Toilet # Voids 1 2 2 - Exam 67-year-old male with obesity, improved shortness of breath HEENT: Anicteric conjunctiva are pink and moist nasal mucosa grossly intact wi thout significant lesions, there is no thrush. Neck: The neck is supple without significant lymphadenopathy or thyromegaly. Lungs: Symmetrical air entry is noted, coarse crackles and wheezes in all lung vital without lia bronchial sounds Heart: Regular rate and rhythm with an audible S1-S2, no S3 no S4. There is no significant murmur click or rub, PMI was nondisplaced. Abdomen: Obese Positive bowel sounds soft and nontender without palpable masses or organomegaly. There was no guarding or rebound. Extremities: The upper extremities have excellent pulses they are symmetric, no significant petechiae or telangiectasia. No splinter hemorrhages were noted. Lower extremities have some chronic edema no open ulcerations are seen here well perfused Neuro: Awake alert oriented to person and place remains tired - Labs CBC & Chem 7: 12/04/18 07:25 12/04/18 07:25 Labs: Abnormal Lab Results - Last 24 Hours (Table) 12/03/18 12/04/18 12/04/18 Range/Units 05:21 07:03 07:25 RBC 3.15 L (4.30-5.90) m/uL Hgb 8.3 L (13.0-17.5) gm/dL Hct 26.5 L (39.0-53.0) % RDW 17.3 H (11.5-15.5) % Lymphocytes # 0.6 L (1.0-4.8) k/uL Chloride (98-107) mmol/L BUN (9-20) mg/dL Creatinine (0.66-1.25) mg/dL Glucose (74-99) mg/dL POC Glucose (mg/dL) 181 H (75-99) mg/dL Hemoglobin A1c 7.4 H (4.0-6.0) % 12/04/18 12/04/18 12/04/18 Range/Units 07:25 11:58 17:02 RBC (4.30-5.90) m/uL Hgb (13.0-17.5) gm/dL Hct (39.0-53.0) % RDW (11.5-15.5) % Lymphocytes # (1.0-4.8) k/uL Chloride 112 H (98-107) mmol/L BUN 32 H (9-20) mg/dL Creatinine 1.72 H (0.66-1.25) mg/dL Glucose 164 H (74-99) mg/dL POC Glucose (mg/dL) 142 H 221 H (75-99) mg/dL Hemoglobin A1c (4.0-6.0) % 12/04/18 Range/Units 20:49 RBC (4.30-5.90) m/uL Hgb (13.0-17.5) gm/dL Hct (39.0-53.0) % RDW (11.5-15.5) % Lymphocytes # (1.0-4.8) k/uL Chloride (98-107) mmol/L BUN (9-20) mg/dL Creatinine (0.66-1.25) mg/dL Glucose (74-99) mg/dL POC Glucose (mg/dL) 214 H (75-99) mg/dL Hemoglobin A1c (4.0-6.0) % Laboratory Results WBC 8.0 k/uL (3.8-10.6) 12/04/18 07:25 RBC 3.15 m/uL (4.30-5.90) L 12/04/18 07:25 Hgb 8.3 gm/dL (13.0-17.5) L 12/04/18 07:25 Hct 26.5 % (39.0-53.0) L 12/04/18 07:25 MCV 84.0 fL (80.0-100.0) 12/04/18 07:25 MCH 26.2 pg (25.0-35.0) 12/04/18 07:25 MCHC 31.2 g/dL (31.0-37.0) 12/04/18 07:25 RDW 17.3 % (11.5-15.5) H 12/04/18 07:25 Plt Count 354 k/uL (150-450) 12/04/18 07:25 Neutrophils % 84 % 12/04/18 07:25 Neutrophils % (Manual) 83 % 11/30/18 05:21 Band Neutrophils % 5 % 11/30/18 05:21 Lymphocytes % 8 % 12/04/18 07:25 Lymphocytes % (Manual) 6 % 11/30/18 05:21 Monocytes % 4 % 12/04/18 07:25 Monocytes % (Manual) 2 % 11/30/18 05:21 Eosinophils % 3 % 12/04/18 07:25 Eosinophils % (Manual) 1 % 11/30/18 05:21 Basophils % 1 % 12/04/18 07:25 Basophils % (Manual) 1 % 11/30/18 05:21 Metamyelocytes % 2 % 11/30/18 05:21 Myelocytes % 4 % 11/29/18 05:44 Neutrophils # 6.7 k/uL (1.3-7.7) 12/04/18 07:25 Neutrophils # (Manual) 8.30 k/uL (1.3-7.7) H 11/30/18 05:21 Lymphocytes # 0.6 k/uL (1.0-4.8) L 12/04/18 07:25 Lymphocytes # (Manual) 0.57 k/uL (1.0-4.8) L 11/30/18 05:21 Monocytes # 0.3 k/uL (0-1.0) 12/04/18 07:25 Monocytes # (Manual) 0.19 k/uL (0-1.0) 11/30/18 05:21 Eosinophils # 0.2 k/uL (0-0.7) 12/04/18 07:25 Eosinophils # (Manual) 0.10 k/uL (0-0.7) 11/30/18 05:21 Basophils # 0.1 k/uL (0-0.2) 12/04/18 07:25 Basophils # (Manual) 0.10 k/uL (0-0.2) 11/30/18 05:21 Metamyelocytes # (Man) 0.19 k/uL (0) H 11/30/18 05:21 Myelocytes # (Manual) 0.32 k/uL (0) H 11/29/18 05:44 Nucleated RBCs 0 /100 WBC (0-0) 11/30/18 05:21 Manual Slide Review Performed 11/30/18 05:21 Polychromasia Present 11/30/18 05:21 Hypochromasia Slight 12/04/18 07:25 Poikilocytosis Slight 12/03/18 05:21 Anisocytosis Slight 12/04/18 07:25 Microcytosis Slight 11/25/18 05:51 PT 10.4 sec (9.0-12.0) 11/23/18 00:00 INR 1.0 (<1.2) 11/23/18 00:00 APTT 22.3 sec (22.0-30.0) 11/23/18 00:00 Sample Site RRAD 11/29/18 10:32 ABG pH 7.41 (7.35-7.45) 11/29/18 10:32 ABG pCO2 37 mmHg (35-45) 11/29/18 10:32 ABG pO2 60 mmHg (83-108) L 11/29/18 10:32 ABG HCO3 23 mmol/L (21-25) 11/29/18 10:32 ABG Total CO2 25 mmol/L (19-24) H 11/29/18 10:32 ABG O2 Saturation 90.6 % (94-97) L 11/29/18 10:32 ABG Base Excess -1.2 mmol/L 11/29/18 10:32 Alan Test Yes 11/29/18 10:32 FiO2 36 % 11/29/18 10:32 Sodium 143 mmol/L (137-145) 12/04/18 07:25 Potassium 4.5 mmol/L (3.5-5.1) 12/04/18 07:25 Chloride 112 mmol/L (98-107) H 12/04/18 07:25 Carbon Dioxide 25 mmol/L (22-30) 12/04/18 07:25 Anion Gap 6 mmol/L 12/04/18 07:25 BUN 32 mg/dL (9-20) H 12/04/18 07:25 Creatinine 1.72 mg/dL (0.66-1.25) H 12/04/18 07:25 Est GFR (CKD-EPI)AfAm 46 (>60 ml/min/1.73 sqM) 12/04/18 07:25 Est GFR (CKD-EPI)NonAf 40 (>60 ml/min/1.73 sqM) 12/04/18 07:25 Glucose 164 mg/dL (74-99) H 12/04/18 07:25 POC Glucose (mg/dL) 214 mg/dL (75-99) H 12/04/18 20:49 POC Glu [employer] Helper ID Estela Griffin 12/04/18 20:[address] Glu mg/dL 166 12/03/18 05:21 Hemoglobin A1c 7.4 % (4.0-6.0) H 12/03/18 05:21 Plasma Lactic Acid Noah 0.9 mmol/L (0.7-2.0) 11/25/18 05:51 Calcium 8.7 mg/dL (8.4-10.2) 12/04/18 07:25 Phosphorus 3.8 mg/dL (2.5-4.5) 12/03/18 05:21 Magnesium 2.1 mg/dL (1.6-2.3) 12/04/18 07:25 Iron 4 ug/dL (65-175) L 11/24/18 12:13 TIBC 284 ug/dL (228-460) 11/24/18 12:13 Iron Saturation 1.41 (15.00-50.00) L 11/24/18 12:13 Ferritin 144.0 ng/mL (22.0-322.0) 11/24/18 12:13 Total Bilirubin 0.5 mg/dL (0.2-1.3) 11/29/18 05:44 AST 35 U/L (17-59) 11/29/18 05:44 ALT 48 U/L (21-72) 11/29/18 05:44 Alkaline Phosphatase 70 U/L (38-126) 11/29/18 05:44 NT-Pro-B Natriuret Pep 4830 pg/mL 11/24/18 14:38 Total Protein 5.6 g/dL (6.3-8.2) L 11/29/18 05:44 Albumin 2.8 g/dL (3.5-5.0) L 11/29/18 05:44 Urine Color Red 11/24/18 00:20 Urine Appearance Cloudy (Clear) 11/24/18 00:20 Urine RBC >182 /hpf (0-5) H 11/24/18 00:20 Urine WBC >182 /hpf (0-5) H 11/24/18 00:20 Urine WBC Clumps Moderate /hpf (None) H 11/24/18 00:20 Urine Bacteria Many /hpf (None) H 11/24/18 00:20 Urine Mucus Rare /hpf (None) H 11/24/18 00:20 Microbiology 11/24/18 15:03 Blood Blood Culture - Final No Growth after 144 hours 11/24/18 14:38 Blood Blood Culture - Final No Growth after 144 hours 11/23/18 00:00 Blood Blood Culture Gram Stain - Final 11/23/18 00:00 Blood Blood Culture - Final Escherichia coli 11/24/18 00:20 Urine,Catheterized Urine Culture - Final Escherichia coli 11/23/18 00:00 Blood Blood Culture - Final Assessment and Plan (1) Gross hematuria Current Visit: Yes Status: Acute Code(s): R31.0 - GROSS HEMATURIA SNOMED Code(s): 080733685 (2) UTI (urinary tract infection) Current Visit: Yes Status: Acute Code(s): N39.0 - URINARY TRACT INFECTION, SITE NOT SPECIFIED SNOMED Code(s): 45391731 (3) Gram-negative bacteremia Narrative/Plan: 67-year-old male who has a history of obesity and his complex history of right renal carcinoma and then more recently the transitional cell cancer of the bladder. He's had some recent interventions and now presents with evidence of urinary obstruction. Hooper catheter is placed in the bladder irrigated and is now having ongoing hematuria but active urinary output with resolution of his significant discomfort. The patient appears to have gram-negative sepsis from urinary system and cefepime has been added and his dose adjusted for his acute renal failure. He's been seen by urology with no plans for surgical intervention at this point in time unless bleeding continues and he obstructs The plan of care will evolve as the patient improves and there is evidence of what best options of treatment for the sepsis will be as he leaves hospital. Smoking cessation is advised. Leukocytosis is due to the gram-negative sepsis and urinary tract infection. The creatinine markedly increased due to the obstructive event and hopefully as this is resolved and there is improvement the sepsis that this will improve. 11/26/2018 patient has had some improvement in his status in that he does not have further gross hematuria with [address]. Renal failure has worsened related to his current sepsis and obstructive uropathy. He is being followed by urology however with a 3-way catheter in place seems to have some improvement. However if the hydronephrosis does not improve a ureteral stent will be placed. For antibiotic therapy given the highly susceptible pathogen we will use Rocephin for now and transition likely to oral antimicrobial therapy at discharge. 11/29/2018 there is been some further improvement. He is now had urological intervention with fulguration of bleeders and placement of the ureteral stent into the left ureter. Creatinine has now decreased from 5.0-1.93. As noted there is an E. coli that is isolated from the urine and the blood and antibiotic therapy was transitioned to Rocephin. As he improves we'll likely transition to oral antibiotic with Levaquin at 500 mg once a day to complete 14 total days of therapy for the E. coli sepsis. 12/04/2018 patient is having improvement of his status. No other new acute difficulties are being noted at this time. He will transition to oral antimicr obial therapy has discharged complete 2 weeks of Levaquin for his gram-negative sepsis and bacteremia from urinary obstruction. He does have a stent in place. Will have follow-up with urology in the outpatient setting. Current Visit: Yes Status: Acute Code(s): R78.81 - BACTEREMIA SNOMED Code(s): 651719408367
[2018-12-05] MEDS: DEXTROSE 5% IN WATER 1,000 ML IV SCH ×2 (00:32→17:03)
[2018-12-05] MEDS: QUEtiapine 100 MG TAB PO SCH ×3 (01:09→20:49)
[2018-12-05 07:07] LABS: Anisocytosis Slight; Basophils # (A) 0.1 k/uL (0-0.2); Basophils % (A) 1 %; Eosinophils # (A) 0.3 k/uL (0-0.7); Eosinophils % (A) 4 %; HCT 25.6 % (39.0-53.0); HGB 8.3 gm/dL (13.0-17.5); Hypochromasia Moderate; Lymphocytes # (A) 0.7 k/uL (1.0-4.8); Lymphocytes % (A) 10 %; MCH 27.3 pg (25.0-35.0); MCHC 32.2 g/dL (31.0-37.0); MCV 84.8 fL (80.0-100.0); Mean Platelet Volume 7.7; Monocytes # (A) 0.3 k/uL (0-1.0); Monocytes % (A) 5 %; Neutrophils # (A) 5.3 k/uL (1.3-7.7); Neutrophils % (A) 78 %; Platelet Count 358 k/uL (150-450); Poikilocytosis Slight; RBC 3.02 m/uL (4.30-5.90); RDW 17.7 % (11.5-15.5); WBC 6.7 k/uL (3.8-10.6)
[2018-12-05 07:19] LABS: Calcium 8.5 mg/dL (8.4-10.2); Potassium 4.3 mmol/L (3.5-5.1)
[2018-12-05 07:20] LABS: Glucose,Whole Blood 259 mg/dL (75-99)
[2018-12-05] MEDS: SYMBICORT 160-4.5 MCG INHALER INHALATION SCH ×2 (07:58→19:50)
[2018-12-05] MEDS: amLODIPine 10 MG TAB PO SCH (08:08)
[2018-12-05] MEDS: MULTIVITAMINS, THERA 1 EACH TAB PO SCH (08:08)
[2018-12-05] MEDS: TAMSULOSIN 0.4 MG CAP.ER.24H PO SCH (08:08)
[2018-12-05] MEDS: FOLIC ACID 1 MG TAB PO SCH (08:08)
[2018-12-05] MEDS: PANTOPRAZOLE 40 MG TABLET PO SCH (08:08)
[2018-12-05] MEDS: THIAMINE 100 MG TAB PO SCH (08:08)
[2018-12-05] MEDS: FENOFIBRATE 160 MG TAB PO SCH (08:08)
[2018-12-05] MEDS: hydrALAZINE HCL 50 MG TAB PO SCH ×2 (08:08→20:48)
[2018-12-05] MEDS: INSULIN DETEMIR (LEVEMIR) 100 UNIT/ML SYR SQ SCH ×2 (08:08→20:49)
[2018-12-05] MEDS: INSULIN ASPART (NovoLOG) 100 UNIT/ML VIAL SQ SCH ×7 (08:09→20:49)
--- NOTE | 2018-12-05 11:21 | P.PN ---
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 Johnson and a urologist from the [facility]. Patient did receive systemic chemotherapy and localized radiation therapy after surgical resection. Other medical history includes diabetes mellitus, GERD/reflux, hypertension, hyperlipidemia, osteoarthritis, sleep apnea on CPAP therapy, morbid obesity, severe peripheral vascular disease with a complicated fem-pop bypass surgery with history of wound dehiscence and subsequent infection of the lower extremity wound site, previous history of nicotine dependence, currently in remission. On 11/23/2018 patient presented to the emergency department with complaints of inability to void, hematuria, fever of 102.9F, rigors. Ultrasound of the bladder revealed a distended bladder, Hooper catheter was placed, with return of dark colored hematuria. Urine culture from 11/10/2018 reveals E. coli in the urine culture, with herrera susceptibility. Rocephin was started for antibiotic coverage, [place] workup was started, initial blood work showed white blood cell count of 12.0, hemoglobin of 9.7, sodium of 140, potassium is 4.6, chloride is 111, CO2 is 18, BUN is 42, creatinine is 2.64, asthma lactic acid was within normal limits at 1.8 LFTs were normal. Urinalysis showed red blood cells greater than 182, white blood cells greater than 182, moderate white blood cells in clumps, and many bacteria. Patient has been afebrile with a T-max of 102.9F. Hemodynamically patient has been stable, no tachycardia. Was initially admitted to the medical surgical floor, however through the day patient became increasingly more short of breath and hypoxemia, initially was just on room air, afternoon patient started desaturating, and had to be placed on supplemental oxygen at 4 L per nasal cannula and O2 sats were at 89%, lung sounds were quite congested, patient was given IV Lasix 1 per attending physician. The blood gas was obtained, and showed pO2 of 55, pCO2 of 37, pH of 7.38 this was done on FiO2 of 36%. The chest x-ray was obtained and showed interstitial edema and new central vascular congestion. There was a pulmonary nodule at the right lung base compatible with a granuloma. The patient is seen today 11/25/2018 in follow-up in the intensive care unit. He is currently awake and alert in no acute distress. Resting comfortably in be d. He is currently on 8 L high flow nasal cannula and maintaining good O2 saturations in the 90s on room air. Still with fever 100.6 axillary. He did utilize the CPAP last night. Cultures positive for gram-negative bacilli. Urine culture pending. White count 13.8. Hemoglobin 7.9. Creatinine 4.12. Bicarb 19. He is currently in a negative balance. The plan is for continuous bladder irrigation. Triple-lumen catheter has been placed. He is currently on cefepime and he also remains on bronchodilators and Symbicort. Chest x-ray reveals evidence of mild congestive heart failure. There is a right-sided pulmonary nodule. This is a benign granuloma seen on previous computed tomography scan of the chest. On 11/26/2017 patient seen in follow-up in the intensive care unit, he is awake and alert, he is oriented to person, the year, but not the month, he is having intermittent confusion. Denies any shortness of breath, denies any chest pain, denies any abdominal pain, white blood cell count today is 11.7, immobile globin is 8.2, sodium is 139, potassium is 5.1, chloride is 102, CO2 is 19, BUN is 72 and creatinine is 5.0. Blood and urine cultures were positive for E. coli with herrera susceptibility, follow-up blood cultures are negative thus far. Antibiotic coverage in the form of cefepime. Chronic oncology and urology are following. Patient's having a bladder irrigations. Nonoliguric. Patient is currently at 8 L per high flow nasal cannula, pulse ox of 94%, he does wear CPAP at 8 cm of water at bedtime. No IV fluids right now, no fever or chills. Today's chest x-ray showed mild improvement in the patient's congestive heart failure. On 11/27/2018 patient seen in follow-up in the intensive care unit, patient was taken to the OR by urology service yesterday for a hematuria, patient was getting continuous bladder irrigations, however last night the catheter became plugged it could not be irrigated to the point of patency. Patient underwent cystoscopy or spinal anesthesia, no tumor was seen within the prostatic urethra, multiple clots were seen in the bladder, they were evacuated from the bladder, patchy areas of oozing were noted, and these were fulgurated. Double-J ureteral stent was placed related to significant inflammation in the left ureteral or ifice. He is seen in the intensive care this morning, he is awake and alert, remains somewhat confused, but, cooperative, no agitation. Hemodynamically patient has remained stable, has not required any vasopressor support since admission, he is on 6 L of oxygen his pulse ox is 96%, he is afebrile this morning, did have a fever of 102.1F last night. He has a 3-way Hooper catheter which is being continuously irrigated, today's blood work has been reviewed, showed white blood cell count of 8.2, hemoglobin of 7.2, sodium is 142, potassium is 4.7, chloride is 114, CO2 is 20, BUN is 80 creatinine is 3.98. Lung sounds are clear, diminished at the bases, no difficulty breathing. 0.9 normal saline at a rate of 70 ML per hour, patient has been wearing the CPAP at 8 cm of water at bedtime. Antibiotic coverage in the form of cefepime. Microbiology results have been reviewed, patient did have E. coli in the blood cultures and urine, with herrera susceptibility, follow up blood cultures have been negative. On 11/28/2018 patient seen in follow-up. Patient is sitting up in the recliner, no acute distress, remains pleasantly confused, apparently last night she was also aggressive, did receive a couple doses of Haldol, with improvement in his agitation. He is on supplemental oxygen 4 L per nasal cannula his pulse ox is 92%, afebrile, patient is postop day 2 status post cystoscopy with evacuation of multiple clots from his bladder, and placement of the double-J catheter on the left for ureteral edema and hydronephrosis. Hemodynamically patient is stable, he is not required any vasopressor support. Urine and blood cultures were positive for E. coli with herrera susceptibility. On all 11/29/2016 patient seen in follow-up in the intensive care unit, he is resting in bed, slightly dyspneic after being moved over to larger bed. But no acute distress, he remains quite confused, delirious, he is picking at invisible things, he is only oriented to person. he did recognize his , did not know his daughter. No agitation currently, apparently patient is not sleeping well at night, and tends to be more agitated at night, PRN Haldol has been prescribed. His hematuria has resolved, there is a only betancourt-colored urine output in the Hooper catheter, his continuous irrigation of the bladder has been stopped. Today's labs have been reviewed, his hemoglobin is relatively stable, hemoglobin is 7.8, the WBCs is 7.0, serum sodium is up to 149, potassium is 5.3, chloride is 121, CO2 is 22, BUN is 58, creatinine is 2.22. There has been improvement in the patient's renal profile. Patient's weight is up by 5 kg since admission although the intake and output net does not reflect that, r elated to recording of the irrigant amount from the continuous bladder infusions in the urine output. Today's blood gas was done, and showed a pO2 of 60, pCO2 of 37, and pH of 7.41. This was done and FiO2 of 36%. Lung sounds are diminished, with some bibasilar crackles. She did have E. coli in his blood and urine, and both were susceptible to all of antibiotics. Echocardiogram has been reviewed and showed EF 55-60%, mild mitral regurgitation. Patient's family is at the bedside, and they were updated on patient's condition. On 12/05/2018 patient is seen in follow-up on medical surgical floor. He had just returned to the room after ambulating with physical therapy, he is on room air, he is awake and alert, oriented 3, delirium has resolved, no evidence of delirium on today's exam, room air pulse ox is 95%, patient is afebrile, hemodynamically patient is stable, lung sounds are clear, no cough or congestion, no fever or chills, patient has been treated for E. coli bacteremia and urinary tract infection, follow-up blood cultures show no growth. Urine antibiotic coverage is Rocephin, ID service is following and managing the antibiotics. Today's labs have been reviewed, white blood cell count is 6.7, hemoglobin is 8.3, sodium is 143, potassium is 4.3, chloride is 113, B1 is 29 creatinine is 1.72. Objective - Vital Signs Vital signs: Vital Signs Temp 98.4 F 04/16/19 07:00 Pulse 59 L 12/05/18 07:00 Resp 16 12/05/18 07:00 BP 159/76 12/05/18 07:00 Pulse Ox 95 12/05/18 07:58 Intake & Output 12/04/18 12/05/18 12/05/18 18:59 06:59 18:59 Intake Total 600 2050 120 Output Total 1000 Balance 600 1050 120 Weight 144.3 kg Intake: Intake, IV Titration 800 Amount Dextrose 5% in Water 1, 800 000 ml @ 60 mls/hr IV . [id number] [facility] Rx#:[id number] Oral 600 1250 120 Output: Urine 1000 Other: Voiding Method Toilet Toilet Toilet # Voids 2 2 # Bowel Movements 2 - Exam GENERAL EXAM: Alert, pleasant, 67-year-old white male currently on room air, sitting up in the recliner, in no acute distress HEAD: Normocephalic/atraumatic. EYES: Normal reaction of pupils, equal size. Conjunctiva pink, sclera white. NOSE: Clear with pink turbinates. THROAT: No erythema or exudates. NECK: No masses, no JVD, no thyroid enlargement, no adenopathy. CHEST: No chest wall deformity. Symmetrical expansion. LUNGS: Equal air entry, no rhonchi, no wheezes CVS: Regular rate and rhythm, normal S1 and S2, no gallops, no murmurs, no rubs ABDOMEN: Soft, nontender. No hepatosplenomegaly, normal bowel sounds, no guarding or rigidity. : Hooper catheter is in place with continuous irrigation, draining tinged colored urine EXTREMITIES: No clubbing, 1+ edema in lower extremities pretibial and pedal no cyanosis, 2+ pulses and upper and lower extremities. MUSCULOSKELETAL: Muscle strength and tone normal. SPINE: No scoliosis or deformity SKIN: No rashes CENTRAL NERVOUS SYSTEM: Alert and oriented -3. No focal deficits, tone is normal in all 4 extremities. PSYCHIATRIC: Alert and oriented -3 - Labs CBC & Chem 7: 12/05/18 06:31 12/05/18 06:31 Labs: Abnormal Lab Results - Last 24 Hours (Table) 12/04/18 12/04/18 12/04/18 Range/Units 11:58 17:02 20:49 RBC (4.30-5.90) m/uL Hgb (13.0-17.5) gm/dL Hct (39.0-53.0) % RDW (11.5-15.5) % Lymphocytes # (1.0-4.8) k/uL Chloride (98-107) mmol/L BUN (9-20) mg/dL Creatinine (0.66-1.25) mg/dL Glucose (74-99) mg/dL POC Glucose (mg/dL) 142 H 221 H 214 H (75-99) mg/dL 12/05/18 12/05/18 12/05/18 Range/Units 06:31 06:31 06:57 RBC 3.02 L (4.30-5.90) m/uL Hgb 8.3 L (13.0-17.5) gm/dL Hct 25.6 L (39.0-53.0) % RDW 17.7 H (11.5-15.5) % Lymphocytes # 0.7 L (1.0-4.8) k/uL Chloride 113 H (98-107) mmol/L BUN 29 H (9-20) mg/dL Creatinine 1.72 H (0.66-1.25) mg/dL Glucose 206 H (74-99) mg/dL POC Glucose (mg/dL) 259 H (75-99) mg/dL Assessment and Plan Plan: Assessment: #1. Acute delirium related to sepsis, acute renal failure, and electrolyte abnormality, resolved #2. Acute hypoxemic respiratory failure related to sepsis and fluid overload, resolved #3. Acute urinary tract infection with sepsis and bacteremia, blood culture showed E. coli herrera susceptibility, treated with cefepime. Currently on Rocephin, follow up blood cultures were negative #4. Urinary retention, hematuria related to acute UTI, and diffuse bleeding in the bladder. She is status post cystoscopy, with evacuation of blood clots, fulguration of the diffuse bleeding in the bladder, and placement of a double-J left ureteral stent for left ureteral edema, improved. Hooper catheter has been discontinued, patient is voiding #5. Acute kidney injury due to ATN, improving #6. Hypernatremia, related to normal saline administration, and decreased oral intake, resolved, patient is tolerating oral intake. #7. Non-anion gap metabolic acidosis related to acute kidney injury, improving #8. History of nephrectomy for renal cell carcinoma #9. History of high-grade muscle invasive bladder cancer, with surgical resection and systemic chemotherapy and local radiation #10. Diabetes mellitus type 2 #11. Hypertension, hyperlipidemia #12. Morbid obesity #13. Obstructive sleep apnea on CPAP therapy #14. History of fem-pop bypass complicated by wound dehiscence and subsequent infection requiring wound VAC treatment #15. Chronic back pain #16. Former smoker Plan: Patient is doing well, delirium has resolved, patient is alert, oriented 3, vital signs are stable, no fever or chills, currently on Rocephin for antibiotic coverage, follow blood cultures have been negative. No complains of dyspnea or chest pain, lung sounds are clear, patient is ambulating. Off the oxygen, no s pecific complaints. During oral intake, utilizing his CPAP at bedtime. From pulmonary perspective patient could be cleared for discharge to extended care facility once cleared by consultants on the case. I performed a history & physical examination of the patient and discussed their management with my nurse practitioner, Isa Piña. I reviewed the nurse practitioner's note and agree with the documented findings and plan of care. Lung sounds are positive for diminished breath sounds to bases. The findings and the impression was discussed with the patient. I attest to the documentatio n by the nurse practitioner. Time with Patient: Less than 30
[2018-12-05 11:41] LABS: Glucose,Whole Blood 338 mg/dL (75-99)
--- NOTE | 2018-12-05 12:25 | P.PN ---
Subjective Patient is seen in follow-up for acute kidney injury. Renal function is stable today. Creatinine at 1.72. Currently being treated for E. coli bacteremia and UTI. Oral intake is good. Denies chest pain or shortness of breath. Admits to good urine output. Vital signs are stable. General: The patient appeared well nourished and normally developed. HEENT: Head exam is unremarkable. Neck is without jugular venous distension. LUNGS: Lungs are clear to auscultation and percussion. Breath sounds decreased. HEART: Rate and Rhythm are regular. First and second heart sounds normal. No murmurs, rubs or gallops. ABDOMEN: Abdominal exam reveals normal bowel sounds. Non-tender and non- distended. No evidence of peritonitis. EXTREMITITES: No clubbing, cyanosis, or edema. Objective - Vital Signs Vital signs: Vital Signs Temp 98.4 F 12/05/18 07:00 Pulse 59 L 12/05/18 07:00 Resp 16 12/05/18 07:00 BP 159/76 12/05/18 07:00 Pulse Ox 95 12/05/18 07:58 Intake & Output 12/04/18 12/05/18 12/05/18 18:59 06:59 18:59 Intake Total 600 2050 120 Output Total 1000 Balance 600 1050 120 Weight 144.3 kg Intake: Intake, IV Titration 800 Amount Dextrose 5% in Water 1, 800 000 ml @ 60 mls/hr IV . [id number] [facility] Rx#:[id number] Oral 600 1250 120 Output: Urine 1000 Other: Voiding Method Toilet Toilet Toilet # Voids 2 2 3 # Bowel Movements 2 - Labs CBC & Chem 7: 12/05/18 06:31 12/05/18 06:31 Labs: Abnormal Lab Results - Last 24 Hours (Table) 12/04/18 12/04/18 12/05/18 Range/Units 17:02 20:49 06:31 RBC 3.02 L (4.30-5.90) m/uL Hgb 8.3 L (13.0-17.5) gm/dL Hct 25.6 L (39.0-53.0) % RDW 17.7 H (11.5-15.5) % Lymphocytes # 0.7 L (1.0-4.8) k/uL Chloride (98-107) mmol/L BUN (9-20) mg/dL Creatinine (0.66-1.25) mg/dL Glucose (74-99) mg/dL POC Glucose (mg/dL) 221 H 214 H (75-99) mg/dL 12/05/18 12/05/18 12/05/18 Range/Units 06:31 06:57 11:39 RBC (4.30-5.90) m/uL Hgb (13.0-17.5) gm/dL Hct (39.0-53.0) % RDW (11.5-15.5) % Lymphocytes # (1.0-4.8) k/uL Chloride 113 H (98-107) mmol/L BUN 29 H (9-20) mg/dL Creatinine 1.72 H (0.66-1.25) mg/dL Glucose 206 H (74-99) mg/dL POC Glucose (mg/dL) 259 H 338 H (75-99) mg/dL Assessment and Plan Plan: Assessment: 1. Acute kidney injury secondary to ATN secondary to infection and component of obstructive uropathy. Creatinine peaked at 5.0 this admission. It is stable at 1.72 today. 2. Rule out chronic kidney disease. Creatinine in May 2017 was 1.1 and 1.2 in September 2017. Etiology is diabetic kidney disease. 3. Metabolic acidosis secondary to acute kidney injury. Resolved. 4. Insulin-dependent diabetes mellitus. 5. Severe sepsis secondary to E. coli UTI and bacteremia maintained on IV antibiotics. 6. Status post right-sided nephrectomy. 7. History of invasive bladder cancer. 8. Left-sided hydronephrosis being followed by urology. 9. Morbid obesity. 10. Hypernatremia maintained on D5W. Stable. Plan: Maintain D5W for now. Encourage oral intake, including free water. Avoid nephrotoxins. Repeat electrolytes in the morning.
--- NOTE | 2018-12-05 13:36 | P.DS ---
Providers Date of admission: 11/23/18 23:11 Attending physician: Fran Stuart MD Consults: 11/24/18 07:05 Consult Physician Routine Consulting Provider: Ambrosio Martines Consult Reason/Comments: Hematuria and hx of bladder CA Do you want consulting provider notified?: Yes, Notify in am 11/24/18 07:06 Consult Physician Routine Consulting Provider: Myles Dugan Consult Reason/Comments: Hematuria Do you want consulting provider notified?: Yes, Notify in am 11/24/18 14:36 Consult Physician Urgent Consulting Provider: Toy Anand Consult Reason/Comments: decreased o2 sats Do you want consulting provider notified?: Already Contacted 11/24/18 14:37 Consult Physician Routine Consulting Provider: Baldo Jackson Consult Reason/Comments: uti, sepsis Do you want consulting provider notified?: Yes 11/25/18 18:21 Consult Physician Routine Consulting Provider: Lionel Muhammad Consult Reason/Comments: arf Do you want consulting provider notified?: Yes Primary care physician: [facility] Hospital Course: Diagnoses: E coli urinary tract infection, present on admission Septicemia secondary to E. coli infection Acute kidney injury Status post urinary retention and left hydronephrosis, status post left ureteral stent placement. Improving Acute on chronic diastolic CHF, ejection fraction 50-60%. Acute hypoxic respiratory failure secondary to above, improving Acute delirium change in mental status, improving Hematuria, secondary to above. Status post cystoscopy with evacuation of the clot and fulguration of the bleeders as well as ureter stent placement Left hydronephrosis, status post left ureteral stent Kidney stone History of urinary bladder cancer Sleep apnea on CPAP/BiPAP Hospital course This is a pleasant 67 years old male with past medical history of diabetes mellitus, GERD, hyperlipidemia, hypertension, sleep apnea, kidney cancer status post nephrectomy, transitional cell cancers of the bladder, history of severe PVD, status post bypass surgery. He presents with urinary tract infection and septicemia secondary to E. coli with positive culture in the urine and blood, and acute kidney injury associated with heart failure. Patient was been treated in the intensive care unit and he was transferred after stabilization to the general medical floor. Patient was confused overnight and the sitter at bedside. However sitter was DC'd two days ago as his more calm and appropriate,awake and alert and oriented x 3 (time, place and person). His hemoglobin is stable at 8.3 and creatinine has been running 1.6, 1.7 today, nephrology team cleared him for discharge. Blood pressure 159/76. Patient had Gross hematuria, urinary retention, left hydronephrosis on admission. Patient was evaluated by urologist and he underwent Cystoscopy, evacuation of clot, fulguration of bleeders, left ureteral stent insertion on 11/27/2018. Patient denies chest pain or dyspnea. No cough. No abdominal pain. He states that he tolerates diet well. Patient states he is able to void with no difficulty. His urine was pinkish today but improving. Postvoid residual was checked and found acceptable. As per urologist since patient is able to void without difficulty, no need for further evaluation during this hospitalization and recommended to see him in the office in 2-3 weeks. plan Plan to go to [facility] upon discharge. Patient has been cleared by all consultants, including pulmonary, nephrology, infectious disease team as well as urology for discharge Patient will be discharged on Levaquin for 2 weeks as per infectious disease recommendation.seroquel which was started in the hospital is stopped upon discharge Problems and management plan were discussed with the patient and he verbalized understanding and acceptance Patient was found stable and can be discharged and guarded prognosis, however he needs follow-up as an outpatient. Gen: patient is a AAOx3, no distress CVS: S1-S2, RRR, no murmur Lungs: B/L CTA, no wheezing Abdomen: soft, no distention, no tenderness, positive bowel sounds Extremity: no leg edema or induration Time spent more than 35 minutes Patient Condition at Discharge: Serious Plan - Discharge Summary New Discharge Prescriptions: New Tamsulosin [Flomax] 0.4 mg PO PC-BRKFST cap.er.24h Folic Acid 1 mg PO DAILY@1200 tab Levofloxacin [Levaquin] 500 mg PO DAILY 14 Days #14 tab Insulin Detemir (Levemir) [Levemir] 35 unit SQ BID syr Multivitamins, Thera [Multivitamin (formulary)] 1 each PO DAILY@1200 tab INSULIN ASPART (NovoLOG) [NovoLOG (formulary)] 5 unit SQ AC-TID vial INSULIN ASPART (NovoLOG) [NovoLOG (formulary)] 0 unit SQ ACHS vial Acetaminophen Tab [Tylenol] 650 mg PO Q6HR PRN tab PRN Reason: Mild Pain Or Fever > 100.5 Thiamine [Vitamin B-1] 100 mg PO DAILY@1200 tab Continue Hydrophilic Cream [Kerodex 71 Cream] 1 applic TOPICAL BID Pregabalin [Lyrica] 150 mg PO TID Gemfibrozil [Lopid] 600 mg PO BID Capecitabine [Xeloda] 2,500 mg PO BID Metoprolol Tartrate [Lopressor] 50 mg PO HS hydrALAZINE HCL [Apresoline] 50 mg PO BID Discontinued Benazepril HCl 20 mg PO BID Budesonide-Formot 160-4.5 Mcg [Symbicort 160-4.5 Mcg Inhaler] 2 puff INHALATION RT-BID Insulin Glargine [Lantus] 60 unit SQ BID Insulin Aspart [NovoLOG Flexpen] 50 unit SQ TID Triamcinolone 0.1% Cream [Kenalog 0.1% Cream] 1 applic TOPICAL DAILY Potassium Chloride ER [K-Dur 10] 10 meq PO DAILY Metoprolol Tartrate [Lopressor] 25 mg PO QAM Hydrochlorothiazide [Hydrodiuril] 50 mg PO DAILY No Action Loratadine [Claritin] 10 mg PO DAILY Ketoconazole 2% Shampoo [Nizoral] 1 applic TOPICAL Q7D ALPRAZolam [Xanax] 0.5 mg PO BID PRN PRN Reason: Anxiety Omeprazole [PriLOSEC] 40 mg PO DAILY Hydrocortisone 1% Lotion 1 cream TOPICAL BID amLODIPine BESYLATE [Norvasc] 10 mg PO DAILY Discharge Medication List ALPRAZolam [Xanax] 0.5 mg PO BID PRN 03/14/17 [History] Hydrocortisone 1% Lotion 1 cream TOPICAL BID 03/14/17 [History] Ketoconazole 2% Shampoo [Nizoral] 1 applic TOPICAL Q7D 03/14/17 [History] Loratadine [Claritin] 10 mg PO DAILY 03/14/17 [History] Omeprazole [PriLOSEC] 40 mg PO DAILY 03/14/17 [History] amLODIPine BESYLATE [Norvasc] 10 mg PO DAILY 03/14/17 [History] Capecitabine [Xeloda] 2,500 mg PO BID 11/23/18 [History] Gemfibrozil [Lopid] 600 mg PO BID 11/23/18 [History] Hydrophilic Cream [Kerodex 71 Cream] 1 applic TOPICAL BID 11/23/18 [History] Metoprolol Tartrate [Lopressor] 50 mg PO HS 11/23/18 [History] Pregabalin [Lyrica] 150 mg PO TID 11/23/18 [History] hydrALAZINE HCL [Apresoline] 50 mg PO BID 11/23/18 [History] Acetaminophen Tab [Tylenol] 650 mg PO Q6HR PRN tab 12/05/18 [Rx] Folic Acid 1 mg PO DAILY@1200 tab 12/05/18 [Rx] INSULIN ASPART (NovoLOG) [NovoLOG (formulary)] 0 unit SQ ACHS vial 12/05/18 [Rx] INSULIN ASPART (NovoLOG) [NovoLOG (formulary)] 5 unit SQ AC-TID vial 12/05/18 [Rx] Insulin Detemir (Levemir) [Levemir] 35 unit SQ BID syr 12/05/18 [Rx] Levofloxacin [Levaquin] 500 mg PO DAILY 14 Days #14 tab 12/05/18 [Rx] Multivitamins, Thera [Multivitamin (formulary)] 1 each PO DAILY@1200 tab 12/05/18 [Rx] Tamsulosin [Flomax] 0.4 mg PO PC-BRKFST cap.er.24h 12/05/18 [Rx] Thiamine [Vitamin B-1] 100 mg PO DAILY@1200 tab 12/05/18 [Rx] Follow up Appointment(s)/Referral(s): Ellen Mario MD [STAFF PHYSICIAN] - 2 Weeks Lauro Johnson MD [STAFF PHYSICIAN] - 12/13/18 1:00 pm Lionel Muhammad DO [STAFF PHYSICIAN] - 1 Week [facility] [Primary Care Provider] - 1-2 days Activity/Diet/Wound Care/Special Instructions: cardiac and renal diet encourage oral hydration with plane water activity is limited till you see your doctor
--- NOTE | 2018-12-05 17:01 | P.PN ---
Subjective Progress Note Date: 12/05/18 67-year-old male who has a very complex past medical history including his history of right renal cell carcinoma and was treated with a nephrectomy. Patient subsequently has had difficulties with peripheral vascular disease requiring surgical intervention. 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 His undergone surgical resection as well as radiation therapy. The patient now presents to Hospital with discomfort, inability to void urine high-grade fever or 102 with chills. Because of the sedation was admitted and has been placed in the intensive care unit due to hypoxia and some difficulties with his respiration. He has not required intubation. The patient has been seen by urology and Hooper catheterization and placed in bladder irrigation as occurred with some ongoing hematuria but without evidence of blockage via clot at this time. Infectious disease consultation requested regarding the fever, sepsis and gram-negative bacteremia. Since transfer to the intensive care unit the patient is bit more comfortable Less short of breath. 11/26/2018 patient has three-way Hooper in and with the irrigation has improvement of the hematuria. Urology is following with no plans for current surgical intervention. The patient is medically stable and he is eating lunch without difficulties. As noted there is evidence of urinary tract infection and bacteremia. He is not on vasopressor therapy. 11/29/2018 patient has had further improvement. The irrigation has been effective in urine is a bit domo in color but not frankly bloody and without cl ots. Overall is improved. No fevers are noted. Eating well. 12/04/2018 patient has had further improvement and is only having some minimal intermittent hematuria. Generally feeling somewhat better. Will be heading off to extended care for therapy and his antibiotic therapy. Bladder scans can also be performed as needed. 12/05/2018 further improvement occurs. No hematuria is happening. Be ready for discharge to extended care facility. Objective - Vital Signs Vital signs: Vital Signs Temp 99.0 F 12/05/18 16:00 Pulse 59 L 12/05/18 07:00 Resp 16 12/05/18 07:00 BP 159/76 12/05/18 07:00 Pulse Ox 95 12/05/18 07:58 Intake & Output 12/04/18 12/05/18 12/05/18 18:59 06:59 18:59 Intake Total 600 2050 440 Output Total 1000 Balance 600 1050 440 Weight 144.3 kg Intake: Intake, IV Titration 800 Amount Dextrose 5% in Water 1, 800 000 ml @ 60 mls/hr IV . [id number] SHIELA Rx#:[id number] Oral 600 1250 440 Output: Urine 1000 Other: Voiding Method Toilet Toilet Toilet # Voids 2 2 3 # Bowel Movements 2 - Exam 67-year-old male with obesity, improved shortness of breath HEENT: Anicteric conjunctiva are pink and moist nasal mucosa grossly intact without significant lesions, there is no thrush. Neck: The neck is supple without significant lymphadenopathy or thyromegaly. Lungs: Symmetrical air entry is noted, coarse crackles and wheezes in all lung vital without lia bronchial sounds Heart: Regular rate and rhythm with an audible S1-S2, no S3 no S4. There is no significant murmur click or rub, PMI was nondisplaced. Abdomen: Obese Positive bowel sounds soft and nontender without palpable masses or organomegaly. There was no guarding or rebound. Extremities: The upper extremities have excellent pulses they are symmetric, no significant petechiae or telangiectasia. No splinter hemorrhages were noted. Lower extremities have some chronic edema no open ulcerations are seen here well perfused Neuro: Awake alert oriented to person and place remains tired - Labs CBC & Chem 7: 12/05/18 06:31 12/05/18 06:31 Labs: Abnormal Lab Results - Last 24 Hours (Table) 12/04/18 12/04/18 12/05/18 Range/Units 17:02 20:49 06:31 RBC 3.02 L (4.30-5.90) m/uL Hgb 8.3 L (13.0-17.5) gm/dL Hct 25.6 L (39.0-53.0) % RDW 17.7 H (11.5-15.5) % Lymphocytes # 0.7 L (1.0-4.8) k/uL Chloride (98-107) mmol/L BUN (9-20) mg/dL Creatinine (0.66-1.25) mg/dL Glucose (74-99) mg/dL POC Glucose (mg/dL) 221 H 214 H (75-99) mg/dL 12/05/18 12/05/18 12/05/18 Range/Units 06:31 06:57 11:39 RBC (4.30-5.90) m/uL Hgb (13.0-17.5) gm/dL Hct (39.0-53.0) % RDW (11.5-15.5) % Lymphocytes # (1.0-4.8) k/uL Chloride 113 H (98-107) mmol/L BUN 29 H (9-20) mg/dL Creatinine 1.72 H (0.66-1.25) mg/dL Glucose 206 H (74-99) mg/dL POC Glucose (mg/dL) 259 H 338 H (75-99) mg/dL Laboratory Results WBC 6.7 k/uL (3.8-10.6) 12/05/18 06:31 RBC 3.02 m/uL (4.30-5.90) L 12/05/18 06:31 Hgb 8.3 gm/dL (13.0-17.5) L 12/05/18 06:31 Hct 25.6 % (39.0-53.0) L 12/05/18 06:31 MCV 84.8 fL (80.0-100.0) 12/05/18 06:31 MCH 27.3 pg (25.0-35.0) 12/05/18 06:31 MCHC 32.2 g/dL (31.0-37.0) 12/05/18 06:31 RDW 17.7 % (11.5-15.5) H 12/05/18 06:31 Plt Count 358 k/uL (150-450) 12/05/18 06:31 Neutrophils % 78 % 12/05/18 06:31 Neutrophils % (Manual) 83 % 11/30/18 05:21 Band Neutrophils % 5 % 11/30/18 05:21 Lymphocytes % 10 % 12/05/18 06:31 Lymphocytes % (Manual) 6 % 11/30/18 05:21 Monocytes % 5 % 12/05/18 06:31 Monocytes % (Manual) 2 % 11/30/18 05:21 Eosinophils % 4 % 12/05/18 06:31 Eosinophils % (Manual) 1 % 11/30/18 05:21 Basophils % 1 % 12/05/18 06:31 Basophils % (Manual) 1 % 11/30/18 05:21 Metamyelocytes % 2 % 11/30/18 05:21 Myelocytes % 4 % 11/29/18 05:44 Neutrophils # 5.3 k/uL (1.3-7.7) 12/05/18 06:31 Neutrophils # (Manual) 8.30 k/uL (1.3-7.7) H 11/30/18 05:21 Lymphocytes # 0.7 k/uL (1.0-4.8) L 12/05/18 06:31 Lymphocytes # (Manual) 0.57 k/uL (1.0-4.8) L 11/30/18 05:21 Monocytes # 0.3 k/uL (0-1.0) 12/05/18 06:31 Monocytes # (Manual) 0.19 k/uL (0-1.0) 11/30/18 05:21 Eosinophils # 0.3 k/uL (0-0.7) 12/05/18 06:31 Eosinophils # (Manual) 0.10 k/uL (0-0.7) 11/30/18 05:21 Basophils # 0.1 k/uL (0-0.2) 12/05/18 06:31 Basophils # (Manual) 0.10 k/uL (0-0.2) 11/30/18 05:21 Metamyelocytes # (Man) 0.19 k/uL (0) H 11/30/18 05:21 Myelocytes # (Manual) 0.32 k/uL (0) H 11/29/18 05:44 Nucleated RBCs 0 /100 WBC (0-0) 11/30/18 05:21 Manual Slide Review Performed 11/30/18 05:21 Polychromasia Present 11/30/18 05:21 Hypochromasia Moderate 12/05/18 06:31 Poikilocytosis Slight 12/05/18 06:31 Anisocytosis Slight 12/05/18 06:31 Microcytosis Slight 11/25/18 05:51 PT 10.4 sec (9.0-12.0) 11/23/18 00:00 INR 1.0 (<1.2) 11/23/18 00:00 APTT 22.3 sec (22.0-30.0) 11/23/18 00:00 Sample Site RRAD 11/29/18 10:32 ABG pH 7.41 (7.35-7.45) 11/29/18 10:32 ABG pCO2 37 mmHg (35-45) 11/29/18 10:32 ABG pO2 60 mmHg (83-108) L 11/29/18 10:32 ABG HCO3 23 mmol/L (21-25) 11/29/18 10:32 ABG Total CO2 25 mmol/L (19-24) H 11/29/18 10:32 ABG O2 Saturation 90.6 % (94-97) L 11/29/18 10:32 ABG Base Excess -1.2 mmol/L 11/29/18 10:32 Alan Test Yes 11/29/18 10:32 FiO2 36 % 11/29/18 10:32 Sodium 143 mmol/L (137-145) 12/05/18 06:31 Potassium 4.3 mmol/L (3.5-5.1) 12/05/18 06:31 Chloride 113 mmol/L (98-107) H 12/05/18 06:31 Carbon Dioxide 26 mmol/L (22-30) 12/05/18 06:31 Anion Gap 4 mmol/L 12/05/18 06:31 BUN 29 mg/dL (9-20) H 12/05/18 06:31 Creatinine 1.72 mg/dL (0.66-1.25) H 12/05/18 06:31 Est GFR (CKD-EPI)AfAm 46 (>60 ml/min/1.73 sqM) 12/05/18 06:31 Est GFR (CKD-EPI)NonAf 40 (>60 ml/min/1.73 sqM) 12/05/18 06:31 Glucose 206 mg/dL (74-99) H 12/05/18 06:31 POC Glucose (mg/dL) 338 mg/dL (75-99) H 12/05/18 11:39 POC Glu Fermenter ID Ashia Pickens 12/05/18 11:[address] Glu mg/dL 166 12/03/18 05:21 Hemoglobin A1c 7.4 % (4.0-6.0) H 12/03/18 05:21 Plasma Lactic Acid Noah 0.9 mmol/L (0.7-2.0) 11/25/18 05:51 Calcium 8.5 mg/dL (8.4-10.2) 12/05/18 06:31 Phosphorus 3.8 mg/dL (2.5-4.5) 12/03/18 05:21 Magnesium 2.1 mg/dL (1.6-2.3) 12/04/18 07:25 Iron 4 ug/dL (65-175) L 11/24/18 12:13 TIBC 284 ug/dL (228-460) 11/24/18 12:13 Iron Saturation 1.41 (15.00-50.00) L 11/24/18 12:13 Ferritin 144.0 ng/mL (22.0-322.0) 11/24/18 12:13 Total Bilirubin 0.5 mg/dL (0.2-1.3) 11/29/18 05:44 AST 35 U/L (17-59) 11/29/18 05:44 ALT 48 U/L (21-72) 11/29/18 05:44 Alkaline Phosphatase 70 U/L (38-126) 11/29/18 05:44 NT-Pro-B Natriuret Pep 4830 pg/mL 11/24/18 14:38 Total Protein 5.6 g/dL (6.3-8.2) L 11/29/18 05:44 Albumin 2.8 g/dL (3.5-5.0) L 11/29/18 05:44 Urine Color Red 11/24/18 00:20 Urine Appearance Cloudy (Clear) 11/24/18 00:20 Urine RBC >182 /hpf (0-5) H 11/24/18 00:20 Urine WBC >182 /hpf (0-5) H 11/24/18 00:20 Urine WBC Clumps Moderate /hpf (None) H 11/24/18 00:20 Urine Bacteria Many /hpf (None) H 11/24/18 00:20 Urine Mucus Rare /hpf (None) H 11/24/18 00:20 Microbiology 11/24/18 15:03 Blood Blood Culture - Final No Growth after 144 hours 11/24/18 14:38 Blood Blood Culture - Final No Growth after 144 hours 11/23/18 00:00 Blood Blood Culture Gram Stain - Final 11/23/18 00:00 Blood Blood Culture - Final Escherichia coli 11/24/18 00:20 Urine,Catheterized Urine Culture - Final Escherichia coli 11/23/18 00:00 Blood Blood Culture - Final Assessment and Plan (1) Gross hematuria Current Visit: Yes Status: Acute Code(s): R31.0 - GROSS HEMATURIA SNOMED Code(s): 730437237 (2) UTI (urinary tract infection) Current Visit: Yes Status: Acute Code(s): N39.0 - URINARY TRACT INFECTION, SITE NOT SPECIFIED SNOMED Code(s): 79345090 (3) Gram-negative bacteremia Narrative/Plan: 67-year-old male who has a history of obesity and his complex history of right renal carcinoma and then more recently the transitional cell cancer of the bladder. He's had some recent interventions and now presents with evidence of urinary obstruction. Hooper catheter is placed in the bladder irrigated and is now having ongoing hematuria but active urinary output with resolution of his significant discomfort. The patient appears to have gram-negative sepsis from urinary system and cefepime has been added and his dose adjusted for his acute renal failure. He's been seen by urology with no plans for surgical intervention at this point in time unless bleeding continues and he obstructs The plan of care will evolve as the patient improves and there is evidence of what best options of treatment for the sepsis will be as he leaves hospital. Smoking cessation is advised. Leukocytosis is due to the gram-negative sepsis and urinary tract infection. The creatinine markedly increased due to the obstructive event and hopefully as this is resolved and there is improvement the sepsis that this will improve. 11/26/2018 patient has had some improvement in his status in that he does not have further gross hematuria with [address] Renal failure has worsened related to his current sepsis and obstructive uropathy. He is being followed by urology however with a 3-way catheter in place seems to have some improvement. However if the hydronephrosis does not improve a ureteral stent will be placed. For antibiotic therapy given the highly susceptible pathogen we will use Rocephin for now and transition likely to oral antimicrobial therapy at discharge. 11/29/2018 there is been some further improvement. He is now had urological intervention with fulguration of bleeders and placement of the ureteral stent into the left ureter. Creatinine has now decreased from 5.0-1.93. As noted there is an E. coli that is isolated from the urine and the blood and antibiotic therapy was transitioned to Rocephin. As he improves we'll likely transition to oral antibiotic with Levaquin at 500 mg once a day to complete 14 total days of therapy for the E. coli sepsis. 12/04/2018 patient is having improvement of his status. No other new acute difficulties are being noted at this time. He will transition to oral antimicrobial therapy has discharged complete 2 weeks of Levaquin for his gram- negative sepsis and bacteremia from urinary obstruction. He does have a stent in place. Will have follow-up with urology in the outpatient setting. 12/05/2018 patient to be transferred to [facility] care facility for ongoing care. We'll complete 2 weeks of Levaquin 500 mg daily for his E. coli bacteremia from urinary tract infection which was complicated. Outpatient urological follow-up regarding his ureteral stent is being arranged. Current Visit: Yes Status: Acute Code(s): R78.81 - BACTEREMIA SNOMED Code(s): 054893997957
[2018-12-05 17:02] LABS: Glucose,Whole Blood 217 mg/dL (75-99)
[2018-12-05 20:19] LABS: Glucose,Whole Blood 296 mg/dL (75-99)
[2018-12-05] MEDS: METOPROLOL TARTRATE 50 MG TAB PO SCH (20:49)
[2018-12-06] MEDS: IPRATROPIUM-ALBUTEROL 3 ML NEB INHALATION PRN (07:36)
[2018-12-06] MEDS: SYMBICORT 160-4.5 MCG INHALER INHALATION SCH (07:36)
[2018-12-06] MEDS: THIAMINE 100 MG TAB PO SCH (07:49)
[2018-12-06] MEDS: MULTIVITAMINS, THERA 1 EACH TAB PO SCH (07:49)
[2018-12-06] MEDS: INSULIN ASPART (NovoLOG) 100 UNIT/ML VIAL SQ SCH ×4 (07:50→11:52)
[2018-12-06] MEDS: TAMSULOSIN 0.4 MG CAP.ER.24H PO SCH (07:50)
[2018-12-06] MEDS: hydrALAZINE HCL 50 MG TAB PO SCH (07:50)
[2018-12-06] MEDS: amLODIPine 10 MG TAB PO SCH (07:50)
[2018-12-06] MEDS: FOLIC ACID 1 MG TAB PO SCH (07:50)
[2018-12-06] MEDS: PANTOPRAZOLE 40 MG TABLET PO SCH (07:50)
[2018-12-06] MEDS: FENOFIBRATE 160 MG TAB PO SCH (07:50)
[2018-12-06] MEDS: QUEtiapine 100 MG TAB PO SCH (07:50)
[2018-12-06] MEDS: DEXTROSE 5% IN WATER 1,000 ML IV SCH (07:55)
[2018-12-06] MEDS: INSULIN DETEMIR (LEVEMIR) 100 UNIT/ML SYR SQ SCH (07:56)
[2018-12-06 07:59] LABS: Glucose,Whole Blood 300 mg/dL (75-99)
[2018-12-06 08:18] LABS: Calcium 8.7 mg/dL (8.4-10.2); Potassium 4.6 mmol/L (3.5-5.1)
[2018-12-06 08:54] VITALS: PULSE 63
[2018-12-06] MEDS ORDERED: LEVOFLOXACIN 500 MG TAB PO SCH (10:00)
--- NOTE | 2018-12-06 11:26 | P.PN ---
Subjective Patient is seen in follow-up for acute kidney injury. Renal function is slightly worse today. Creatinine at 1.83. Currently being treated for E. coli bacteremia and UTI. Oral intake is good. Denies chest pain or shortness of breath. Admits to good urine output. No hematuria. Vital signs are stable. General: The patient appeared well nourished and normally developed. HEENT: Head exam is unremarkable. Neck is without jugular venous distension. LUNGS: Lungs are clear to auscultation and percussion. Breath sounds decreased. HEART: Rate and Rhythm are regular. First and second heart sounds normal. No murmurs, rubs or gallops. ABDOMEN: Abdominal exam reveals normal bowel sounds. Non-tender and non- distended. No evidence of peritonitis. EXTREMITITES: Trace edema. Objective - Vital Signs Vital signs: Vital Signs Temp 98.4 F 12/06/18 07:00 Pulse 74 12/06/18 07:45 Resp 12 12/06/18 07:00 BP 172/70 12/06/18 07:00 Pulse Ox 97 12/06/18 07:00 Intake & Output 12/05/18 12/06/18 12/06/18 18:59 06:59 18:59 Intake Total 640 Balance 640 Intake: Oral 640 Other: Voiding Method Toilet Toilet Toilet # Voids 3 1 2 - Labs CBC & Chem 7: 12/05/18 06:31 12/06/18 07:13 Labs: Abnormal Lab Results - Last 24 Hours (Table) 12/05/18 12/05/18 12/05/18 Range/Units 11:39 16:58 20:15 Chloride (98-107) mmol/L BUN (9-20) mg/dL Creatinine (0.66-1.25) mg/dL Glucose (74-99) mg/dL POC Glucose (mg/dL) 338 H 217 H 296 H (75-99) mg/dL 12/06/18 12/06/18 Range/Units 07:13 07:56 Chloride 111 H (98-107) mmol/L BUN 32 H (9-20) mg/dL Creatinine 1.83 H (0.66-1.25) mg/dL Glucose 214 H (74-99) mg/dL POC Glucose (mg/dL) 300 H (75-99) mg/dL Assessment and Plan Plan: Assessment: 1. Acute kidney injury secondary to ATN secondary to infection and component of obstructive uropathy. Creatinine peaked at 5.0 this admission. It is a little worse compared to yesterday. 1.83 today. 2. Rule out chronic kidney disease. Creatinine in May 2017 was 1.1 and 1.2 in September 2017. Etiology is diabetic kidney disease. 3. Metabolic acidosis secondary to acute kidney injury. Resolved. 4. Insulin-dependent diabetes mellitus. 5. Severe sepsis secondary to E. coli UTI and bacteremia maintained on antibiotics. 6. Status post right-sided nephrectomy. 7. History of invasive bladder cancer. 8. Left-sided hydronephrosis being followed by urology. 9. Morbid obesity. 10. Hypernatremia s/p D5W. Stable. Plan: Encourage oral intake, including free water. Avoid nephrotoxins. Repeat electrolytes in the morning. Potential discharge today. Patient is to follow-up as an outpatient in the next 1-2 weeks.
[2018-12-06 11:43] LABS: Glucose,Whole Blood 291 mg/dL (75-99)
[2018-12-06 15:00] VITALS: BP 177/70; RESP 20; TEMP 98.1
[2018-12-07] MEDS ORDERED: LEVOFLOXACIN 250 MG TAB PO SCH (10:00)
== END 2018-12-06 15:58 | disposition home health service (06) | DRG 853 ==
LOC: EC 22:09 → 4MS4W 23:11 → 2SICU 11-24 17:34 → 4MS4W 12-03 22:27 → 4SSUR 12-04 16:31
PROVIDERS: ADMIT Internal Medicine; ATTEND Internal Medicine
PROC: 5A09557 Assistance with Respiratory Ventilation, Greater than 96 Consecutive Hours, Continuous Positive Airway Pressure (ICD-10-PCS; 2018-11-24)
PROC: 0T778DZ Dilation of Left Ureter with Intraluminal Device, Via Natural or Artificial Opening Endoscopic (ICD-10-PCS; 2018-11-27)
PROC: 0T5B8ZZ Destruction of Bladder, Via Natural or Artificial Opening Endoscopic (ICD-10-PCS; 2018-11-27)
PROC: 0TCB8ZZ Extirpation of Matter from Bladder, Via Natural or Artificial Opening Endoscopic (ICD-10-PCS; principal; 2018-11-27 00:30)
DX: A41.51 Sepsis due to Escherichia coli [E. coli] (principal); N17.0 Acute kidney failure with tubular necrosis; J96.01 Acute respiratory failure with hypoxia; I50.33 Acute on chronic diastolic (congestive) heart failure; G93.41 Metabolic encephalopathy; E87.2 Acidosis; E87.0 Hyperosmolality and hypernatremia; F05 Delirium due to known physiological condition; I13.0 Hypertensive heart and chronic kidney disease with heart failure and stage 1 through stage 4 chronic kidney disease, or unspecified chronic kidney disease; Z68.41 Body mass index [BMI] 40.0-44.9, adult; N30.41 Irradiation cystitis with hematuria; E87.1 Hypo-osmolality and hyponatremia; N13.1 Hydronephrosis with ureteral stricture, not elsewhere classified; I95.9 Hypotension, unspecified; E11.40 Type 2 diabetes mellitus with diabetic neuropathy, unspecified; J84.10 Pulmonary fibrosis, unspecified; E11.22 Type 2 diabetes mellitus with diabetic chronic kidney disease; E11.51 Type 2 diabetes mellitus with diabetic peripheral angiopathy without gangrene; E87.5 Hyperkalemia; E66.01 Morbid (severe) obesity due to excess calories; N18.3 Chronic kidney disease, stage 3 (moderate); J44.9 Chronic obstructive pulmonary disease, unspecified; M19.90 Unspecified osteoarthritis, unspecified site; K21.9 Gastro-esophageal reflux disease without esophagitis; G47.33 Obstructive sleep apnea (adult) (pediatric); E78.5 Hyperlipidemia, unspecified; D63.8 Anemia in other chronic diseases classified elsewhere; G89.29 Other chronic pain; F17.200 Nicotine dependence, unspecified, uncomplicated; D72.810 Lymphocytopenia; R65.20 Severe sepsis without septic shock; M54.9 Dorsalgia, unspecified; E86.1 Hypovolemia; R91.1 Solitary pulmonary nodule; D50.0 Iron deficiency anemia secondary to blood loss (chronic); N32.89 Other specified disorders of bladder; Z71.6 Tobacco abuse counseling; Z71.3 Dietary counseling and surveillance; Z79.51 Long term (current) use of inhaled steroids; Z79.899 Other long term (current) drug therapy; Z79.4 Long term (current) use of insulin; Z92.21 Personal history of antineoplastic chemotherapy; Z85.528 Personal history of other malignant neoplasm of kidney; Z98.42 Cataract extraction status, left eye; Z90.5 Acquired absence of kidney; Z85.51 Personal history of malignant neoplasm of bladder; Z98.41 Cataract extraction status, right eye; Z92.3 Personal history of irradiation; Z95.828 Presence of other vascular implants and grafts; Z88.2 Allergy status to sulfonamides; Z91.041 Radiographic dye allergy status; Z82.3 Family history of stroke; Z80.9 Family history of malignant neoplasm, unspecified
CPT/HCPCS: 36415; 36600; 71045; 71046; 74176; 76770; 80048; 80053; 81001; 82728; 82805; 83036; 83540; 83550; 83605; 83735; 83880; 84100; 85025; 85610; 85730; 87040; 87077; 87086; 87186; 93005; 93306; 94640; 94660; 94760; 96365; 96366; 99285

== ENCOUNTER → 2018-12-25 | Outpatient (CLI) | payer OTHER ==
--- NOTE | 2018-12-26 09:27 | US ---
EXAMINATION TYPE: US kidneys/renal and bladder DATE OF EXAM: 12/25/2018 COMPARISON: 11/26/2018 CLINICAL HISTORY: N18.3 CKD. hx of renal cancer and bladder cancer with surgical removal of right kid gordon. Recent hx of bladder infections with sepsis. EXAM MEASUREMENTS: Left Kidney: 16.0 x 5.8 x 7.1 cm Right Kidney: Surgically absent Left Kidney: Appears enlarged in size. Mild hydronephrosis. Bladder: distended. Wall slightly thickened - 5.2 mm Bilateral Jets not seen IMPRESSION: 1. Left kidney appears to be mildly prominent in size with mild left hydronephrosis is similar to the prior exam. 2. Thickened bladder wall is nonspecific and may be seen with cystitis, correlate clinically to exclu de other etiologies.
== END | disposition home or self-care (01) ==
LOC: RADUSMAIN 15:30
PROVIDERS: ATTEND Urology
DX: N13.30 Unspecified hydronephrosis (principal); N32.89 Other specified disorders of bladder; N18.3 Chronic kidney disease, stage 3 (moderate); Z88.8 Allergy status to other drugs, medicaments and biological substances
CPT/HCPCS: 76770

== ENCOUNTER → 2019-03-02 | Outpatient (CLI) | payer OTHER ==
--- NOTE | 2019-03-02 14:10 | CT ---
EXAMINATION TYPE: CT ChestAbdPelvis wo con DATE OF EXAM: 03/02/2019 COMPARISON: CT chest abdomen and pelvis November 03, 2018 and older studies. HISTORY: Bladder cancer progress study. CT DLP: 1387 mGycm. Automated Exposure Control for Dose Reduction was Utilized. TECHNIQUE: CT scan of the thorax, abdomen and pelvis is performed with oral but without IV contrast. FINDINGS: LUNGS: There is a stable 8 mm calcified nodule or granuloma right lower lobe axial image 42. No suspi cious new noncalcified nodules or masses. No pleural effusion or pneumothorax. MEDIASTINUM: There are no greater than 1 cm noncalcified hilar or mediastinal lymph nodes. There are prominent calcified subcarinal and right hilar lymph nodes. No pericardial effusion is seen. Stable right-sided volume loss with mediastinal shift. Heart size stable at upper limits of normal. Moderat e coronary artery calcification which is noted remarkable for underlying coronary artery disease rede monstrated. Calcification at level mitral valve redemonstrated. OTHER: Asymmetric right greater than left subareolar gynecomastia is redemonstrated. LIVER/GB: Dependent small stones in gallbladder again seen. PANCREAS: No significant abnormality is seen. SPLEEN: No significant abnormality is seen. ADRENALS: Asymmetric thickening left adrenal gland favors benign hyperplasia unchanged from prior. KIDNEYS: Right kidney is surgically absent. Left mid lung roughly 3 cm lateral cyst is less well seen on current study. There is however new moderate to severe left-sided hydronephrosis with moderate pr oximal to mid hydroureter, obstructing distal mass or calculus is not clearly seen. Bladder shows per sistent mild wall thickening despite improved distention. BOWEL: Mild perirectal fat stranding for reference axial image 113 remains present. No suspicious sma ll or large bowel dilatation. GENITAL ORGANS: No gross abnormality seen. LYMPH NODES: No greater than 1cm abdominal or pelvic lymph nodes are appreciated. OSSEOUS STRUCTURES: Mild to moderate multilevel right lateral spurring in the spine. OTHER: Surgical clips left groin region are redemonstrated.. IMPRESSION: Improvement distention of bladder with persistent mild wall thickening. Inflammatory rice ge surrounding perirectal fat and bladder stable presumed posttreatment change. New [id number] re left-sided hydronephrosis. No new mass or adenopathy identified however.
== END | disposition home or self-care (01) ==
LOC: RADCTMAIN 09:13
PROVIDERS: ATTEND Internal Medicine Hematology & Oncology
DX: N13.2 Hydronephrosis with renal and ureteral calculous obstruction (principal); N32.89 Other specified disorders of bladder; C67.9 Malignant neoplasm of bladder, unspecified; Z03.89 Encounter for observation for other suspected diseases and conditions ruled out; Z88.2 Allergy status to sulfonamides; Z88.1 Allergy status to other antibiotic agents
CPT/HCPCS: 71250; 74176

== ENCOUNTER → 2019-06-29 | Outpatient (CLI) | payer OTHER ==
--- NOTE | 2019-06-29 14:27 | CT ---
EXAMINATION TYPE: CT ChestAbdPelvis wo con DATE OF EXAM: 06/29/2019 COMPARISON: 03/02/2019, 11/03/2018, 08/04/2018 HISTORY: 68-year-old male Bladder cancer, observe for mets TECHNIQUE: Contiguous axial scanning of the chest, abdomen, and pelvis without IV contrast. Coronal a nd sagittal reconstructions performed. CT DLP: 2362.3 mGycm Automated exposure control for dose reduction was used. FINDINGS: CHEST: The heart is normal size with trace pericardial fluid. Extensive coronary vessel calcifications are p resent. Ectatic upper descending thoracic aorta 3.2 cm with mild arch calcifications and conventional arch ve ssel branching anatomy. Mildly enlarged caliber to the main right and left pulmonary arteries measuring up to 2.8 and 2.6 cm, respectively, suggesting underlying pulmonary arterial hypertension. There are scattered nonenlarged mediastinal lymph nodes are present. No thoracic lymphadenopathy by C T size criteria. Calcified subcarinal and right hilar lymph nodes compatible with prior granulomatous disease. Stable calcified granuloma peripheral right lower lobe. No consolidation or pleural effusion. No suspicious pulmonary nodule or mass is identified. ABDOMEN: Tiny hiatal hernia. Liver enlarged at 19.2 cm. Noncontrast appearance of the right adrenal gland and pancreas shows no gr oss abnormality. Layering small calculi in the gallbladder. Mild low-density thickening of the left adrenal gland is s table. Spleen is borderline enlarged at 13.1 cm. 3.5 cm hypodense lesion centrally in the left kidney has been present previously, probable cyst. Right kidney surgically absent. No suspicious nodularity within the nephrectomy bed. No dilated small bowel, free fluid, or free air. No mesenteric or retroperitoneal lymphadenopathy. Moderate atherosclerotic calcifications within the infrarenal abdominal aorta and iliac arteries. Scattered mild to moderate stool throughout the colon. No pericolonic inflammatory change. Pelvis: Mild circumferential bladder wall thickening. Some fat stranding persists around the bladder. Overall thickening has improved considerably from 11/03/2018. Surgical clips along the left inguinal region. Presacral fat stranding/edema. No abnormal fluid collection in the pelvis or pelvic lymphadenopathy. Bones: Degenerative changes at the left SI joint. No osseous destructive process. Facet arthropathy lower rafael mbar spine. IMPRESSION: 1. STABLE PERIVESICULAR FAT STRANDING AND PRESACRAL EDEMA/SOFT TISSUE STRANDING WITH MILD BLADDER WAL L THICKENING. FINDINGS PROBABLY RELATE TO POSTTREATMENT CHANGE. 2. ALLOWING FOR NONCONTRAST TECHNIQUE, NO EVIDENCE FOR METASTATIC DISEASE. 3. INCIDENTAL: CAD, FINDINGS THAT SUGGEST PULMONARY ARTERIAL HYPERTENSION, PRIOR GRANULOMATOUS DISEAS E, CHOLELITHIASIS, AND STABLE 3.5 CM HYPODENSE LEFT KIDNEY LESION, PROBABLE CYST.
== END | disposition home or self-care (01) ==
LOC: RADCTMAIN 09:45
PROVIDERS: ATTEND Internal Medicine Hematology & Oncology
DX: C67.9 Malignant neoplasm of bladder, unspecified (principal); Z88.2 Allergy status to sulfonamides; Z88.3 Allergy status to other anti-infective agents
CPT/HCPCS: 71250; 74176; Q9967

== ENCOUNTER → 2019-07-04 | Outpatient (CLI) | payer OTHER ==
[2019-07-04 11:09] LABS: HCT 35.1 % (39.0-53.0); HGB 11.5 gm/dL (13.0-17.5); MCH 29.2 pg (25.0-35.0); MCHC 32.7 g/dL (31.0-37.0); MCV 89.2 fL (80.0-100.0); Mean Platelet Volume 7.9; Platelet Count 215 k/uL (150-450); RBC 3.93 m/uL (4.30-5.90); RDW 14.9 % (11.5-15.5); WBC 6.7 k/uL (3.8-10.6)
[2019-07-04 12:07] LABS: Appearance,Urine Clear (Clear); Bilirubin,Urine Negative (Negative); Blood,Urine Trace (Negative); Color,Urine Yellow; Glucose,Urine (UA) 1+ (Negative); Ketones,Urine Negative (Negative); Leukocyte Esterase,Urine Negative (Negative); Nitrite,Urine Negative (Negative); Protein,Urine 2+ (Negative); RBC,Urine 3 /hpf (0-5); Specific Gravity,Urine 1.012 (1.001-1.035); Squamous Epithelial Cell,Urine 1 /hpf (0-4); Urobilinogen,Urine <2.0 mg/dL (<2.0); WBC,Urine 2 /hpf (0-5)
[2019-07-04 16:31] LABS: % Iron Saturation 17.96 (15.00-50.00); African American GFR (CKD) 38.1 (60.0-200.0); Anion Gap 7.6 mmol/L (4.00-12.00); BUN/Creat Ratio 15.5 Ratio (12.00-20.00); Calcium 8.6 mg/dL (8.7-10.3); Carbon Dioxide 25.4 mmol/L (21.6-31.8); Magnesium 1.7 mg/dL (1.5-2.4); Phosphorus 2.6 mg/dL (2.4-5.1); Potassium 4.5 mmol/L (3.5-5.5); Uric Acid 6.2 mg/dL (3.7-8.7)
[2019-07-04 16:40] LABS: Ferritin 44.3 ng/mL (22.0-322.0)
[2019-07-04 17:02] LABS: DNA Double-Stranded NEGATIVE (NEGATIVE)
[2019-07-04 18:02] LABS: Total Volume 24 Hour,Urine 2900 mL
[2019-07-04 18:14] LABS: Total Protein,Urine Random 254.8 mg/dL (0.0-13.5)
[2019-07-04 18:33] LABS: Total Protein 24 Hour,Urine 5614.4 mg/24Hr
[2019-07-04 21:15] LABS: Creatinine,Urine Random 69.6 mg/dL
[2019-07-05 09:34] LABS: Free Kappa Lt Chain Qnt, Serum 4.68 mg/dL (0.33-1.94)
[2019-07-05 14:28] LABS: C-ANCA <1:20 Titer (<1:20)
== END | disposition home or self-care (01) ==
LOC: LABWHC1 10:30
PROVIDERS: ATTEND Nurse Practitioner Family
DX: N39.0 Urinary tract infection, site not specified (principal); N17.9 Acute kidney failure, unspecified; R80.9 Proteinuria, unspecified; D64.9 Anemia, unspecified; N25.81 Secondary hyperparathyroidism of renal origin; E55.9 Vitamin D deficiency, unspecified; M10.9 Gout, unspecified
CPT/HCPCS: 36415; 80048; 81001; 81050; 82306; 82570; 82728; 83516; 83540; 83550; 83735; 83883; 83970; 84100; 84156; 84166; 84550; 85027; 86038; 86160; 86162; 86225; 86255; 86334

== ENCOUNTER → 2019-12-25 | Outpatient (CLI) | payer OTHER ==
--- NOTE | 2019-12-25 12:58 | CT ---
EXAMINATION TYPE: CT ChestAbdPelvis wo con DATE OF EXAM: 12/25/2019 COMPARISON: HISTORY: bladder CA follow up CT DLP: 2507.1mGycm Unenhanced CT of the Chest, Abdomen and Pelvis Unenhanced CT of the chest ,abdomen and pelvis is performed. The lack of intravenous contrast limits evaluation of the solid and hollow viscera. Oral contrast: Yes CT Chest: LUNGS: The lungs are clear and free of infiltrate or atelectasis. No pulmonary nodule or mass is det ected. Calcified granulomas noted. No pleural effusion or CT evidence of interstitial lung disease. MEDIASTINUM: Thoracic aorta is of normal caliber. Calcified mediastinal lymph nodes. The heart is no t enlarged. No evidence for mediastinal mass or adenopathy. HILAR STRUCTURES: No evidence for mass. No hilar adenopathy is appreciated. OTHER: No significant abnormality. CONTRAST CT ABDOMEN AND PELVIS: LIVER/GB: Calcified cholelithiasis. No space occupying hepatic lesion. Biliary tree is of normal francia carlyn. PANCREAS: No inflammation. No distinct mass. SPLEEN: No splenic enlargement. No lesion seen. ADRENALS: No nodule. No thickening. KIDNEYS/BLADDER: Right-sided nephrectomy change without evidence for recurrent or residual mass. Comp ensatory hypertrophy left kidney. Hypoattenuating lesion mid pole left kidney is stable and could ref lect a cyst. Mild posterior urinary bladder wall thickening is stable. Presacral stranding is likely post therapeutic in nature. BOWEL: Normal appendix. Normal bowel caliber. No inflammation. GENITAL ORGANS: No gross abnormality. LYMPH NODES: No greater than 1cm abdominal or pelvic lymph nodes are appreciated. AORTA: No significant abnormality. OSSEOUS STRUCTURES: No significant abnormality is seen. OTHER: No significant additional abnormality is seen. IMPRESSION: 1. No evidence for metastatic disease. 2.Mild posterior urinary bladder wall thickening is stable. Presacral stranding is likely post therap eutic in nature. 3. Right-sided nephrectomy change. 4. Cholelithiasis. 5. Remote granulomatous disease
== END | disposition home or self-care (01) ==
LOC: RADCTMAIN 09:11
PROVIDERS: ATTEND Internal Medicine Hematology & Oncology
DX: N32.89 Other specified disorders of bladder (principal); K80.20 Calculus of gallbladder without cholecystitis without obstruction; Z90.5 Acquired absence of kidney; Z88.2 Allergy status to sulfonamides; Z88.1 Allergy status to other antibiotic agents
CPT/HCPCS: 71250; 74176

== ENCOUNTER 2020-06-11 05:46 | Emergency (ER) | payer OTHER ==
[2020-06-11 05:50] LABS: Glucose,Whole Blood 179 mg/dL (75-99)
[2020-06-11] MEDS ORDERED: SODIUM CHLORIDE 0.9% 1,000 ML IV ONE (05:59)
[2020-06-11] MEDS ORDERED: hydrALAZINE HCL 50 MG TAB PO STA (06:24)
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
[2020-06-11 06:36] LABS: Basophils % (A) 1 %; Eosinophils # (A) 0.1 k/uL (0-0.7); Eosinophils % (A) 2 %; HCT 35.7 % (39.0-53.0); HGB 11.7 gm/dL (13.0-17.5); Lymphocytes # (A) 0.6 k/uL (1.0-4.8); Lymphocytes % (A) 10 %; MCH 31.1 pg (25.0-35.0); MCHC 32.7 g/dL (31.0-37.0); MCV 94.8 fL (80.0-100.0); Mean Platelet Volume 8.6; Monocytes # (A) 0.3 k/uL (0-1.0); Monocytes % (A) 5 %; Neutrophils # (A) 5.2 k/uL (1.3-7.7); Neutrophils % (A) 81 %; Platelet Count 192 k/uL (150-450); RBC 3.76 m/uL (4.30-5.90); WBC 6.4 k/uL (3.8-10.6)
[2020-06-11 06:41] LABS: ALT 14 U/L (4-49); AST 27 U/L (17-59); African American GFR (CKD) 36 (>60 ml/min/1.73 sqM); Albumin 3.4 g/dL (3.5-5.0); Alkaline Phosphatase 67 U/L (38-126); Anion Gap 7 mmol/L; Blood Urea Nitrogen 27 mg/dL (9-20); Calcium 7.6 mg/dL (8.4-10.2); Carbon Dioxide 21 mmol/L (22-30); Chloride 114 mmol/L (98-107); Glucose 142 mg/dL (74-99); Non-African American GFR(CKD) 31 (>60 ml/min/1.73 sqM); Potassium 4.2 mmol/L (3.5-5.1); Sodium 142 mmol/L (137-145); Total Bilirubin 0.5 mg/dL (0.2-1.3); Total Protein 5.9 g/dL (6.3-8.2)
[2020-06-11 06:42] LABS: Appearance,Urine Clear (Clear); Bacteria,Urine Rare /hpf; Bilirubin,Urine Negative (Negative); Blood,Urine Small (Negative); Color,Urine Light Yellow; Glucose,Urine (UA) Negative (Negative); Hyaline Casts,Urine 1 /lpf (0-2); Ketones,Urine Negative (Negative); Leukocyte Esterase,Urine Negative (Negative); Mucus,Urine Rare /hpf; Nitrite,Urine Negative (Negative); PH, Urine 6.5 (5.0-8.0); Protein,Urine 2+ (Negative); RBC,Urine 1 /hpf (0-5); Specific Gravity,Urine 1.011 (1.001-1.035); Urobilinogen,Urine <2.0 mg/dL (<2.0); WBC,Urine <1 /hpf (0-5)
[2020-06-11 06:54] LABS: Glucose,Whole Blood 155 mg/dL (75-99)
[2020-06-11 07:28] VITALS: BP 130/74; PULSE 80; RESP 18; TEMP 97.6
== END 2020-06-11 07:26 | disposition home or self-care (01) ==
LOC: EC 05:46
DX: E11.649 Type 2 diabetes mellitus with hypoglycemia without coma (principal); E11.51 Type 2 diabetes mellitus with diabetic peripheral angiopathy without gangrene; K21.9 Gastro-esophageal reflux disease without esophagitis; E78.5 Hyperlipidemia, unspecified; I10 Essential (primary) hypertension; E66.9 Obesity, unspecified; G47.33 Obstructive sleep apnea (adult) (pediatric); F17.200 Nicotine dependence, unspecified, uncomplicated; Z79.4 Long term (current) use of insulin; Z79.899 Other long term (current) drug therapy; Z68.41 Body mass index [BMI] 40.0-44.9, adult; Z91.041 Radiographic dye allergy status; Z88.8 Allergy status to other drugs, medicaments and biological substances; Z88.2 Allergy status to sulfonamides; Z99.89 Dependence on other enabling machines and devices; Z85.528 Personal history of other malignant neoplasm of kidney; Z90.5 Acquired absence of kidney
CPT/HCPCS: 36415; 80053; 81001; 82009; 85025; 96360; 99285

== ENCOUNTER 2020-07-11 11:36 | Inpatient (IN) | payer OTHER, MEDICARE ==
[2020-07-11] MEDS ORDERED: cefTRIAXone IN SWFI 1,000 MG/10 ML SYRINGE IVP STA (12:19)
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
[2020-07-11 12:51] LABS: Basophils # (A) 0.1 k/uL (0-0.2); Basophils % (A) 1 %; Eosinophils # (A) 0.1 k/uL (0-0.7); Eosinophils % (A) 1 %; HCT 32.8 % (39.0-53.0); HGB 11.4 gm/dL (13.0-17.5); Lymphocytes # (A) 0.4 k/uL (1.0-4.8); Lymphocytes % (A) 5 %; MCH 31.3 pg (25.0-35.0); MCHC 34.8 g/dL (31.0-37.0); MCV 89.9 fL (80.0-100.0); Mean Platelet Volume 8.2; Monocytes # (A) 0.4 k/uL (0-1.0); Monocytes % (A) 5 %; Neutrophils # (A) 8.2 k/uL (1.3-7.7); Neutrophils % (A) 87 %; Platelet Count 211 k/uL (150-450); RBC 3.65 m/uL (4.30-5.90); RDW 13.2 % (11.5-15.5); WBC 9.4 k/uL (3.8-10.6)
[2020-07-11 13:01] LABS: Albumin 3.1 g/dL (3.5-5.0); Potassium 3.7 mmol/L (3.5-5.1); Total Bilirubin 0.6 mg/dL (0.2-1.3)
[2020-07-11] MEDS: SODIUM CHLORIDE 0.9% 500 ML 500 ML IV SCH (13:09)
--- NOTE | 2020-07-11 13:41 | XR ---
EXAMINATION TYPE: XR tibia fibula LT DATE OF EXAM: 07/11/2020 CLINICAL HISTORY: pain TECHNIQUE: AP and lateral images of the left tibia and fibula are obtained. COMPARISON: None. FINDINGS: There is no acute fracture/dislocation evident. The joint spaces appear within normal ballard its. The overlying soft tissue appears unremarkable. IMPRESSION: There is no acute fracture or dislocation seen. ICD 10 NO FRACTURE, INITIAL EVALUATION
--- NOTE | 2020-07-11 13:41 | XR ---
EXAMINATION TYPE: XR foot complete LT DATE OF EXAM: 07/11/2020 CLINICAL HISTORY: pain TECHNIQUE: Frontal, lateral and oblique images of the left foot are obtained. COMPARISON: None. FINDINGS: There is no acute fracture/dislocation evident. The joint spaces appear within normal ballard its. The overlying soft tissue appears unremarkable. IMPRESSION: There is no acute fracture or dislocation. ICD 10 NO FRACTURE, INITIAL EVALUATION
--- NOTE | 2020-07-11 14:08 | US ---
EXAMINATION TYPE: US venous doppler duplex LE LT DATE OF EXAM: 07/11/2020 1:55 PM COMPARISON: CLINICAL HISTORY: pain. Leg redness and swelling. No hx DVT. Hx vein stripping. SIDE PERFORMED: Left TECHNIQUE: The lower extremity deep venous system is examined utilizing real time linear array sonog chris with graded compression, doppler sonography and color-flow sonography. VESSELS IMAGED: Common Femoral Vein Deep Femoral Vein Greater Saphenous Vein * Femoral Vein Popliteal Vein Small Saphenous Vein * Proximal Calf Veins (* superficial vessels) Suboptimal visualization due to patient body habitus and swelling Left Leg: Negative for acute DVT IMPRESSION: There are some limitations to the exam. Deep venous thrombosis is not evident however.
[2020-07-11] MEDS ORDERED: NALOXONE 0.4 MG/ML 1 ML VIAL IV PRN (14:33)
[2020-07-11] MEDS ORDERED: AMPICILLIN-SULBACTAM 3 GM in SODIUM CHLORIDE 0.9% 100 ML IVPB STA (14:34)
[2020-07-11] MEDS: SODIUM CHLORIDE 0.9% 1,000 ML IV SCH (14:59)
[2020-07-11 17:33] LABS: Glucose,Whole Blood 317 mg/dL (75-99)
[2020-07-11] MEDS: HEPARIN SODIUM,PORCINE 5,000 UNIT/ML 1 ML VIAL SQ SCH (17:40)
[2020-07-11] MEDS: INSULIN ASPART (NovoLOG) 100 UNIT/ML VIAL SQ SCH ×3 (17:49→21:28)
[2020-07-11] MEDS: SYMBICORT 160-4.5 MCG INHALER INHALATION SCH (19:07)
[2020-07-11 21:08] LABS: Glucose,Whole Blood 92 mg/dL (75-99)
[2020-07-11] MEDS: INSULIN DETEMIR (LEVEMIR) 100 UNIT/ML SYR SQ SCH (21:31)
[2020-07-11] MEDS: AMPICILLIN-SULBACTAM 3 GM in SODIUM CHLORIDE 0.9% 100 ML IVPB SCH (21:37)
[2020-07-11] MEDS: METOPROLOL TARTRATE 25 MG TAB PO SCH (21:37)
[2020-07-12] MEDS: HEPARIN SODIUM,PORCINE 5,000 UNIT/ML 1 ML VIAL SQ SCH ×3 (01:01→15:51)
[2020-07-12] MEDS: SODIUM CHLORIDE 0.9% 1,000 ML IV SCH (04:26)
[2020-07-12] MEDS: AMPICILLIN-SULBACTAM 3 GM in SODIUM CHLORIDE 0.9% 100 ML IVPB SCH ×4 (04:26→20:57)
[2020-07-12 06:44] LABS: Glucose,Whole Blood 118 mg/dL (75-99)
[2020-07-12 07:14] LABS: Basophils # (A) 0.1 k/uL (0-0.2); Basophils % (A) 1 %; Eosinophils # (A) 0.3 k/uL (0-0.7); Eosinophils % (A) 3 %; HGB 11.3 gm/dL (13.0-17.5); Lymphocytes % (A) 9 %; MCH 30.8 pg (25.0-35.0); MCHC 34.2 g/dL (31.0-37.0); Mean Platelet Volume 8.4; Monocytes # (A) 0.6 k/uL (0-1.0); Monocytes % (A) 5 %; Neutrophils # (A) 8.6 k/uL (1.3-7.7); Neutrophils % (A) 81 %; Platelet Count 240 k/uL (150-450); RBC 3.66 m/uL (4.30-5.90); RDW 13.2 % (11.5-15.5); WBC 10.7 k/uL (3.8-10.6)
[2020-07-12] MEDS: INSULIN ASPART (NovoLOG) 100 UNIT/ML VIAL SQ SCH ×7 (07:27→20:58)
[2020-07-12] MEDS: ACETAMINOPHEN TAB 325 MG TAB PO PRN (07:48)
[2020-07-12] MEDS: TAMSULOSIN 0.4 MG CAP.ER.24H PO SCH (07:49)
[2020-07-12] MEDS: amLODIPine 10 MG TAB PO SCH (07:49)
[2020-07-12] MEDS: FOLIC ACID 1 MG TAB PO SCH (07:49)
[2020-07-12] MEDS: METOPROLOL TARTRATE 25 MG TAB PO SCH ×2 (07:49→20:57)
[2020-07-12] MEDS: PANTOPRAZOLE 40 MG TABLET PO SCH (07:49)
[2020-07-12] MEDS: INSULIN DETEMIR (LEVEMIR) 100 UNIT/ML SYR SQ SCH ×2 (07:50→20:52)
[2020-07-12] MEDS: SYMBICORT 160-4.5 MCG INHALER INHALATION SCH ×2 (09:04→19:43)
[2020-07-12] MEDS: NON FORMULARY DRUG (Mirabegron [Myrbetriq] 50 MG Tab.Er.24h) PO SCH (10:21)
[2020-07-12 11:25] LABS: Glucose,Whole Blood 304 mg/dL (75-99)
[2020-07-12 11:50] LABS: African American GFR (CKD) 27.5 (60.0-200.0); Anion Gap 12.4 mmol/L (4.00-12.00); BUN/Creat Ratio 23.46 Ratio (12.00-20.00); Calcium 8.1 mg/dL (8.7-10.3); Carbon Dioxide 22.6 mmol/L (21.6-31.8); Non-African American GFR(CKD) 23.7 (60.0-200.0); Potassium 3.7 mmol/L (3.5-5.5)
[2020-07-12 16:48] LABS: Glucose,Whole Blood 124 mg/dL (75-99)
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
[2020-07-12] MEDS: SODIUM CHLORIDE 0.45% 1,000 ML IV SCH ×2 (17:45→17:56)
[2020-07-12 20:43] LABS: Glucose,Whole Blood 152 mg/dL (75-99)
[2020-07-13] MEDS: HEPARIN SODIUM,PORCINE 5,000 UNIT/ML 1 ML VIAL SQ SCH ×4 (00:07→23:42)
--- NOTE | 2020-07-13 00:51 | CONS ---
CONSULTATION DATE OF SERVICE: 07/12/2020. REASON FOR STAY: Left lower extremity cellulitis. HISTORY OF PRESENT ILLNESS: The patient is a 69-year-old male with past medical history significant for diabetes mellitus, peripheral vascular disease in this patient admitted to the hospital with swelling and redness of the left leg. The patient's symptoms have been going on for the last few days, started with swelling followed by of the redness. The patient did have mild throbbing pain to the leg, intensity 4-5 out of 10 and no radiation. The patient currently no open wound or any drainage. With these symptoms, the patient was evaluated by the attending physician. On arrival to the ER the patient did have a fever of 99.5. The patient did have a normal white count. Repeat is 10.7. The patient did have a creatinine 4.6. Influenza PCR was negative. Patient did have an x-rays of the foot, anterior fibula that was negative for infection. Dopplers were negative for DVT. Patient has been treated with Unasyn. Infectious Disease was consulted for further management for antibiotic therapy. REVIEW OF SYSTEMS: Positive points have been mentioned in HPI. Rest of the systems are negative. PAST MEDICAL HISTORY: Past medical history of hypertension, hyperlipidemia, diabetes mellitus, osteoarthritis, sleep apnea, history of kidney cancer. PAST SURGICAL HISTORY: Bladder surgery, tonsillectomy, left lower extremity bypass. SOCIAL HISTORY: Patient current smoker. Denies drinking or drug use. FAMILY HISTORY: Mother with history of CVA/TIA. Sister with a history of cancer. ALLERGIES: PRAVASTATIN, IODINATED CONTRAST and SULFA. MEDICATIONS: The patient is currently on Tylenol, Norvasc, Unasyn, folic acid, heparin, NovoLog, Levemir, Lopressor, Narcan, Protonix and Flomax. PHYSICAL EXAMINATION: Blood pressure 158/63 with a pulse of 56. Temperature 98.4. He is 96% on room air. General description is an elderly male lying in bed in no distress. No tachypnea or accessory muscle of respiration use. HEENT: Shows slight pallor. No scleral icterus. Oral mucous membrane is dry. No pharyngeal erythema or thrush. Neck: Trachea central. No thyromegaly. Lungs: Unlabored breathing. Clear to auscultation anteriorly. No wheeze or crackles. Heart: S1, S2. Regular rate and rhythm. Abdomen soft, no tenderness. Left leg did have diffuse swelling and redness. No open wound or drainage. Did have evidence of . Neurological: Patient is awake, alert, oriented x3. Mood and affect normal. LABS: Hemoglobin 11.8, white count 10.7, BUN of 61, creatinine 2.6. Doppler was negative for DVT. IMPRESSION/PLAN: 1. Patient with acute left lower extremity cellulitis in this patient who did have diffuse swelling and redness, likely streptococcal disease, clinically doubt MRSA gram-negative infection. 2. Athlete's foot. 3. SULFA ALLERGY. PLAN: 1. Unasyn to continue 3 g with kidney function. 2. Elfego the area of the redness. 3. Brett wrap to the left . 4. Nystatin cream in between the toes. 5. We will follow on clinical condition and further adjust medication if needed. Thank you for this consultation. Will follow this patient along with you. MMODL / IJN: [id number] /
[2020-07-13] MEDS: AMPICILLIN-SULBACTAM 3 GM in SODIUM CHLORIDE 0.9% 100 ML IVPB SCH ×4 (03:35→21:49)
[2020-07-13 07:03] LABS: Glucose,Whole Blood 141 mg/dL (75-99)
[2020-07-13] MEDS: INSULIN ASPART (NovoLOG) 100 UNIT/ML VIAL SQ SCH ×7 (08:11→21:45)
[2020-07-13] MEDS: ACETAMINOPHEN TAB 325 MG TAB PO PRN ×2 (08:18→14:01)
[2020-07-13] MEDS: TAMSULOSIN 0.4 MG CAP.ER.24H PO SCH (08:19)
[2020-07-13] MEDS: amLODIPine 10 MG TAB PO SCH (08:19)
[2020-07-13] MEDS: METOPROLOL TARTRATE 25 MG TAB PO SCH ×2 (08:19→21:49)
[2020-07-13] MEDS: PANTOPRAZOLE 40 MG TABLET PO SCH (08:20)
[2020-07-13] MEDS: FOLIC ACID 1 MG TAB PO SCH (08:20)
[2020-07-13] MEDS: INSULIN DETEMIR (LEVEMIR) 100 UNIT/ML SYR SQ SCH ×2 (08:21→22:00)
[2020-07-13] MEDS: SYMBICORT 160-4.5 MCG INHALER INHALATION SCH ×2 (09:13→20:03)
[2020-07-13] MEDS: NON FORMULARY DRUG (Mirabegron [Myrbetriq] 50 MG Tab.Er.24h) PO SCH (09:32)
[2020-07-13] MEDS: NYSTATIN 100,000UNIT/GM CREAM 30 GM TUBE TOPICAL SCH ×2 (09:39→21:49)
--- NOTE | 2020-07-13 11:19 | P.PN ---
Subjective Progress Note Date: 07/12/20 Principal diagnosis: Left lower extremity cellulitis Hyperglycemia with uncontrolled diabetes type 2 Patient is a 69-year-old male with a known history of diabetes type 2 insulin- dependent, hypertension, hypotonia, osteoarthritis, obstructive sleep apnea, renal cell cancer status post previous nephrectomy, severe peripheral vascular disease with a complicated fem-pop bypass surgery which was forthcoming. By wound dehiscence and subsequent infection of the left lower extremity wound site requiring prolonged treatment and wound VAC., Morbid obesity and there otherwise medical problems Came to ER with complaints of left lower extremity redness swelling and pain worsening for the past 1 week. Patient has been having swelling pain and throbbing pain in the left lower exudate. Denied any fever or chills. No compressive chest pain or shortness of breath. No nausea vomiting or abdominal pain or diarrhea. Denied any recent illnesses. Left leg venous duplex is negative for DVT. X-ray of the left foot showed no acute fracture dislocation. X-ray of left Tibia and fibula showed no fracture or dislocation Laboratory data showed WBC 9.4, hemoglobin 10.4, platelets 87 BN62 and creatinine 2.58 On January 21 0.1 Blood sugar is 233 on admission 07/12/2020 Patient is currently sitting on the chair comfortably. Still having left lower activity swelling and redness but improved compared to yesterday. No complaints of fever or chills. No nausea vomiting or abdominal pain or diarrhea. Laboratory data showed BUN 61 and creatinine 2.6 WBC 10.7 and hemoglobin 11.3. Current medications reviewed. Objective - Vital Signs Vital signs: Vital Signs Temp 98.4 F 07/12/20 18:40 Pulse 66 07/12/20 18:40 Resp 18 07/12/20 14:55 BP 158/63 07/12/20 18:40 Pulse Ox 96 07/12/20 18:40 Intake & Output 07/12/20 07/12/20 07/13/20 06:59 18:59 06:59 Intake Total 150 Balance 150 Intake: Intake, IV Titration 150 Amount Sodium Chloride 0.45% 1, 150 000 ml @ 75 mls/hr IV . [id number] [facility] Rx#:[id number] Other: Voiding Method Toilet Toilet # Voids 1 1 # Bowel Movements 1 - Exam PHYSICAL EXAMINATION: Patient is lying in the bed comfortably, no acute distress, awake alert and oriented.. HEENT: Normocephalic. Neck is supple. Pupils reactive. Nostrils clear. Oral cavity is moist. Ears reveal no drainage. Neck reveals no JVD, carotid bruits, or thyromegaly. CHEST EXAMINATION: Trachea is central. Symmetrical expansion. Lung vital clear to auscultation and percussion. CARDIAC: Normal S1, S2 with no gallops. No murmurs ABDOMEN: Soft. Bowel sounds normal. No organomegaly. No abdominal bruits. Extremities: Left lower extremity swelling, redness and warmth and tenderness present. No discharge. Scar from previous surgeries. . No clubbing or cyanosis Neurologically awake, alert, oriented x3 with well-coordinated movements. No focal deficits noted Skin: No rash or skin lesions. Psychiatric: Coperative. Nonsuicidal Musculoskeletal: No joint swelling or deformity. Normal range of motion. - Labs CBC & Chem 7: 07/12/20 06:43 07/12/20 06:43 Labs: Abnormal Lab Results - Last 24 Hours (Table) 07/12/20 07/12/20 07/12/20 Range/Units 06:43 06:43 06:43 WBC 10.7 H (3.8-10.6) k/uL RBC 3.66 L (4.30-5.90) m/uL Hgb 11.3 L (13.0-17.5) gm/dL Hct 33.0 L (39.0-53.0) % Neutrophils # 8.6 H (1.3-7.7) k/uL Anion Gap 12.40 H (4.00-12.00) mmol/L BUN 61.0 H (9.0-27.0) mg/dL Creatinine 2.6 H (0.6-1.5) mg/dL Est GFR (CKD-EPI)AfAm 27.5 L (60.0-200.0) Est GFR (CKD-EPI)NonAf 23.7 L (60.0-200.0) BUN/Creatinine Ratio 23.46 H (12.00-20.00) Ratio Glucose 116 H (70-110) mg/dL POC Glucose (mg/dL) 118 H (75-99) mg/dL Calcium 8.1 L (8.7-10.3) mg/dL 07/12/20 07/12/2007/12/20 Range/Units 11:23 16:47 20:41 WBC (3.8-10.6) k/uL RBC (4.30-5.90) m/uL Hgb (13.0-17.5) gm/dL Hct (39.0-53.0) % Neutrophils # (1.3-7.7) k/uL Anion Gap (4.00-12.00) mmol/L BUN (9.0-27.0) mg/dL Creatinine (0.6-1.5) mg/dL Est GFR (CKD-EPI)AfAm (60.0-200.0) Est GFR (CKD-EPI)NonAf (60.0-200.0) BUN/Creatinine Ratio (12.00-20.00) Ratio Glucose (70-110) mg/dL POC Glucose (mg/dL) 304 H 124 H 152 H (75-99) mg/dL Calcium (8.7-10.3) mg/dL Microbiology - Last 24 Hours (Table) 07/11/20 13:05 Blood Culture - Preliminary Blood No Growth after 24 hours Assessment and Plan Assessment: Left lower extremity cellulitis Hyperglycemia with uncontrolled diabetes type 2 Acute kidney injury with possible underlying CK D stage III. Baseline creatinine not known. Currently creatinine is 2.58 Kidney cancer with previous nephrectomy, transitional cell carcinoma of the bladder, morbid obesity, ELVIS w/ CPAP, severe PVD with a complicated fem-pop bypass surgery which was further complicated by dehiscence of the wound and subsequent infection of the lower extremity wound site requiring prolonged treatment with wound VAC. Ongoing nicotine addiction Peripheral vascular disease Hypertension Hyperlipidemia Osteoarthritis DVT prophylaxis with heparin subcu Plan: Patient will be continued on antibiotics in the form of Unasyn. Denied any history of MRSA infection. Continue with insulin dosing and a discharge needed. Follow blood cultures and continue with home medications and follow closely. Further admissions based on the clinical course. Time with Patient: Greater than 30
[2020-07-13 11:36] LABS: Glucose,Whole Blood 168 mg/dL (75-99)
[2020-07-13 12:35] LABS: HCT 33.1 % (39.0-53.0); HGB 10.9 gm/dL (13.0-17.5); MCH 29.9 pg (25.0-35.0); MCV 90.4 fL (80.0-100.0); Mean Platelet Volume 8.6; Platelet Count 243 k/uL (150-450); RBC 3.66 m/uL (4.30-5.90); RDW 13.6 % (11.5-15.5)
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
[2020-07-13 14:05] LABS: Band Neutrophils % 2 %; Metamyelocytes % 2 %; Myelocytes % 6 %; Neutrophils % (M) 76 %; Nucleated Red Blood Cells 0 /100 WBC (0-0); Total Cells Counted 200
[2020-07-13 15:13] LABS: Amorphous Sediment,Urine Rare /hpf; Appearance,Urine Clear (Clear); Bilirubin,Urine Negative (Negative); Blood,Urine Moderate (Negative); Color,Urine Yellow; Glucose,Urine (UA) 1+ (Negative); Granular Casts,Urine 11 /lpf (0); Hyaline Casts,Urine 14 /lpf (0-2); Ketones,Urine Negative (Negative); Leukocyte Esterase,Urine Negative (Negative); Mucus,Urine Rare /hpf; Nitrite,Urine Negative (Negative); Protein,Urine 2+ (Negative); RBC,Urine 9 /hpf (0-5); Squamous Epithelial Cell,Urine 1 /hpf (0-4); WBC,Urine 3 /hpf (0-5)
[2020-07-13] MEDS: SODIUM CHLORIDE 0.45% 1,000 ML IV SCH (15:48)
[2020-07-13 16:33] LABS: Glucose,Whole Blood 54 mg/dL (75-99)
[2020-07-13 16:54] LABS: Glucose,Whole Blood 70 mg/dL (75-99)
[2020-07-13 17:12] LABS: African American GFR (CKD) 33.7 (60.0-200.0); Anion Gap 9.2 mmol/L (4.00-12.00); Calcium 8.1 mg/dL (8.7-10.3); Carbon Dioxide 24.8 mmol/L (21.6-31.8); Non-African American GFR(CKD) 29.1 (60.0-200.0); Potassium 3.9 mmol/L (3.5-5.5)
--- NOTE | 2020-07-13 19:06 | US ---
EXAMINATION TYPE: US kidneys/renal and bladder DATE OF EXAM: 07/13/2020 COMPARISON: CT 2019, US 2019 CLINICAL HISTORY: rigoberto. RIGOBERTO, history of renal CA and bladder CA, history of right nephrectomy. EXAM MEASUREMENTS: Right Kidney: surgically absent Left Kidney: 14.4 x 6.5 x 7.5 cm Right Kidney: surgically absent Left Kidney: measures large in size, 3.0 x 2.8 x 2.6cm hypoechoic focus lateral mid pole . Hepatic Th ere is no hydronephrosis. Bladder: not fully distended IMPRESSION: 3 cm left renal cortical-based hypoechoic focus, concordant with CT finding and may represent benign cyst. Recommend follow-up in 6 months to 1 year to document stability. Otherwise no left hydronephrosis. Right nephrectomy.
[2020-07-13 21:43] LABS: Glucose,Whole Blood 73 mg/dL (75-99)
--- NOTE | 2020-07-14 00:32 | P.PN ---
Subjective Progress Note Date: 07/13/20 Principal diagnosis: Left lower extremity cellulitis Hyperglycemia with uncontrolled diabetes type 2 Patient is a 69-year-old male with a known history of diabetes type 2 insulin- dependent, hypertension, hypotonia, osteoarthritis, obstructive sleep apnea, renal cell cancer status post previous nephrectomy, severe peripheral vascular disease with a complicated fem-pop bypass surgery which was forthcoming. By wound dehiscence and subsequent infection of the left lower extremity wound site requiring prolonged treatment and wound VAC., Morbid obesity and there otherwise medical problems Came to ER with complaints of left lower extremity redness swelling and pain worsening for the past 1 week. Patient has been having swelling pain and throbbing pain in the left lower exudate. Denied any fever or chills. No compressive chest pain or shortness of breath. No nausea vomiting or abdominal pain or diarrhea. Denied any recent illnesses. Left leg venous duplex is negative for DVT. X-ray of the left foot showed no acute fracture dislocation. X-ray of left Tibia and fibula showed no fracture or dislocation Laboratory data showed WBC 9.4, hemoglobin 10.4, platelets 87 BN62 and creatinine 2.58 On January 21 0.1 Blood sugar is 233 on admission 07/12/2020 Patient is currently sitting on the chair comfortably. Still having left lower activity swelling and redness but improved compared to yesterday. No complaints of fever or chills. No nausea vomiting or abdominal pain or diarrhea. Laboratory data showed BUN 61 and creatinine 2.6 WBC 10.7 and hemoglobin 11.3. 07/13/2020 Patient is currently resting in the bed comfortably. Awake alert and oriented x3. Left lower extremity cellulitis is improving with redness and swelling improving. Brett wrap currently. Continued on antibiotics in the form of Unasyn. Renal function with slight improvement. Nephrology and ID on board. Patient has been afebrile. No nausea vomiting abdominal pain or diarrhea. No dysuria or hematuria. No chest pain or shortness breath. Laboratory data reviewed. Patient was hypoglycemic today afternoon. Preprandial dose was reduced from 50units to 25 units 3 times daily AC. Current medications reviewed. Objective - Vital Signs Vital signs: Vital Signs Temp 97.7 F 07/13/20 15:00 Pulse 68 07/13/20 15:00 Resp 18 07/13/20 15:00 BP 172/60 07/13/20 15:00 Pulse Ox 96 07/13/20 15:00 Intake & Output 07/12/20 07/13/20 07/13/20 18:59 06:59 18:59 Intake Total 150 600 Balance 150 600 Intake: IV 600 Sodium Chloride 0.45% 1, 600 000 ml @ 75 mls/hr IV . [id number] [facility] Rx#:[id number] Intake, IV Titration 150 Amount Sodium Chloride 0.45% 1, 150 000 ml @ 75 mls/hr IV . [id number] [facility] Rx#:[id number] Other: Voiding Method Toilet Toilet # Voids 1 1 # Bowel Movements 1 - Exam PHYSICAL EXAMINATION: Patient is lying in the bed comfortably, no acute distress, awake alert and oriented.. HEENT: Normocephalic. Neck is supple. Pupils reactive. Nostrils clear. Oral cavity is moist. Ears reveal no drainage. Neck reveals no JVD, carotid bruits, or thyromegaly. CHEST EXAMINATION: Trachea is central. Symmetrical expansion. Lung vital clear to auscultation and percussion. CARDIAC: Normal S1, S2 with no gallops. No murmurs ABDOMEN: Soft. Bowel sounds normal. No organomegaly. No abdominal bruits. Extremities: Left lower extremity swelling, redness and warmth and tenderness present. No discharge. Scar from previous surgeries. . No clubbing or cyanosis Neurologically awake, alert, oriented x3 with well-coordinated movements. No focal deficits noted Skin: No rash or skin lesions. Psychiatric: Coperative. Nonsuicidal Musculoskeletal: No joint swelling or deformity. Normal range of motion. - Labs CBC & Chem 7: 07/13/20 12:00 07/13/20 12:00 Labs: Abnormal Lab Results - Last 24 Hours (Table) 07/12/20 07/13/20 07/13/20 Range/Units 20:41 07:02 11:35 RBC (4.30-5.90) m/uL Hgb (13.0-17.5) gm/dL Hct (39.0-53.0) % Neutrophils # (Manual) (1.3-7.7) k/uL Lymphocytes # (Manual) (1.0-4.8) k/uL Metamyelocytes # (Man) (0) k/uL Myelocytes # (Manual) (0) k/uL POC Glucose (mg/dL) 152 H 141 H 168 H (75-99) mg/dL Urine Protein (Negative) Urine Glucose (UA) (Negative) Urine Blood (Negative) Urine RBC (0-5) /hpf Amorphous Sediment (None) /hpf Hyaline Casts (0-2) /lpf Urine Mucus (None) /hpf 07/13/20 07/13/20 07/13/20 Range/Units 12:00 14:48 16:32 RBC 3.66 L (4.30-5.90) m/uL Hgb 10.9 L (13.0-17.5) gm/dL Hct 33.1 L (39.0-53.0) % Neutrophils # (Manual) 7.80 H (1.3-7.7) k/uL Lymphocytes # (Manual) 0.90 L (1.0-4.8) k/uL Metamyelocytes # (Man) 0.20 H (0) k/uL Myelocytes # (Manual) 0.60 H (0) k/uL POC Glucose (mg/dL) 54 L (75-99) mg/dL Urine Protein 2+ H (Negative) Urine Glucose (UA) 1+ H (Negative) Urine Blood Moderate H (Negative) Urine RBC 9 H (0-5) /hpf Amorphous Sediment Rare H (None) /hpf Hyaline Casts 14 H (0-2) /lpf Urine Mucus Rare H (None) /hpf Microbiology - Last 24 Hours (Table) 07/11/20 13:05 Blood Culture - Preliminary Blood No Growth after 48 hours Assessment and Plan Assessment: Left lower extremity cellulitis Hyperglycemia with uncontrolled diabetes type 2 Acute kidney injury with possible underlying CK D stage III. Baseline crea tinine not known. Currently creatinine is 2.58--2.2 Kidney cancer with previous nephrectomy, transitional cell carcinoma of the bladder, morbid obesity, ELVIS w/ CPAP, severe PVD with a complicated fem-pop bypass surgery which was further complicated by dehiscence of the wound and subsequent infection of the lower extremity wound site requiring prolonged treatment with wound VAC. Ongoing nicotine addiction Peripheral vascular disease Hypertension Hyperlipidemia Osteoarthritis DVT prophylaxis with heparin subcu Plan: Patient will be continued on antibiotics in the form of Unasyn. Denied any history of MRSA infection. Continue with insulin dosing and titrate needed. Follow blood cultures and continue with home medications and follow closely. Further admissions based on the clinical course. Time with Patient: Greater than 30
[2020-07-14] MEDS: SODIUM CHLORIDE 0.45% 1,000 ML IV SCH ×2 (02:20→13:22)
--- NOTE | 2020-07-14 02:51 | PN ---
PROGRESS NOTE DATE OF SERVICE: 07/13/2020 REASON FOR FOLLOWUP: Left lower extremity cellulitis and athlete's foot. INTERVAL HISTORY: The patient is currently afebrile. The patient is breathing comfortably. Denies having any chest pain. No shortness of breath or cough. No nausea. No vomiting. No abdominal pain or any worsening pain to the left leg. PHYSICAL EXAMINATION: Blood pressure 172/60 with a pulse of 68, temperature is 97.7. He is 96% on room air. General description is an elderly male up in the room in no distress. RESPIRATORY SYSTEM: Unlabored breathing, clear to auscultation anteriorly. HEART: S1, S2. Regular rate and rhythm. ABDOMEN: Soft, no tenderness. Left leg swelling and redness has decreased. LABS: Hemoglobin is 10.9, white count 10, BUN of 44, creatinine is 2.2. DIAGNOSTIC IMPRESSION AND PLAN: Patient with acute left lower extremity cellulitis in this patient who did have a component of athlete's foot. The patient clinically responding to the Unasyn to continue along with Brett wrap and finish therapy with oral antibiotic on discharge. Continue supportive care. MMODL / IJN: [id number] /
[2020-07-14] MEDS: AMPICILLIN-SULBACTAM 3 GM in SODIUM CHLORIDE 0.9% 100 ML IVPB SCH ×4 (03:04→21:09)
[2020-07-14 06:45] LABS: Glucose,Whole Blood 114 mg/dL (75-99)
[2020-07-14 07:30] LABS: HCT 33.2 % (39.0-53.0); HGB 11.2 gm/dL (13.0-17.5); MCH 30.4 pg (25.0-35.0); MCHC 33.8 g/dL (31.0-37.0); MCV 89.9 fL (80.0-100.0); Mean Platelet Volume 8.2; Platelet Count 268 k/uL (150-450); RBC 3.69 m/uL (4.30-5.90); WBC 11.3 k/uL (3.8-10.6)
[2020-07-14] MEDS: INSULIN ASPART (NovoLOG) 100 UNIT/ML VIAL SQ SCH ×7 (07:46→21:14)
[2020-07-14] MEDS: amLODIPine 10 MG TAB PO SCH (07:46)
[2020-07-14] MEDS: PANTOPRAZOLE 40 MG TABLET PO SCH (07:46)
[2020-07-14] MEDS: TAMSULOSIN 0.4 MG CAP.ER.24H PO SCH (07:46)
[2020-07-14] MEDS: METOPROLOL TARTRATE 25 MG TAB PO SCH ×2 (07:46→21:10)
[2020-07-14] MEDS: SYMBICORT 160-4.5 MCG INHALER INHALATION SCH ×2 (07:47→19:39)
[2020-07-14] MEDS: HEPARIN SODIUM,PORCINE 5,000 UNIT/ML 1 ML VIAL SQ SCH ×2 (07:47→15:56)
[2020-07-14] MEDS: INSULIN DETEMIR (LEVEMIR) 100 UNIT/ML SYR SQ SCH ×2 (07:51→21:14)
[2020-07-14] MEDS: FOLIC ACID 1 MG TAB PO SCH (08:56)
[2020-07-14] MEDS: NON FORMULARY DRUG (Mirabegron [Myrbetriq] 50 MG Tab.Er.24h) PO SCH (08:56)
--- NOTE | 2020-07-14 09:38 | P.PN ---
Subjective From records Patient is a 69-year-old male with a known history of diabetes type 2 insulin- dependent, hypertension, hypotonia, osteoarthritis, obstructive sleep apnea, renal cell cancer status post previous nephrectomy, severe peripheral vascular d isease with a complicated fem-pop bypass surgery which was forthcoming. By wound dehiscence and subsequent infection of the left lower extremity wound site requiring prolonged treatment and wound VAC., Morbid obesity and there otherwise medical problems Came to ER with complaints of left lower extremity redness swelling and pain worsening for the past 1 week. Patient has been having swelling pain and throbbing pain in the left lower exudate. Denied any fever or chills. No compressive chest pain or shortness of breath. No nausea vomiting or abdominal pain or diarrhea. Denied any recent illnesses. Left leg venous duplex is negative for DVT. X-ray of the left foot showed no acute fracture dislocation. X-ray of left Tibia and fibula showed no fracture or dislocation Laboratory data showed WBC 9.4, hemoglobin 10.4, platelets 87 BN62 and creatinine 2.58 On January 21 0.1 Blood sugar is 233 on admission 07/12/2020 Patient is currently sitting on the chair comfortably. Still having left lower activity swelling and redness but improved compared to yesterday. No complaints of fever or chills. No nausea vomiting or abdominal pain or diarrhea. Laboratory data showed BUN 61 and creatinine 2.6 WBC 10.7 and hemoglobin 11.3. 07/13/2020 Patient is currently resting in the bed comfortably. Awake alert and oriented x3. Left lower extremity cellulitis is improving with redness and swelling improving. Brett wrap currently. Continued on antibiotics in the form of Unasyn. Renal function with slight improvement. Nephrology and ID on board. Patient has been afebrile. No nausea vomiting abdominal pain or diarrhea. No dysuria or hematuria. No chest pain or shortness breath. Laboratory data reviewed. Patient was hypoglycemic today afternoon. Preprandial dose was reduced from 50u nits to 25 units 3 times daily AC. Subjective: This is the first day and take care of the patient 07/14/2020 This is a pleasant 69 years old male with past medical history of diabetes mellitus, chronic kidney disease secondary to diabetes, he follows up also with urologist who did a right nephrectomy and cervical procedure for his urinary bladder cancer, he'll also follow up with Dr. osorio who missed his appointment with him earlier this month. This time presents because of left leg cellulitis and is being treated with Unasyn with interval improvement in his left leg, however his still a swelling, and redpink compared to the right side. Also has been followed by nephrology service for his high creatinine was 2.6 on admission coming down yesterday to 2.2. Today still pending. He is currently on normal sinus 75 mL/h, also his BRETT inhibitor and Lasix are on hold. His glucose was low yesterday at 54 and we lowered his Levemir from 60 down to 55 units twice a day. Renal ultrasound yesterday showed left renal cyst, patient informed, he states that he knows about the cyst for many years. Patient was instructed to follow up with his urologist Dr. ashford 2 weeks after discharge and he agrees. Review of systems CONSTITUTIONAL: No fever, no malaise, no fatigue. HEENT: No recent visual problems or hearing problems. Denied any sore throat. CARDIOVASCULAR: No orthopnea, PND, no palpitations, no syncope. PULMONARY: No shortness of breath, no cough, no hemoptysis. GASTROINTESTINAL: No diarrhea, no nausea, no vomiting, no abdominal pain. Normoactive bowel sounds. NEUROLOGICAL: No headaches, no weakness, no numbness. Active Medications Generic Name Dose Route Start Last Admin Trade Name Vernq PRN Reason Stop Dose Admin Acetaminophen 650 mg 07/11/20 15:10 07/13/20 14:01 Acetaminophen Tab 325 Mg Tab PO 650 mg Q6HR PRN Administration Mild Pain or Fever > 100.5 Amlodipine Besylate 10 mg 07/12/20 09:00 07/14/20 07:46 Amlodipine 10 Mg Tab PO 10 mg DAILY SHIELA Administration Budesonide/Formoterol Fumarate 2 puff 07/11/20 20:00 07/14/20 07:47 Symbicort 160-4.5 Mcg Inhaler INHALATION 2 puff RT-BID SHIELA Administration Folic Acid 1 mg 07/12/20 09:00 07/14/20 08:56 Folic Acid 1 Mg Tab PO 1 mg DAILY SHIELA Administration Heparin Sodium (Porcine) 5,000 unit 07/11/20 16:00 07/14/20 07:47 Heparin Sodium,Porcine 5,000 Unit/Ml 1 Ml Vial SQ 5,000 unit Q8HR SHIELA Administration Ampicillin Sodium/Sulbactam 100 mls @ 200 mls/hr 07/11/20 21:00 07/14/20 07:48 Sodium 3 gm/ Sodium Chloride IVPB 200 mls/hr Q6H SHIELA Administration Sodium Chloride 1,000 mls @ 75 mls/hr 07/12/20 17:15 07/14/20 02:20 Saline 0.45% IV Not Given .[id number] [facility] Insulin Aspart 0 unit 07/11/20 17:30 07/14/20 07:46 Insulin Aspart (Novolog) 100 Unit/Ml Vial SQ Not Given ACHS [facility] Protocol Insulin Aspart 25 unit 07/14/20 07:30 07/14/20 07:49 Insulin Aspart (Novolog) 100 Unit/Ml Vial SQ 25 unit AC-TID [facility] Administration Insulin Detemir 55 unit 07/14/20 07:00 07/14/20 07:51 Insulin Detemir (Levemir) 100 Unit/Ml Syr SQ Not Given BID@0700,2100 [facility] Metoprolol Tartrate 25 mg 07/11/20 21:00 07/14/20 07:46 Metoprolol Tartrate 25 Mg Tab PO 25 mg BID [facility] Administration Naloxone HCl 0.2 mg 07/11/20 14:33 Naloxone 0.4 Mg/Ml 1 Ml Vial IV Q2M PRN Opioid Reversal Non-Formulary Medication 50 mg 07/12/20 09:00 07/14/20 08:56 Mirabegron [Myrbetriq] PO Not Given DAILY [facility] Nystatin 1 applic 07/13/20 09:00 07/13/20 21:49 Nystatin 100,000unit/Gm Cream 30 Gm Tube TOPICAL 1 applic BID [facility] Administration Pantoprazole Sodium 40 mg 07/12/20 07:30 07/14/20 07:46 Pantoprazole 40 Mg Tablet PO 40 mg DAILY@0730 [facility] Administration Tamsulosin HCl 0.4 mg 07/12/20 08:30 07/14/20 07:46 Tamsulosin 0.4 Mg Cap.Er.24h PO 0.4 mg [id number] SHIELA Administration Objective - Vital Signs Vital signs: Vital Signs Temp 97.5 F L 07/14/20 07:00 Pulse 65 07/14/20 07:00 Resp 18 07/14/20 07:00 BP 182/68 07/14/20 07:00 Pulse Ox 96 07/14/20 07:00 Intake & Output 07/13/20 07/14/20 07/14/20 18:59 06:59 18:59 Intake Total 600 1000 Output Total 320 Balance 280 1000 Intake: IV 600 Sodium Chloride 0.45% 1, 600 000 ml @ 75 mls/hr IV . [id number] SHIELA Rx#:[id number] Intake, IV Titration 900 Amount Sodium Chloride 0.45% 1, 900 000 ml @ 75 mls/hr IV . [id number] [facility] Rx#:[id number] Oral 100 Output: Urine 320 Other: Voiding Method Toilet - Exam GENERAL: The patient is alert and oriented x3, not in any acute distress. Well developed, well nourished. HEENT: Pupils are round and equally reacting to light. EOMI. No scleral icterus. No conjunctival pallor. Normocephalic, atraumatic. No pharyngeal erythema. No thyromegaly. CARDIOVASCULAR: S1 and S2 present. No murmurs, rubs, or gallops. PULMONARY: Chest is clear to auscultation, no wheezing or crackles. ABDOMEN: Soft, nontender, nondistended, normoactive bowel sounds. No palpable o rganomegaly. MUSCULOSKELETAL: No joint swelling or deformity. EXTREMITIES: No cyanosis, clubbing, or pedal edema. Left leg is bigger and more pinkish in color NEUROLOGICAL: Gross neurological examination did not reveal any focal deficits. SKIN: No rashes. no petechiae. - Labs CBC & Chem 7: 07/14/20 07:10 07/13/20 12:00 Labs: Abnormal Lab Results - Last 24 Hours (Table) 07/13/20 07/13/20 07/13/20 Range/Units 11:35 12:00 12:00 WBC (3.8-10.6) k/uL RBC 3.66 L (4.30-5.90) m/uL Hgb 10.9 L (13.0-17.5) gm/dL Hct 33.1 L (39.0-53.0) % Neutrophils # (Manual) 7.80 H (1.3-7.7) k/uL Lymphocytes # (Manual) 0.90 L (1.0-4.8) k/uL Metamyelocytes # (Man) 0.20 H (0) k/uL Myelocytes # (Manual) 0.60 H (0) k/uL Sodium 146 H (135-145) mmol/L Chloride 112 H (96-109) mmol/L BUN 44.0 H (9.0-27.0) mg/dL Creatinine 2.2 H (0.6-1.5) mg/dL Est GFR (CKD-EPI)AfAm 33.7 L (60.0-200.0) Est GFR (CKD-EPI)NonAf 29.1 L (60.0-200.0) Glucose 161 H (70-110) mg/dL POC Glucose (mg/dL) 168 H (75-99) mg/dL Calcium 8.1 L (8.7-10.3) mg/dL Urine Protein (Negative) Urine Glucose (UA) (Negative) Urine Blood (Negative) Urine RBC (0-5) /hpf Amorphous Sediment (None) /hpf Hyaline Casts (0-2) /lpf Urine Mucus (None) /hpf 07/13/20 07/13/20 07/13/20 Range/Units 14:48 16:32 16:52 WBC (3.8-10.6) k/uL RBC (4.30-5.90) m/uL Hgb (13.0-17.5) gm/dL Hct (39.0-53.0) % Neutrophils # (Manual) (1.3-7.7) k/uL Lymphocytes # (Manual) (1.0-4.8) k/uL Metamyelocytes # (Man) (0) k/uL Myelocytes # (Manual) (0) k/uL Sodium (135-145) mmol/L Chloride (96-109) mmol/L BUN (9.0-27.0) mg/dL Creatinine (0.6-1.5) mg/dL Est GFR (CKD-EPI)AfAm (60.0-200.0) Est GFR (CKD-EPI)NonAf (60.0-200.0) Glucose (70-110) mg/dL POC Glucose (mg/dL) 54 L 70 L (75-99) mg/dL Calcium (8.7-10.3) mg/dL Urine Protein 2+ H (Negative) Urine Glucose (UA) 1+ H (Negative) Urine Blood Moderate H (Negative) Urine RBC 9 H (0-5) /hpf Amorphous Sediment Rare H (None) /hpf Hyaline Casts 14 H (0-2) /lpf Urine Mucus Rare H (None) /hpf 07/13/20 07/14/20 07/14/20 Range/Units 21:41 06:44 07:10 WBC 11.3 H (3.8-10.6) k/uL RBC 3.69 L (4.30-5.90) m/uL Hgb 11.2 L (13.0-17.5) gm/dL Hct 33.2 L (39.0-53.0) % Neutrophils # (Manual) (1.3-7.7) k/uL Lymphocytes # (Manual) (1.0-4.8) k/uL Metamyelocytes # (Man) (0) k/uL Myelocytes # (Manual) (0) k/uL Sodium (135-145) mmol/L Chloride (96-109) mmol/L BUN (9.0-27.0) mg/dL Creatinine (0.6-1.5) mg/dL Est GFR (CKD-EPI)AfAm (60.0-200.0) Est GFR (CKD-EPI)NonAf (60.0-200.0) Glucose (70-110) mg/dL POC Glucose (mg/dL) 73 L 114 H (75-99) mg/dL Calcium (8.7-10.3) mg/dL Urine Protein (Negative) Urine Glucose (UA) (Negative) Urine Blood (Negative) Urine RBC (0-5) /hpf Amorphous Sediment (None) /hpf Hyaline Casts (0-2) /lpf Urine Mucus (None) /hpf Microbiology - Last 24 Hours (Table) 07/11/20 13:05 Blood Culture - Preliminary Blood No Growth after 48 hours Assessment and Plan Assessment: Left lower extremity cellulitis Acute kidney injury with underlying CK D stage III. Baseline creatinine not known. Currently creatinine is 2.58--2.2 Left renal cyst, 3 cm. Follow-up as an outpatient Hyperglycemia with uncontrolled diabetes type 2 History of urinary bladder/right Kidney cancer with previous nephrectomy, transitional cell carcinoma of the bladder, morbid obesity, ELVIS w/ CPAP, severe PVD with a complicated fem-pop bypass surgery which was further complicated by dehiscence of the wound and subsequent infection of the lower extremity wound site requiring prolonged treatment with wound VAC. Ongoing nicotine addiction Peripheral vascular disease Hypertension Hyperlipidemia Osteoarthritis Plan: This is a pleasant 69 years old male who presents with left leg cellulitis and HPI. Continue with Unasyn, continue with IV fluid. Follow-up recommendation by infectious disease and nephrology service. Continue with insulin and adjust dose according to the insulin sliding scale and glucose. Monitor creatinine and glucose. Recommend patient to follow-up with his urologist Dr. ashford for his left renal cyst, patient was instructed with the same and he agrees. Also patient recommended to follow-up with his oncologist Dr. osorio in 1-2 weeks and he agrees Labs and medication were reviewed.. Continue same treatment. Continue with symptomatic treatment. Resume home medication. Monitor lytes and vitals. DVT and GI prophylaxis. Further recommendationsas per clinical course of the patient DVT prophylaxis: Subcutaneous heparin GI Prophylaxis: Ppi PT/OT: Pending Prognosis is guarded
[2020-07-14 09:42] LABS: Band Neutrophils % 1 %; Eosinophils # (M) 0.23 k/uL (0-0.7); Lymphocytes # (M) 1.24 k/uL (1.0-4.8); Metamyelocytes # (M) 0.11 k/uL (0); Metamyelocytes % 1 %; Monocytes # (M) 0.68 k/uL (0-1.0); Myelocytes # (M) 0.57 k/uL (0); Myelocytes % 5 %; Neutrophils % (M) 76 %; Nucleated Red Blood Cells 0 /100 WBC (0-0); Total Cells Counted 200
--- NOTE | 2020-07-14 10:40 | P.PN ---
Subjective Patient is seen in follow-up for acute kidney injury on chronic kidney disease. Patient has chronic kidney disease stage III secondary to solitary left kidney as well as diabetic kidney disease. Good urine output. Currently being treated for left lower extremity cellulitis. Oral intake is good. No vomiting or diarrhea. Vital signs are stable. General: The patient appeared well nourished and normally developed. HEENT: Head exam is unremarkable. Neck is without jugular venous distension. LUNGS: Breath sounds decreased. HEART: Rate and Rhythm are regular. ABDOMEN: Soft, nontender. Obese. EXTREMITITES: No edema. Left lower extremity erythema noted. No drainage noted. Objective - Vital Signs Vital signs: Vital Signs Temp 97.5 F L 07/14/20 07:00 Pulse 65 07/14/20 07:00 Resp 18 07/14/20 07:00 BP 182/68 07/14/20 07:00 Pulse Ox 96 07/14/20 07:00 Intake & Output 07/13/20 07/14/20 07/14/20 18:59 06:59 18:59 Intake Total 600 1000 Output Total 320 450 Balance 280 1000 -450 Intake: IV 600 Sodium Chloride 0.45% 1, 600 000 ml @ 75 mls/hr IV . [id number] [facility] Rx#:[id number] Intake, IV Titration 900 Amount Sodium Chloride 0.45% 1, 900 000 ml @ 75 mls/hr IV . [id number] [facility] Rx#:[id number] Oral 100 Output: Urine 320 450 Other: Voiding Method Toilet - Labs CBC & Chem 7: 07/14/20 07:10 07/13/20 12:00 Labs: Abnormal Lab Results - Last 24 Hours (Table) 07/13/20 07/13/20 07/13/20 Range/Units 11:35 12:00 12:00 WBC (3.8-10.6) k/uL RBC 3.66 L (4.30-5.90) m/uL Hgb 10.9 L (13.0-17.5) gm/dL Hct 33.1 L (39.0-53.0) % Neutrophils # (Manual) 7.80 H (1.3-7.7) k/uL Lymphocytes # (Manual) 0.90 L (1.0-4.8) k/uL Metamyelocytes # (Man) 0.20 H (0) k/uL Myelocytes # (Manual) 0.60 H (0) k/uL Sodium 146 H (135-145) mmol/L Chloride 112 H (96-109) mmol/L BUN 44.0 H (9.0-27.0) mg/dL Creatinine 2.2 H (0.6-1.5) mg/dL Est GFR (CKD-EPI)AfAm 33.7 L (60.0-200.0) Est GFR (CKD-EPI)NonAf 29.1 L (60.0-200.0) Glucose 161 H (70-110) mg/dL POC Glucose (mg/dL) 168 H (75-99) mg/dL Calcium 8.1 L (8.7-10.3) mg/dL Urine Protein (Negative) Urine Glucose (UA) (Negative) Urine Blood (Negative) Urine RBC (0-5) /hpf Amorphous Sediment (None) /hpf Hyaline Casts (0-2) /lpf Urine Mucus (None) /hpf 07/13/20 07/13/20 07/13/20 Range/Units 14:48 16:32 16:52 WBC (3.8-10.6) k/uL RBC (4.30-5.90) m/uL Hgb (13.0-17.5) gm/dL Hct (39.0-53.0) % Neutrophils # (Manual) (1.3-7.7) k/uL Lymphocytes # (Manual) (1.0-4.8) k/uL Metamyelocytes # (Man) (0) k/uL Myelocytes # (Manual) (0) k/uL Sodium (135-145) mmol/L Chloride (96-109) mmol/L BUN (9.0-27.0) mg/dL Creatinine (0.6-1.5) mg/dL Est GFR (CKD-EPI)AfAm (60.0-200.0) Est GFR (CKD-EPI)NonAf (60.0-200.0) Glucose (70-110) mg/dL POC Glucose (mg/dL) 54 L 70 L (75-99) mg/dL Calcium (8.7-10.3) mg/dL Urine Protein 2+ H (Negative) Urine Glucose (UA) 1+ H (Negative) Urine Blood Moderate H (Negative) Urine RBC 9 H (0-5) /hpf Amorphous Sediment Rare H (None) /hpf Hyaline Casts 14 H (0-2) /lpf Urine Mucus Rare H (None) /hpf 07/13/20 07/14/20 07/14/20 Range/Units 21:41 06:44 07:10 WBC 11.3 H (3.8-10.6) k/uL RBC 3.69 L (4.30-5.90) m/uL Hgb 11.2 L (13.0-17.5) gm/dL Hct 33.2 L (39.0-53.0) % Neutrophils # (Manual) 8.70 H (1.3-7.7) k/uL Lymphocytes # (Manual) (1.0-4.8) k/uL Metamyelocytes # (Man) 0.11 H (0) k/uL Myelocytes # (Manual) 0.57 H (0) k/uL Sodium (135-145) mmol/L Chloride (96-109) mmol/L BUN (9.0-27.0) mg/dL Creatinine (0.6-1.5) mg/dL Est GFR (CKD-EPI)AfAm (60.0-200.0) Est GFR (CKD-EPI)NonAf (60.0-200.0) Glucose (70-110) mg/dL POC Glucose (mg/dL) 73 L 114 H (75-99) mg/dL Calcium (8.7-10.3) mg/dL Urine Protein (Negative) Urine Glucose (UA) (Negative) Urine Blood (Negative) Urine RBC (0-5) /hpf Amorphous Sediment (None) /hpf Hyaline Casts (0-2) /lpf Urine Mucus (None) /hpf Microbiology - Last 24 Hours (Table) 07/11/20 13:05 Blood Culture - Preliminary Blood No Growth after 48 hours Assessment and Plan Plan: Assessment: 1. Acute kidney injury secondary to ATN secondary to infection. Creatinine peaked at 2.6 this admission and is 2.2 today. 2. Chronic kidney disease stage III with baseline creatinine in the range of 1.6-1.8 secondary to diabetic kidney disease and solitary left kidney. Serologies in the past have been negative. 3. Status post right nephrectomy due to renal cancer. 4. History of left-sided hydronephrosis.Ultrasound this admission revealed no evidence of hydronephrosis. 5. Left lower extremity cellulitis maintained on antibiotics. 6. Insulin-dependent diabetes mellitus. 7. Hypertension with chronic kidney disease. Blood pressure high this morning. Plan: Hep-Lock IV fluids. Add hydralazine 25 mg 3 times daily. To be held for systolic blood pressure less than 120. ANGEL inhibitor will be resumed outpatient. Hold diuretics for now. Continue to monitor renal function and urine output.
[2020-07-14 11:28] LABS: Glucose,Whole Blood 90 mg/dL (75-99)
[2020-07-14 11:33] LABS: African American GFR (CKD) 40.2 (60.0-200.0); Anion Gap 12.6 mmol/L (4.00-12.00); BUN/Creat Ratio 17.37 Ratio (12.00-20.00); Calcium 8.8 mg/dL (8.7-10.3); Carbon Dioxide 23.4 mmol/L (21.6-31.8); Magnesium 1.9 mg/dL (1.5-2.4); Non-African American GFR(CKD) 34.7 (60.0-200.0); Potassium 3.8 mmol/L (3.5-5.5)
[2020-07-14] MEDS: hydrALAZINE HCL 25 MG TAB PO SCH ×2 (15:56→21:09)
[2020-07-14] MEDS: NYSTATIN 100,000UNIT/GM CREAM 30 GM TUBE TOPICAL SCH ×2 (15:56→21:09)
[2020-07-14 16:37] LABS: Glucose,Whole Blood 224 mg/dL (75-99)
[2020-07-14 20:04] LABS: Glucose,Whole Blood 212 mg/dL (75-99)
[2020-07-15] MEDS: HEPARIN SODIUM,PORCINE 5,000 UNIT/ML 1 ML VIAL SQ SCH ×2 (00:31→08:27)
--- NOTE | 2020-07-15 00:59 | PN ---
PROGRESS NOTE DATE OF SERVICE: 07/14/2020 REASON FOR FOLLOWUP: Left lower extremity cellulitis. INTERVAL HISTORY: The patient is currently afebrile. He is breathing comfortably. Denies having any chest pain. No shortness of breath or cough. No nausea, no vomiting. Overall left lower extremity pain and swelling has improved. PHYSICAL EXAMINATION: Blood pressure 177/67 with a pulse of 62, temperature 98.2. He is 93% on room air. General description is an elderly male lying in bed in no distress. RESPIRATORY SYSTEM: Unlabored breathing, clear to auscultation anteriorly. HEART: S1, S2. Regular rate and rhythm. ABDOMEN: Soft. No tenderness. Left leg swelling and redness have decreased. LABS: Hemoglobin is 11.2, white count 11.3, creatinine is 1.9. DIAGNOSTIC IMPRESSION AND PLAN: Patient with acute left lower extremity cellulitis in this patient who did have diffuse swelling and redness. The patient showed clinical improvement with Unasyn to continue to finish therapy with oral Augmentin. Brett wrap to continue to keep the swelling down. MMODL / IJN: [id number] /
[2020-07-15] MEDS: AMPICILLIN-SULBACTAM 3 GM in SODIUM CHLORIDE 0.9% 100 ML IVPB SCH ×2 (04:16→08:28)
[2020-07-15 07:42] LABS: Glucose,Whole Blood 307 mg/dL (75-99)
[2020-07-15] MEDS: INSULIN DETEMIR (LEVEMIR) 100 UNIT/ML SYR SQ SCH (08:25)
[2020-07-15] MEDS: TAMSULOSIN 0.4 MG CAP.ER.24H PO SCH (08:27)
[2020-07-15] MEDS: FOLIC ACID 1 MG TAB PO SCH (08:28)
[2020-07-15] MEDS: amLODIPine 10 MG TAB PO SCH (08:28)
[2020-07-15] MEDS: PANTOPRAZOLE 40 MG TABLET PO SCH (08:28)
[2020-07-15] MEDS: INSULIN ASPART (NovoLOG) 100 UNIT/ML VIAL SQ SCH ×4 (08:28→12:17)
[2020-07-15] MEDS: METOPROLOL TARTRATE 25 MG TAB PO SCH (08:28)
[2020-07-15] MEDS: hydrALAZINE HCL 25 MG TAB PO SCH (08:28)
[2020-07-15] MEDS: NYSTATIN 100,000UNIT/GM CREAM 30 GM TUBE TOPICAL SCH (08:30)
[2020-07-15] MEDS: NON FORMULARY DRUG (Mirabegron [Myrbetriq] 50 MG Tab.Er.24h) PO SCH (08:30)
--- NOTE | 2020-07-15 10:52 | P.PN ---
Subjective Patient is seen in follow-up for acute kidney injury on chronic kidney disease. Patient has chronic kidney disease stage III secondary to solitary left kidney as well as diabetic kidney disease. Good urine output. Currently being treated for left lower extremity cellulitis. Oral intake is good. No vomiting or diarrhea. He wants to go home. Vital signs are stable. General: The patient appeared well nourished and normally developed. HEENT: Head exam is unremarkable. Neck is without jugular venous distension. LUNGS: Breath sounds decreased. HEART: Rate and Rhythm are regular. ABDOMEN: Soft, nontender. Obese. EXTREMITITES: No edema. Left lower extremity erythema noted. No drainage noted. Objective - Vital Signs Vital signs: Vital Signs Temp 98.5 F 07/15/20 07:00 Pulse 66 07/15/20 08:00 Resp 17 07/15/20 08:00 BP 176/66 07/15/20 07:00 Pulse Ox 96 07/15/20 07:00 Intake & Output 07/14/20 07/15/20 07/15/20 18:59 06:59 18:59 Output Total 450 300 Balance -450 -300 Output: Urine 450 300 Other: Voiding Method Toilet Toilet # Voids 8 # Bowel Movements 2 - Labs CBC & Chem 7: 07/14/20 07:10 07/14/20 07:10 Labs: Abnormal Lab Results - Last 24 Hours (Table) 07/14/20 07/14/20 07/14/20 Range/Units 07:10 16:36 20:02 Sodium 147 H (135-145) mmol/L Chloride 111 H (96-109) mmol/L Anion Gap 12.60 H (4.00-12.00) mmol/L BUN 33.0 H (9.0-27.0) mg/dL Creatinine 1.9 H (0.6-1.5) mg/dL Est GFR (CKD-EPI)AfAm 40.2 L (60.0-200.0) Est GFR (CKD-EPI)NonAf 34.7 L (60.0-200.0) Glucose 111 H (70-110) mg/dL POC Glucose (mg/dL) 224 H 212 H (75-99) mg/dL 07/15/20 Range/Units 07:40 Sodium (135-145) mmol/L Chloride (96-109) mmol/L Anion Gap (4.00-12.00) mmol/L BUN (9.0-27.0) mg/dL Creatinine (0.6-1.5) mg/dL Est GFR (CKD-EPI)AfAm (60.0-200.0) Est GFR (CKD-EPI)NonAf (60.0-200.0) Glucose (70-110) mg/dL POC Glucose (mg/dL) 307 H (75-99) mg/dL Microbiology - Last 24 Hours (Table) 07/11/20 13:05 Blood Culture - Preliminary Blood No Growth after 72 hours Assessment and Plan Plan: Assessment: 1. Acute kidney injury secondary to ATN secondary to infection. Creatinine peaked at 2.6 this admission and was 1.9 as of yesterday. 2. Chronic kidney disease stage III with baseline creatinine in the range of 1.6-1.8 secondary to diabetic kidney disease and solitary left kidney. Serologies in the past have been negative. 3. Status post right nephrectomy due to renal cancer. 4. History of left-sided hydronephrosis.Ultrasound this admission revealed no evidence of hydronephrosis. 5. Left lower extremity cellulitis maintained on antibiotics. 6. Insulin-dependent diabetes mellitus. 7. Hypertension with chronic kidney disease. Blood pressure still on the higher side. Plan: Remains off IV fluids. Increase hydralazine to 50 mg 3 times daily. To be held for systolic blood pressure less than 120. Resume ANGEL inhibitor but at a lower dose. Will be further increased outpatient. Hold diuretics for now. Patient was advised to monitor his weight at home and to resume Lasix if notices worsening of edema or weight gain of more than 2-3 pounds. Continue to monitor renal function and urine output. Repeat BMP and magnesium level 2-3 days postdischarge. Follow up outpatient in 7-10 days.
[2020-07-15 11:24] LABS: Glucose,Whole Blood 284 mg/dL (75-99)
--- NOTE | 2020-07-15 12:32 | CDI ---
Documentation Clarification Form Date: 07/15/2020 12:24:28 PM From: Jaky Soria CCS, CCDS Admit Date: 07/11/2020 02:33:00 PM Patient Name: Ivan Nickerson Visit Number: [id number] Discharge Date: ATTENTION: The Clinical Documentation Specialists (CDI) and [facility] Coding Staff appreciate your assistance in clarifying documentation. Please respond to the clarification below the line at the bottom and electronically sign. The CDI & [facility] Coding staff will review the response and follow-up if needed. Please note: Queries are made part of the Legal Health Record. If you have any questions, please contact the author of this message via ITS. Dr. Williams Santoyo: Per the 07/11 History & Physical, the patient is admitted with left lower extremity cellulitis and Hyperglycemia with uncontrolled DM II. Patient history/risk factors: IDDM II, PVD status post complicated fem-pop bypass, CKD III, Morbid Obesity w/BMI >40, ELVIS, Hypertension, Hyperlipidemia, Ongoing nicotine addiction. Clinical Indicators: Presented to the ED on 07/11 with LLE cellulitis & wound dehiscence after complicated fem-pop bypass for severe PVD. RAD 07/11: Left foot, Left Tibia/Fibula & Left Venous US negative for abnormalities. Labs: Neut 8.2^, BUN 62, Cr 2.58^, Glucose 233^, Calcium 8.0*, Total Protein 6.0*, Albumin 3.1*. Treatment: IV Rocephin, IV fluid 500 mls @ 1,000 mls/hr, IV Narcan, IV Ampicillin, IV fluid 1,000 mls @ 75 mls/hr, Heparin sq, Insulin sq In your professional opinion, please clarify if there is a casual relationship between the following: Cellulitis and DM II Cellulitis not related to DM II Cellulitis due to other diagnosis, please specify: Other, please specify: Unable to determine (Last Revision: May 2017) Cellulitis and DM II MTDD
[2020-07-15] MEDS: SYMBICORT 160-4.5 MCG INHALER INHALATION SCH (13:12)
--- NOTE | 2020-07-15 14:22 | PN ---
PROGRESS NOTE DATE OF SERVICE: 07/15/2020 REASON FOR FOLLOWUP: A left lower extremity cellulitis. INTERVAL HISTORY: The patient is currently afebrile. The patient is breathing comfortably. The patient denies having any chest pain no shortness breath or cough. No nausea. No abdominal pain. No diarrhea and wants to go home. PHYSICAL EXAMINATION: Blood pressure 136/63, pulse of 69, he is 98.5 on room air. General description is an elderly male, lying in bed in no distress. RESPIRATORY SYSTEM: Unlabored breathing, clear to auscultation anteriorly. HEART: S1, S2. Regular and rhythm. ABDOMEN: Soft, nontender. Left leg swelling has improved. LABS: 1.9. DIAGNOSTIC IMPRESSION AND PLAN: Patient with acute left lower extremity cellulitis in this patient who did have diffuse swelling with plans on improvement to finish therapy with oral Ceftin. Prescription sent to the pharmacy. MMROBINL / MILAGRON: [id number] /
[2020-07-15 14:35] VITALS: BP 157/58; PULSE 63; RESP 22; TEMP 98.4
[2020-07-15] MEDS ORDERED: hydrALAZINE HCL 50 MG TAB PO SCH (16:00)
--- NOTE | 2020-07-15 23:51 | P.DS ---
Providers Date of admission: 07/11/20 14:33 Attending physician: Williams Santoyo Consults: 07/12/20 11:44 Consult Physician Routine Consulting Provider: Marty Calderon Consult Reason/Comments: LLE cellulitis Do you want consulting provider notified?: Yes 07/13/20 11:19 Consult Physician Routine Consulting Provider: Lionel Muhammad Consult Reason/Comments: Acute kidney injury Do you want consulting provider notified?: Yes Primary care physician: [facility] Hospital Course: Diagnoses: Left lower extremity cellulitis, significantly improved upon discharge Acute kidney injury with underlying CK D stage III. Improved to 1.9 upon discharge and cleared by nephrology Chronic Left renal cyst, 3 cm. Follow-up as an outpatient Hyperglycemia with uncontrolled diabetes type 2 History of urinary bladder/right Kidney cancer with previous nephrectomy, transitional cell carcinoma of the bladder, morbid obesity, ELVIS w/ CPAP, severe PVD with a complicated fem-pop bypass surgery which was further complicated by dehiscence of the wound and subsequent infection of the lower extremity wound site requiring prolonged treatment with wound VAC. Ongoing nicotine addiction Peripheral vascular disease Hypertension Hyperlipidemia Osteoarthritis Hospital course: This is a pleasant 69 years old male with past medical history of diabetes mellitus, chronic kidney disease secondary to diabetes, he follows up also with urologist who did a right nephrectomy and cervical procedure for his urinary bladder cancer, he'll also follow up with Dr. martines who missed his appointment with him earlier this month. This time presents because of left leg cellulitis and is being treated with Unasyn with interval improvement in his left leg, patient was cleared for discharge by infectious disease team on oral course with Keflex. Doppler ultrasound was negative for DVT. Patient also has acute kidney injury with creatinine 2.6 upon admission, newspaper illustrator evaluated the patient. He was treated with IV fluid with diuretics and ANGEL inhibitor as were held temporarily. His creatinine improved to 1.9 on the day of discharge it nephrology cleared him for going home with lower dose of Benazepril from 20 down to 10 mg daily. His hydralazine was increased to 50 mg 3 times a day for better control of blood pressure. Also he was taking NovoLog 40-50 units with meals and Lantus 60 units twice a day. He reports drop his sugar at home. And his sugar is better controlled today with lower dose of insulin, he was discharged on metoprolol 25 mg 3 times a day with meals and Lantus 58 units twice a day, patient informed and he agrees. Patient denies any other symptoms upon discharge. Patient was so eager to go home yesterday and today Patient was cleared for discharge by nephrology and infectious disease teams Problems and management plan were discussed with the patient and he verbalized understanding and acceptance Patient was found stable and can be discharged home however he needs follow-up as an outpatient. Patient was instructed to follow up with PCP at the OR clinic within one week and patient agrees. Patient agrees with the appointments made for him with Dr. Johnson his urologist On 07/[address] Martines on 07/29. Also patient was instructed to follow up with Dr. Ortiz in 7-10 days and he agrees to call and make appointment Gen: patient is a AAOx3, no distress CVS: S1-S2, RRR, no murmur Lungs: B/L CTA, no wheezing Abdomen: soft, no distention, no tenderness, positive bowel sounds Extremity: no leg edema or induration. Left leg cellulitis is significantly improved Time spent more than 35 minutes Patient Condition at Discharge: Fair Plan - Discharge Summary Discharge Rx Participant: Yes New Discharge Prescriptions: New Cephalexin [Keflex] 500 mg PO Q8HR 10 Days #30 cap hydrALAZINE HCL [Apresoline] 50 mg PO TID #90 tab Metoprolol Tartrate [Lopressor] 25 mg PO BID #60 tab Benazepril [Lotensin] 10 mg PO DAILY #30 tablet Nystatin 100,000Unit/gm Cream [Mycostatin Cream] 1 applic TOPICAL BID #1 applic INSULIN ASPART (NovoLOG) [NovoLOG (formulary)] 25 unit SQ AC-TID #1 vial Continue Ketoconazole 2% Shampoo [Nizoral] 1 applic TOPICAL Q7D Omeprazole [PriLOSEC] 40 mg PO DAILY Hydrocortisone 1% Lotion 1 applic TOPICAL BID amLODIPine BESYLATE [Norvasc] 10 mg PO DAILY gemfibroziL [Lopid] 600 mg PO BID Tamsulosin [Flomax] 0.4 mg PO PC-BRKFST cap.er.24h Acetaminophen Tab [Tylenol] 650 mg PO Q6HR PRN tab MDD 6 TABS PRN Reason: Mild Pain Or Fever > 100.5 Thiamine [Vitamin B-1] 100 mg PO DAILY@1200 tab ALPRAZolam [Xanax] 0.5 mg PO BID PRN PRN Reason: Anxiety Budesonide-Formot 160-4.5 Mcg [Symbicort 160-4.5 Mcg Inhaler] 2 puff INHALATION RT-BID calcitrioL [Calcitriol] 0.25 mcg PO DIRECTED Cholecalciferol [Vitamin D3 (25 Mcg = 1000 Iu)] 2,000 unit PO DAILY Ferrous Gluconate 324 mg PO DAILY Mirabegron [Myrbetriq] 50 mg PO DAILY Folic Acid 1 mg PO DAILY Multivitamins, Thera [Multivitamin (formulary)] 1 tab PO DAILY Changed Insulin Glargine,Hum.rec.anlog [Lantus Solostar] 58 unit SQ BID #1 pen Discontinued Loratadine [Claritin] 10 mg PO DAILY Metoprolol Tartrate [Lopressor] 25 mg PO BID hydrALAZINE HCL [Apresoline] 25 mg PO BID Benazepril HCl 20 mg PO DAILY Furosemide [Lasix] 20 mg PO DAILY INSULIN ASPART (NovoLOG) [NovoLOG (formulary)] 50 unit SQ AC-TID Discharge Medication List Hydrocortisone 1% Lotion 1 applic TOPICAL BID 03/14/17 [History] Ketoconazole 2% Shampoo [Nizoral] 1 applic TOPICAL Q7D 03/14/17 [History] Omeprazole [PriLOSEC] 40 mg PO DAILY 03/14/17 [History] amLODIPine BESYLATE [Norvasc] 10 mg PO DAILY 03/14/17 [History] gemfibroziL [Lopid] 600 mg PO BID 11/23/18 [History] Acetaminophen Tab [Tylenol] 650 mg PO Q6HR PRN tab MDD 6 TABS 12/05/18 [Rx] Tamsulosin [Flomax] 0.4 mg PO PC-BRKFST cap.er.24h 12/05/18 [Rx] Thiamine [Vitamin B-1] 100 mg PO DAILY@1200 tab 12/05/18 [Rx] ALPRAZolam [Xanax] 0.5 mg PO BID PRN 07/11/20 [History] Budesonide-Formot 160-4.5 Mcg [Symbicort 160-4.5 Mcg Inhaler] 2 puff INHALATION RT-BID 07/11/20 [History] Cholecalciferol [Vitamin D3 (25 Mcg = 1000 Iu)] 2,000 unit PO DAILY 07/11/20 [History] Ferrous Gluconate 324 mg PO DAILY 07/11/20 [History] Folic Acid 1 mg PO DAILY 07/11/20 [History] Mirabegron [Myrbetriq] 50 mg PO DAILY 07/11/20 [History] Multivitamins, Thera [Multivitamin (formulary)] 1 tab PO DAILY 07/11/20 [History] calcitrioL [Calcitriol] 0.25 mcg PO DIRECTED 07/11/20 [History] Benazepril [Lotensin] 10 mg PO DAILY #30 tablet 07/15/20 [Rx] Cephalexin [Keflex] 500 mg PO Q8HR 10 Days #30 cap 07/15/20 [Rx] INSULIN ASPART (NovoLOG) [NovoLOG (formulary)] 25 unit SQ AC-TID #1 vial 07/15/20 [Rx] Insulin Glargine,Hum.rec.anlog [Lantus Solostar] 58 unit SQ BID #1 pen 07/15/20 [Rx] Metoprolol Tartrate [Lopressor] 25 mg PO BID #60 tab 07/15/20 [Rx] Nystatin 100,000Unit/gm Cream [Mycostatin Cream] 1 applic TOPICAL BID #1 applic 07/15/20 [Rx] hydrALAZINE HCL [Apresoline] 50 mg PO TID #90 tab 07/15/20 [Rx] Follow up Appointment(s)/Referral(s): Amrbosio Martines MD [STAFF PHYSICIAN] - 07/29/20 12:00 pm Kelsy Ortiz MD [STAFF PHYSICIAN] - 10 Days (office not answering Please call to schedule appointment ) [facility] [NON-STAFF] - As Needed (Please call for housekeeping assistance. You can also reach out to [facility] for housekeeping assistance.) Lauro Johnson MD [STAFF PHYSICIAN] - 07/30/20 2:20 pm (left renal cyst ) [facility] [Primary Care Provider] - 1-2 days (Home care orders faxed to [facility]. Please call [facility] to follow up on home care.) Patient Instructions/Handouts: Cellulitis (DC) Activity/Diet/Wound Care/Special Instructions: Low-carb 1800 kcal per day Activity is restricted till you see your doctor Discharge Disposition: HOME WITH HOME HEALTH SERVICES
[2020-07-16] MEDS ORDERED: lisinopriL 10 MG TAB PO SCH (09:00)
== END 2020-07-15 15:25 | disposition home health service (06) | DRG 638 ==
LOC: EC 11:36 → 4SSUR 14:33
PROVIDERS: ADMIT Internal Medicine; ATTEND Internal Medicine
DX: E11.628 Type 2 diabetes mellitus with other skin complications (principal); L03.116 Cellulitis of left lower limb; Z68.41 Body mass index [BMI] 40.0-44.9, adult; N17.0 Acute kidney failure with tubular necrosis; G47.33 Obstructive sleep apnea (adult) (pediatric); Z99.89 Dependence on other enabling machines and devices; E66.01 Morbid (severe) obesity due to excess calories; Z20.828 Contact with and (suspected) exposure to other viral communicable diseases; E78.5 Hyperlipidemia, unspecified; F17.210 Nicotine dependence, cigarettes, uncomplicated; I12.9 Hypertensive chronic kidney disease with stage 1 through stage 4 chronic kidney disease, or unspecified chronic kidney disease; M19.90 Unspecified osteoarthritis, unspecified site; N18.30 Chronic kidney disease, stage 3 unspecified; N28.1 Cyst of kidney, acquired; C67.9 Malignant neoplasm of bladder, unspecified; Z98.49 Cataract extraction status, unspecified eye; Z90.89 Acquired absence of other organs; Z79.4 Long term (current) use of insulin; E11.51 Type 2 diabetes mellitus with diabetic peripheral angiopathy without gangrene; E11.65 Type 2 diabetes mellitus with hyperglycemia; Z79.899 Other long term (current) drug therapy; B35.3 Tinea pedis; Z85.528 Personal history of other malignant neoplasm of kidney; Z90.5 Acquired absence of kidney; E11.22 Type 2 diabetes mellitus with diabetic chronic kidney disease; E11.649 Type 2 diabetes mellitus with hypoglycemia without coma; Z79.51 Long term (current) use of inhaled steroids; Z80.9 Family history of malignant neoplasm, unspecified; Z88.2 Allergy status to sulfonamides; Z88.8 Allergy status to other drugs, medicaments and biological substances; Z91.041 Radiographic dye allergy status; Z82.3 Family history of stroke
CPT/HCPCS: 36415; 76770; 80048; 80053; 81001; 83605; 83735; 85025; 87040; 87635; 94640; 96361; 96365; 96375; 99285

== ENCOUNTER 2020-08-01 22:43 | Inpatient (IN) | payer OTHER, MEDICARE ==
[2020-08-01 22:49] VITALS: TEMP 99.2
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
--- NOTE | 2020-08-01 23:40 | XR ---
EXAMINATION TYPE: XR chest 1V portable DATE OF EXAM: 08/01/2020 COMPARISON: 11/28/2018 HISTORY: Pneumonia. Short of breath. TECHNIQUE: Single view FINDINGS: There is pulmonary airspace edema. There is blunting of the costophrenic angles. Heart is e nlarged. IMPRESSION: Congestive heart failure with pleural effusions and pulmonary airspace edema. Pulmonary e katerin increased compared to old exam. RDS is not excluded.
[2020-08-02] MEDS ORDERED: IPRATROPIUM-ALBUTEROL 3 ML NEB INHALATION STA (00:49)
[2020-08-02 01:38] LABS: Basophils # (A) 0.1 k/uL (0-0.2); Basophils % (A) 1 %; Eosinophils # (A) 0.1 k/uL (0-0.7); Eosinophils % (A) 1 %; HCT 29.1 % (39.0-53.0); Hypochromasia Marked; Lymphocytes # (A) 0.6 k/uL (1.0-4.8); Lymphocytes % (A) 5 %; MCH 28.8 pg (25.0-35.0); MCHC 30.4 g/dL (31.0-37.0); MCV 94.7 fL (80.0-100.0); Mean Platelet Volume 9.1; Monocytes # (A) 0.7 k/uL (0-1.0); Monocytes % (A) 6 %; Neutrophils % (A) 88 %; Platelet Count 344 k/uL (150-450); RBC 3.07 m/uL (4.30-5.90); RDW 14.5 % (11.5-15.5); WBC 12.5 k/uL (3.8-10.6)
[2020-08-02 01:39] LABS: HGB 8.9 gm/dL (13.0-17.5)
[2020-08-02 01:41] LABS: Partial Thromboplastin Time 19.7 sec (22.0-30.0)
[2020-08-02 01:44] LABS: Albumin 3.1 g/dL (3.5-5.0); Calcium 7.6 mg/dL (8.4-10.2); Potassium 5.9 mmol/L (3.5-5.1); Total Bilirubin 0.4 mg/dL (0.2-1.3); Total Protein 6.4 g/dL (6.3-8.2)
[2020-08-02] MEDS ORDERED: methylPREDNISolone SOD SUCCI 125 MG/2 ML VIAL IV STA (02:40)
[2020-08-02] MEDS ORDERED: DEXAMETHASONE SOD PHOSPHATE 10 MG/ML 1 ML VIAL IV STA (02:42)
[2020-08-02] MEDS ORDERED: FUROSEMIDE 10 MG/ML 4 ML VIAL IV SCH (03:00)
[2020-08-02 03:05] VITALS: RESP 20
[2020-08-02 04:14] VITALS: BP 171/79; PULSE 67
[2020-08-02] MEDS ORDERED: methylPREDNISolone SOD SUCCI 125 MG/2 ML VIAL IV SCH (06:00)
[2020-08-02] MEDS ORDERED: INSULIN ASPART (NovoLOG) 100 UNIT/ML VIAL SQ ONE (06:05)
[2020-08-02 06:33] LABS: Glucose,Whole Blood 405 mg/dL (75-99)
[2020-08-02] MEDS ORDERED: INSULIN DETEMIR (LEVEMIR) 100 UNIT/ML SYR SQ SCH (07:00)
[2020-08-02 07:17] LABS: Calcium 7.8 mg/dL (8.4-10.2); Potassium 5.6 mmol/L (3.5-5.1)
[2020-08-02] MEDS ORDERED: INSULIN ASPART (NovoLOG) 100 UNIT/ML VIAL SQ SCH ×2 (07:30)
[2020-08-02] MEDS ORDERED: IPRATROPIUM-ALBUTEROL 3 ML NEB INHALATION SCH (08:00)
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
[2020-08-02 09:11] LABS: Ferritin 181.7 ng/mL (22.0-322.0)
--- NOTE | 2020-08-06 09:08 | CDI ---
Documentation Clarification Form Date: 08/06/2020 08:54:58 AM From: Jaky Soria CCS, CCDS Admit Date: 08/02/2020 02:41:00 AM Patient Name: Ivan Nickerson Visit Number: [id number] Discharge Date: 08/02/2020 11:43:00 AM ATTENTION: The Clinical Documentation Specialists (CDI) and [facility] Coding Staff appreciate your assistance in clarifying documentation. Please respond to the clarification below the line at the bottom and electronically sign. The CDI & [facility] Coding staff will review the response and follow-up if needed. Please note: Queries are made part of the Legal Health Record. If you have any questions, please contact the author of this message via ITS. Dr. Peters E. Sheet: Per the 08/02 History & Physical: "Recent Acute kidney injury with underlying CKD stage III. Improved to 1.9 upon discharge , now presents with worsening kidney function as above." History/Risk Factors: Bladder Cancer status post TURB tumor, Right Kidney Cancer status post Right Nephrectomy, Cystoscopy with evacuation & fulguration of bleeders & left ureteral stent insertion 11/2018, IDDM II, Hypertension, Hyperlipidemia, GERD, PVD status post complicated Fem-Pop bypass complicated by wound dehiscence & infection of left lower extremity requiring prolonged treatment and Wound VAC, Current Smoker. Patients Historical GFR: 10/07/2017: >60 Patient's Current GFR: 21 - 24 08/02 BUN & Creatinine: 44 & 2.92 Clinical Indicators: Patient presented to the ED 08/01 @ 22:43 via EMS with SOB, PO 77 RA per EMS, put on BiPAP in ED with no improvement. Diagnosed with Acute hypoxic respiratory failure, RIGOBERTO w/Hyperkalemia & elevated Troponins. Patient 08/02 @ 08:50. Treatment: BiPAP, INH Albuterol/Ipratropium Duoneb, IV Decadron, IV Lasix, Insulin sq 15 unit. In order to capture the severity of condition, please clarify the stage of the CKD, if known: CKD Stage 2 (GFR 60-89) CKD Stage 3a (GFR 45-59) CKD Stage 3b (GFR 30-44) CKD Stage 4 (GFR 15-29) Other, please specify Unable to determine [Template Last reviewed: April 2020] pt had RIGOBERTO on top of CKD stage III creatinine on admission is 2.8-2.9, baseline is 1.6-1.9 MTDD
--- NOTE | 2020-08-06 09:24 | CDI ---
Documentation Clarification Form Date: 08/06/2020 09:11:00 AM From: Jaky Soria CCS, CCDS Admit Date: 08/02/2020 02:41:00 AM Patient Name: Ivan Nickerson Visit Number: [id number] Discharge Date: 08/02/2020 11:43:00 AM ATTENTION: The Clinical Documentation Specialists (CDI) and [facility] Coding Staff appreciate your assistance in clarifying documentation. Please respond to the clarification below the line at the bottom and electronically sign. The CDI & [facility] Coding staff will review the response and follow-up if needed. Please note: Queries are made part of the Legal Health Record. If you have any questions, please contact the author of this message via ITS. Dr. Peters Sheet: Anemia is documented in the 08/01 ED Impression without further specificity. History/Risk Factors: Bladder Cancer status post TURB tumor, Right Kidney Cancer status post Right Nephrectomy, Cystoscopy with evacuation & fulguration of bleeders & left ureteral stent insertion 11/2018, IDDM II, Hypertension, Hyperlipidemia, GERD, PVD status post complicated Fem-Pop bypass complicated by wound dehiscence & infection of left lower extremity requiring prolonged treatment and Wound VAC, Morbid Obesity with BMI 45.3, Current Smoker. Clinical Indicators: Patient presented to the ED 08/01 @ 22:43 via EMS with SOB, PO 77 RA per EMS, put on BiPAP in ED with no improvement. Diagnosed with Acute hypoxic respiratory failure, RIGOBERTO w/Hyperkalemia & elevated Troponins, Anemia and Acute Pulmonary Edema. Patient 08/02 @ 08:50. 08/02 LAB: Hgb 8.9*, Hct 29.1*, WBC 12.5^, RBC 3.07*, Neut 11.0^, Lymph 0.6*, APTT 19.7*, K 5.9^, BUN 40^, Cr 2.86^, Glucose 384^, Calcium 7.6*. Home meds: Prilosec, Norvasc, Lopid, Xanax, INH Symbicort, Ferrous Gluconate, Folic Acid, Myrbetriq, Calcitriol. Treatment: BiPAP, INH Albuterol/Ipratropium Duoneb, IV Decadron, IV Lasix, Insulin sq 15 unit. In order to capture the severity of condition, please clarify the type of anemia and etiology if known:. Chronic blood loss anemia Iron deficiency anemia Drug induced anemia Anemia due to malignancy Nutritional anemia Anemia of chronic kidney disease Unable to determine Other, please specify (Last Form Revision: October 2019) no anemia work up is done during this admission MTDD
--- NOTE | 2020-08-06 09:35 | CDI ---
Documentation Clarification Form Date: 08/06/2020 09:26:00 AM From: Jaky Soria CCS, CCDS Admit Date: 08/02/2020 02:41:00 AM Patient Name: Ivan Nickerson Visit Number: [id number] Discharge Date: 08/02/2020 11:43:00 AM ATTENTION: The Clinical Documentation Specialists (CDI) and [facility] Coding Staff appreciate your assistance in clarifying documentation. Please respond to the clarification below the line at the bottom and electronically sign. The CDI & [facility] Coding staff will review the response and follow-up if needed. Please note: Queries are made part of the Legal Health Record. If you have any questions, please contact the author of this message via ITS. Dr. Peters Sheet: Per the History & Physical: "Chest x-ray: CHF with a pleural effusion, RDS not excluded." History/Risk Factors: Bladder Cancer status post TURB tumor, Right Kidney Cancer status post Right Nephrectomy, Cystoscopy with evacuation & fulguration of bleeders & left ureteral stent insertion 11/2018, IDDM II, Hypertension, Hyperlipidemia, GERD, PVD status post complicated Fem-Pop bypass complicated by wound dehiscence & infection of left lower extremity requiring prolonged treatment and Wound VAC, Morbid Obesity with BMI 45.3, Current Smoker. Clinical Indicators: Patient presented to the ED 08/01 @ 22:43 via EMS with SOB, PO 77 RA per EMS, put on BiPAP in ED with no improvement. Diagnosed with Acute hypoxic respiratory failure, RIGOBERTO w/Hyperkalemia & elevated Troponins, Anemia and Acute Pulmonary Edema. Patient 08/02 @ 08:50. VS 08/01: T 99.2, P 92, R 22 (sob, labored, cough, talks in phrases), BP 169/74, PO 96 15L nrb. VS 08/02: P 108^, R 20, BP 138/81, PO 96 on BiPAP 100% 08/02 LAB: Hgb 8.9*, Hct 29.1*, WBC 12.5^, RBC 3.07*, Neut 11.0^, Lymph 0.6*, APTT 19.7*, K 5.9^, BUN 40^, Cr 2.86^, Glucose 384^, Calcium 7.6*. COVID not detected. 08/01 CXR: Congestive heart failure with pleural effusions and pulmonary airspace edema. Pulmonary edema increased compared to old exam. RDS is not excluded. Home meds: Prilosec, Norvasc, Lopid, Xanax, INH Symbicort, Ferrous Gluconate, Folic Acid, Myrbetriq, Calcitriol. Treatment: BiPAP, INH Albuterol/Ipratropium Duoneb, IV Decadron, IV Lasix, Insulin sq 15 unit. In your professional opinion, can you please clarify the documented RDS? Respiratory Distress Syndrome ruled out Respiratory Distress Syndrome ruled in: o Acute Other, please specify Unable to determine (Last Revision: November 2017) Unable to determine, pt is before i was able to evaluate him MTDD
--- NOTE | 2020-08-06 09:43 | CDI ---
Documentation Clarification Form Date: 08/06/2020 09:36:00 AM From: Jaky Soria CCS, CCDS Admit Date: 08/02/2020 02:41:00 AM Patient Name: Ivan Nickerson Visit Number: [id number] Discharge Date: 08/02/2020 11:43:00 AM ATTENTION: The Clinical Documentation Specialists (CDI) and [facility] Coding Staff appreciate your assistance in clarifying documentation. Please respond to the clarification below the line at the bottom and electronically sign. The CDI & [facility] Coding staff will review the response and follow-up if needed. Please note: Queries are made part of the Legal Health Record. If you have any questions, please contact the author of this message via ITS. Dr. Peters Sheet: CHF is documented in the 08/01 ED note and in the 08/01 CXR without further specificity. History/Risk Factors: Bladder Cancer status post TURB tumor, Right Kidney Cancer status post Right Nephrectomy, Cystoscopy with evacuation & fulguration of bleeders & left ureteral stent insertion 11/2018, IDDM II, Hypertension, Hyperlipidemia, GERD, PVD status post complicated Fem-Pop bypass complicated by wound dehiscence & infection of left lower extremity requiring prolonged treatment and Wound VAC, Morbid Obesity with BMI 45.3, Current Smoker. Clinical Indicators: Patient presented to the ED 08/01 @ 22:43 via EMS with SOB, PO 77 RA per EMS, put on BiPAP in ED with no improvement. Diagnosed with Acute hypoxic respiratory failure, RIGOBERTO w/Hyperkalemia & elevated Troponins, Anemia and Acute Pulmonary Edema. Patient 08/02 @ 08:50. VS 08/01: T 99.2, P 92, R 22 (sob, labored, cough, talks in phrases), BP 169/74, PO 96 15L nrb. VS 08/02: P 108^, R 20, BP 138/81, PO 96 on BiPAP 100% 08/02 LAB: Hgb 8.9*, Hct 29.1*, WBC 12.5^, RBC 3.07*, Neut 11.0^, Lymph 0.6*, APTT 19.7*, K 5.9^, BUN 40^, Cr 2.86^, Glucose 384^, Calcium 7.6*. COVID not detected. 08/01 CXR: Congestive heart failure with pleural effusions and pulmonary airspace edema. Pulmonary edema increased compared to old exam. RDS is not excluded. ECHO: (most recent 11/29/2018): Morbid Obesity, technically difficult study, mild concentric left ventricular hypertrophy, left ventricular systolic function is normal with EF 55-60%, Left atrium is moderately dilated, Mild MR, aortic & pulmonic valves not well visualized. Home meds: Prilosec, Norvasc, Lopid, Xanax, INH Symbicort, Ferrous Gluconate, Folic Acid, Myrbetriq, Calcitriol. Treatment: BiPAP, INH Albuterol/Ipratropium Duoneb, IV Decadron, IV Lasix, Insulin sq 15 unit. In your professional opinion, can you please clarify the acuity and type of CHF if known? Congestive Heart Failure is ruled out Congestive Heart Failure is ruled in, please specify type & acuity: Systolic Heart Failure: o Acute o Chronic o Acute on Chronic Diastolic Heart Failure: o Acute o Chronic o Acute on Chronic Systolic & Diastolic Heart Failure: o Acute o Chronic o Acute on Chronic Heart Failure Unable to Determine Other, please specify (Last Revision: November 2017) Unable to determine, pt is before i was able to evaluate him MTDD
--- NOTE | 2020-08-06 09:51 | CDI ---
Documentation Clarification Form Date: 08/06/2020 09:44:42 AM From: Jaky Soria CCS, CCDS Admit Date: 08/02/2020 02:41:00 AM Patient Name: Ivan Nickerson Visit Number: [id number] Discharge Date: 08/02/2020 11:43:00 AM ATTENTION: The Clinical Documentation Specialists (CDI) and [facility] Coding Staff appreciate your assistance in clarifying documentation. Please respond to the clarification below the line at the bottom and electronically sign. The CDI & [facility] Coding staff will review the response and follow-up if needed. Please note: Queries are made part of the Legal Health Record. If you have any questions, please contact the author of this message via ITS. Dr. Peters E. Sheet: Please clarify the Preliminary Cause of if possible. History/Risk Factors: Bladder Cancer status post TURB tumor, Right Kidney Cancer status post Right Nephrectomy, Cystoscopy with evacuation & fulguration of bleeders & left ureteral stent insertion 11/2018, IDDM II, Hypertension, Hyperlipidemia, GERD, PVD status post complicated Fem-Pop bypass complicated by wound dehiscence & infection of left lower extremity requiring prolonged treatment and Wound VAC, Morbid Obesity with BMI 45.3, Current Smoker. Clinical Indicators: Patient presented to the ED 08/01 @ 22:43 via EMS with SOB, PO 77 RA per EMS, put on BiPAP in ED with no improvement. Diagnosed with Acute hypoxic respiratory failure, RIGOBERTO w/Hyperkalemia & elevated Troponins, Anemia and Acute Pulmonary Edema. Patient 08/02 @ 08:50. VS 08/01: T 99.2, P 92, R 22 (sob, labored, cough, talks in phrases), BP 169/74, PO 96 15L nrb. VS 08/02: P 108^, R 20, BP 138/81, PO 96 on BiPAP 100% 08/02 LAB: Hgb 8.9*, Hct 29.1*, WBC 12.5^, RBC 3.07*, Neut 11.0^, Lymph 0.6*, APTT 19.7*, K 5.9^, BUN 40^, Cr 2.86^, Glucose 384^, Calcium 7.6*. COVID not detected. 08/01 CXR: Congestive heart failure with pleural effusions and pulmonary airspace edema. Pulmonary edema increased compared to old exam. RDS is not excluded. Home meds: Prilosec, Norvasc, Lopid, Xanax, INH Symbicort, Ferrous Gluconate, Folic Acid, Myrbetriq, Calcitriol. Per 08/02 Nursing Note: The patient had taken off his BiPAP, Bed alarm went off at this time, upon entering room patients legs were out of bed and patient was urinating on the floor. Patient with agonal breathing, cyanotic unable to obtain blood pressure, no palpable pulse, patient straightened up in bed. Patient wishes expressed to be DNR upon admission. Patient at 0850, no respirations, no pulse. Treatment: BiPAP, INH Albuterol/Ipratropium Duoneb, IV Decadron, IV Lasix, Insulin sq 15 unit. In your professional opinion, can you please clarify the Preliminary Cause of : PCD: (Last Revision: November 2017) cardiopulmonary arrest MTDD
== END 2020-08-02 11:43 | disposition expired | DRG 189 ==
LOC: EC 22:43 → 3SCARD 08-02 02:41
PROVIDERS: ADMIT Hospitalist; ATTEND Hospitalist
PROC: 5A09357 Assistance with Respiratory Ventilation, Less than 24 Consecutive Hours, Continuous Positive Airway Pressure (ICD-10-PCS; principal; 2020-08-02)
DX: J96.01 Acute respiratory failure with hypoxia (principal); Z68.42 Body mass index [BMI] 45.0-49.9, adult; N17.9 Acute kidney failure, unspecified; I13.0 Hypertensive heart and chronic kidney disease with heart failure and stage 1 through stage 4 chronic kidney disease, or unspecified chronic kidney disease; L03.116 Cellulitis of left lower limb; I46.9 Cardiac arrest, cause unspecified; Z20.828 Contact with and (suspected) exposure to other viral communicable diseases; J44.9 Chronic obstructive pulmonary disease, unspecified; Z66 Do not resuscitate; F17.200 Nicotine dependence, unspecified, uncomplicated; G47.33 Obstructive sleep apnea (adult) (pediatric); M19.90 Unspecified osteoarthritis, unspecified site; Z79.4 Long term (current) use of insulin; K21.9 Gastro-esophageal reflux disease without esophagitis; E78.5 Hyperlipidemia, unspecified; E66.01 Morbid (severe) obesity due to excess calories; I50.9 Heart failure, unspecified; E11.51 Type 2 diabetes mellitus with diabetic peripheral angiopathy without gangrene; E11.65 Type 2 diabetes mellitus with hyperglycemia; R79.89 Other specified abnormal findings of blood chemistry; E11.22 Type 2 diabetes mellitus with diabetic chronic kidney disease; N18.30 Chronic kidney disease, stage 3 unspecified; N28.1 Cyst of kidney, acquired; E87.5 Hyperkalemia; D64.9 Anemia, unspecified; Z79.51 Long term (current) use of inhaled steroids; Z79.899 Other long term (current) drug therapy; Z88.2 Allergy status to sulfonamides; Z88.8 Allergy status to other drugs, medicaments and biological substances; Z91.041 Radiographic dye allergy status; Z90.5 Acquired absence of kidney; Z85.528 Personal history of other malignant neoplasm of kidney; Z85.51 Personal history of malignant neoplasm of bladder; Z90.89 Acquired absence of other organs; Z98.890 Other specified postprocedural states; Z98.49 Cataract extraction status, unspecified eye; Z82.3 Family history of stroke; Z80.9 Family history of malignant neoplasm, unspecified
CPT/HCPCS: 36415; 71045; 80048; 80053; 82728; 83605; 83615; 83735; 84145; 84484; 85025; 85610; 85730; 86140; 87040; 87635; 93005; 94640; 94660; 96374; 96375; 99291